=== PATIENT | male | born 1960 | race Caucasian/White ===

== ENCOUNTER 2020-03-09 15:40 | Emergency (ER) | payer MEDICAID, SELFPAY ==
[2020-03-09 16:37] VITALS: BP 124/77; BP 92/60; PULSE 65; PULSE 67; RESP 20; TEMP 36.5; O2SAT 97; BMI 24.1
--- NOTE | 2020-03-09 17:27 | ED.GENADULT ---
HPI - General Adult General Chief complaint: General Medical Stated complaint: FALL FROM STANDING,NO C/O INJURY,ETOH INTOX Time Seen by Provider: 03/09/20 17:27 History of Present Illness HPI narrative: Patient was daily drinker complains of left shoulder pain neck pain and head pain after a slip and fall on the ice while trying to get on a bus which happened several hours ago He has had difficulties with balance for a long time and walks with either a walker or cane today he was using his cane He has said he did not have any preceding symptoms, he did not faint, he says he tripped on the sidewalk and fell, he denies loss of consciousness, he does have a mild headache Related Data Allergies Allergy/AdvReac Type Severity Reaction Status Date / Time Penicillins Allergy Mild SWELLING Verified 03/09/20 16:52 morphine [Morphine] AdvReac Mild SWELLING, Verified 03/09/20 16:52 ITCHING codeine [Codeine] AdvReac Unknown ITCHING, Verified 03/09/20 16:52 HIVES From Avelox Allergy Mild HIVES Uncoded 11/14/19 17:20 Review of Systems Review of Systems: Positive for mild headache, left-sided neck pain, left shoulder and arm pain No numbness no weakness no paresthesias, no nausea or vomiting, no vision changes, no chest pain no shortness of breath no abdominal pain no recent fever chills Yes all other systems are reviewed and are negative FOR[facility]LY [facility], LATER [facility] Past Medical History Attestation statement: The following information was validated with the patient. [facility], [facility] Narrative: Patient has history of epilepsy for which she takes Dilantin and is compliant with his meds, he has high blood pressure as well, he denies taking any blood thinner except aspirin He is a daily drinker of alcohol Social History Social History Advance Directives: No Advance Directives Information Provided: Yes Physical Exam Vital Signs: Vital Signs: Last Vital Signs Temp 97.7 F 03/09/20 16:37 Pulse 65 03/09/20 16:37 Resp 20 03/09/20 16:37 BP 92/60 03/09/20 16:37 Pulse Ox 97 03/09/20 16:37 Body Mass Index 24.1 General appearance no distress, comfortable in his chair, appears mildly intoxicated with speech mildly slurred The head is normocephalic atraumatic, pupils equal round reactive to light extraocular motions intact The neck had left-sided as well as midline nonfocal tenderness, there was left trapezius tenderness The chest was clear to auscultation bilaterally with symmetric equal breath sounds, no tenderness to the ribs or the chest wall The heart no murmurs The back there is no tenderness along the bones of the spine, no CVA tenderness Abdomen was soft nontender Extremities there was tenderness to the left mid humerus upper humerus and left shoulder Gait was tested but patient was off balance and was not walking safely even with assistance of his cane Course Course Course Narrative: CT of head and neck did not reveal any acute pathology X-rays of left shoulder and upper arm did not reveal any fractures Patient appears more sober than earlier and is much more communicative and is cooperative Case is signed out to physician recruitment assistant Roberto to follow labs re-evaluate and dispo patient Medical Decision Making Lab Data Lab results reviewed: Yes I reviewed the patient's lab results. Result diagrams: 03/09/20 20:22 03/09/20 20:22 Labs: Lab Results 03/09/20 03/09/20 03/09/20 Range/Units 20:22 20:22 20:22 WBC 5.4 (4.8-10.8) X10*3/uL RBC 3.91 L (4.60-5.80) X10*6/uL Hgb 12.0 L (14.0-18.0) g/dl Hct 36.5 L (42-52) % MCV 93.4 (80-98) fL MCH 30.7 (27.0-33.0) pg MCHC 32.9 (31.0-36.0) g/dl RDW 15.0 (11.0-16.0) % Plt Count TNP MPV 9.4 (9.4-12.4) fL Immature Gran % (Auto) 0.2 (0.0-0.4) % Neut % (Auto) 30.8 L (45-73) % Lymph % (Auto) 57.7 H (20-40) % [place] % (Auto) 5.6 (2-11) % Eos % (Auto) 5.0 H (0-4) % Baso % (Auto) 0.7 (0-2) % Lymph # (Auto) 3.1 (1.2-4.9) X10*3/uL [place] # (Auto) 0.3 (0.1-1.2) X10*3/uL Eos # (Auto) 0.3 (0.0-0.4) X10*3/uL Baso # (Auto) 0.0 (0.0-0.2) X10*3/uL Abs Immat Gran (auto) 0.01 (0.00-0.03) X10*3/uL Absolute Neuts (auto) 1.7 L (2.0-8.3) X10*3/uL Absolute Nucleated RBC 0.000 (0.0-0.012) X10*3/uL Nucleated RBC % (auto) 0.0 (0.0-0.2) /100WBC Smear Tech's Comments VERIFIED PT 11.7 (10.8-13.0) SEC INR 1.0 (0.9-1.1) Sodium 143 (135-145) mmol/L Potassium 4.4 (3.3-5.1) mmol/l Chloride 105 (96-108) mmol/L Carbon Dioxide 29 (22-29) mmol/L Anion Gap 13 (12-20) BUN 14 (9-16) mg/dL Creatinine 0.83 (0.5-1.4) mg/dL Estim Creat Clear Calc 106.4 Estimated GFR > 60 Random Glucose 97 (60-115) mg/dL Calcium 8.9 (8.4-10.2) mg/dL Magnesium 2.3 (1.6-2.6) mg/dL Total Bilirubin 0.2 (0.0-1.0) mg/dL Direct Bilirubin < 0.2 (0.0-0.5) mg/dL AST 19 (5-37) U/L ALT 15 (0-40) U/L Alkaline Phosphatase 135 H (39-117) U/L Total Protein 8.0 (6.5-8.0) g/dL Albumin 4.4 (3.5-5.0) g/dL Imaging Data CT scan - head: Radiologist's impression: Cervical Spine: The atlantooccipital and atlantoaxial articulations remain well aligned. Mild degenerative anterolisthesis of C4 on C5. Otherwise, there is anatomic alignment of the vertebral bodies and posterior elements. No evidence of acute fracture or subluxation. The vertebral body heights are maintained. Advanced degenerative disc disease at C5-C6. Moderate degenerative disc disease at all additional cervical levels. Prominent partially calcified disc bulges at all levels from C3-C7, partially narrowing the spinal canal. There is also calcification of the right-sided ligamentum flavum at C5-C6. Moderate multilevel facet and uncovertebral joint arthropathy leads to osseous encroachment on the neural foramina from C3-C7. There is no prevertebral soft tissue swelling. The thyroid gland and remaining cervical soft tissues are normal in appearance. Moderate centrilobular emphysema demonstrated in the visualized lung apices. CT/CT cervical spine wo con IMPRESSION: 1. No evidence of acute intracranial hemorrhage or edematous territorial infarction. 2. No evidence of acute fracture or traumatic subluxation of the cervical spine. 3. Extensive underlying white matter disease. Mild generalized cerebral volume loss. 4. Moderate multilevel degenerative spondyloarthropathy of the cervical spine. Moderate partially calcified disc bulges at all levels from C3-C7 partially narrowing the spinal canal. 5. Emphysema.
--- NOTE | 2020-03-09 17:28 | XR_ITS ---
EXAMINATION: LEFT SHOULDER, LEFT HUMERUS CLINICAL INFORMATION: Shoulder and arm pain COMPARISON: Left shoulder 06/21/2019, left humerus 11/13/2018 TECHNIQUE: 2 views left humerus, 3 views left shoulder FINDINGS: No significant bone joint or soft tissue abnormality is seen. XR/XR shoulder LT min 2V IMPRESSION: Negative exam
--- NOTE | 2020-03-09 17:28 | XR_ITS ---
EXAMINATION: LEFT SHOULDER, LEFT HUMERUS CLINICAL INFORMATION: Shoulder and arm pain COMPARISON: Left shoulder 06/21/2019, left humerus 11/13/2018 TECHNIQUE: 2 views left humerus, 3 views left shoulder FINDINGS: No significant bone joint or soft tissue abnormality is seen. XR/XR humerus LT IMPRESSION: Negative exam
--- NOTE | 2020-03-09 17:29 | CT_ITS ---
EXAMINATION: CT HEAD WITHOUT CONTRAST CT CERVICAL SPINE WITHOUT CONTRAST CLINICAL INFORMATION: Fall. COMPARISON: CT head and cervical spine from 01/17/2020. TECHNIQUE: Contiguous axial imaging was performed from the skull base to vertex without intravenous administration of contrast. Contiguous axial imaging was performed from the upper chest through the skull base without intravenous administration of contrast. Coronal and sagittal reformats were obtained at the acquisition workstation. This CT examination was performed using dose optimization techniques as appropriate, variously including the following: *Automated exposure control. *Adjustment of mA and/or kV according to patient size (this includes techniques or standardized protocols for targeted exams where dose is matched to indication/reason for exam; i.e. extremities or head). *Use of iterative reconstruction technique. DLP: 1173 mGy-cm FINDINGS: Head: There is no evidence of acute intracranial hemorrhage or edematous territorial infarction. Confluent hypoattenuation in the periventricular and deep white matter. Seay-white matter differentiation is preserved. Proportional prominence of the ventricles and sulcal spaces. No evidence for obstructive hydrocephalus. No abnormal mass effect or midline shift. No extra-axial fluid collections. Calcific atherosclerotic disease of the intracranial internal carotid arteries. No hyperdense vessel sign. No acute soft tissue or osseous abnormalities. Mild mucosal thickening of the paranasal sinuses. Trace bilateral mastoid effusions. Cervical Spine: The atlantooccipital and atlantoaxial articulations remain well aligned. Mild degenerative anterolisthesis of C4 on C5. Otherwise, there is anatomic alignment of the vertebral bodies and posterior elements. No evidence of acute fracture or subluxation. The vertebral body heights are maintained. Advanced degenerative disc disease at C5-C6. Moderate degenerative disc disease at all additional cervical levels. Prominent partially calcified disc bulges at all levels from C3-C7, partially narrowing the spinal canal. There is also calcification of the right-sided ligamentum flavum at C5-C6. Moderate multilevel facet and uncovertebral joint arthropathy leads to osseous encroachment on the neural foramina from C3-C7. There is no prevertebral soft tissue swelling. The thyroid gland and remaining cervical soft tissues are normal in appearance. Moderate centrilobular emphysema demonstrated in the visualized lung apices. CT/CT cervical spine wo con IMPRESSION: 1. No evidence of acute intracranial hemorrhage or edematous territorial infarction. 2. No evidence of acute fracture or traumatic subluxation of the cervical spine. 3. Extensive underlying white matter disease. Mild generalized cerebral volume loss. 4. Moderate multilevel degenerative spondyloarthropathy of the cervical spine. Moderate partially calcified disc bulges at all levels from C3-C7 partially narrowing the spinal canal. 5. Emphysema.
--- NOTE | 2020-03-09 19:25 | PC.NURSE ---
Pt ambulating to the bathroom with an unsteady gait, requiring 2 assist. Per provider, plan for labs. Continue to monitor.
--- NOTE | 2020-03-09 20:08 | PC.NURSE ---
a/c tech at bedside to obtain labs.
[2020-03-09 20:33] LABS: Basophils Percent Auto 0.7 % (0-2); Eosinophils Absolute Auto 0.3 X10*3/uL (0.0-0.4); Hematocrit 36.5 % (42-52); Imm Gran Abs Auto 0.01 X10*3/uL (0.00-0.03); Imm Gran Pct Auto 0.2 % (0.0-0.4); Lymphocytes Absolute Auto 3.1 X10*3/uL (1.2-4.9); Lymphocytes Percent Auto 57.7 % (20-40); MANUAL DIFF FLAG SCAN; Mean Corpuscular HGB Conc 32.9 g/dl (31.0-36.0); Mean Corpuscular Hemoglobin 30.7 pg (27.0-33.0); Mean Corpuscular Volume 93.4 fL (80-98); Mean Platelet Volume 9.4 fL (9.4-12.4); Monocytes Absolute Auto 0.3 X10*3/uL (0.1-1.2); Monocytes Percent Auto 5.6 % (2-11); Neutrophils Absolute Auto 1.7 X10*3/uL (2.0-8.3); Neutrophils Percent Auto 30.8 % (45-73); PLT CLUMP 1; Red Blood Count 3.91 X10*6/uL (4.60-5.80); SCAN SMEAR FLAG 1
[2020-03-09 20:36] LABS: Prothrombin Time 11.7 SEC (10.8-13.0)
[2020-03-09 20:53] LABS: Alanine Aminotransferase 15 U/L (0-40); Albumin Level 4.4 g/dL (3.5-5.0); Alkaline Phosphatase 135 U/L (39-117); Anion Gap 13 (12-20); Aspartate Amino Transferase 19 U/L (5-37); Bilirubin Direct < 0.2 mg/dL (0.0-0.5); Bilirubin Total 0.2 mg/dL (0.0-1.0); Blood Urea Nitrogen 14 mg/dL (9-16); Calcium 8.9 mg/dL (8.4-10.2); Carbon Dioxide 29 mmol/L (22-29); Chloride 105 mmol/L (96-108); Creatinine Clr Calc Pharmacy 106.4; Estimated Glomerular Filt Rate > 60; Glucose Random 97 mg/dL (60-115); Magnesium 2.3 mg/dL (1.6-2.6); Potassium 4.4 mmol/l (3.3-5.1); Sodium 143 mmol/L (135-145)
[2020-03-09 20:56] LABS: White Blood Count 5.4 X10*3/uL (4.8-10.8)
[2020-03-09 20:58] LABS: SLIDE REVIEW VERIFIED
[2020-03-09 21:09] LABS: Phenytoin Dilantin 7.2 ug/mL (10.0-20.0)
[2020-03-09 21:41] VITALS: BP 108/68; PULSE 69; RESP 20; O2SAT 99
[2020-03-09 21:53] LABS: Ethanol 182 mg/dL
[2020-03-10] VITALS: BP 107/52; PULSE 83; RESP 18; TEMP 36.7; O2SAT 97
[2020-03-10 02:33] VITALS: BP 119/67; PULSE 80; RESP 14; O2SAT 96
--- NOTE | 2020-03-10 02:33 | PC.NURSE ---
Pt resting in chair at this time, denies pain/discomfort. Per PA, plan for PO Dilantin and DC home.
--- NOTE | 2020-03-10 02:43 | PC.NURSE ---
Pt medicated with Dilantin, aware of pending DC.
--- NOTE | 2020-03-10 03:40 | PC.NURSE ---
Pt ambulating to the bathroom with a steady gait, provided with DC paperwork.
== END 2020-03-10 03:55 | disposition home or self-care (01) ==
PROVIDERS: Physician Assistant Medical; Emergency Provider Emergency Medicine
DX: F10.120 Alcohol abuse with intoxication, uncomplicated (principal); Y90.6 Blood alcohol level of 120-199 mg/100 ml; Z91.81 History of falling; G89.11 Acute pain due to trauma; M25.512 Pain in left shoulder; M54.2 Cervicalgia; I10 Essential (primary) hypertension
CPT/HCPCS: 36415; 70450; 72125; 73030; 73060; 80053; 80076; 80185; 80320; 82248; 83735; 85025; 85610; 99284

== ENCOUNTER 2020-05-26 18:22 | Inpatient (IN) | payer MEDICAID, SELFPAY ==
--- NOTE | ~2020-05-26 | CT_ITS ---
EXAMINATION: CT CHEST WITHOUT CONTRAST CLINICAL INFORMATION: Rib fracture. Trauma. COMPARISON: CT of chest July 09, 2018 TECHNIQUE: Multidetector volumetric CT imaging of the chest was done. Axial MIP volume rendering provided. Sagittal and coronal reformatted images were obtained. This CT examination was performed using dose optimization techniques as appropriate, variously including the following: *Automated exposure control *Adjustment of mA and/or kV according to patient size (this includes techniques or standardized protocols for targeted exams where dose is matched to indication/reason for exam; i.e. extremities or head) *Use of iterative reconstruction technique DLP: 331 mGy-cm FINDINGS: LUNGS: . Stable chronic changes of chest. There is moderate centrilobular emphysematous changes of lungs. This includes group of chronic small lung cyst in the posterior right lower lobe with chronic interstitial reticulation in the surrounding lung. There is chronic subpleural linear scarring at the posterior right lung base. No suspicious lung nodule. There is no acute airspace disease. The central bronchial airways are open. MEDIASTINUM: There is no mediastinal mass or significant lymphadenopathy. The heart size is normal. There is no pericardial effusion. PLEURA: There is no pleural effusion. No pleural mass or thickening. Stable chronic small pleural calcifications at the right diaphragm. AXILLA: No lymphadenopathy. UPPER ABDOMEN: IVC filter present. There is a 1 mm calcification at the marty hepatis which is likely vascular. This is unchanged since CAT scan July 09, 2018. There is mild low-attenuation of liver parenchyma due to fatty change. No focal liver lesion. The visualized portions of spleen, pancreas, kidneys and adrenal glands are normal. OSSEOUS STRUCTURES: There is a nondisplaced fracture of the left anterior seventh rib. CT/CT chest wo con IMPRESSION: 1. Nondisplaced fracture of the left anterior seventh rib. 2. Centrilobular emphysematous change of lungs. Chronic scarring at posterior right lung base.
--- NOTE | ~2020-05-26 | XR_ITS ---
EXAMINATION: XR ANKLE, RIGHT CLINICAL INFORMATION: Wound COMPARISON: Right lower leg November 25, 2016 TECHNIQUE: 4 views of the right ankle. FINDINGS: There is chronic soft tissue ulceration over the distal lateral leg adjacent to the fibula. This is unchanged since prior exam of 2017. The fibular shaft shows chronic thickened periosteal reaction. This involves the entire visualized shaft of the fibula and this ankle view. This is unchanged since the exam of November 25, 2016. There is no acute cortical bone destruction to suggest acute osteomyelitis. Differential diagnosis would include chronic venous stasis versus chronic osteomyelitis. There is stable mild coarse ossified periosteal reaction at the metadiaphysis of the tibia at the medial side of the ankle. This is unchanged since 2017. XR/XR ankle RT 2V IMPRESSION: 1. Chronic periosteal reaction of the fibula unchanged since November 25, 2016. Differential differential diagnosis would include chronic venous stasis versus chronic osteomyelitis. 2. Soft tissue ulceration over the distal fibula similar prior study 2017.
--- NOTE | ~2020-05-26 | XR_ITS ---
EXAMINATION: XR CHEST CLINICAL INFORMATION: Left-sided chest pain status post fall COMPARISON: Chest and RIBS 10/09/2019 TECHNIQUE: Frontal view of the chest was obtained. FINDINGS: There is a tiny bit of blunting of the right costophrenic angle laterally and a tiny effusion may be present. Otherwise, no significant abnormality is noted involving the heart, lungs, mediastinum, bony thorax or soft tissues. XR/XR chest 1V IMPRESSION: Unremarkable examination aside from possible trace right pleural effusion.
--- NOTE | ~2020-05-26 | CT_ITS ---
EXAMINATION: CT OF THE HEAD AND CERVICAL SPINE WITHOUT CONTRAST CLINICAL INFORMATION: fall, head strike . COMPARISON: 03/09/2020. TECHNIQUE: Contiguous axial imaging was performed from the skull base to vertex. Soft tissue and bony algorithms were evaluated. Coronal reformatted images were obtained on the technologist's workstation. Following this, multiple serial thin slice helical CT scan images through the cervical spine were obtained. Soft tissue and bony algorithms were evaluated. Coronal and sagittal reformatted images were obtained on the technologist workstation. This CT examination was performed using dose optimization techniques as appropriate, variously including the following: *Automated exposure control *Adjustment of mA and/or kV according to patient size (this includes techniques or standardized protocols for targeted exams where dose is matched to indication/reason for exam; i.e. extremities or head) *Use of iterative reconstruction technique DLP: 1205 mGy cm FINDINGS: Head CT: The ventricles and sulcal spaces are symmetrically prominent consistent with age-related atrophic changes similar to the prior study. There is extensive periventricular white matter change likely representing underlying small vessel ischemic change similar to the prior study as well. There is no evidence of acute intracranial hemorrhage or territorial infarction. No abnormal mass-effect or midline shift is seen. Seay to white matter differentiation is otherwise well preserved. No extra-axial fluid collections are identified. The osseous structures and soft tissues are normal. Small amount of fluid seen in the right mastoid air cells. The visualized portions of the paranasal sinuses are well-aerated. Cervical spine CT: No prevertebral soft tissue swelling is appreciated. The bones are in normal anatomic alignment with no acute fracture or spondylolisthesis. Multilevel degenerative changes are again seen with osteophyte formation more so at C5 6/7. Disc osteophyte complexes and other chronic degenerative ossifications are seen. Posterior elements are unremarkable. Visualized airway and lung apices are unremarkable. Visualized thyroid gland unremarkable. CT/CT cervical spine wo con IMPRESSION: Head CT: Extensive chronic appearing changes similar to the prior study. I do not appreciate any acute hemorrhage or mass lesion. No shift of mediastinal structures. C-spine: Multilevel degenerative changes similar to the prior examination but no acute bony abnormality.
[2020-05-26 18:47] VITALS: BP 140/80; PULSE 82
--- NOTE | 2020-05-26 18:48 | ECG_ITS ---
Test Reason : REPEAT Blood Pressure : / mmHG Vent. Rate : 106 BPM Atrial Rate : 106 BPM P-R Int : 140 ms QRS Dur : 094 ms QT Int : 326 ms P-R-T Axes : 057 -35 057 degrees QTc Int : 433 ms Sinus tachycardia Possible Left atrial enlargement Left axis deviation Left ventricular hypertrophy Abnormal ECG When compared with ECG of 08-OCT-2019 09:31, T wave inversion no longer evident in Inferior leads Referred By: Tamela Og Electronically Signed By:Rafat Haider
--- NOTE | 2020-05-26 18:48 | ED.ALCOHOL ---
HPI - Alcohol General Chief Complaint: Fall Stated Complaint: fall with head strike no LOC & right leg infection Time Seen by Provider: 05/26/20 22:03 Source: patient and EMS Mode of arrival: EMS Limitations: no limitations History of Present Illness HPI narrative: 59-year-old male with past medical history of substance abuse, homelessness, and chronic lower extremity wound presents via EMS for alcohol intoxication, fall with head trauma, and worsening of right lower extremity wound. He states that his wound has swelling very bad over the past few days, has been seen by DR Jett several times for grafting. He does have a bump to the back of his head, states to have had several nips and beers today. He does not describe any symptoms indicating withdrawal, states to have left-sided chest pain as well. He reports chest pain, chest pain on inspiration, headache, bump to the right side of the head, and chronic wound with pain. He denies fevers, chills, abdominal distention, dysuria, hematuria, and edema. MD complaint: alcohol intoxication Last drink: Just prior to admission Chronic alcohol use: Yes Previous visits for alcohol intoxication: Yes Recent trauma: Yes Treatments prior to arrival: none Related Data Home Medications Medication Instructions Recorded Confirmed acamprosate 2 tab PO TID 05/26/20 05/26/20 aspirin 1 tab PO DAILY 05/26/20 05/26/20 diazepam 1 tab PO BEDTIME PRN 05/26/20 05/26/20 gabapentin 1 cap PO BID 05/26/20 05/26/20 hydroxyzine HCl 1 tab PO BID 05/26/20 05/26/20 ibuprofen 1 tab PO TID 05/26/20 05/26/20 multivitamin [One Daily 1 tab PO DAILY 05/26/20 05/26/20 Multivitamin] omeprazole 1 cap PO DAILY 05/26/20 05/26/20 pentoxifylline 1 tab PO TID 05/26/20 05/26/20 phenytoin sodium extended 1 cap PO TID 05/26/20 05/26/20 quetiapine 2 tab PO BEDTIME 05/26/20 05/26/20 sertraline 1 tab PO DAILY 05/26/20 05/26/20 Allergies Allergy/AdvReac Type Severity Reaction Status Date / Time moxifloxacin Allergy Mild Hives Verified 05/27/20 00:50 Penicillins Allergy Mild SWELLING Verified 03/10/20 14:34 morphine [Morphine] AdvReac Mild SWELLING, Verified 03/10/20 14:34 ITCHING codeine [Codeine] AdvReac Unknown ITCHING, Verified 03/10/20 14:34 HIVES Review of Systems Review of Systems: Constitutional: No Fever, No Chills ENT/Mouth: No Ear Pain, No Hoarseness, No sore throat Eyes: No Eye Pain, No Swelling, No Redness, No Foreign Body Cardiovascular: Positive Chest Pain, No SOB Respiratory: No Cough, No Dyspnea Gastrointestinal: No Nausea, No Vomiting, No Diarrhea, No abdominal Pain Genitourinary: No Dysuria, No Hematuria Musculoskeletal: positive headache pain, No Myalgias, No Joint Swelling Skin: Positive chronic wound to the right lower extremity worsening, No Skin lacerations, No rash Neuro: No Weakness, No Numbness, No Paresthesias, No Loss of Consciousness, No Dizziness, No Headache Psych: Positive ETOH abuse, No Anxiety/Panic, No Depression Heme/Lymph: no easy bruising, no Lymphadenopathy Endocrine: No Polyuria, No Polydipsia Yes all other systems are reviewed and are negative [facility] Past Medical History Attestation statement: The following information was validated with the patient. Source: old records reviewed Social History Social History Alcohol intake: current Alcohol intake frequency: 3 or more drinks per day Smoking Status: Never smoker Use of substances other than those prescribed or required for medical reasons: No Advance Directives: No Physical Exam Vital Signs: Vital Signs: Last Vital Signs Temp 98.9 F 05/26/20 22:56 Pulse 108 H 05/26/20 22:56 Resp 18 05/26/20 22:56 BP 124/62 05/26/20 22:56 Pulse Ox 98 05/26/20 22:56 Body Mass Index 27.5 Appearance: Alert. Oriented X3. Mild distress. Disheveled, poor hygiene, smells like urine, Intoxicated, abrasion to the right occiput with hematoma Eyes: Pupils equal, round and reactive to light. EOMI, sclera nonicteric ENT: Pharynx normal. Cranial nerves 2-12 intact Neck: Normal inspection. Neck supple. No vertebral tenderness CVS: Normal heart rate and rhythm. Regular rate and rhythm, chest wall tenderness to palpation greater on the left than the right Respiratory: No respiratory distress. Lung sounds clear to auscultation all lobes Abdomen: Soft and nontender. Skin: Large chronic wound to right lower extremity, refer to picture, skin flaking and peeling to bilateral feet, Skin warm and dry. Normal skin color. Normal skin turgor. Extremities: Right lower extremity edema consistent with chronic wound, moves all extremities against resistance, strength 5/5 Neuro: No motor deficit. No sensory deficit. Cranial nerves 2-12 intact, Skin: Other: Course Course Course Narrative: 59-year-old male presents with ETOH intoxication, fall with head trauma, chest pain, and chronic wound. Will order CT scan of head, cervical spine, and chest x-ray and right lower extremity x-ray. Patient highly suspicious for osteomyelitis, as he has had this chronically in the, x-ray does indicate osteo. CT scan of the head and cervical spine are negative for acute findings. Chest x-ray negative. Will order CT scan. CBC Chem 7 within normal limits, patient is not septic. We will give vancomycin and ceftriaxone for osteomyelitis. CT scan positive for 7th nondisplaced rib fracture. ETOH level 199. COVID test is negative. EKGs do not indicate ST elevation or depression. Troponins are negative. Discussion with hospitalist regarding plan of care to admit for osteomyelitis, rib fracture, and alcohol intoxication. Consultations Consultation #1: liliya Time: 01:00 MDM - Alcohol MDM Narrative Medical decision making narrative: CVA, subdural, pneumonia, osteomyelitis, rib fractures Differential Diagnosis Differential diagnosis: Likely alcohol dependence, alcohol withdrawal delirium and alcohol intoxication Medical Records Attestation: I reviewed the patient's medical records. Lab Data Attestation: I reviewed the patient's lab results. Result diagrams: 05/26/20 19:29 05/26/20 19:29 Labs: Lab Results 05/26/20 05/26/20 05/26/20 Range/Units 19:29 19:29 19:29 WBC 7.0 (4.8-10.8) X10*3/uL RBC 3.98 L (4.60-5.80) X10*6/uL Hgb 12.4 L (14.0-18.0) g/dl Hct 37.3 L (42-52) % MCV 93.7 (80-98) fL MCH 31.2 (27.0-33.0) pg MCHC 33.2 (31.0-36.0) g/dl RDW 14.9 (11.0-16.0) % Plt Count 185 (160-400) X10*3/uL MPV 8.7 L (9.4-12.4) fL Immature Gran % (Auto) 0.4 (0.0-0.4) % Neut % (Auto) 54.8 (45-73) % Lymph % (Auto) 35.9 (20-40) % [facility] % (Auto) 6.8 (2-11) % Eos % (Auto) 1.4 (0-4) % Baso % (Auto) 0.7 (0-2) % Lymph # (Auto) 2.5 (1.2-4.9) X10*3/uL [facility] # (Auto) 0.5 (0.1-1.2) X10*3/uL Eos # (Auto) 0.1 (0.0-0.4) X10*3/uL Baso # (Auto) 0.1 (0.0-0.2) X10*3/uL Abs Immat Gran (auto) 0.03 (0.00-0.03) X10*3/uL Absolute Neuts (auto) 3.8 (2.0-8.3) X10*3/uL Absolute Nucleated RBC 0.000 (0.0-0.012) X10*3/uL Nucleated RBC % (auto) 0.0 (0.0-0.2) /100WBC PT 11.5 (10.8-13.0) SEC INR 1.0 (0.9-1.1) APTT 36.1 (24.1-38.0) SEC Sodium 141 (135-145) mmol/L Potassium 3.9 (3.3-5.1) mmol/L Chloride 101 (96-108) mmol/L Carbon Dioxide 26 (22-29) mmol/L Anion Gap 18 (12-20) BUN 7 L (9-16) mg/dL Creatinine 0.67 (0.5-1.4) mg/dL Estim Creat Clear Calc 121.6 Estimated GFR > 60 Random Glucose 100 (60-115) mg/dL Lactic Acid (0.5-2.0) mmol/L Calcium 8.6 (8.4-10.2) mg/dL Total Bilirubin 0.3 (0.0-1.0) mg/dL Direct Bilirubin 0.2 (0.0-0.5) mg/dL AST 39 H D (5-37) U/L ALT 38 (0-40) U/L Alkaline Phosphatase 210 H D (39-117) U/L Troponin I High Sens (<3.5-35.0) ng/L Total Protein 8.0 (6.5-8.0) g/dL Albumin 4.0 (3.5-5.0) g/dL Lipase 31 (8-78) U/L Urine Color Urine Appearance Urine pH (5.0-8.0) Ur Specific [place] (1.005-1.025) Urine Protein (NEG-TRACE) MG/DL Urine Glucose (UA) (NEG) MG/DL Urine Ketones (NEG) MG/DL Urine Blood (NEG) Urine Nitrite (NEG) Ur Leukocyte Esterase (NEG) Ethyl Alcohol mg/dL COVID-19 ([facility]) (Negative) COVID-19 Clin Com 05/26/20 05/26/20 05/26/20 Range/Units 19:29 19:29 19:29 WBC (4.8-10.8) X10*3/uL RBC (4.60-5.80) X10*6/uL Hgb (14.0-18.0) g/dl Hct (42-52) % MCV (80-98) fL MCH (27.0-33.0) pg MCHC (31.0-36.0) g/dl RDW (11.0-16.0) % Plt Count (160-400) X10*3/uL MPV (9.4-12.4) fL Immature Gran % (Auto) (0.0-0.4) % Neut % (Auto) (45-73) % Lymph % (Auto) (20-40) % [facility] % (Auto) (2-11) % Eos % (Auto) (0-4) % Baso % (Auto) (0-2) % Lymph # (Auto) (1.2-4.9) X10*3/uL [facility] # (Auto) (0.1-1.2) X10*3/uL Eos # (Auto) (0.0-0.4) X10*3/uL Baso # (Auto) (0.0-0.2) X10*3/uL Abs Immat Gran (auto) (0.00-0.03) X10*3/uL Absolute Neuts (auto) (2.0-8.3) X10*3/uL Absolute Nucleated RBC (0.0-0.012) X10*3/uL Nucleated RBC % (auto) (0.0-0.2) /100WBC PT (10.8-13.0) SEC INR (0.9-1.1) APTT (24.1-38.0) SEC Sodium (135-145) mmol/L Potassium (3.3-5.1) mmol/L Chloride (96-108) mmol/L Carbon Dioxide (22-29) mmol/L Anion Gap (12-20) BUN (9-16) mg/dL Creatinine (0.5-1.4) mg/dL Estim Creat Clear Calc Estimated GFR Random Glucose (60-115) mg/dL Lactic Acid 2.0 (0.5-2.0) mmol/L Calcium (8.4-10.2) mg/dL Total Bilirubin (0.0-1.0) mg/dL Direct Bilirubin (0.0-0.5) mg/dL AST (5-37) U/L ALT (0-40) U/L Alkaline Phosphatase (39-117) U/L Troponin I High Sens 3.9 (<3.5-35.0) ng/L Total Protein (6.5-8.0) g/dL Albumin (3.5-5.0) g/dL Lipase (8-78) U/L Urine Color Urine Appearance Urine pH (5.0-8.0) Ur Specific [place] (1.005-1.025) Urine Protein (NEG-TRACE) MG/DL Urine Glucose (UA) (NEG) MG/DL Urine Ketones (NEG) MG/DL Urine Blood (NEG) Urine Nitrite (NEG) Ur Leukocyte Esterase (NEG) Ethyl Alcohol 199 mg/dL COVID-19 ([facility]) (Negative) COVID-19 Clin Com 05/26/20 05/26/20 05/26/20 Range/Units 19:56 22:51 22:51 WBC (4.8-10.8) X10*3/uL RBC (4.60-5.80) X10*6/uL Hgb (14.0-18.0) g/dl Hct (42-52) % MCV (80-98) fL MCH (27.0-33.0) pg MCHC (31.0-36.0) g/dl RDW (11.0-16.0) % Plt Count (160-400) X10*3/uL MPV (9.4-12.4) fL Immature Gran % (Auto) (0.0-0.4) % Neut % (Auto) (45-73) % Lymph % (Auto) (20-40) % [facility] % (Auto) (2-11) % Eos % (Auto) (0-4) % Baso % (Auto) (0-2) % Lymph # (Auto) (1.2-4.9) X10*3/uL [facility] # (Auto) (0.1-1.2) X10*3/uL Eos # (Auto) (0.0-0.4) X10*3/uL Baso # (Auto) (0.0-0.2) X10*3/uL Abs Immat Gran (auto) (0.00-0.03) X10*3/uL Absolute Neuts (auto) (2.0-8.3) X10*3/uL Absolute Nucleated RBC (0.0-0.012) X10*3/uL Nucleated RBC % (auto) (0.0-0.2) /100WBC PT (10.8-13.0) SEC INR (0.9-1.1) APTT (24.1-38.0) SEC Sodium (135-145) mmol/L Potassium (3.3-5.1) mmol/L Chloride (96-108) mmol/L Carbon Dioxide (22-29) mmol/L Anion Gap (12-20) BUN (9-16) mg/dL Creatinine (0.5-1.4) mg/dL Estim Creat Clear Calc Estimated GFR Random Glucose (60-115) mg/dL Lactic Acid (0.5-2.0) mmol/L Calcium (8.4-10.2) mg/dL Total Bilirubin (0.0-1.0) mg/dL Direct Bilirubin (0.0-0.5) mg/dL AST (5-37) U/L ALT (0-40) U/L Alkaline Phosphatase (39-117) U/L Troponin I High Sens 3.6 (<3.5-35.0) ng/L Total Protein (6.5-8.0) g/dL Albumin (3.5-5.0) g/dL Lipase (8-78) U/L Urine Color YELLOW Urine Appearance CLEAR Urine pH 6.5 (5.0-8.0) Ur Specific [place] <= 1.005 (1.005-1.025) Urine Protein NEG (NEG-TRACE) MG/DL Urine Glucose (UA) NEG (NEG) MG/DL Urine Ketones NEG (NEG) MG/DL Urine Blood NEG (NEG) Urine Nitrite NEG (NEG) Ur Leukocyte Esterase NEG (NEG) Ethyl Alcohol mg/dL COVID-19 ([facility]) Negative (Negative) COVID-19 Clin Com See Note Imaging Data Chest x-ray: Attestation: I personally reviewed and interpreted this imaging study as follows: Radiologist's impression: EXAMINATION: XR CHEST CLINICAL INFORMATION: Left-sided chest pain status post fall COMPARISON: Chest and RIBS 10/09/2019 TECHNIQUE: Frontal view of the chest was obtained. FINDINGS: There is a tiny bit of blunting of the right costophrenic angle laterally and a tiny effusion may be present. Otherwise, no significant abnormality is noted involving the heart, lungs, mediastinum, bony thorax or soft tissues. XR/XR chest 1V IMPRESSION: Unremarkable examination aside from possible trace right pleural effusion. Ankle x-ray: Attestation: I personally reviewed and interpreted this imaging study as follows: Radiologist's impression: EXAMINATION: XR ANKLE, RIGHT CLINICAL INFORMATION: Wound COMPARISON: Right lower leg November 25, 2016 TECHNIQUE: 4 views of the right ankle. FINDINGS: There is chronic soft tissue ulceration over the distal lateral leg adjacent to the fibula. This is unchanged since prior exam of 2016. The fibular shaft shows chronic thickened periosteal reaction. This involves the entire visualized shaft of the fibula and this ankle view. This is unchanged since the exam of November 25, 2016. There is no acute cortical bone destruction to suggest acute osteomyelitis. Differential diagnosis would include chronic venous stasis versus chronic osteomyelitis. There is stable mild coarse ossified periosteal reaction at the metadiaphysis of the tibia at the medial side of the ankle. This is unchanged since 2017. XR/XR ankle RT 2V IMPRESSION: 1. Chronic periosteal reaction of the fibula unchanged since November 25, 2016. Differential differential diagnosis would include chronic venous stasis versus chronic osteomyelitis. 2. Soft tissue ulceration over the distal fibula similar prior study 2017. Head cervical spine CT: Attestation: I personally reviewed and interpreted this imaging study as follows: Radiologist's impression: EXAMINATION: CT OF THE HEAD AND CERVICAL SPINE WITHOUT CONTRAST CLINICAL INFORMATION: fall, head strike . COMPARISON: 03/09/2020. TECHNIQUE: Contiguous axial imaging was performed from the skull base to vertex. Soft tissue and bony algorithms were evaluated. Coronal reformatted images were obtained on the technologist's workstation. Following this, multiple serial thin slice helical CT scan images through the cervical spine were obtained. Soft tissue and bony algorithms were evaluated. Coronal and sagittal reformatted images were obtained on the technologist workstation. This CT examination was performed using dose optimization techniques as appropriate, variously including the following: *Automated exposure control *Adjustment of mA and/or kV according to patient size (this includes techniques or standardized protocols for targeted exams where dose is matched to indication/reason for exam; i.e. extremities or head) *Use of iterative reconstruction technique DLP: 1205 mGy cm FINDINGS: Head CT: The ventricles and sulcal spaces are symmetrically prominent consistent with age-related atrophic changes similar to the prior study. There is extensive periventricular white matter change likely representing underlying small vessel ischemic change similar to the prior study as well. There is no evidence of acute intracranial hemorrhage or territorial infarction. No abnormal mass-effect or midline shift is seen. Seay to white matter differentiation is otherwise well preserved. No extra-axial fluid collections are identified. The osseous structures and soft tissues are normal. Small amount of fluid seen in the right mastoid air cells. The visualized portions of the paranasal sinuses are well-aerated. Cervical spine CT: No prevertebral soft tissue swelling is appreciated. The bones are in normal anatomic alignment with no acute fracture or spondylolisthesis. Multilevel degenerative changes are again seen with osteophyte formation more so at C5 6/7. Disc osteophyte complexes and other chronic degenerative ossifications are seen. Posterior elements are unremarkable. Visualized airway and lung apices are unremarkable. Visualized thyroid gland unremarkable. CT/CT head/brain wo con IMPRESSION: Head CT: Extensive chronic appearing changes similar to the prior study. I do not appreciate any acute hemorrhage or mass lesion. No shift of mediastinal structures. C-spine: Multilevel degenerative changes similar to the prior examination but no acute bony abnormality. CT scan - chest: Attestation: I personally reviewed and interpreted this imaging study as follows: Radiologist's impression: [address] [id number] Scan ReportSigned Patient: Jie Crowell#: [id number]: 2Acct:[id number]/Sex: 59 / MADM Date: 05/26/20Loc: [email or web address] Dr: Ordering Physician: CRISS OG NP Date of Service: 05/26/20 Procedure(s): CT chest wo con Accession Number(s): [id number] cc: CRISS OG NP~ EXAMINATION: CT CHEST WITHOUT CONTRAST CLINICAL INFORMATION: Rib fracture. Trauma. COMPARISON: CT of chest July 09, 2018 TECHNIQUE: Multidetector volumetric CT imaging of the chest was done. Axial MIP volume rendering provided. Sagittal and coronal reformatted images were obtained. This CT examination was performed using dose optimization techniques as appropriate, variously including the following: *Automated exposure control *Adjustment of mA and/or kV according to patient size (this includes techniques or standardized protocols for targeted exams where dose is matched to indication/reason for exam; i.e. extremities or head) *Use of iterative reconstruction technique DLP: 331 mGy-cm FINDINGS: LUNGS: . Stable chronic changes of chest. There is moderate centrilobular emphysematous changes of lungs. This includes group of chronic small lung cyst in the posterior right lower lobe with chronic interstitial reticulation in the surrounding lung. There is chronic subpleural linear scarring at the posterior right lung base. No suspicious lung nodule. There is no acute airspace disease. The central bronchial airways are open. MEDIASTINUM: There is no mediastinal mass or significant lymphadenopathy. The heart size is normal. There is no pericardial effusion. PLEURA: There is no pleural effusion. No pleural mass or thickening. Stable chronic small pleural calcifications at the right diaphragm. AXILLA: No lymphadenopathy. UPPER ABDOMEN: IVC filter present. There is a 1 mm calcification at the marty hepatis which is likely vascular. This is unchanged since CAT scan July 09, 2018. There is mild low-attenuation of liver parenchyma due to fatty change. No focal liver lesion. The visualized portions of spleen, pancreas, kidneys and adrenal glands are normal. OSSEOUS STRUCTURES: There is a nondisplaced fracture of the left anterior seventh rib. CT/CT chest wo con IMPRESSION: 1. Nondisplaced fracture of the left anterior seventh rib. 2. Centrilobular emphysematous change of lungs. Chronic scarring at posterior right lung base. Critical Care Time Critical Care Time Critical Care Time: Yes Total Critical Care Time: 45 Attestation: I have personally provided critical care time exclusive of time spent on separately billable procedures. Time includes review of laboratory data, radiology results, discussion with consultants, and monitoring for potential decompensation. Interventions were performed as documented. Discharge Plan Discharge Clinical Impression: Alcohol abuse Osteomyelitis Qualifiers: Osteomyelitis type: chronic multifocal Osteomyelitis location: fibula Laterality: right Qualified Code(s): M86.361 - Chronic multifocal osteomyelitis, right tibia and fibula Patient Disposition: Admitted As Inpatient
[2020-05-26 19:34] VITALS: BP 132/68; PULSE 68; RESP 15; TEMP 36; O2SAT 98; BMI 27.5
[2020-05-26 19:36] LABS: MANUAL DIFF FLAG NO
[2020-05-26 19:41] LABS: Basophils Absolute Auto 0.1 X10*3/uL (0.0-0.2); Basophils Percent Auto 0.7 % (0-2); Eosinophils Absolute Auto 0.1 X10*3/uL (0.0-0.4); Eosinophils Percent Auto 1.4 % (0-4); Hematocrit 37.3 % (42-52); Hemoglobin 12.4 g/dl (14.0-18.0); Imm Gran Abs Auto 0.03 X10*3/uL (0.00-0.03); Imm Gran Pct Auto 0.4 % (0.0-0.4); Lymphocytes Absolute Auto 2.5 X10*3/uL (1.2-4.9); Lymphocytes Percent Auto 35.9 % (20-40); Mean Corpuscular HGB Conc 33.2 g/dl (31.0-36.0); Mean Corpuscular Hemoglobin 31.2 pg (27.0-33.0); Mean Corpuscular Volume 93.7 fL (80-98); Mean Platelet Volume 8.7 fL (9.4-12.4); Monocytes Absolute Auto 0.5 X10*3/uL (0.1-1.2); Monocytes Percent Auto 6.8 % (2-11); Neutrophils Absolute Auto 3.8 X10*3/uL (2.0-8.3); Neutrophils Percent Auto 54.8 % (45-73); Platelet Count 185 X10*3/uL (160-400); Red Blood Count 3.98 X10*6/uL (4.60-5.80); Red Cell Distribution Width 14.9 % (11.0-16.0)
[2020-05-26 19:51] LABS: Prothrombin Time 11.5 SEC (10.8-13.0)
[2020-05-26 19:54] LABS: Partial Thromboplastin Time 36.1 SEC (24.1-38.0)
[2020-05-26] MEDS: cefTRIAXone sodium 2 GM in 0.9 % Sodium Chloride 50 ML IV (19:55)
[2020-05-26 19:58] LABS: Ethanol 199 mg/dL
[2020-05-26 20:02] LABS: Alanine Aminotransferase 38 U/L (0-40); Alkaline Phosphatase 210 U/L (39-117); Anion Gap 18 (12-20); Aspartate Amino Transferase 39 U/L (5-37); Bilirubin Direct 0.2 mg/dL (0.0-0.5); Bilirubin Total 0.3 mg/dL (0.0-1.0); Blood Urea Nitrogen 7 mg/dL (9-16); Calcium 8.6 mg/dL (8.4-10.2); Carbon Dioxide 26 mmol/L (22-29); Chloride 101 mmol/L (96-108); Creatinine Clr Calc Pharmacy 121.6; Estimated Glomerular Filt Rate > 60; Glucose Random 100 mg/dL (60-115); Lipase 31 U/L (8-78); Potassium 3.9 mmol/L (3.3-5.1); Sodium 141 mmol/L (135-145)
[2020-05-26 20:04] LABS: Troponin-I High Sensitivity 3.9 ng/L (<3.5-35.0)
[2020-05-26 20:10] LABS: Glucose Urine UA NEG (NEG); Leukocyte Esterase Urine NEG (NEG); Nitrite Urine NEG (NEG); PH 6.5 (5.0-8.0); Specific Gravity - Urine <= 1.005 (1.005-1.025); Urine Blood NEG (NEG); Urine Ketones NEG (NEG); Urine Protein NEG (NEG-TRACE)
[2020-05-26 20:13] LABS: Appearance Urine CLEAR; Color Urine YELLOW
[2020-05-26] MEDS: vancomycin HCL 1,000 MG in 0.9 % Sodium Chloride 250 ML 270 MG IV (20:45)
[2020-05-26 21:28] VITALS: BP 124/71; PULSE 100; RESP 18; TEMP 36.4; O2SAT 99
[2020-05-26 22:56] VITALS: BP 124/62; PULSE 108; RESP 18; TEMP 37.2; O2SAT 98
--- NOTE | 2020-05-26 22:59 | ECG_ITS ---
Test Reason : FALL Blood Pressure : / mmHG Vent. Rate : 075 BPM Atrial Rate : 075 BPM P-R Int : 144 ms QRS Dur : 094 ms QT Int : 384 ms P-R-T Axes : 056 -27 021 degrees QTc Int : 428 ms Normal sinus rhythm Voltage criteria for left ventricular hypertrophy Abnormal ECG When compared to the previous EKG of No significant changes seen Referred By: Tamela Og Electronically Signed By:Rafat Haider
[2020-05-26 23:11] LABS: COVID-19 Test Negative (Negative)
[2020-05-26 23:23] LABS: Troponin-I High Sensitivity 3.6 ng/L (<3.5-35.0)
[2020-05-26] MEDS: 0.9 % Sodium Chloride 1,000 ML 100 ML IVCONT (23:55)
--- NOTE | 2020-05-26 23:55 | PM.IMHP ---
History of Present Illness Date of Service: 05/26/20 Chief Complaint: Fall Patient is a poor historian. Most of the history obtained from the ER staff. 59-year-old male With a past medical history of anxiety, depression, alcohol abuse, neuropathy, chronic leg wound presented to the hospital with chief complaint of fall. Reported that she had a fall and subsequently had head strike. Denies any loss of consciousness. Denies any seizure-like activity. Mention that he has chest pain located on the left side; worsening with deep breathing and movement. Patient also complains of chronic right leg pain; which has been lately worsening with increased redness. Denies any fever chills cough. Mentions that he drinks alcohol regularly. Denies any urinary symptoms. Review of all other systems is negative except mentioned above ER course: For ER team patient CT head, CT C-spine showed no acute findings. CT chest showed 7th rib nondisplaced fracture. Otherwise no complications. Right like x-ray showed possible osteomyelitis. Surrounding erythema noted around the leg wound. Given IV antibiotics. Admitted to the hospital for further management. [facility] Medical History Asthma Epilepsy Gastric ulcer Hypertension Venous stasis ulcer Social History Housing: Other Alcohol intake: current Alcohol intake frequency: 3 or more drinks per day Smoking Status: Current every day smoker service: No Current occupational status: unemployed Meds Allergies Allergy/AdvReac Type Severity Reaction Status Date / Time moxifloxacin Allergy Mild Hives Verified 05/27/20 00:50 Penicillins Allergy Mild SWELLING Verified 03/10/20 14:34 morphine [Morphine] AdvReac Mild SWELLING, Verified 03/10/20 14:34 ITCHING codeine [Codeine] AdvReac Unknown ITCHING, Verified 03/10/20 14:34 HIVES Active Medications: Current Medications Generic Name Dose Route Start Last Admin Trade Name Freq PRN Reason Stop Dose Admin Acetaminophen 650 mg 05/26/20 23:47 Acetaminophen 325 Mg Tablet PO Q6H PRN Pain, Mild (Pain Scale 1-3) Aspirin 81 mg 05/27/20 09:00 Aspirin Enteric Coated 81 Mg Tablet.Dr PO DAILY OSMIN Diazepam 5 mg 05/26/20 23:53 Diazepam 5 Mg Tablet PO BEDTIME PRN insomnia Famotidine 20 mg 05/27/20 09:00 Famotidine 20 Mg Tablet PO BID [facility] Folic Acid 1 mg 05/27/20 09:00 Folic Acid 1 Mg Tablet PO 05/30/20 08:59 DAILY [facility] Gabapentin 300 mg 05/27/20 09:00 Gabapentin 300 Mg Capsule PO BID [facility] Heparin Sodium (Porcine) 5,000 unit 05/26/20 23:45 Heparin Sodium,Porcine 5,000 Unit/Ml Vial SUBCUT Q8H [facility] Hydroxyzine HCl 25 mg 05/27/20 09:00 Hydroxyzine Hcl 25 Mg Tablet PO BID [facility] Sodium Chloride 1,000 mls @ 100 mls/hr 05/26/20 23:45 Ns IVCONT .Q10H [facility] Vancomycin HCl 1,000 mg/ 270 mls @ 270 mls/hr 05/26/20 23:45 Sodium Chloride IV Q12H [facility] Lidocaine 1 patch 05/27/20 09:00 Lidocaine 4 % Patch Adh..Patch TRANSDERMA DAILY [facility] Protocol Lorazepam 1 mg 05/26/20 23:51 Lorazepam 1 Mg Tablet PO 05/30/20 23:50 Q4H PRN Breakthrough alcohol withdrawa Multivitamins 1 tab 05/27/20 09:00 B-Complex With Vitamin C Tablet PO DAILY [facility] Pentoxifylline 400 mg 05/27/20 09:00 Pentoxifylline Er 400 Mg Tablet.Er PO TID [facility] Pharmacy Consult 1 each 05/26/20 23:47 Consult Rx Vancomycin Dosing MISCELLANE DAILY PRN Consult order Phenytoin Sodium 100 mg 05/27/20 09:00 Phenytoin Sodium Extended 100 Mg Capsule PO TID [facility] Quetiapine Fumarate 200 mg 05/27/20 21:00 Quetiapine Fumarate 50 Mg Tablet PO BEDTIME [facility] Senna 17.2 mg 05/26/20 23:47 Sennosides 8.6 Mg Tablet PO BEDTIME PRN Constipation Sertraline HCl 50 mg 05/27/20 09:00 Sertraline Hcl 50 Mg Tablet PO DAILY [facility] Sodium Chloride 3 ml 05/27/20 00:00 0.9 % Sodium Chloride Flush 3 Ml Syringe IVFLUSH QSHIFT [facility] Thiamine HCl 100 mg 05/27/20 09:00 Thiamine Hcl 100 Mg Tablet PO 05/30/20 08:59 DAILY [facility] Home Medications Medication Instructions Recorded Confirmed Last Taken Type acamprosate 2 tab PO TID 05/26/20 05/26/20 Unknown History aspirin 1 tab PO DAILY 05/26/20 05/26/20 Unknown History diazepam 1 tab PO BEDTIME PRN 05/26/20 05/26/20 Unknown History gabapentin 1 cap PO BID 05/26/20 05/26/20 Unknown History hydroxyzine HCl 1 tab PO BID 05/26/20 05/26/20 Unknown History ibuprofen 1 tab PO TID 05/26/20 05/26/20 Unknown History multivitamin [One Daily 1 tab PO DAILY 05/26/20 05/26/20 Unknown History Multivitamin] omeprazole 1 cap PO DAILY 05/26/20 05/26/20 Unknown History pentoxifylline 1 tab PO TID 05/26/20 05/26/20 Unknown History phenytoin sodium extended 1 cap PO TID 05/26/20 05/26/20 Unknown History quetiapine 2 tab PO BEDTIME 05/26/20 05/26/20 Unknown History sertraline 1 tab PO DAILY 05/26/20 05/26/20 Unknown History Physical Exam Vital Signs and Narrative: Vital Signs: Last Vital Signs Temp 98.9 F 05/26/20 22:56 Pulse 108 H 05/26/20 22:56 Resp 18 05/26/20 22:56 BP 124/62 05/26/20 22:56 Pulse Ox 98 05/26/20 22:56 Body Mass Index 27.5 Gen: Appears be in no acute distress HEENT: NCAT, Moist mucosa. Pulmonary: Vesicular breath sounds, fair air entry CVS: Normal S1-S2 Abdomen: BS+, Soft, Nontender Extremities: Warm well perfused; moves all extremities equally; no cross tenderness noticed. No spinal tenderness noticed. Neuro: Alert and awake. Moves all extremities equally. Right leg on the lateral part noted to have an ulcer with mild erythema. Tender to palpate. Results Labs CBC and Chem 7: 05/27/20 07:12 05/27/20 07:12 Labs: Laboratory Results - last 24 hr 05/26/20 05/26/20 05/26/20 19:29 19:29 19:29 MCV 93.7 MCH 31.2 MCHC 33.2 RDW 14.9 Plt Count 185 MPV 8.7 L Immature Gran % (Auto) 0.4 Neut % (Auto) 54.8 Lymph % (Auto) 35.9 [place] % (Auto) 6.8 Eos % (Auto) 1.4 Baso % (Auto) 0.7 Lymph # (Auto) 2.5 [place] # (Auto) 0.5 Eos # (Auto) 0.1 Baso # (Auto) 0.1 Abs Immat Gran (auto) 0.03 Absolute Neuts (auto) 3.8 Absolute Nucleated RBC 0.000 Nucleated RBC % (auto) 0.0 PT 11.5 INR 1.0 APTT 36.1 Anion Gap 18 Estim Creat Clear Calc 121.6 Estimated GFR > 60 Random Glucose 100 Lactic Acid Calcium 8.6 Total Bilirubin 0.3 Direct Bilirubin 0.2 AST 39 H D ALT 38 Alkaline Phosphatase 210 H D Troponin I High Sens Total Protein 8.0 Albumin 4.0 Lipase 31 Urine Color Urine Appearance Urine pH Ur Specific Orange Urine Protein Urine Glucose (UA) Urine Ketones Urine Blood Urine Nitrite Ur Leukocyte Esterase Ethyl Alcohol COVID-19 ([facility]EL[facility]) COVID-19 [employer] Com 05/26/20 05/26/20 05/26/20 19:29 19:29 19:29 MCV MCH MCHC RDW Plt Count MPV Immature Gran % (Auto) Neut % (Auto) Lymph % (Auto) [place] % (Auto) Eos % (Auto) Baso % (Auto) Lymph # (Auto) [place] # (Auto) Eos # (Auto) Baso # (Auto) Abs Immat Gran (auto) Absolute Neuts (auto) Absolute Nucleated RBC Nucleated RBC % (auto) PT INR APTT Anion Gap Estim Creat Clear Calc Estimated GFR Random Glucose Lactic Acid 2.0 Calcium Total Bilirubin Direct Bilirubin AST ALT Alkaline Phosphatase Troponin I High Sens 3.9 Total Protein Albumin Lipase Urine Color Urine Appearance Urine pH Ur Specific Orange Urine Protein Urine Glucose (UA) Urine Ketones Urine Blood Urine Nitrite Ur Leukocyte Esterase Ethyl Alcohol 199 COVID-19 ([facility]ELES) COVID-19 [employer] Com 05/26/20 05/26/20 05/26/20 19:56 22:51 22:51 MCV MCH MCHC RDW Plt Count MPV Immature Gran % (Auto) Neut % (Auto) Lymph % (Auto) [place] % (Auto) Eos % (Auto) Baso % (Auto) Lymph # (Auto) [place] # (Auto) Eos # (Auto) Baso # (Auto) Abs Immat Gran (auto) Absolute Neuts (auto) Absolute Nucleated RBC Nucleated RBC % (auto) PT INR APTT Anion Gap Estim Creat Clear Calc Estimated GFR Random Glucose Lactic Acid Calcium Total Bilirubin Direct Bilirubin AST ALT Alkaline Phosphatase Troponin I High Sens 3.6 Total Protein Albumin Lipase Urine Color YELLOW Urine Appearance CLEAR Urine pH 6.5 Ur Specific Orange <= 1.005 Urine Protein NEG Urine Glucose (UA) NEG Urine Ketones NEG Urine Blood NEG Urine Nitrite NEG Ur Leukocyte Esterase NEG Ethyl Alcohol COVID-19 ([facility]EL[facility]) Negative COVID-19 Clin Com See Note Imaging Radiologist's Impressions: Impressions Cervical Spine CT 05/26/20 18:48 IMPRESSION: Head CT: Extensive chronic appearing changes similar to the prior study. I do not appreciate any acute hemorrhage or mass lesion. No shift of mediastinal structures. C-spine: Multilevel degenerative changes similar to the prior examination but no acute bony abnormality. Chest X-Ray 05/26/20 18:48 IMPRESSION: Unremarkable examination aside from possible trace right pleural effusion. Head CT 05/26/20 18:48 IMPRESSION: Head CT: Extensive chronic appearing changes similar to the prior study. I do not appreciate any acute hemorrhage or mass lesion. No shift of mediastinal structures. C-spine: Multilevel degenerative changes similar to the prior examination but no acute bony abnormality. Ankle X-Ray 05/26/20 18:50 IMPRESSION: 1. Chronic periosteal reaction of the fibula unchanged since November 25, 2016. Differential differential diagnosis would include chronic venous stasis versus chronic osteomyelitis. 2. Soft tissue ulceration over the distal fibula similar prior study 2017. Chest CT 05/26/20 22:03 IMPRESSION: 1. Nondisplaced fracture of the left anterior seventh rib. 2. Centrilobular emphysematous change of lungs. Chronic scarring at posterior right lung base. Assessment and Plan (1) Osteomyelitis: Qualifiers: Laterality: right Osteomyelitis location: fibula Osteomyelitis type: chronic multifocal Qualified Code(s): M86.361 - Chronic multifocal osteomyelitis, right tibia and fibula Problem details: No acute osteomyelitis He has chronic wound There is no acute infection Status: Deleted 59-year-old male with a past medical history of anxiety, depression, alcohol abuse presented to the hospital with a chief complaint of fall. Fall: Appears to be mechanical. Patient had a head strike. Exam nonfocal. CT head and CT C-spine showed no acute findings. Telemetry. Troponins negative. Fall precautions. PT/OT eventually Seventh rib fracture: Noted nondisplaced left-sided 7th rib fracture. No complications. Breathing comfortably. Pain control. Alcohol abuse: Will monitor on CIWA protocol. Ativan p.r.n.. Thiamine, folate and multivitamins. Chronic leg wound/cellulitis/osteomyelitis: Will continue IV vancomycin. Consult general surgery and ID for further recommendations. Wound consult. DVT prophylaxis: Subcu heparin Code status: DNR/DNI. Had a discussion with the patient about code status. Patient mentions he wants to be DNR DNI. Discussed with the spanish interpreter/translator.
[2020-05-27 06:34] VITALS: BP 117/70; PULSE 98; RESP 16; TEMP 37.7; O2SAT 95
[2020-05-27 07:18] LABS: MANUAL DIFF FLAG NO
[2020-05-27 07:35] LABS: Basophils Absolute Auto 0.1 X10*3/uL (0.0-0.2); Basophils Percent Auto 0.9 % (0-2); Eosinophils Absolute Auto 0.1 X10*3/uL (0.0-0.4); Eosinophils Percent Auto 1.8 % (0-4); Hematocrit 32.1 % (42-52); Hemoglobin 10.7 g/dl (14.0-18.0); Imm Gran Abs Auto 0.03 X10*3/uL (0.00-0.03); Imm Gran Pct Auto 0.5 % (0.0-0.4); Lymphocytes Absolute Auto 1.4 X10*3/uL (1.2-4.9); Lymphocytes Percent Auto 24.2 % (20-40); Mean Corpuscular HGB Conc 33.3 g/dl (31.0-36.0); Mean Corpuscular Hemoglobin 31.2 pg (27.0-33.0); Mean Corpuscular Volume 93.6 fL (80-98); Mean Platelet Volume 8.9 fL (9.4-12.4); Monocytes Absolute Auto 0.6 X10*3/uL (0.1-1.2); Monocytes Percent Auto 11.2 % (2-11); Neutrophils Absolute Auto 3.5 X10*3/uL (2.0-8.3); Neutrophils Percent Auto 61.4 % (45-73); Platelet Count 163 X10*3/uL (160-400); Red Blood Count 3.43 X10*6/uL (4.60-5.80); Red Cell Distribution Width 15.1 % (11.0-16.0); White Blood Count 5.7 X10*3/uL (4.8-10.8)
[2020-05-27 08:06] LABS: Anion Gap 13 (12-20); Blood Urea Nitrogen 10 mg/dL (9-16); Calcium 7.7 mg/dL (8.4-10.2); Carbon Dioxide 27 mmol/L (22-29); Chloride 104 mmol/L (96-108); Creatinine Clr Calc Pharmacy 125.3; Estimated Glomerular Filt Rate > 60; Glucose Random 121 mg/dL (60-115); Sodium 140 mmol/L (135-145)
--- NOTE | 2020-05-27 08:17 | PC.NURSE ---
report to floor rn
--- NOTE | 2020-05-27 08:22 | P.CONGS_ITS ---
History of Present Illness Consult details Consult date: 05/27/20 Narrative: 59-year-old male patient well known to me with a nonhealing wound of the right lateral malleolus. Patient previously underwent a split-thickness skin graft to the site but unfortunately because of the patient's living situation, the graft subsequently failed. He now has pain and swelling at the right foot and continue nonhealing of the lateral malleolar wound. He is admitted to the hospitalist service following a fall, apparently striking his head and chest.. He reports that he had been [facility] [place] with an attempt at using an in room boot. He apparently did not tolerate this well. Review of Systems Constitutional: Constitutional: Reports body ache(s), Reports frequent falls, Reports headache(s) and Denies poor appetite ENT: Reports headache(s) Cardiovascular: Cardiovascular: Reports chest pain, Reports chest pain with activity, Reports pedal edema, Reports leg ulcers and Reports leg edema Respiratory: Respiratory: Denies cough and Denies hemoptysis Gastrointestinal: Gastrointestinal: Reports no additional gastrointestinal complaints Genitourinary: Genitourinary: Reports no additional male genitourinary complaints Musculoskeletal: Musculoskeletal: Reports as per HPI Integumentary/Breasts: Skin/Breast: Reports as per HPI Neurologic: Reports frequent falls and Reports headache(s) [facility] Past Medical History Medical History (Updated 05/27/20 @ 08:28 by Cody Jett MD) Asthma Epilepsy Gastric ulcer Hypertension Venous stasis ulcer Social History Social History Alcohol intake: current Alcohol intake frequency: 3 or more drinks per day Smoking Status: Never smoker Use of substances other than those prescribed or required for medical reasons: No Advance Directives: No Meds Allergies Allergy/AdvReac Type Severity Reaction Status Date / Time moxifloxacin Allergy Mild Hives Verified 05/27/20 00:50 Penicillins Allergy Mild SWELLING Verified 03/10/20 14:34 morphine [Morphine] AdvReac Mild SWELLING, Verified 03/10/20 14:34 ITCHING codeine [Codeine] AdvReac Unknown ITCHING, Verified 03/10/20 14:34 HIVES Active Medications: Current Medications Generic Name Dose Route Start Last Admin Trade Name Freq PRN Reason Stop Dose Admin Acetaminophen 650 mg 05/26/20 23:47 Acetaminophen 325 Mg Tablet PO Q6H PRN Pain, Mild (Pain Scale 1-3) Aspirin 81 mg 05/27/20 09:00 Aspirin Enteric Coated 81 Mg Tablet.Dr PO DAILY [facility] Diazepam 5 mg 05/26/20 23:53 Diazepam 5 Mg Tablet PO BEDTIME PRN insomnia Famotidine 20 mg 05/27/20 09:00 Famotidine 20 Mg Tablet PO BID [facility] Folic Acid 1 mg 05/27/20 09:00 Folic Acid 1 Mg Tablet PO 05/30/20 08:59 DAILY [facility] Gabapentin 300 mg 05/27/20 09:00 Gabapentin 300 Mg Capsule PO BID [facility] Heparin Sodium (Porcine) 5,000 unit 05/26/20 23:45 05/27/20 00:31 Heparin Sodium,Porcine 5,000 Unit/Ml Vial SUBCUT Not Given Q8H [facility] Hydroxyzine HCl 25 mg 05/27/20 09:00 Hydroxyzine Hcl 25 Mg Tablet PO BID [facility] Sodium Chloride 1,000 mls @ 100 mls/hr 05/26/20 23:45 05/26/20 23:55 Ns IVCONT 100 mls/hr .Q10H [facility] Administration Vancomycin HCl 1,250 mg/ 250 mls @ 166.667 mls/hr 05/27/20 09:00 Sodium Chloride IV Q12H [facility] Lidocaine 1 patch 05/27/20 09:00 Lidocaine 4 % Patch Adh..Patch TRANSDERMA DAILY [facility] Protocol Lorazepam 1 mg 05/26/20 23:51 Lorazepam 1 Mg Tablet PO 05/30/20 23:50 Q4H PRN Breakthrough alcohol withdrawa Multivitamins 1 tab 05/27/20 09:00 B-Complex With Vitamin C Tablet PO DAILY [facility] Pentoxifylline 400 mg 05/27/20 09:00 Pentoxifylline Er 400 Mg Tablet.Er PO TID [facility] Pharmacy Consult 1 each 05/26/20 23:47 Consult Rx Vancomycin Dosing MISCELLANE DAILY PRN Consult order Phenytoin Sodium 100 mg 05/27/20 09:00 Phenytoin Sodium Extended 100 Mg Capsule PO TID [facility] Quetiapine Fumarate 200 mg 05/27/20 21:00 Quetiapine Fumarate 50 Mg Tablet PO BEDTIME [facility] Senna 17.2 mg 05/26/20 23:47 Sennosides 8.6 Mg Tablet PO BEDTIME PRN Constipation Sertraline HCl 50 mg 05/27/20 09:00 Sertraline Hcl 50 Mg Tablet PO DAILY [facility] Sodium Chloride 3 ml 05/27/20 00:00 05/27/20 03:09 0.9 % Sodium Chloride Flush 3 Ml Syringe IVFLUSH Not Given QSHIFT [facility] Thiamine HCl 100 mg 05/27/20 09:00 Thiamine Hcl 100 Mg Tablet PO 05/30/20 08:59 DAILY [facility] Home Medications Medication Instructions Recorded Confirmed Last Taken Type acamprosate 2 tab PO TID 05/26/20 05/26/20 Unknown History aspirin 1 tab PO DAILY 05/26/20 05/26/20 Unknown History diazepam 1 tab PO BEDTIME PRN 05/26/20 05/26/20 Unknown History gabapentin 1 cap PO BID 05/26/20 05/26/20 Unknown History hydroxyzine HCl 1 tab PO BID 05/26/20 05/26/20 Unknown History ibuprofen 1 tab PO TID 05/26/20 05/26/20 Unknown History multivitamin [One Daily 1 tab PO DAILY 05/26/20 05/26/20 Unknown History Multivitamin] omeprazole 1 cap PO DAILY 05/26/20 05/26/20 Unknown History pentoxifylline 1 tab PO TID 05/26/20 05/26/20 Unknown History phenytoin sodium extended 1 cap PO TID 05/26/20 05/26/20 Unknown History quetiapine 2 tab PO BEDTIME 05/26/20 05/26/20 Unknown History sertraline 1 tab PO DAILY 05/26/20 05/26/20 Unknown History Physical Exam Vital Signs: Vital Signs: Last Vital Signs Temp 99.9 F 05/27/20 06:34 Pulse 98 05/27/20 06:34 Resp 16 05/27/20 06:34 BP 117/70 05/27/20 06:34 Pulse Ox 95 05/27/20 06:34 Body Mass Index 27.5 Const: General: comfortable, alert and awake; No anxious Eyes: Sclerae: sclerae normal EOM: EOMs intact bilaterally Resp: Effort & Inspection: normal respiratory effort, no cough, no stridor and not tachypneic GI: Inspection: Yes normal to inspection Palpation (GI): Soft to palpation, nontender, no guarding and not rigid Skin: General skin exam: eschar Extrem: Other: Ulceration in the right lateral malleolus is essentially unchanged over the last year with a dry base and heaped up edges. No granulation tissue is noted. There is no necrotic skin. Swelling noted in the foot. No purulent discharge is appreciated. Ankle/foot/toe images: 1. Results Labs Result diagrams: 05/27/20 07:12 05/27/20 07:12 Labs: Abnormal lab results 05/26/20 05/26/20 05/27/20 Range/Units 19:29 19:29 07:12 RBC 3.98 L 3.43 L (4.60-5.80) X10*6/uL Hgb 12.4 L 10.7 L (14.0-18.0) g/dl Hct 37.3 L 32.1 L (42-52) % MPV 8.7 L 8.9 L (9.4-12.4) fL Immature Gran % (Auto) 0.5 H (0.0-0.4) % [place] % (Auto) 11.2 H (2-11) % BUN 7 L (9-16) mg/dL Random Glucose (60-115) mg/dL Calcium (8.4-10.2) mg/dL AST 39 H D (5-37) U/L Alkaline Phosphatase 210 H D (39-117) U/L 05/27/20 Range/Units 07:12 RBC (4.60-5.80) X10*6/uL Hgb (14.0-18.0) g/dl Hct (42-52) % MPV (9.4-12.4) fL Immature Gran % (Auto) (0.0-0.4) % [place] % (Auto) (2-11) % BUN (9-16) mg/dL Random Glucose 121 H (60-115) mg/dL Calcium 7.7 L D (8.4-10.2) mg/dL AST (5-37) U/L Alkaline Phosphatase (39-117) U/L Short CBC 05/26/20 05/27/20 Range/Units 19:29 07:12 WBC 7.0 5.7 (4.8-10.8) X10*3/uL Hgb 12.4 L 10.7 L (14.0-18.0) g/dl Hct 37.3 L 32.1 L (42-52) % Plt Count 185 163 (160-400) X10*3/uL BMP 05/26/20 05/27/20 19:29 07:12 Sodium 141 140 Potassium 3.9 4.0 Chloride 101 104 Carbon Dioxide 26 27 BUN 7 L 10 Creatinine 0.67 0.65 Calcium 8.6 7.7 L D Liver Function 05/26/20 Range/Units 19:29 Total Bilirubin 0.3 (0.0-1.0) mg/dL Direct Bilirubin 0.2 (0.0-0.5) mg/dL AST 39 H D (5-37) U/L ALT 38 (0-40) U/L Alkaline Phosphatase 210 H D (39-117) U/L Albumin 4.0 (3.5-5.0) g/dL Urine 05/26/20 Range/Units 19:56 Urine Color YELLOW Urine Appearance CLEAR Urine pH 6.5 (5.0-8.0) Ur Specific [place] <= 1.005 (1.005-1.025) Urine Protein NEG (NEG-TRACE) MG/DL Urine Glucose (UA) NEG (NEG) MG/DL All other labs normal. Assessment and Plan (1) Venous stasis ulcer: Status: Inactive 59-year-old male patient with a history of chronic venous stasis ulceration and a previous attempt at skin grafting to the right leg. Patient is not a candidate for additional skin grafting due to his living situation and poor follow-up history. Recommend consultation with wound care for local treatment. Findings appear more consistent with venous stasis ulceration rather than osteomyelitis.
[2020-05-27] MEDS: 0.9 % Sodium Chloride 1,000 ML 100 ML IVCONT ×2 (09:18→21:06)
[2020-05-27] MEDS: hydrOXYzine HCL 25 MG TABLET PO ×2 (09:27→21:01)
[2020-05-27] MEDS: Aspirin Enteric Coated 81 MG TABLET.DR PO (09:27)
[2020-05-27] MEDS: Thiamine HCL 100 MG TABLET PO (09:27)
[2020-05-27] MEDS: Gabapentin 300 MG CAPSULE PO ×2 (09:27→21:01)
[2020-05-27] MEDS: Famotidine 20 MG TABLET PO ×2 (09:27→21:00)
[2020-05-27] MEDS: Sertraline HCL 50 MG TABLET PO (09:27)
[2020-05-27] MEDS: Folic Acid 1 MG TABLET PO (09:27)
[2020-05-27] MEDS: Phenytoin Sodium Extended 100 MG CAPSULE PO ×3 (09:28→21:00)
[2020-05-27] MEDS: Pentoxifylline ER 400 MG TABLET.ER PO ×3 (09:28→21:01)
[2020-05-27] MEDS: vancomycin HCL 1,250 MG in 0.9 % Sodium Chloride 250 ML 166 MG IV (09:30)
[2020-05-27] MEDS: Heparin Sodium,Porcine 5,000 UNIT/ML VIAL 5000 UNIT SUBCUT ×2 (09:36→14:43)
[2020-05-27 12:00] VITALS: BP 158/89; PULSE 81; RESP 18; TEMP 36.6; O2SAT 97
--- NOTE | 2020-05-27 14:40 | W.PM.IDCN ---
History of Present Illness Data of Consult Service Date: 05/27/20 Requesting physician: Slade [facility] Primary Care Provider: Unknown Physician HPI Reason for consult: right leg wound He comes in after fall to ER and felt fatigued. He incidentally found to have what is known to be chronic right leg wound. He saw Dr Jett and had CT scan. CT scan showed no osteomyelitis. Review of Systems Review of Systems: Yes all other systems are reviewed and are negative [facility] Past Medical History Medical History Asthma Epilepsy Gastric ulcer Hypertension Venous stasis ulcer Family History Family history: reviewed and not pertinent Social History Social History Housing: Other Housing Other:: [facility] Do you presently have visiting nurse or other home services: No Alcohol intake: current Alcohol intake frequency: 3 or more drinks per day Smoking Status: Current every day smoker Patient Interested in Nicotine Replacement: No Use of substances other than those prescribed or required for medical reasons: No Have you been hit, kicked, punched, or otherwise hurt by someone within the past year? If so, by whom?: No Do you feel safe in your current relationship?: Yes Is there a partner from a previous relationship who is making you feel unsafe now?: No Are you made to feel afraid or neglected: No Advance Directives: No Do you have thoughts of harming others: None Do you have a plan to hurt others: No Plan Recently lost weight without trying: No service: No Current occupational status: retired Meds Allergies Allergy/AdvReac Type Severity Reaction Status Date / Time moxifloxacin Allergy Mild Hives Verified 05/27/20 00:50 Penicillins Allergy Mild SWELLING Verified 03/10/20 14:34 morphine [Morphine] AdvReac Mild SWELLING, Verified 03/10/20 14:34 ITCHING codeine [Codeine] AdvReac Unknown ITCHING, Verified 03/10/20 14:34 HIVES Active Medications: Current Medications Generic Name Dose Route Start Last Admin Trade Name Freq PRN Reason Stop Dose Admin Acetaminophen 650 mg 05/26/20 23:47 Acetaminophen 325 Mg Tablet PO Q6H PRN Pain, Mild (Pain Scale 1-3) Aspirin 81 mg 05/27/20 09:00 05/27/20 09:27 Aspirin Enteric Coated 81 Mg Tablet.Dr PO 81 mg DAILY [facility] Administration Diazepam 5 mg 05/26/20 23:53 Diazepam 5 Mg Tablet PO BEDTIME PRN insomnia Famotidine 20 mg 05/27/20 09:00 05/27/20 09:27 Famotidine 20 Mg Tablet PO 20 mg BID [facility] Administration Folic Acid 1 mg 05/27/20 09:00 05/27/20 09:27 Folic Acid 1 Mg Tablet PO 05/30/20 08:59 1 mg DAILY [facility] Administration Gabapentin 300 mg 05/27/20 09:00 05/27/20 09:27 Gabapentin 300 Mg Capsule PO 300 mg BID [facility] Administration Heparin Sodium (Porcine) 5,000 unit 05/26/20 23:45 05/27/20 09:36 Heparin Sodium,Porcine 5,000 Unit/Ml Vial SUBCUT 5,000 unit Q8H [facility] Administration Hydroxyzine HCl 25 mg 05/27/20 09:00 05/27/20 09:27 Hydroxyzine Hcl 25 Mg Tablet PO 25 mg BID [facility] Administration Sodium Chloride 1,000 mls @ 100 mls/hr 05/26/20 23:45 05/27/20 09:18 Ns IVCONT 100 mls/hr .Q10H [facility] Administration Lidocaine 1 patch 05/27/20 09:00 05/27/20 09:29 Lidocaine 4 % Patch Adh..Patch TRANSDERMA Not Given DAILY [facility] Protocol Lorazepam 1 mg 05/26/20 23:51 Lorazepam 1 Mg Tablet PO 05/30/20 23:50 Q4H PRN Breakthrough alcohol withdrawa Multivitamins 1 tab 05/27/20 09:00 05/27/20 09:27 B-Complex With Vitamin C Tablet PO 1 tab DAILY [facility] Administration Pentoxifylline 400 mg 05/27/20 09:00 05/27/20 09:28 Pentoxifylline Er 400 Mg Tablet.Er PO 400 mg TID [facility] Administration Pharmacy Consult 1 each 05/26/20 23:47 Consult Rx Vancomycin Dosing MISCELLANE DAILY PRN Consult order Phenytoin Sodium 100 mg 05/27/20 09:00 05/27/20 09:28 Phenytoin Sodium Extended 100 Mg Capsule PO 100 mg TID [facility] Administration Quetiapine Fumarate 200 mg 05/27/20 21:00 Quetiapine Fumarate 50 Mg Tablet PO BEDTIME [facility] Senna 17.2 mg 05/26/20 23:47 Sennosides 8.6 Mg Tablet PO BEDTIME PRN Constipation Sertraline HCl 50 mg 05/27/20 09:00 05/27/20 09:27 Sertraline Hcl 50 Mg Tablet PO 50 mg DAILY [facility] Administration Sodium Chloride 3 ml 05/27/20 00:00 05/27/20 09:37 0.9 % Sodium Chloride Flush 3 Ml Syringe IVFLUSH Not Given QSHIFT [facility] Thiamine HCl 100 mg 05/27/20 09:00 05/27/20 09:27 Thiamine Hcl 100 Mg Tablet PO 05/30/20 08:59 100 mg DAILY [facility] Administration Home Medications Medication Instructions Recorded Confirmed Last Taken Type acamprosate 2 tab PO TID 05/26/20 05/26/20 Unknown History aspirin 1 tab PO DAILY 05/26/20 05/26/20 Unknown History diazepam 1 tab PO BEDTIME PRN 05/26/20 05/26/20 Unknown History gabapentin 1 cap PO BID 05/26/20 05/26/20 Unknown History hydroxyzine HCl 1 tab PO BID 05/26/20 05/26/20 Unknown History ibuprofen 1 tab PO TID 05/26/20 05/26/20 Unknown History multivitamin [One Daily 1 tab PO DAILY 05/26/20 05/26/20 Unknown History Multivitamin] omeprazole 1 cap PO DAILY 05/26/20 05/26/20 Unknown History pentoxifylline 1 tab PO TID 05/26/20 05/26/20 Unknown History phenytoin sodium extended 1 cap PO TID 05/26/20 05/26/20 Unknown History quetiapine 2 tab PO BEDTIME 05/26/20 05/26/20 Unknown History sertraline 1 tab PO DAILY 05/26/20 05/26/20 Unknown History Physical Exam Vital Signs: Vital Signs: Last Vital Signs Temp 97.8 F 05/27/20 12:00 Pulse 81 05/27/20 12:00 Resp 18 05/27/20 12:00 BP 158/89 H 05/27/20 12:00 Pulse Ox 97 05/27/20 12:00 Body Mass Index 27.5 Const: General: cooperative Orientation/consciousness: patient oriented x3 HENMT: Head: Yes normal to inspection Mouth: Normal oral and palatal mucosa present Resp: Effort & Inspection: normal respiratory effort Cardio: Rate: regular rate Rhythm: regular rhythm GI: Palpation (GI): Soft to palpation and nontender Skin: General skin exam: no rashes or lesions noted Neuro: General: patient oriented x3 Extrem: Other: right leg scab/scaling open ulcer Results Labs CBC & Chem 7: 05/27/20 07:12 05/27/20 07:12 Labs: Short CBC 05/26/20 05/27/20 Range/Units 19:29 07:12 WBC 7.0 5.7 (4.8-10.8) X10*3/uL Hgb 12.4 L 10.7 L (14.0-18.0) g/dl Hct 37.3 L 32.1 L (42-52) % Plt Count 185 163 (160-400) X10*3/uL BMP 05/26/20 05/27/20 19:29 07:12 Sodium 141 140 Potassium 3.9 4.0 Chloride 101 104 Carbon Dioxide 26 27 BUN 7 L 10 Creatinine 0.67 0.65 Calcium 8.6 7.7 L D Liver Function 05/26/20 Range/Units 19:29 Total Bilirubin 0.3 (0.0-1.0) mg/dL Direct Bilirubin 0.2 (0.0-0.5) mg/dL AST 39 H D (5-37) U/L ALT 38 (0-40) U/L Alkaline Phosphatase 210 H D (39-117) U/L Albumin 4.0 (3.5-5.0) g/dL Urine 05/26/20 Range/Units 19:56 Urine Color YELLOW Urine Appearance CLEAR Urine pH 6.5 (5.0-8.0) Ur Specific [place] <= 1.005 (1.005-1.025) Urine Protein NEG (NEG-TRACE) MG/DL Urine Glucose (UA) NEG (NEG) MG/DL Assessment and Plan (1) Osteomyelitis: Qualifiers: Laterality: right Osteomyelitis location: fibula Osteomyelitis type: chronic multifocal Qualified Code(s): M86.361 - Chronic multifocal osteomyelitis, right tibia and fibula Problem details: No acute osteomyelitis He has chronic wound There is no acute infection Status: Acute Would stop antibiotics No acute issue F/U [facility] Clinic
--- NOTE | 2020-05-27 14:40 | MHC.CM.PN ---
Addendum entered by Gini Perdue RN 05/27/20 16:07: DISCHARGE PLAN: RETURN TO LONG-TERM VS STR FOR IV ABX/WOUND CARE Original Note: EMR REVIEWED, PT ADMITTED W/OSTEOMYELITIS AND ETOH WITHDRAWAL, CM MET W/PT VIA BLOCKLAYER AND PT REPORTS HE LIVES AT THE [facility] IN [place], PT DENIES HAVING FAMILY HOWEVER DOES REPORT JAYDA BAEZ IS LIKE FAMILY AND PER RECORDS IS LISTED NEXT OF KIN, PT DENIES HAVING A CELL PHONE AND IS UNABLE TO VERIFY JAYDA S PHONE NUMBER. PT USES A ROLLATER WALKER AND ASTHMA INHALERS AND DENIES ALL OTHER DME, NO HOME SERVICES DUE TO HOMELESSNESS, PT IS ON MEDICATION FOR ANXIETY AND DEPRESSION AND REPORTS HIS PCP ORDERS IT FOR HIM, PT DENIES HAVING THERAPIST OR PSYCHIATRIST AND IS DECLINING REFERRAL/CARE TEAM AT THIS TIME, PT ALSO DECLINING SA TX AND REPORTS VIA BLOCKLAYER THAT HE DOES NOT NEED DETOX HE CAN DO IT HIMSELF, PT IS CURRENTLY ON ATIVAN CIWA. PER ENCOURAGED TO LET NURSING/CM KNOW IF HE WOULD LIKE TO BE SEEN BY CARE TEAM OR RECOVERY NURSE. [facility], LAST VIST 05/10 PER PT, PT REPORTED THEY GAVE HIM THE BOOT TO WEAR AND IT MADE HIS LEG WORSE. PCP: LEONILA LAND MD
--- NOTE | 2020-05-27 14:47 | MHC.CM.PN ---
this interview was conducted via [employer]. pt is homeless and has been staying at the [facility]. he uses a walker c ambulation, his personal walker is in the rm c him. this hospitalization there is a question of surgical intervention and/or fdc IV abx's . hence pt will likely need a STR at DC . at this time there has been no SNF ref. made as the hospital course is too uncertain. however, we did discuss the possibility of him having to go to STR and he is accepting of this if it is what he needs. dc plan is unclear at this time but patient will likely need STR. cm to cont. to follow.
[2020-05-27 15:08] VITALS: BP 142/81; PULSE 83; RESP 18; TEMP 36.6; O2SAT 98
[2020-05-27 19:30] VITALS: BP 121/75; PULSE 79; RESP 18; TEMP 36.9; O2SAT 98
[2020-05-27] MEDS: QUEtiapine Fumarate 50 MG TABLET 200 MG PO (21:00)
[2020-05-27 23:33] VITALS: BP 103/53; PULSE 87; RESP 20; TEMP 36.7; O2SAT 98
[2020-05-28] MEDS: Heparin Sodium,Porcine 5,000 UNIT/ML VIAL 5000 UNIT SUBCUT ×2 (00:40→08:39)
[2020-05-28] MEDS: 0.9 % Sodium Chloride Flush 3 ML SYRINGE IVFLUSH ×2 (00:41→10:09)
[2020-05-28 04:00] VITALS: BP 132/69; PULSE 81; RESP 20; TEMP 36.7; O2SAT 97
[2020-05-28] MEDS: 0.9 % Sodium Chloride 1,000 ML 100 ML IVCONT (05:53)
[2020-05-28 07:57] VITALS: BP 119/76; PULSE 77; RESP 17; TEMP 36.9; O2SAT 97
[2020-05-28] MEDS: Famotidine 20 MG TABLET PO (08:39)
[2020-05-28] MEDS: hydrOXYzine HCL 25 MG TABLET PO (08:40)
[2020-05-28] MEDS: Gabapentin 300 MG CAPSULE PO (08:40)
[2020-05-28] MEDS: Folic Acid 1 MG TABLET PO (08:40)
[2020-05-28] MEDS: Thiamine HCL 100 MG TABLET PO (08:40)
[2020-05-28] MEDS: Phenytoin Sodium Extended 100 MG CAPSULE PO (08:40)
[2020-05-28] MEDS: Aspirin Enteric Coated 81 MG TABLET.DR PO (08:40)
[2020-05-28] MEDS: Pentoxifylline ER 400 MG TABLET.ER PO (08:40)
[2020-05-28] MEDS: Sertraline HCL 50 MG TABLET PO (08:40)
[2020-05-28] MEDS: Lidocaine 4 % Patch ADH..PATCH 1 PATCH TRANSDERMA (08:40)
--- NOTE | 2020-05-28 09:07 | P.DS_ITS ---
DS: Providers Provider Date of Service: 06/27/20 Date of admission: 05/26/20 23:46 Primary care physician: Unknown Physician Consults: 05/26/20 23:47 Consult to General Surgery Routine Consulting Provider: Cody Jett Reason for consultation: LEg wound Consult to Infectious Diseases Routine Consulting Provider: Marilin Haque Reason for consultation: Leg wound; Osteomyelitis DS: Diagnosis Discharge Diagnosis (1) Osteomyelitis: Status: Deleted Problem details: No acute osteomyelitis He has chronic wound There is no acute infection DS: Medications Discharge Medications Home Medications: Home Medications Medication Instructions Recorded Confirmed acamprosate 2 tab PO TID 05/26/20 05/26/20 aspirin 1 tab PO DAILY 05/26/20 05/26/20 diazepam 1 tab PO BEDTIME PRN 05/26/20 05/26/20 gabapentin 1 cap PO BID 05/26/20 05/26/20 hydroxyzine HCl 1 tab PO BID 05/26/20 05/26/20 ibuprofen 1 tab PO TID 05/26/20 05/26/20 multivitamin [One Daily 1 tab PO DAILY 05/26/20 05/26/20 Multivitamin] omeprazole 1 cap PO DAILY 05/26/20 05/26/20 pentoxifylline 1 tab PO TID 05/26/20 05/26/20 phenytoin sodium extended 1 cap PO TID 05/26/20 05/26/20 quetiapine 2 tab PO BEDTIME 05/26/20 05/26/20 sertraline 1 tab PO DAILY 05/26/20 05/26/20 DS: Summary Hospital Course Hospital Course: 59-year-old male With a past medical history of anxiety, depression, alcohol abuse, neuropathy, chronic leg wound presented to the hospital with chief complaint of fall. Reported that she had a fall and subsequently had head strike. Denies any loss of consciousness. Denies any seizure-like activity. Mention that he has chest pain located on the left side; worsening with deep breathing and movement. Patient also complains of chronic right leg pain; which has been lately worsening with increased redness. Denies any fever chills cough. Mentions that he drinks alcohol regularly. Denies any urinary symptoms. Review of all other systems is negative except mentioned above Hospital course: He presented with leg wound as demonstrated that was thought to be infected but on closer review is chronic and not actively infected and does not need Abx and will be reffered to wound clinic. He was also put on Phenobar bital to avert full blown alcohol withdrawal and advised to stop drininking altogether Time Spent with Patient Time attestation: Total time spent providing and/or coordinating discharge services: Discharge coordination time: Greater than 30 minutes Physical Exam Vital Signs: Vital Signs: Last Vital Signs Temp 98.5 F 05/28/20 07:57 Pulse 77 05/28/20 07:57 Resp 17 05/28/20 07:57 BP 119/76 05/28/20 07:57 Pulse Ox 97 05/28/20 07:57 Body Mass Index 27.5 General: AO X 3, no acute distress Resp: CTA bilateral CVS: S1,S2,RRR GI: +BS, NT, no distention Skin: wound Neuro: motor grossly intact Psych: appropriate affect DS: Data Data Completed and Pending Labs on day of discharge: Laboratory Results - last 24 hr 05/28/20 07:53 Vancomycin Trough 4.0 L Preliminary micro results at discharge 05/26/20 19:29 Blood Culture - Preliminary Blood - Venous No growth after 24 hours. 05/26/20 19:29 Blood Culture - Preliminary Blood - Venous No growth after 24 hours. Discharge Plan Discharge Anticipated Discharge Date/Time: 05/28/20 09:00 Patient Disposition: Home, Self-Care Discharge Diagnosis: Chronic leg wound. Alcohol dependency Referrals: Physician,Unknown [Primary Care Provider] - Discharge Medications: Continued multivitamin [One Daily Multivitamin] Tablet 1 tab PO DAILY RF: 0 phenytoin sodium extended 100 mg capsule 1 cap PO TID RF: 0 aspirin 81 mg tablet,delayed release (DR/EC) 1 tab PO DAILY RF: 0 quetiapine 100 mg tablet 2 tab PO BEDTIME RF: 0 pentoxifylline 400 mg tablet extended release 1 tab PO TID RF: 0 gabapentin 300 mg capsule 1 cap PO BID RF: 0 omeprazole 20 mg capsule,delayed release(DR/EC) 1 cap PO DAILY RF: 0 hydroxyzine HCl 25 mg tablet 1 tab PO BID RF: 0 ibuprofen 600 mg tablet 1 tab PO TID RF: 0 sertraline 50 mg tablet 1 tab PO DAILY RF: 0 diazepam 5 mg tablet 1 tab PO BEDTIME PRN (Reason: insomnia) RF: 0 acamprosate 333 mg tablet,delayed release (DR/EC) 2 tab PO TID RF: 0 No Action levofloxacin 500 mg Tablet 500 mg PO Q24H Qty: 8 RF: 0 doxycycline monohydrate 100 mg capsule 100 mg PO BID Qty: 16 RF: 0 Discharge Orders: Discharge Order (Routine); Ordered 05/28/20 Ordered By: Slade Acuna Diet: advance to usual diet Activity on Discharge: As tolerated Stand Alone Forms: Patient Portal Discharge page Care Plan Goals: Chronic leg wound Health Concerns: chronic leg wound and alcohol dependency Plan of Treatment: Follow up with wound care Assessment: Chronic leg wound. Alcohol dependency Discharge Date/Time: 05/28/20 14:25
[2020-05-28] MEDS: oxyCODONE HCl Immed Release 5 MG TABLET PO (10:08)
--- NOTE | 2020-05-28 11:57 | MHC.CM.PN ---
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
[2020-05-28 12:00] VITALS: BP 127/74; PULSE 81; RESP 18; TEMP 36.3; O2SAT 100
== END 2020-05-28 14:25 | disposition home or self-care (01) | DRG 197 ==
LOC: HO.ED 22:00 → HO.EDOVER 05-27 00:09 → HO.S3 05-27 07:30
PROVIDERS: Nurse Practitioner Family; Admitting Provider Hospitalist; Emergency Provider Emergency Medicine Emergency Medical Services; PCP Internal Medicine; Visit Provider Internal Medicine
DX: I87.331 Chronic venous hypertension (idiopathic) with ulcer and inflammation of right lower extremity (principal); L97.819 Non-pressure chronic ulcer of other part of right lower leg with unspecified severity; M86.361 Chronic multifocal osteomyelitis, right tibia and fibula; F10.129 Alcohol abuse with intoxication, unspecified; S22.32XA Fracture of one rib, left side, initial encounter for closed fracture; F32.9 Major depressive disorder, single episode, unspecified; F41.9 Anxiety disorder, unspecified; Z59.0 Homelessness; Z20.822 Contact with and (suspected) exposure to COVID-19; W19.XXXA Unspecified fall, initial encounter; Y93.9 Activity, unspecified; Y92.9 Unspecified place or not applicable; Y99.9 Unspecified external cause status; Z88.0 Allergy status to penicillin; Z88.5 Allergy status to narcotic agent; Z79.1 Long term (current) use of non-steroidal anti-inflammatories (NSAID); Z79.82 Long term (current) use of aspirin; Z79.899 Other long term (current) drug therapy; Z66 Do not resuscitate
CPT/HCPCS: 36415; 70450; 71045; 71250; 72125; 73600; 80048; 80076; 80202; 80320; 81003; 83605; 83690; 84484; 85025; 85610; 85730; 87040; 87635; 93005; 96365; 96368; 99218; 99285; 99291; J0696; J3370

== ENCOUNTER 2020-06-16 12:34 | Inpatient (IN) | payer MEDICAID, SELFPAY ==
--- NOTE | ~2020-06-16 | CT_ITS ---
EXAMINATION: CT HEAD WITHOUT CONTRAST CT CERVICAL SPINE WITHOUT CONTRAST CLINICAL INFORMATION: Pain following fall. COMPARISON: Multiple priors, most recent CT head and cervical spine dated 05/26/2020 TECHNIQUE: Contiguous axial imaging was performed from the skull base to vertex without intravenous administration of contrast. Contiguous axial CT images of the cervical spine were obtained without contrast. Sagittal and coronal reformats were provided and reviewed. This CT examination was performed using dose optimization techniques as appropriate, variously including the following: *Automated exposure control *Adjustment of mA and/or kV according to patient size (this includes techniques or standardized protocols for targeted exams where dose is matched to indication/reason for exam; i.e. extremities or head) *Use of iterative reconstruction technique DLP: 1240 mGy-cm FINDINGS: HEAD: The ventricles and sulci are enlarged consistent with patient's age. No visualized masses or midline shift are seen. There is no intra-axial or extra-axial hemorrhage. There are no fluid collections. Decreased attenuation is seen in the periventricular white matter compatible with chronic small vessel ischemic disease. The gunter-white discrimination is preserved. The included paranasal sinuses and mastoid air cells are well aerated. The calvarium is intact. CERVICAL SPINE: Normal vertebral body alignment. The normal cervical lordosis is maintained. No acute fracture or subluxation. No loss of vertebral body height. Multilevel loss of intervertebral disc height with anterior endplate osteophytes, most prominent at C5-C6, similar when compared to the prior examination. Calcification redemonstrated throughout the intervertebral discs. Multilevel bilateral facet arthropathy, unchanged. No lytic or blastic osseous lesion. Redemonstration of laminar calcification at C5-C6. Unremarkable prevertebral soft tissues. No abnormal soft tissue mass or fluid collection. Thyroid within normal limits. Emphysematous changes within the lung apices. Multilevel central canal and bilateral neural foraminal stenosis, unchanged when compared to the prior examination. CT/CT cervical spine wo con IMPRESSION: HEAD: No intracranial hemorrhage or mass effect. Generalized age-related atrophy and chronic small vessel white matter ischemic changes. No significant interval change. CERVICAL SPINE: No acute fracture or subluxation. Multilevel degenerative disc disease with bilateral facet arthropathy as well as central canal and neural foraminal stenosis, unchanged when compared to the prior examination.
--- NOTE | ~2020-06-16 | CT_ITS ---
EXAMINATION: CT RIGHT LOWER EXTREMITY CLINICAL INFORMATION: Right leg wound with question of osteomyelitis. COMPARISON: Right ankle radiographs dated 05/26/2020 and 04/26/2016. TECHNIQUE: CT scan of the right lower extremity was performed from the level of the knee through foot. IV contrast was not utilized. This CT examination was performed using dose optimization techniques as appropriate, variously including the following: *Automated exposure control *Adjustment of mA and/or kV according to patient size (this includes techniques or standardized protocols for targeted exams where dose is matched to indication/reason for exam; i.e. extremities or head) *Use of iterative reconstruction technique FINDINGS: Marked edema of the subcutaneous tissues is noted most marked more inferiorly at the level of the ankle joint with maximal subcutaneous tissue thickness of 0.4 cm. Marked superficial varicosities are present in the lower thigh extending down into the calf. There are marked sclerotic changes present in the distal fibula with marked periosteal reaction. No gross bony cortical destruction is seen. Findings are fairly similar to those noted on the previous plain film radiographs. Some minimal but similar changes are present in the lateral cortex of the distal tibia (3:609). There are some areas of calcification in the subcutaneous tissues which are removed from the bone which may be dystrophic (3:658, 6[address]/CT lower leg RT wo con IMPRESSION: Marked soft tissue edema and varicose veins with marked skin thickening. Some of these findings are undoubtedly present to hypertension secondary to reflux. Chronic changes in the distal fibula with minimal changes in the tibia. Findings appear unchanged when compared to the prior studies. Chronic osteomyelitis would be a possibility. MRI would be useful for further evaluation.
--- NOTE | ~2020-06-16 | XR_ITS ---
EXAMINATION: XR SACRUM AND COCCYX CLINICAL INFORMATION: Pain following a fall. COMPARISON: Lumbar spine radiographs dated 04/20/2019. TECHNIQUE: 2 views of the sacrum and 2 views of the coccyx were obtained. FINDINGS: No displaced fracture. No subluxation. No osseous erosion. Phleboliths within the pelvis. Atherosclerotic calcifications. Partially visualized IVC filter. XR/XR sacrum coccyx min 2V IMPRESSION: No displaced fracture.
--- NOTE | ~2020-06-16 | MR_ITS ---
EXAMINATION: MRI WITHOUT AND WITH CONTRAST, LOWER EXTREMITY NONJOINT, RIGHT CLINICAL INFORMATION: Right lower extremity wound. COMPARISON: CT 06/17/2020 and several older studies including a radiograph dated 09/20/2016. TECHNIQUE: MRI without and with intravenous administration of 8 mL of Gadavist is performed on the right lower leg. FINDINGS: There is chronic irregular bone formation and areas of cortical thickening extending the length of the fibula which is most prominent at the distal, lateral aspect, in the area of the chronic wound. This bone formation may be related to chronic venous stasis and/or reaction to the chronic skin defect. Deep to the wound there is T2 signal hyperintensity and enhancement which may represent cellulitis. No abscess. No evidence of active osteomyelitis. Incidental bone infarct within the distal tibia. MR/MR lower leg RT wo/w con IMPRESSION: Chronic ossification/bone formation extends the length of the fibula presumably related to chronic venous insufficiency and/or reaction to the chronic wound. No evidence of osteomyelitis. No abscess.
[2020-06-16 12:40] VITALS: BP 129/86; PULSE 84; O2SAT 100
[2020-06-16 13:32] VITALS: BP 109/71; PULSE 93; RESP 18; TEMP 37; O2SAT 100; BMI 61.2
[2020-06-16 13:38] VITALS: BP 140/60; PULSE 120; O2SAT 97
--- NOTE | 2020-06-16 13:40 | ED.GENADULT ---
HPI - General Adult General Chief complaint: Fall <CATINA Coto Last Filed: 06/16/20 20:49> Stated complaint: FALL, NO COMPLAINTS OF PAIN/INJURY <CATINA Coto - Last Filed: 06/16/20 20:49> Time Seen by Provider: 06/16/20 13:21 <CATINA Coto - Last Filed: 06/16/20 20:49> Source: patient and EMS <CATINA Coto - Last Filed: 06/16/20 20:49> Mode of arrival: EMS <CATINA Coto Last Filed: 06/16/20 20:49> Limitations: language barrier <CATINA Coto Last Filed: 06/16/20 20:49> History of Present Illness HPI narrative: 59 y/o male with history of ETOH abuse/dependence, neutopathy, chornic RLE wound x20 years, anxiety/depression, homelessness and recent admission for fall and ?acute infection of LE wound who presents to the ED with a fall and brief LOC at [place] bus stop today. He went to go sit on his rollator, missed, fell onto his buttocks and hit his head. He reported lost consciousness for less than 30 seconds. He is not on anticoagulation. He reports a headache but mostly complains of ongoing pain in his RLE. He wants an amputation. He admits to drinking 4 nips today. He drinks daily. <CATINA Coto - Last Filed: 06/16/20 20:49> MD complaint: fall with LOC <CATINA Coto - Last Filed: 06/16/20 20:49> Onset (ago): hour(s) (1) <CATINA Coto Last Filed: 06/16/20 20:49> Location: head <CATINA Coto Last Filed: 06/16/20 20:49> Radiation: non-radiation <CATINA Coto Last Filed: 06/16/20 20:49> Severity: mild <CATINA Coto Last Filed: 06/16/20 20:49> Quality: aching <CATINA Coto Last Filed: 06/16/20 20:49> Pain Consistency: constant <CATINA Coto - Last Filed: 06/16/20 20:49> Relieving factors: none <CATINA Coto - Last Filed: 06/16/20 20:49> Exacerbating factors: none <CATINA Coto - Last Filed: 06/16/20 20:49> Associated symptoms: headaches <CATINA Coto - Last Filed: 06/16/20 20:49> Treatments prior to arrival: none <CATINA Coto - Last Filed: 06/16/20 20:49> Related Data Home medications: Home Medications Medication Instructions Recorded Confirmed acamprosate 2 tab PO TID 05/26/20 06/16/20 aspirin 1 tab PO DAILY 05/26/20 06/16/20 diazepam 1 tab PO BEDTIME PRN 05/26/20 06/16/20 gabapentin 1 cap PO BID 05/26/20 06/16/20 hydroxyzine HCl 1 tab PO BID 05/26/20 06/16/20 ibuprofen 1 tab PO TID 05/26/20 06/16/20 multivitamin [One Daily 1 tab PO DAILY 05/26/20 06/16/20 Multivitamin] omeprazole 1 cap PO DAILY 05/26/20 06/16/20 pentoxifylline 1 tab PO TID 05/26/20 06/16/20 phenytoin sodium extended 1 cap PO TID 05/26/20 06/16/20 quetiapine 2 tab PO BEDTIME 05/26/20 06/16/20 sertraline 1 tab PO DAILY 05/26/20 06/16/20 Previous Rx's Medication Instructions Recorded doxycycline monohydrate 100 mg PO BID #16 cap 06/19/20 levofloxacin 500 mg PO Q24H #8 tab 06/19/20 <CATINA Coto - Last Filed: 06/16/20 20:49> Allergies/adverse reactions: Allergies Allergy/AdvReac Type Severity Reaction Status Date / Time moxifloxacin Allergy Mild Hives Verified 06/16/20 13:32 Penicillins Allergy Mild SWELLING Verified 06/16/20 13:32 morphine [Morphine] AdvReac Mild SWELLING, Verified 06/16/20 13:32 ITCHING codeine [Codeine] AdvReac Unknown ITCHING, Verified 06/16/20 13:32 HIVES <CATINA Coto - Last Filed: 06/16/20 20:49> Review of Systems Review of Systems: Constitutional: No Fever, No Chills ENT/Mouth: No sore throat, No Rhinorrhea Eyes: No Eye Pain, No Swelling, No Redness Cardiovascular: No Chest Pain, No SOB, No Orthopnea, No Edema Respiratory: No Cough, No Sputum, No Wheezing, No dyspnea Gastrointestinal: No Nausea, No Vomiting, No Diarrhea, No abdominal Pain Genitourinary: No Dysuria, No Urinary Frequency, No Hematuria Musculoskeletal: + joint pain, + Myalgias Skin: + Skin Lesions, No rash Neuro: No Weakness, No Numbness, No Dizziness, + Headache Psych: No Anxiety/Panic, No Depression Heme/Lymph: No Bruising, No Lymphadenopathy Endocrine: No Polyuria, No Polydipsia <CATINA Coto - Last Filed: 06/16/20 20:49> [facility] Past Medical History Attestation statement: The following information was validated with the patient. <CATINA Coto - Last Filed: 06/16/20 20:49> Medical History: Medical History Asthma Epilepsy Gastric ulcer Hypertension Venous stasis ulcer <CATINA Coto - Last Filed: 06/16/20 20:49> Social History Social History: Social History Household Members: None Housing: Homeless Alcohol intake: current Alcohol intake frequency: 3 or more drinks per day Smoking Status: Former smoker service: No Current occupational status: unemployed <CATINA Coto - Last Filed: 06/16/20 20:49> Physical Exam Vital Signs: Vital Signs: Last Vital Signs Temp 98.4 F 06/19/20 11:40 Pulse 62 06/19/20 11:40 Resp 18 06/19/20 11:40 BP 123/76 06/19/20 11:40 Pulse Ox 98 06/19/20 11:40 Body Mass Index 61.2 Appearance: Alert. Oriented X3. No acute distress. Eyes: Pupils equal, round and reactive to light. ENT: Pharynx normal. Neck: Normal inspection. Neck supple. No cervical spinal tenderness. Full ROM CVS: Normal heart rate and rhythm. Pulses normal. Respiratory: No respiratory distress. Breath sounds normal. Abdomen: Soft and nontender. +BS x4 Skin: Skin warm and dry. Normal skin color. Normal skin turgor. No rashes. Extremities: No lower extremity edema. RLE wounds are dressed with dry dressing, refusing to take down for assessment. Neuro: Oriented X 3. No motor deficit. No sensory deficit. Walks with slow but steady gait using rollator for support. <CATINA Coto - Last Filed: 06/16/20 20:49> Vital Signs: Last Vital Signs Temp 98.4 F 06/19/20 11:40 Pulse 62 06/19/20 11:40 Resp 18 06/19/20 11:40 BP 123/76 06/19/20 11:40 Pulse Ox 98 06/19/20 11:40 Body Mass Index 61.2 <Tamela Og NP - Last Filed: 06/17/20 01:25> Vital Signs: Last Vital Signs Temp 98.4 F 06/19/20 11:40 Pulse 62 06/19/20 11:40 Resp 18 06/19/20 11:40 BP 123/76 06/19/20 11:40 Pulse Ox 98 06/19/20 11:40 Body Mass Index 61.2 <CATINA West - Last Filed: 06/17/20 17:01> Vital Signs: Last Vital Signs Temp 98.4 F 06/19/20 11:40 Pulse 62 06/19/20 11:40 Resp 18 06/19/20 11:40 BP 123/76 06/19/20 11:40 Pulse Ox 98 06/19/20 11:40 Body Mass Index 61.2 <Ronaldo Weeks MD - Last Filed: 06/24/20 08:27> Course Course Course Narrative: 59 y/o male with history of ETOH abuse, chronic RLE wound, neuropathy, anxiety, depression who presents via EMS after fell at the bus stop today. He missed his walker and fell onto his buttocks, hit his head and lost consciousness per report. He reports headache and chronic leg pain. On baby aspirin but no anticoagulation. Will get CT head/C-spine, XR sacrum and coccyx. <CATINA Coto - Last Filed: 06/16/20 20:49> I have reviewed the chart <Ronaldo Weeks MD - Last Filed: 06/24/20 08:27> Reevaluation(s) Reevaluation #1: Imaging is unremarkable for traumatic injury. Given patient's frequent falls and recent hospitalization for the same, will get basic lab workup and PT consult tomorrow. Case was d/w case investigator for possible placement to rehab facility. Patient is agreeable with plan. Pending labs and PT consult. <CATINA Coto - Last Filed: 06/16/20 20:49> Medical Decision Making Lab Data Result diagrams: : 06/18/20 06:07 06/18/20 06:07 <CATINA Coto - Last Filed: 06/16/20 20:49> Labs: Lab Results 06/16/20 06/17/20 06/17/20 Range/Units 22:46 00:10 00:10 WBC 5.0 (4.8-10.8) X10*3/uL RBC 3.85 L (4.60-5.80) X10*6/uL Hgb 11.9 L (14.0-18.0) g/dl Hct 35.6 L (42-52) % MCV 92.5 (80-98) fL MCH 30.9 (27.0-33.0) pg MCHC 33.4 (31.0-36.0) g/dl RDW 14.9 (11.0-16.0) % Plt Count 247 D (160-400) X10*3/uL MPV 8.7 L (9.4-12.4) fL Immature Gran % (Auto) 0.2 (0.0-0.4) % Neut % (Auto) 34.6 L (45-73) % Lymph % (Auto) 47.7 H (20-40) % Eaton % (Auto) 12.9 H (2-11) % Eos % (Auto) 3.2 (0-4) % Baso % (Auto) 1.4 (0-2) % Lymph # (Auto) 2.4 (1.2-4.9) X10*3/uL Eaton # (Auto) 0.6 (0.1-1.2) X10*3/uL Eos # (Auto) 0.2 (0.0-0.4) X10*3/uL Baso # (Auto) 0.1 (0.0-0.2) X10*3/uL Abs Immat Gran (auto) 0.01 (0.00-0.03) X10*3/uL Absolute Neuts (auto) 1.7 L (2.0-8.3) X10*3/uL Absolute Nucleated RBC 0.000 (0.0-0.012) X10*3/uL Nucleated RBC % (auto) 0.0 (0.0-0.2) /100WBC ESR (0-15) MM/HR PT (10.8-13.0) SEC INR (0.9-1.1) Sodium 141 (135-145) mmol/L Potassium 4.4 (3.3-5.1) mmol/L Chloride 103 (96-108) mmol/L Carbon Dioxide 23 (22-29) mmol/L Anion Gap 19 (12-20) BUN 21 H D (9-16) mg/dL Creatinine 0.72 (0.5-1.4) mg/dL Estim Creat Clear Calc 186.0 Estimated GFR > 60 Random Glucose 97 (60-115) mg/dL Lactic Acid (0.5-2.0) mmol/L Calcium 9.0 D (8.4-10.2) mg/dL Magnesium 1.9 (1.6-2.6) mg/dL Total Bilirubin 0.7 (0.0-1.0) mg/dL Direct Bilirubin 0.2 (0.0-0.5) mg/dL AST 52 H (5-37) U/L ALT 46 H (0-40) U/L Alkaline Phosphatase 201 H (39-117) U/L C-Reactive Protein (< or = 0.50) mg/dL Total Protein 7.5 (6.5-8.0) g/dL Albumin 3.8 (3.5-5.0) g/dL Ethyl Alcohol mg/dL COVID-19 (ANGELES) Negative (Negative) COVID-19 Clin Com See Note 06/17/20 06/17/20 06/17/20 Range/Units 00:10 15:06 15:06 WBC 5.4 (4.8-10.8) X10*3/uL RBC 3.98 L (4.60-5.80) X10*6/uL Hgb 12.5 L (14.0-18.0) g/dl Hct 37.1 L (42-52) % MCV 93.2 (80-98) fL MCH 31.4 (27.0-33.0) pg MCHC 33.7 (31.0-36.0) g/dl RDW 14.6 (11.0-16.0) % Plt Count 226 (160-400) X10*3/uL MPV 8.5 L (9.4-12.4) fL Immature Gran % (Auto) 0.2 (0.0-0.4) % Neut % (Auto) 47.9 (45-73) % Lymph % (Auto) 34.9 (20-40) % Eaton % (Auto) 14.0 H (2-11) % Eos % (Auto) 2.1 (0-4) % Baso % (Auto) 0.9 (0-2) % Lymph # (Auto) 1.9 (1.2-4.9) X10*3/uL Eaton # (Auto) 0.8 (0.1-1.2) X10*3/uL Eos # (Auto) 0.1 (0.0-0.4) X10*3/uL Baso # (Auto) 0.1 (0.0-0.2) X10*3/uL Abs Immat Gran (auto) 0.01 (0.00-0.03) X10*3/uL Absolute Neuts (auto) 2.6 (2.0-8.3) X10*3/uL Absolute Nucleated RBC 0.000 (0.0-0.012) X10*3/uL Nucleated RBC % (auto) 0.0 (0.0-0.2) /100WBC ESR 44 H (0-15) MM/HR PT (10.8-13.0) SEC INR (0.9-1.1) Sodium (135-145) mmol/L Potassium (3.3-5.1) mmol/L Chloride (96-108) mmol/L Carbon Dioxide (22-29) mmol/L Anion Gap (12-20) BUN (9-16) mg/dL Creatinine (0.5-1.4) mg/dL Estim Creat Clear Calc Estimated GFR Random Glucose (60-115) mg/dL Lactic Acid (0.5-2.0) mmol/L Calcium (8.4-10.2) mg/dL Magnesium (1.6-2.6) mg/dL Total Bilirubin (0.0-1.0) mg/dL Direct Bilirubin (0.0-0.5) mg/dL AST (5-37) U/L ALT (0-40) U/L Alkaline Phosphatase (39-117) U/L C-Reactive Protein (< or = 0.50) mg/dL Total Protein (6.5-8.0) g/dL Albumin (3.5-5.0) g/dL Ethyl Alcohol 113 mg/dL COVID-19 (ANGELES) (Negative) COVID-19 Clin Com 06/17/20 06/17/20 06/17/20 Range/Units 15:06 15:06 15:06 WBC (4.8-10.8) X10*3/uL RBC (4.60-5.80) X10*6/uL Hgb (14.0-18.0) g/dl Hct (42-52) % MCV (80-98) fL MCH (27.0-33.0) pg MCHC (31.0-36.0) g/dl RDW (11.0-16.0) % Plt Count (160-400) X10*3/uL MPV (9.4-12.4) fL Immature Gran % (Auto) (0.0-0.4) % Neut % (Auto) (45-73) % Lymph % (Auto) (20-40) % Eaton % (Auto) (2-11) % Eos % (Auto) (0-4) % Baso % (Auto) (0-2) % Lymph # (Auto) (1.2-4.9) X10*3/uL Eaton # (Auto) (0.1-1.2) X10*3/uL Eos # (Auto) (0.0-0.4) X10*3/uL Baso # (Auto) (0.0-0.2) X10*3/uL Abs Immat Gran (auto) (0.00-0.03) X10*3/uL Absolute Neuts (auto) (2.0-8.3) X10*3/uL Absolute Nucleated RBC (0.0-0.012) X10*3/uL Nucleated RBC % (auto) (0.0-0.2) /100WBC ESR (0-15) MM/HR PT 12.6 (10.8-13.0) SEC INR 1.1 (0.9-1.1) Sodium 138 (135-145) mmol/L Potassium 4.0 (3.3-5.1) mmol/L Chloride 98 (96-108) mmol/L Carbon Dioxide 27 (22-29) mmol/L Anion Gap 17 (12-20) BUN 19 H (9-16) mg/dL Creatinine 0.74 (0.5-1.4) mg/dL Estim Creat Clear Calc 181.0 Estimated GFR > 60 Random Glucose 85 (60-115) mg/dL Lactic Acid 1.5 (0.5-2.0) mmol/L Calcium 9.3 (8.4-10.2) mg/dL Magnesium (1.6-2.6) mg/dL Total Bilirubin 0.9 (0.0-1.0) mg/dL Direct Bilirubin (0.0-0.5) mg/dL AST 41 H (5-37) U/L ALT 40 (0-40) U/L Alkaline Phosphatase 211 H (39-117) U/L C-Reactive Protein 0.44 (< or = 0.50) mg/dL Total Protein 7.9 (6.5-8.0) g/dL Albumin 4.0 (3.5-5.0) g/dL Ethyl Alcohol mg/dL COVID-19 (ANGELES) (Negative) COVID-19 Clin Com <CATINA Coto - Last Filed: 06/16/20 20:49> Lab Results 06/16/20 06/17/20 06/17/20 Range/Units 22:46 00:10 00:10 WBC 5.0 (4.8-10.8) X10*3/uL RBC 3.85 L (4.60-5.80) X10*6/uL Hgb 11.9 L (14.0-18.0) g/dl Hct 35.6 L (42-52) % MCV 92.5 (80-98) fL MCH 30.9 (27.0-33.0) pg MCHC 33.4 (31.0-36.0) g/dl RDW 14.9 (11.0-16.0) % Plt Count 247 D (160-400) X10*3/uL MPV 8.7 L (9.4-12.4) fL Immature Gran % (Auto) 0.2 (0.0-0.4) % Neut % (Auto) 34.6 L (45-73) % Lymph % (Auto) 47.7 H (20-40) % Eaton % (Auto) 12.9 H (2-11) % Eos % (Auto) 3.2 (0-4) % Baso % (Auto) 1.4 (0-2) % Lymph # (Auto) 2.4 (1.2-4.9) X10*3/uL Eaton # (Auto) 0.6 (0.1-1.2) X10*3/uL Eos # (Auto) 0.2 (0.0-0.4) X10*3/uL Baso # (Auto) 0.1 (0.0-0.2) X10*3/uL Abs Immat Gran (auto) 0.01 (0.00-0.03) X10*3/uL Absolute Neuts (auto) 1.7 L (2.0-8.3) X10*3/uL Absolute Nucleated RBC 0.000 (0.0-0.012) X10*3/uL Nucleated RBC % (auto) 0.0 (0.0-0.2) /100WBC ESR (0-15) MM/HR PT (10.8-13.0) SEC INR (0.9-1.1) Sodium 141 (135-145) mmol/L Potassium 4.4 (3.3-5.1) mmol/L Chloride 103 (96-108) mmol/L Carbon Dioxide 23 (22-29) mmol/L Anion Gap 19 (12-20) BUN 21 H D (9-16) mg/dL Creatinine 0.72 (0.5-1.4) mg/dL Estim Creat Clear Calc 186.0 Estimated GFR > 60 Random Glucose 97 (60-115) mg/dL Lactic Acid (0.5-2.0) mmol/L Calcium 9.0 D (8.4-10.2) mg/dL Magnesium 1.9 (1.6-2.6) mg/dL Total Bilirubin 0.7 (0.0-1.0) mg/dL Direct Bilirubin 0.2 (0.0-0.5) mg/dL AST 52 H (5-37) U/L ALT 46 H (0-40) U/L Alkaline Phosphatase 201 H (39-117) U/L C-Reactive Protein (< or = 0.50) mg/dL Total Protein 7.5 (6.5-8.0) g/dL Albumin 3.8 (3.5-5.0) g/dL Ethyl Alcohol mg/dL COVID-19 (ANGELES) Negative (Negative) COVID-19 Clin Com See Note 06/17/20 06/17/20 06/17/20 Range/Units 00:10 15:06 15:06 WBC 5.4 (4.8-10.8) X10*3/uL RBC 3.98 L (4.60-5.80) X10*6/uL Hgb 12.5 L (14.0-18.0) g/dl Hct 37.1 L (42-52) % MCV 93.2 (80-98) fL MCH 31.4 (27.0-33.0) pg MCHC 33.7 (31.0-36.0) g/dl RDW 14.6 (11.0-16.0) % Plt Count 226 (160-400) X10*3/uL MPV 8.5 L (9.4-12.4) fL Immature Gran % (Auto) 0.2 (0.0-0.4) % Neut % (Auto) 47.9 (45-73) % Lymph % (Auto) 34.9 (20-40) % Eaton % (Auto) 14.0 H (2-11) % Eos % (Auto) 2.1 (0-4) % Baso % (Auto) 0.9 (0-2) % Lymph # (Auto) 1.9 (1.2-4.9) X10*3/uL Eaton # (Auto) 0.8 (0.1-1.2) X10*3/uL Eos # (Auto) 0.1 (0.0-0.4) X10*3/uL Baso # (Auto) 0.1 (0.0-0.2) X10*3/uL Abs Immat Gran (auto) 0.01 (0.00-0.03) X10*3/uL Absolute Neuts (auto) 2.6 (2.0-8.3) X10*3/uL Absolute Nucleated RBC 0.000 (0.0-0.012) X10*3/uL Nucleated RBC % (auto) 0.0 (0.0-0.2) /100WBC ESR 44 H (0-15) MM/HR PT (10.8-13.0) SEC INR (0.9-1.1) Sodium (135-145) mmol/L Potassium (3.3-5.1) mmol/L Chloride (96-108) mmol/L Carbon Dioxide (22-29) mmol/L Anion Gap (12-20) BUN (9-16) mg/dL Creatinine (0.5-1.4) mg/dL Estim Creat Clear Calc Estimated GFR Random Glucose (60-115) mg/dL Lactic Acid (0.5-2.0) mmol/L Calcium (8.4-10.2) mg/dL Magnesium (1.6-2.6) mg/dL Total Bilirubin (0.0-1.0) mg/dL Direct Bilirubin (0.0-0.5) mg/dL AST (5-37) U/L ALT (0-40) U/L Alkaline Phosphatase (39-117) U/L C-Reactive Protein (< or = 0.50) mg/dL Total Protein (6.5-8.0) g/dL Albumin (3.5-5.0) g/dL Ethyl Alcohol 113 mg/dL COVID-19 (ANGELES) (Negative) COVID-19 Clin Com 06/17/20 06/17/20 06/17/20 Range/Units 15:06 15:06 15:06 WBC (4.8-10.8) X10*3/uL RBC (4.60-5.80) X10*6/uL Hgb (14.0-18.0) g/dl Hct (42-52) % MCV (80-98) fL MCH (27.0-33.0) pg MCHC (31.0-36.0) g/dl RDW (11.0-16.0) % Plt Count (160-400) X10*3/uL MPV (9.4-12.4) fL Immature Gran % (Auto) (0.0-0.4) % Neut % (Auto) (45-73) % Lymph % (Auto) (20-40) % Eaton % (Auto) (2-11) % Eos % (Auto) (0-4) % Baso % (Auto) (0-2) % Lymph # (Auto) (1.2-4.9) X10*3/uL Eaton # (Auto) (0.1-1.2) X10*3/uL Eos # (Auto) (0.0-0.4) X10*3/uL Baso # (Auto) (0.0-0.2) X10*3/uL Abs Immat Gran (auto) (0.00-0.03) X10*3/uL Absolute Neuts (auto) (2.0-8.3) X10*3/uL Absolute Nucleated RBC (0.0-0.012) X10*3/uL Nucleated RBC % (auto) (0.0-0.2) /100WBC ESR (0-15) MM/HR PT 12.6 (10.8-13.0) SEC INR 1.1 (0.9-1.1) Sodium 138 (135-145) mmol/L Potassium 4.0 (3.3-5.1) mmol/L Chloride 98 (96-108) mmol/L Carbon Dioxide 27 (22-29) mmol/L Anion Gap 17 (12-20) BUN 19 H (9-16) mg/dL Creatinine 0.74 (0.5-1.4) mg/dL Estim Creat Clear Calc 181.0 Estimated GFR > 60 Random Glucose 85 (60-115) mg/dL Lactic Acid 1.5 (0.5-2.0) mmol/L Calcium 9.3 (8.4-10.2) mg/dL Magnesium (1.6-2.6) mg/dL Total Bilirubin 0.9 (0.0-1.0) mg/dL Direct Bilirubin (0.0-0.5) mg/dL AST 41 H (5-37) U/L ALT 40 (0-40) U/L Alkaline Phosphatase 211 H (39-117) U/L C-Reactive Protein 0.44 (< or = 0.50) mg/dL Total Protein 7.9 (6.5-8.0) g/dL Albumin 4.0 (3.5-5.0) g/dL Ethyl Alcohol mg/dL COVID-19 (ANGELES) (Negative) COVID-19 Clin Com <Tamela Og [employer] - Last Filed: 06/17/20 01:25> Lab Results 06/16/20 06/17/20 06/17/20 Range/Units 22:46 00:10 00:10 WBC 5.0 (4.8-10.8) X10*3/uL RBC 3.85 L (4.60-5.80) X10*6/uL Hgb 11.9 L (14.0-18.0) g/dl Hct 35.6 L (42-52) % MCV 92.5 (80-98) fL MCH 30.9 (27.0-33.0) pg MCHC 33.4 (31.0-36.0) g/dl RDW 14.9 (11.0-16.0) % Plt Count 247 D (160-400) X10*3/uL MPV 8.7 L (9.4-12.4) fL Immature Gran % (Auto) 0.2 (0.0-0.4) % Neut % (Auto) 34.6 L (45-73) % Lymph % (Auto) 47.7 H (20-40) % Eaton % (Auto) 12.9 H (2-11) % Eos % (Auto) 3.2 (0-4) % Baso % (Auto) 1.4 (0-2) % Lymph # (Auto) 2.4 (1.2-4.9) X10*3/uL Eaton # (Auto) 0.6 (0.1-1.2) X10*3/uL Eos # (Auto) 0.2 (0.0-0.4) X10*3/uL Baso # (Auto) 0.1 (0.0-0.2) X10*3/uL Abs Immat Gran (auto) 0.01 (0.00-0.03) X10*3/uL Absolute Neuts (auto) 1.7 L (2.0-8.3) X10*3/uL Absolute Nucleated RBC 0.000 (0.0-0.012) X10*3/uL Nucleated RBC % (auto) 0.0 (0.0-0.2) /100WBC ESR (0-15) MM/HR PT (10.8-13.0) SEC INR (0.9-1.1) Sodium 141 (135-145) mmol/L Potassium 4.4 (3.3-5.1) mmol/L Chloride 103 (96-108) mmol/L Carbon Dioxide 23 (22-29) mmol/L Anion Gap 19 (12-20) BUN 21 H D (9-16) mg/dL Creatinine 0.72 (0.5-1.4) mg/dL Estim Creat Clear Calc 186.0 Estimated GFR > 60 Random Glucose 97 (60-115) mg/dL Lactic Acid (0.5-2.0) mmol/L Calcium 9.0 D (8.4-10.2) mg/dL Magnesium 1.9 (1.6-2.6) mg/dL Total Bilirubin 0.7 (0.0-1.0) mg/dL Direct Bilirubin 0.2 (0.0-0.5) mg/dL AST 52 H (5-37) U/L ALT 46 H (0-40) U/L Alkaline Phosphatase 201 H (39-117) U/L C-Reactive Protein (< or = 0.50) mg/dL Total Protein 7.5 (6.5-8.0) g/dL Albumin 3.8 (3.5-5.0) g/dL Ethyl Alcohol mg/dL COVID-19 (ANGELES) Negative (Negative) COVID-19 Clin Com See Note 04/21/21 04/21/21 04/21/21 Range/Units 00:10 15:06 15:06 WBC 5.4 (4.8-10.8) X10*3/uL RBC 3.98 L (4.60-5.80) X10*6/uL Hgb 12.5 L (14.0-18.0) g/dl Hct 37.1 L (42-52) % MCV 93.2 (80-98) fL MCH 31.4 (27.0-33.0) pg MCHC 33.7 (31.0-36.0) g/dl RDW 14.6 (11.0-16.0) % Plt Count 226 (160-400) X10*3/uL MPV 8.5 L (9.4-12.4) fL Immature Gran % (Auto) 0.2 (0.0-0.4) % Neut % (Auto) 47.9 (45-73) % Lymph % (Auto) 34.9 (20-40) % Eaton % (Auto) 14.0 H (2-11) % Eos % (Auto) 2.1 (0-4) % Baso % (Auto) 0.9 (0-2) % Lymph # (Auto) 1.9 (1.2-4.9) X10*3/uL Eaton # (Auto) 0.8 (0.1-1.2) X10*3/uL Eos # (Auto) 0.1 (0.0-0.4) X10*3/uL Baso # (Auto) 0.1 (0.0-0.2) X10*3/uL Abs Immat Gran (auto) 0.01 (0.00-0.03) X10*3/uL Absolute Neuts (auto) 2.6 (2.0-8.3) X10*3/uL Absolute Nucleated RBC 0.000 (0.0-0.012) X10*3/uL Nucleated RBC % (auto) 0.0 (0.0-0.2) /100WBC ESR 44 H (0-15) MM/HR PT (10.8-13.0) SEC INR (0.9-1.1) Sodium (135-145) mmol/L Potassium (3.3-5.1) mmol/L Chloride (96-108) mmol/L Carbon Dioxide (22-29) mmol/L Anion Gap (12-20) BUN (9-16) mg/dL Creatinine (0.5-1.4) mg/dL Estim Creat Clear Calc Estimated GFR Random Glucose (60-115) mg/dL Lactic Acid (0.5-2.0) mmol/L Calcium (8.4-10.2) mg/dL Magnesium (1.6-2.6) mg/dL Total Bilirubin (0.0-1.0) mg/dL Direct Bilirubin (0.0-0.5) mg/dL AST (5-37) U/L ALT (0-40) U/L Alkaline Phosphatase (39-117) U/L C-Reactive Protein (< or = 0.50) mg/dL Total Protein (6.5-8.0) g/dL Albumin (3.5-5.0) g/dL Ethyl Alcohol 113 mg/dL COVID-19 ([facility]) (Negative) COVID-19 Clin Com 06/17/20 06/17/20 06/17/20 Range/Units 15:06 15:06 15:06 WBC (4.8-10.8) X10*3/uL RBC (4.60-5.80) X10*6/uL Hgb (14.0-18.0) g/dl Hct (42-52) % MCV (80-98) fL MCH (27.0-33.0) pg MCHC (31.0-36.0) g/dl RDW (11.0-16.0) % Plt Count (160-400) X10*3/uL MPV (9.4-12.4) fL Immature Gran % (Auto) (0.0-0.4) % Neut % (Auto) (45-73) % Lymph % (Auto) (20-40) % Eaton % (Auto) (2-11) % Eos % (Auto) (0-4) % Baso % (Auto) (0-2) % Lymph # (Auto) (1.2-4.9) X10*3/uL Eaton # (Auto) (0.1-1.2) X10*3/uL Eos # (Auto) (0.0-0.4) X10*3/uL Baso # (Auto) (0.0-0.2) X10*3/uL Abs Immat Gran (auto) (0.00-0.03) X10*3/uL Absolute Neuts (auto) (2.0-8.3) X10*3/uL Absolute Nucleated RBC (0.0-0.012) X10*3/uL Nucleated RBC % (auto) (0.0-0.2) /100WBC ESR (0-15) MM/HR PT 12.6 (10.8-13.0) SEC INR 1.1 (0.9-1.1) Sodium 138 (135-145) mmol/L Potassium 4.0 (3.3-5.1) mmol/L Chloride 98 (96-108) mmol/L Carbon Dioxide 27 (22-29) mmol/L Anion Gap 17 (12-20) BUN 19 H (9-16) mg/dL Creatinine 0.74 (0.5-1.4) mg/dL Estim Creat Clear Calc 181.0 Estimated GFR > 60 Random Glucose 85 (60-115) mg/dL Lactic Acid 1.5 (0.5-2.0) mmol/L Calcium 9.3 (8.4-10.2) mg/dL Magnesium (1.6-2.6) mg/dL Total Bilirubin 0.9 (0.0-1.0) mg/dL Direct Bilirubin (0.0-0.5) mg/dL AST 41 H (5-37) U/L ALT 40 (0-40) U/L Alkaline Phosphatase 211 H (39-117) U/L C-Reactive Protein 0.44 (< or = 0.50) mg/dL Total Protein 7.9 (6.5-8.0) g/dL Albumin 4.0 (3.5-5.0) g/dL Ethyl Alcohol mg/dL COVID-19 ([facility]) (Negative) COVID-19 Clin Com <[facility] - Last Filed: 06/17/20 17:01> Lab Results 06/16/20 06/17/20 06/17/20 Range/Units 22:46 00:10 00:10 WBC 5.0 (4.8-10.8) X10*3/uL RBC 3.85 L (4.60-5.80) X10*6/uL Hgb 11.9 L (14.0-18.0) g/dl Hct 35.6 L (42-52) % MCV 92.5 (80-98) fL MCH 30.9 (27.0-33.0) pg MCHC 33.4 (31.0-36.0) g/dl RDW 14.9 (11.0-16.0) % Plt Count 247 D (160-400) X10*3/uL MPV 8.7 L (9.4-12.4) fL Immature Gran % (Auto) 0.2 (0.0-0.4) % Neut % (Auto) 34.6 L (45-73) % Lymph % (Auto) 47.7 H (20-40) % Eaton % (Auto) 12.9 H (2-11) % Eos % (Auto) 3.2 (0-4) % Baso % (Auto) 1.4 (0-2) % Lymph # (Auto) 2.4 (1.2-4.9) X10*3/uL Eaton # (Auto) 0.6 (0.1-1.2) X10*3/uL Eos # (Auto) 0.2 (0.0-0.4) X10*3/uL Baso # (Auto) 0.1 (0.0-0.2) X10*3/uL Abs Immat Gran (auto) 0.01 (0.00-0.03) X10*3/uL Absolute Neuts (auto) 1.7 L (2.0-8.3) X10*3/uL Absolute Nucleated RBC 0.000 (0.0-0.012) X10*3/uL Nucleated RBC % (auto) 0.0 (0.0-0.2) /100WBC ESR (0-15) MM/HR PT (10.8-13.0) SEC INR (0.9-1.1) Sodium 141 (135-145) mmol/L Potassium 4.4 (3.3-5.1) mmol/L Chloride 103 (96-108) mmol/L Carbon Dioxide 23 (22-29) mmol/L Anion Gap 19 (12-20) BUN 21 H D (9-16) mg/dL Creatinine 0.72 (0.5-1.4) mg/dL Estim Creat Clear Calc 186.0 Estimated GFR > 60 Random Glucose 97 (60-115) mg/dL Lactic Acid (0.5-2.0) mmol/L Calcium 9.0 D (8.4-10.2) mg/dL Magnesium 1.9 (1.6-2.6) mg/dL Total Bilirubin 0.7 (0.0-1.0) mg/dL Direct Bilirubin 0.2 (0.0-0.5) mg/dL AST 52 H (5-37) U/L ALT 46 H (0-40) U/L Alkaline Phosphatase 201 H (39-117) U/L C-Reactive Protein (< or = 0.50) mg/dL Total Protein 7.5 (6.5-8.0) g/dL Albumin 3.8 (3.5-5.0) g/dL Ethyl Alcohol mg/dL COVID-19 ([facility]) Negative (Negative) COVID-19 Clin Com See Note 06/17/20 06/17/20 06/17/20 Range/Units 00:10 15:06 15:06 WBC 5.4 (4.8-10.8) X10*3/uL RBC 3.98 L (4.60-5.80) X10*6/uL Hgb 12.5 L (14.0-18.0) g/dl Hct 37.1 L (42-52) % MCV 93.2 (80-98) fL MCH 31.4 (27.0-33.0) pg MCHC 33.7 (31.0-36.0) g/dl RDW 14.6 (11.0-16.0) % Plt Count 226 (160-400) X10*3/uL MPV 8.5 L (9.4-12.4) fL Immature Gran % (Auto) 0.2 (0.0-0.4) % Neut % (Auto) 47.9 (45-73) % Lymph % (Auto) 34.9 (20-40) % Eaton % (Auto) 14.0 H (2-11) % Eos % (Auto) 2.1 (0-4) % Baso % (Auto) 0.9 (0-2) % Lymph # (Auto) 1.9 (1.2-4.9) X10*3/uL Eaton # (Auto) 0.8 (0.1-1.2) X10*3/uL Eos # (Auto) 0.1 (0.0-0.4) X10*3/uL Baso # (Auto) 0.1 (0.0-0.2) X10*3/uL Abs Immat Gran (auto) 0.01 (0.00-0.03) X10*3/uL Absolute Neuts (auto) 2.6 (2.0-8.3) X10*3/uL Absolute Nucleated RBC 0.000 (0.0-0.012) X10*3/uL Nucleated RBC % (auto) 0.0 (0.0-0.2) /100WBC ESR 44 H (0-15) MM/HR PT (10.8-13.0) SEC INR (0.9-1.1) Sodium (135-145) mmol/L Potassium (3.3-5.1) mmol/L Chloride (96-108) mmol/L Carbon Dioxide (22-29) mmol/L Anion Gap (12-20) BUN (9-16) mg/dL Creatinine (0.5-1.4) mg/dL Estim Creat Clear Calc Estimated GFR Random Glucose (60-115) mg/dL Lactic Acid (0.5-2.0) mmol/L Calcium (8.4-10.2) mg/dL Magnesium (1.6-2.6) mg/dL Total Bilirubin (0.0-1.0) mg/dL Direct Bilirubin (0.0-0.5) mg/dL AST (5-37) U/L ALT (0-40) U/L Alkaline Phosphatase (39-117) U/L C-Reactive Protein (< or = 0.50) mg/dL Total Protein (6.5-8.0) g/dL Albumin (3.5-5.0) g/dL Ethyl Alcohol 113 mg/dL COVID-19 ([facility]) (Negative) COVID-19 Clin Com 06/17/20 06/17/20 06/17/20 Range/Units 15:06 15:06 15:06 WBC (4.8-10.8) X10*3/uL RBC (4.60-5.80) X10*6/uL Hgb (14.0-18.0) g/dl Hct (42-52) % MCV (80-98) fL MCH (27.0-33.0) pg MCHC (31.0-36.0) g/dl RDW (11.0-16.0) % Plt Count (160-400) X10*3/uL MPV (9.4-12.4) fL Immature Gran % (Auto) (0.0-0.4) % Neut % (Auto) (45-73) % Lymph % (Auto) (20-40) % Eaton % (Auto) (2-11) % Eos % (Auto) (0-4) % Baso % (Auto) (0-2) % Lymph # (Auto) (1.2-4.9) X10*3/uL Eaton # (Auto) (0.1-1.2) X10*3/uL Eos # (Auto) (0.0-0.4) X10*3/uL Baso # (Auto) (0.0-0.2) X10*3/uL Abs Immat Gran (auto) (0.00-0.03) X10*3/uL Absolute Neuts (auto) (2.0-8.3) X10*3/uL Absolute Nucleated RBC (0.0-0.012) X10*3/uL Nucleated RBC % (auto) (0.0-0.2) /100WBC ESR (0-15) MM/HR PT 12.6 (10.8-13.0) SEC INR 1.1 (0.9-1.1) Sodium 138 (135-145) mmol/L Potassium 4.0 (3.3-5.1) mmol/L Chloride 98 (96-108) mmol/L Carbon Dioxide 27 (22-29) mmol/L Anion Gap 17 (12-20) BUN 19 H (9-16) mg/dL Creatinine 0.74 (0.5-1.4) mg/dL Estim Creat Clear Calc 181.0 Estimated GFR > 60 Random Glucose 85 (60-115) mg/dL Lactic Acid 1.5 (0.5-2.0) mmol/L Calcium 9.3 (8.4-10.2) mg/dL Magnesium (1.6-2.6) mg/dL Total Bilirubin 0.9 (0.0-1.0) mg/dL Direct Bilirubin (0.0-0.5) mg/dL AST 41 H (5-37) U/L ALT 40 (0-40) U/L Alkaline Phosphatase 211 H (39-117) U/L C-Reactive Protein 0.44 (< or = 0.50) mg/dL Total Protein 7.9 (6.5-8.0) g/dL Albumin 4.0 (3.5-5.0) g/dL Ethyl Alcohol mg/dL COVID-19 (ANGELES) (Negative) COVID-19 Clin Com <Ronaldo Weeks MD - Last Filed: 06/24/20 08:27> Discharge Plan Discharge Clinical Impression: Recurrent falls, Alcohol abuse, Leg wound, right <CATINA Coto - Last Filed: 06/16/20 20:49> Patient Disposition: Admitted As Inpatient <CATINA Coto - Last Filed: 06/16/20 20:49> Interventions: Admission Worksheet (ED) Last Done: 06/17/20 18:54 <CATINA Coto - Last Filed: 06/16/20 20:49> Discharge Date/Time: 06/17/20 18:54 <CATINA Coto - Last Filed: 06/16/20 20:49>
--- NOTE | 2020-06-16 16:39 | PC.NURSE ---
Awaiting results. Pt resting quietly.
--- NOTE | 2020-06-16 18:05 | PC.NURSE ---
Plan is for PT eval, obtain labs, and refer to case management for placement in rehab facility.
--- NOTE | 2020-06-16 18:36 | MHC.CM.ED ---
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 Pt is [place]guill[place] speaking only. Pt has hx falls. Hx of venous statis ulcer. Uses a wheeled walker. Pt is homeless and sometimes stays in local shelters. Pt is agreeable to PT assessment and understands that plan for d/c depends on PT recommendations. If PT recommends STR, pt would like to stay in [place]. Referrals placed locally. Explained to pt that STR will not fix his leg, but make him stronger to use his walker and reduce falls. Pt tells CM he is current with his PCP, Shilpa Lewis at [facility] and was seen last month. Pt verifies his HCP is Marcin Russell ([phone]). HCP is on file. D/C plan is pending PT recommendations. Transportation provided by [facility] to STR.
[2020-06-16 18:56] VITALS: BP 101/63; PULSE 97; RESP 18; TEMP 36.9; O2SAT 97
--- NOTE | 2020-06-16 19:14 | MHC.CM.ED ---
Referrals placed with [facility] and [facility]. Pt insurance [facility]. Will need to upload labs and PT eval.
[2020-06-16 23:05] LABS: COVID-19 Test Negative (Negative); IDNOW Serial# 9DD0AD1C
[2020-06-16 23:45] VITALS: BP 114/69; PULSE 64; RESP 16; TEMP 37.1; O2SAT 97
[2020-06-17] VITALS (11 sets, daily range): BP systolic 101–137; BP diastolic 58–73; PULSE 60–89; RESP 16–20; TEMP 36.1–37.3; O2SAT 95–100
[2020-06-17 00:29] LABS: Basophils Absolute Auto 0.1 X10*3/uL (0.0-0.2); Basophils Percent Auto 1.4 % (0-2); Eosinophils Absolute Auto 0.2 X10*3/uL (0.0-0.4); Eosinophils Percent Auto 3.2 % (0-4); Hematocrit 35.6 % (42-52); Hemoglobin 11.9 g/dl (14.0-18.0); Imm Gran Abs Auto 0.01 X10*3/uL (0.00-0.03); Imm Gran Pct Auto 0.2 % (0.0-0.4); Lymphocytes Absolute Auto 2.4 X10*3/uL (1.2-4.9); Lymphocytes Percent Auto 47.7 % (20-40); Mean Corpuscular HGB Conc 33.4 g/dl (31.0-36.0); Mean Corpuscular Hemoglobin 30.9 pg (27.0-33.0); Mean Corpuscular Volume 92.5 fL (80-98); Mean Platelet Volume 8.7 fL (9.4-12.4); Monocytes Absolute Auto 0.6 X10*3/uL (0.1-1.2); Monocytes Percent Auto 12.9 % (2-11); Neutrophils Absolute Auto 1.7 X10*3/uL (2.0-8.3); Neutrophils Percent Auto 34.6 % (45-73); Platelet Count 247 X10*3/uL (160-400); Red Blood Count 3.85 X10*6/uL (4.60-5.80); Red Cell Distribution Width 14.9 % (11.0-16.0)
[2020-06-17 00:30] LABS: MANUAL DIFF FLAG NO
[2020-06-17 00:59] LABS: Ethanol 113 mg/dL
[2020-06-17 01:01] LABS: Alanine Aminotransferase 46 U/L (0-40); Albumin Level 3.8 g/dL (3.5-5.0); Alkaline Phosphatase 201 U/L (39-117); Anion Gap 19 (12-20); Aspartate Amino Transferase 52 U/L (5-37); Bilirubin Direct 0.2 mg/dL (0.0-0.5); Bilirubin Total 0.7 mg/dL (0.0-1.0); Blood Urea Nitrogen 21 mg/dL (9-16); Carbon Dioxide 23 mmol/L (22-29); Chloride 103 mmol/L (96-108); Estimated Glomerular Filt Rate > 60; Glucose Random 97 mg/dL (60-115); Magnesium 1.9 mg/dL (1.6-2.6); Potassium 4.4 mmol/L (3.3-5.1); Sodium 141 mmol/L (135-145); Total Protein 7.5 g/dL (6.5-8.0)
[2020-06-17] MEDS: Acetaminophen 325 MG TABLET 975 MG PO ×2 (06:53→14:42)
--- NOTE | 2020-06-17 08:50 | MHC.CM.ED ---
Patient remains in ER. [facility] is not able to offer a bed at this time. Clinical updates sent to [facility] via [employer]. Continue to monitor for d/c needs.
--- NOTE | 2020-06-17 10:23 | MHC.CM.ED ---
When patient arrived in ER, ETOH level was 113. [facility] Yap will continue to follow patient, but will not be able to accept him for at least 24 hours and he will need to have a CIWA score of 0. Continue to monitor for d/c needs.
[2020-06-17] MEDS: Gabapentin 300 MG CAPSULE PO ×2 (12:03→20:45)
[2020-06-17] MEDS: Sertraline HCL 50 MG TABLET PO (12:03)
[2020-06-17] MEDS: hydrOXYzine HCL 25 MG TABLET PO ×2 (12:03→20:45)
[2020-06-17] MEDS: Aspirin Enteric Coated 81 MG TABLET.DR PO (12:03)
[2020-06-17] MEDS: Multivitamin TABLET 1 TAB PO (12:03)
[2020-06-17] MEDS: Omeprazole 20 MG CAPSULE.DR PO (12:03)
--- NOTE | 2020-06-17 14:30 | PC.NURSE ---
pt a/o x 3 no sob/karlos noted skin pink warm dry speaks in full sentences. 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 Mlp, lily noyola at bedside.
[2020-06-17] MEDS: oxyCODONE HCl Immed Release 5 MG TABLET PO ×2 (14:42→23:25)
[2020-06-17 15:19] LABS: Basophils Absolute Auto 0.1 X10*3/uL (0.0-0.2); Basophils Percent Auto 0.9 % (0-2); Eosinophils Absolute Auto 0.1 X10*3/uL (0.0-0.4); Eosinophils Percent Auto 2.1 % (0-4); Hematocrit 37.1 % (42-52); Hemoglobin 12.5 g/dl (14.0-18.0); Imm Gran Abs Auto 0.01 X10*3/uL (0.00-0.03); Imm Gran Pct Auto 0.2 % (0.0-0.4); Lymphocytes Absolute Auto 1.9 X10*3/uL (1.2-4.9); Lymphocytes Percent Auto 34.9 % (20-40); MANUAL DIFF FLAG NO; Mean Corpuscular HGB Conc 33.7 g/dl (31.0-36.0); Mean Corpuscular Hemoglobin 31.4 pg (27.0-33.0); Mean Corpuscular Volume 93.2 fL (80-98); Mean Platelet Volume 8.5 fL (9.4-12.4); Monocytes Absolute Auto 0.8 X10*3/uL (0.1-1.2); Neutrophils Absolute Auto 2.6 X10*3/uL (2.0-8.3); Neutrophils Percent Auto 47.9 % (45-73); Platelet Count 226 X10*3/uL (160-400); Red Blood Count 3.98 X10*6/uL (4.60-5.80); Red Cell Distribution Width 14.6 % (11.0-16.0); White Blood Count 5.4 X10*3/uL (4.8-10.8)
[2020-06-17 15:25] LABS: INTERNATIONAL NORM RATIO 1.1 (0.9-1.1); Prothrombin Time 12.6 SEC (10.8-13.0)
[2020-06-17 15:33] LABS: Lactic Acid 1.5 mmol/L (0.5-2.0)
[2020-06-17 15:37] LABS: Alanine Aminotransferase 40 U/L (0-40); Anion Gap 17 (12-20); Aspartate Amino Transferase 41 U/L (5-37); Bilirubin Total 0.9 mg/dL (0.0-1.0); Blood Urea Nitrogen 19 mg/dL (9-16); C Reactive Protein 0.44 mg/dL (< or = 0.50); Calcium 9.3 mg/dL (8.4-10.2); Carbon Dioxide 27 mmol/L (22-29); Chloride 98 mmol/L (96-108); Estimated Glomerular Filt Rate > 60; Glucose Random 85 mg/dL (60-115); Sodium 138 mmol/L (135-145); Total Protein 7.9 g/dL (6.5-8.0)
[2020-06-17 15:38] LABS: Alkaline Phosphatase 211 U/L (39-117)
[2020-06-17] MEDS: cefTRIAXone sodium 2 GM in 0.9 % Sodium Chloride 50 ML IV (16:00)
[2020-06-17] MEDS: Phenytoin Sodium Extended 100 MG CAPSULE PO ×2 (16:00→20:45)
[2020-06-17 16:15] LABS: Erythrocyte Sedimentation Rate 44 MM/HR (0-15)
--- NOTE | 2020-06-17 18:20 | PM.IMHP ---
History of Present Illness Date of Service: 06/17/20 Chief Complaint: Right lower extremity wound, fall A 59 years old male with PMH of depression, alcohol abuse, neuropathy, chronic leg wound who presents to the hospital after sustaining a fall. 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 While in the emergency he was noted to have worsening of right lower extremity wound. He was evaluated for the same wound almost 1 month ago and team not infectious at that point requiring wound care. This time it seems to be worse with increase drainage and tenderness. Blood work within normal with so no signs of sepsis. A CT scan was done to evaluate for possible bone infection, readings still pending at this point. Admitted for further evaluation and treatment. Review of Systems Review of Systems: No fever, chills or weakness No chest pain, palpitation No shortness of breath or coughing No abdominal pain, nausea or vomiting No urinary symptoms No any rash but has worsening right lower extremity wound with drainage Reporting fall, unsteady gait and peripheral neuropathy [facility] Medical History Asthma Epilepsy Gastric ulcer Hypertension Venous stasis ulcer Social History Housing: Other Alcohol intake: current Alcohol intake frequency: 3 or more drinks per day Smoking Status: Current every day smoker Smoked in Last 30 Days: No Advance Directives: No Advance Directives Information Provided: No service: No Current occupational status: unemployed Meds Allergies Allergy/AdvReac Type Severity Reaction Status Date / Time moxifloxacin Allergy Mild Hives Verified 06/16/20 13:32 Penicillins Allergy Mild SWELLING Verified 06/16/20 13:32 morphine [Morphine] AdvReac Mild SWELLING, Verified 06/16/20 13:32 ITCHING codeine [Codeine] AdvReac Unknown ITCHING, Verified 06/16/20 13:32 HIVES Active Medications: Current Medications Generic Name Dose Route Start Last Admin Trade Name Freq PRN Reason Stop Dose Admin Aspirin 81 mg 06/17/20 11:15 06/17/20 12:03 Aspirin Enteric Coated 81 Mg Tablet. PO 81 mg DAILY OSMIN Administration Diazepam 5 mg 06/17/20 11:14 Diazepam 5 Mg Tablet PO BEDTIME PRN insomnia Gabapentin 300 mg 06/17/20 11:15 06/17/20 12:03 Gabapentin 300 Mg Capsule PO 300 mg BID [facility] Administration Hydroxyzine HCl 25 mg 06/17/20 11:15 06/17/20 12:03 Hydroxyzine Hcl 25 Mg Tablet PO 25 mg BID OSMIN Administration Ibuprofen 600 mg 06/17/20 15:00 06/17/20 16:14 Ibuprofen 600 Mg Tablet PO Not Given TID [facility] Multivitamins/Vitamin C 1 tab 06/17/20 11:15 06/17/20 12:03 Multivitamin Tablet PO 1 tab DAILY OSMIN Administration Non-Formulary Medication 2 tab 06/17/20 15:00 Acamprosate PO TID [facility] Omeprazole 20 mg 06/17/20 11:15 06/17/20 12:03 Omeprazole 20 Mg Capsule.Dr PO 20 mg DAILY [facility] Administration Oxycodone HCl 5 mg 06/17/20 14:24 06/17/20 14:42 Oxycodone Hcl Immed Release 5 Mg Tablet PO 5 mg Q6H PRN Administration pain Pentoxifylline 400 mg 06/17/20 15:00 06/17/20 16:14 Pentoxifylline Er 400 Mg Tablet.Er PO Not Given TID [facility] Pharmacy Consult 1 each 06/16/20 18:07 Consult Rx Perform Med Rec MISCELLANE ONCE PRN Consult order Phenytoin Sodium 100 mg 06/17/20 15:00 06/17/20 16:00 Phenytoin Sodium Extended 100 Mg Capsule PO 100 mg TID [facility] Administration Quetiapine Fumarate 200 mg 06/17/20 21:00 Quetiapine Fumarate 50 Mg Tablet PO BEDTIME [facility] Sertraline HCl 50 mg 06/17/20 11:15 06/17/20 12:03 Sertraline Hcl 50 Mg Tablet PO 50 mg DAILY [facility] Administration Home Medications Medication Instructions Recorded Confirmed Last Taken Type acamprosate 2 tab PO TID 05/26/20 06/16/20 Unknown History aspirin 1 tab PO DAILY 05/26/20 06/16/20 Unknown History diazepam 1 tab PO BEDTIME PRN 05/26/20 06/16/20 Unknown History gabapentin 1 cap PO BID 05/26/20 06/16/20 Unknown History hydroxyzine HCl 1 tab PO BID 05/26/20 06/16/20 Unknown History ibuprofen 1 tab PO TID 05/26/20 06/16/20 Unknown History multivitamin [One Daily 1 tab PO DAILY 05/26/20 06/16/20 Unknown History Multivitamin] omeprazole 1 cap PO DAILY 05/26/20 06/16/20 Unknown History pentoxifylline 1 tab PO TID 05/26/20 06/16/20 Unknown History phenytoin sodium extended 1 cap PO TID 05/26/20 06/16/20 Unknown History quetiapine 2 tab PO BEDTIME 05/26/20 06/16/20 Unknown History sertraline 1 tab PO DAILY 05/26/20 06/16/20 Unknown History Physical Exam Vital Signs and Narrative: Vital Signs: Last Vital Signs Temp 98.1 F 06/17/20 17:43 Pulse 69 06/17/20 17:43 eResp 18 06/17/20 17:43 BP 134/66 06/17/20 17:43 Pulse Ox 98 06/17/20 17:43 Body Mass Index 61.2 Const: Other: Constitutional : Alert, oriented, not in distress Neck : Normal inspection, Supple Cardiovascular : RRR, S1 S2, no lower extremity edema Respiratory : Good bilateral air entry, no crackles, wheezes or rhonchi Gastrointestinal: soft, lax, Normal bowel sounds, Non tender Skin : Warm/Dry, right lower extremity suppurative wound with yellowish drainage, and surrounding erythema and tenderness. Neurological : Alert & oriented x3, No focal deficit Results Labs CBC and Chem 7: 06/17/20 15:06 06/17/20 15:06 Labs: Laboratory Results - last 24 hr 06/16/20 06/17/20 06/17/20 22:46 00:10 00:10 MCV 92.5 MCH 30.9 MCHC 33.4 RDW 14.9 Plt Count 247 D MPV 8.7 L Immature Gran % (Auto) 0.2 Neut % (Auto) 34.6 L Lymph % (Auto) 47.7 H Menard % (Auto) 12.9 H Eos % (Auto) 3.2 Baso % (Auto) 1.4 Lymph # (Auto) 2.4 Menard # (Auto) 0.6 Eos # (Auto) 0.2 Baso # (Auto) 0.1 Abs Immat Gran (auto) 0.01 Absolute Neuts (auto) 1.7 L Absolute Nucleated RBC 0.000 Nucleated RBC % (auto) 0.0 ESR PT INR Anion Gap 19 Estim Creat Clear Calc 186.0 Estimated GFR > 60 Random Glucose 97 Lactic Acid Calcium 9.0 D Magnesium 1.9 Total Bilirubin 0.7 Direct Bilirubin 0.2 AST 52 H ALT 46 H Alkaline Phosphatase 201 H C-Reactive Protein Total Protein 7.5 Albumin 3.8 Ethyl Alcohol COVID-19 (ANGELES) Negative COVID-19 Clin Com See Note 06/17/20 06/17/20 06/17/20 00:10 15:06 15:06 MCV 93.2 MCH 31.4 MCHC 33.7 RDW 14.6 Plt Count 226 MPV 8.5 L Immature Gran % (Auto) 0.2 Neut % (Auto) 47.9 Lymph % (Auto) 34.9 Menard % (Auto) 14.0 H Eos % (Auto) 2.1 Baso % (Auto) 0.9 Lymph # (Auto) 1.9 [place]ard # (Auto) 0.8 Eos # (Auto) 0.1 Baso # (Auto) 0.1 Abs Immat Gran (auto) 0.01 Absolute Neuts (auto) 2.6 Absolute Nucleated RBC 0.000 Nucleated RBC % (auto) 0.0 ESR 44 H PT INR Anion Gap Estim Creat Clear Calc Estimated GFR Random Glucose Lactic Acid Calcium Magnesium Total Bilirubin Direct Bilirubin AST ALT Alkaline Phosphatase C-Reactive Protein Total Protein Albumin Ethyl Alcohol 113 COVID-19 (ANGELES) COVID-19 Clin Com 06/17/20 06/17/20 06/17/20 15:06 15:06 15:06 MCV MCH MCHC RDW Plt Count MPV Immature Gran % (Auto) Neut % (Auto) Lymph % (Auto) Menard % (Auto) Eos % (Auto) Baso % (Auto) Lymph # (Auto) Menard # (Auto) Eos # (Auto) Baso # (Auto) Abs Immat Gran (auto) Absolute Neuts (auto) Absolute Nucleated RBC Nucleated RBC % (auto) ESR PT 12.6 INR 1.1 Anion Gap 17 Estim Creat Clear Calc 181.0 Estimated GFR > 60 Random Glucose 85 Lactic Acid 1.5 Calcium 9.3 Magnesium Total Bilirubin 0.9 Direct Bilirubin AST 41 H ALT 40 Alkaline Phosphatase 211 H C-Reactive Protein 0.44 Total Protein 7.9 Albumin 4.0 Ethyl Alcohol COVID-19 (ANGELES) COVID-19 Clin Com Assessment and Plan (1) Recurrent falls: Status: Acute (2) Leg wound, right: Status: Acute (3) Alcohol abuse: Status: Acute A 59 years old male with PMH of depression, alcohol abuse, neuropathy, chronic leg wound who presents to the hospital after sustaining a fall. 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 Right lower extremity wound Concerns for possible osteomyelitis Start antibiotics of doxycycline and ceftriaxone Pending CT scan To get surgery evaluation for debridement Falls Likely secondary to worsening peripheral neuropathy next Lyme continue gabapentin To get PT evaluation History of alcohol abuse Patient unclear about his usage Start CIWA protocol DVT PPX Heparin
[2020-06-17] MEDS: Doxycycline Hyclate 100 MG in 0.9 % Sodium Chloride 250 ML 166.67 MG IV (19:32)
[2020-06-17] MEDS: Heparin Sodium,Porcine 5,000 UNIT/ML VIAL 5000 UNIT SUBCUT (19:34)
[2020-06-17] MEDS: QUEtiapine Fumarate 50 MG TABLET 200 MG PO (20:45)
[2020-06-17] MEDS: Pentoxifylline ER 400 MG TABLET.ER PO (20:45)
[2020-06-17] MEDS: Ibuprofen 600 MG TABLET PO (20:45)
[2020-06-17] MEDS: diazePAM 5 MG TABLET PO (23:25)
[2020-06-17] MEDS: 0.9 % Sodium Chloride Flush 3 ML SYRINGE IVFLUSH (23:25)
[2020-06-18] VITALS (7 sets, daily range): BP systolic 106–148; BP diastolic 58–72; PULSE 58–69; RESP 16–20; TEMP 36.2–37; O2SAT 99–100
[2020-06-18] MEDS: Heparin Sodium,Porcine 5,000 UNIT/ML VIAL 5000 UNIT SUBCUT ×3 (03:53→18:20)
[2020-06-18 06:23] LABS: MANUAL DIFF FLAG NO
[2020-06-18 06:31] LABS: Basophils Percent Auto 0.9 % (0-2); Eosinophils Absolute Auto 0.1 X10*3/uL (0.0-0.4); Eosinophils Percent Auto 4.1 % (0-4); Hematocrit 33.3 % (42-52); Hemoglobin 11.1 g/dl (14.0-18.0); Imm Gran Abs Auto 0.01 X10*3/uL (0.00-0.03); Imm Gran Pct Auto 0.3 % (0.0-0.4); Lymphocytes Absolute Auto 0.7 X10*3/uL (1.2-4.9); Lymphocytes Percent Auto 22.5 % (20-40); Mean Corpuscular HGB Conc 33.3 g/dl (31.0-36.0); Mean Corpuscular Hemoglobin 31.4 pg (27.0-33.0); Mean Corpuscular Volume 94.1 fL (80-98); Mean Platelet Volume 9.1 fL (9.4-12.4); Monocytes Absolute Auto 0.3 X10*3/uL (0.1-1.2); Monocytes Percent Auto 8.4 % (2-11); Neutrophils Percent Auto 63.8 % (45-73); Platelet Count 207 X10*3/uL (160-400); Red Blood Count 3.54 X10*6/uL (4.60-5.80); Red Cell Distribution Width 14.2 % (11.0-16.0); White Blood Count 3.2 X10*3/uL (4.8-10.8)
[2020-06-18 06:52] LABS: Anion Gap 13 (12-20); Blood Urea Nitrogen 14 mg/dL (9-16); Calcium 8.9 mg/dL (8.4-10.2); Carbon Dioxide 27 mmol/L (22-29); Chloride 104 mmol/L (96-108); Creatinine Clr Calc Pharmacy 194.1; Estimated Glomerular Filt Rate > 60; Glucose Random 101 mg/dL (60-115); Potassium 3.9 mmol/L (3.3-5.1); Sodium 140 mmol/L (135-145)
[2020-06-18] MEDS: Multivitamin TABLET 1 TAB PO (07:53)
[2020-06-18] MEDS: Ibuprofen 600 MG TABLET PO ×3 (07:54→21:26)
[2020-06-18] MEDS: Sertraline HCL 50 MG TABLET PO (07:54)
[2020-06-18] MEDS: Gabapentin 300 MG CAPSULE PO ×2 (07:54→21:26)
[2020-06-18] MEDS: Phenytoin Sodium Extended 100 MG CAPSULE PO ×3 (07:54→21:27)
[2020-06-18] MEDS: Aspirin Enteric Coated 81 MG TABLET.DR PO (07:54)
[2020-06-18] MEDS: hydrOXYzine HCL 25 MG TABLET PO ×2 (07:54→21:27)
[2020-06-18] MEDS: Pentoxifylline ER 400 MG TABLET.ER PO ×3 (07:55→21:27)
[2020-06-18] MEDS: Doxycycline Hyclate 100 MG in 0.9 % Sodium Chloride 250 ML 250 MG IV (07:55)
[2020-06-18] MEDS: Omeprazole 20 MG CAPSULE.DR PO (07:55)
[2020-06-18] MEDS: 0.9 % Sodium Chloride Flush 3 ML SYRINGE IVFLUSH ×3 (07:57→21:27)
--- NOTE | 2020-06-18 08:07 | P.CDIC_ITS ---
CDI Concurrent Query Service Date: 06/18/20 Documentation Clarification: Please clarify if you are treating a proba ble/suspected/likely or confirmed: BMI Morbid obesity Please specify if known Provider Response: Other Other Diagnosis: Wrong entry PLEASE DO NOT DELETE/MODIFY EXISTING CONTENT Additional information is needed in order to code to the highest accuracy and appropriate Severity of Illness (SOI). Please clarify the information noted below in your progress notes and discharge summary. Risk Factors/Clinical Indicators/Treatments Body mass index 61.2 CDS: Samara Oliver [facility], CDIS Contact Number: [phone] Please Review the information above and exercise your independent professional judgment in responding to the query. If you concur, pleas document in the PROGRESS NOTES and DISCHARGE SUMMARY. If you do not agree with the query, please document in the query above. THIS QUERY IS PART OF THE PERMANENT MEDICAL RECORD
[2020-06-18 08:55] LABS: Estimated Average Glucose 100 mg/dL; Hemoglobin A1c % 5.1 %
--- NOTE | 2020-06-18 14:09 | MHC.CM.PN ---
CM MET WITH PT WITH THE ASSISTANCE OF [facility]. PT REPORTS HE LISTS THE RETIREMENT HIS ADDRESS BUT HE ACTUALLY LIVES ON THE BACK [place]. HE REPORTS BECAUSE HE LIVES OUTSIDE, HE CANNOT HAVE A VNA TO ASSIST HIM. PT DOES HAVE A WHEELED WALKER AND A HCP ON FILE. PT CONFIRMS BOTH THE HCP AND PCP ON FILE ARE ACCURATE. PT DC PLAN IS TBD. HE IS INTERESTED IN STR HOWEVER IT IS UNCLEAR IF HE WILL BE ELIGIBLE. REFERRALS WILL BE MADE. IF PT DOES NOT SKILL IN TO STR, HE WILL RETURN TO THE STREET WITH NO SERVICES. TRANSPORT WILL BE DETERMINED BY DISPOSITION.
--- NOTE | 2020-06-18 14:13 | MHC.CM.PN ---
Addendum entered by Thea Newberry 06/18/20 14:56: [facility] @ IS OFFERING A BED PENDING PTS 0 CIWA LASTS 24 HOURS. MARGARITA OSEI IS ALSO FOLLOWING. Original Note: CM MET WITH PT WITH THE ASSISTANCE OF [facility]. PT REPORTS HE LISTS THE ALF HIS ADDRESS BUT HE ACTUALLY LIVES ON THE BACK [place]. HE REPORTS BECAUSE HE LIVES OUTSIDE, HE CANNOT HAVE A VNA TO ASSIST HIM. PT DOES HAVE A WHEELED WALKER AND A HCP ON FILE. PT CONFIRMS BOTH THE HCP AND PCP ON FILE ARE ACCURATE. REFERRALS HAVE BEEN MADE TO [facility], PT REPORTS HE IS WILLING TO GO TO ANY FACILITY THAT HAS A BED. DC PLAN TBD BY BED OFFERS.
[2020-06-18] MEDS: cefTRIAXone sodium 1 GM in 0.9 % Sodium Chloride 50 ML IV (15:30)
--- NOTE | 2020-06-18 16:33 | P.PNIM_ITS ---
Subjective Subjective Date of Service: 06/18/20 Interval History: the patient was seen and evaluated this morning Laying in bed, feels comfortable Denies any fever, chills or shortness of breath No reported other overnight events. Review of Systems No fever, chills or weakness No chest pain, palpitation No shortness of breath or coughing No abdominal pain, nausea or vomiting No urinary symptoms No any rash but has worsening right lower extremity wound with drainage Reporting fall, unsteady gait and peripheral neuropathy Physical Exam Vital Signs: Vital Signs: Last Vital Signs Temp 98.2 F 06/18/20 15:16 Pulse 68 06/18/20 15:16 Resp 16 06/18/20 15:16 BP 137/60 06/18/20 15:16 Pulse Ox 99 06/18/20 15:16 Body Mass Index 61.2 Const: Other: Constitutional : Alert, oriented, not in distress Neck : Normal inspection, Supple Cardiovascular : RRR, S1 S2, no lower extremity edema Respiratory : Good bilateral air entry, no crackles, wheezes or rhonchi Gastrointestinal: soft, lax, Normal bowel sounds, Non tender Skin : Warm/Dry, right lower extremity suppurative wound with yellowish drainage, and surrounding erythema and tenderness. Neurological : Alert & oriented x3, No focal deficit Objective Data Current Medications Generic Name Dose Route Start Last Admin Trade Name Adielq PRN Reason Stop Dose Admin Acetaminophen 650 mg 06/17/20 19:07 Acetaminophen 325 Mg Tablet PO Q6H PRN Pain, Mild (Pain Scale 1-3) Aspirin 81 mg 06/17/20 11:15 06/18/20 07:54 Aspirin Enteric Coated 81 Mg Tablet. PO 81 mg DAILY OSMIN Administration Diazepam 5 mg 06/17/20 11:14 06/17/20 23:25 Diazepam 5 Mg Tablet PO 5 mg BEDTIME PRN Administration insomnia Gabapentin 300 mg 06/17/20 11:15 06/18/20 07:54 Gabapentin 300 Mg Capsule PO 300 mg BID OSMIN Administration Heparin Sodium (Porcine) 5,000 unit 06/17/20 19:07 06/18/20 11:52 Heparin Sodium,Porcine 5,000 Unit/Ml Vial SUBCUT 5,000 unit Q8H OSMIN Administration Hydroxyzine HCl 25 mg 06/17/20 11:15 06/18/20 07:54 Hydroxyzine Hcl 25 Mg Tablet PO 25 mg BID OSMIN Administration Doxycycline Hyclate 100 mg/ 250 mls @ 166.67 mls/hr 06/17/20 20:00 06/18/20 09:56 Sodium Chloride IV Infused Q12H OSMIN Infusion Ceftriaxone Sodium 1 gm/ 50 mls @ 100 mls/hr 06/18/20 16:00 06/18/20 16:08 Sodium Chloride IV Infused Q24H OSMIN Infusion Ibuprofen 600 mg 06/17/20 15:00 06/18/20 15:30 Ibuprofen 600 Mg Tablet PO 600 mg TID OSMIN Administration Multivitamins/Vitamin C 1 tab 06/17/20 11:15 06/18/20 07:53 Multivitamin Tablet PO 1 tab DAILY OSMIN Administration Non-Formulary Medication 2 tab 06/17/20 15:00 Acamprosate PO TID OSMIN Omeprazole 20 mg 06/17/20 11:15 06/18/20 07:55 Omeprazole 20 Mg Capsule.Dr PO 20 mg DAILY OSMIN Administration Oxycodone HCl 5 mg 06/17/20 14:24 06/17/20 23:25 Oxycodone Hcl Immed Release 5 Mg Tablet PO 5 mg Q6H PRN Administration pain Pentoxifylline 400 mg 06/17/20 15:00 06/18/20 15:30 Pentoxifylline Er 400 Mg Tablet.Er PO 400 mg TID [facility] Administration Pharmacy Consult 1 each 06/16/20 18:07 Consult Rx Perform Med Rec MISCELLANE ONCE PRN Consult order Phenytoin Sodium 100 mg 06/17/20 15:00 06/18/20 15:29 Phenytoin Sodium Extended 100 Mg Capsule PO 100 mg TID [facility] Administration Quetiapine Fumarate 200 mg 06/17/20 21:00 06/17/20 20:45 Quetiapine Fumarate 50 Mg Tablet PO 200 mg BEDTIME OSMIN Administration Sertraline HCl 50 mg 06/17/20 11:15 06/18/20 07:54 Sertraline Hcl 50 Mg Tablet PO 50 mg DAILY [facility] Administration Sodium Chloride 3 ml 06/18/20 00:00 06/18/20 15:33 0.9 % Sodium Chloride Flush 3 Ml Syringe IVFLUSH 3 ml QSHIFT [facility] Administration Labs CBC & Chem 7: 06/18/20 06:07 06/18/20 06:07 Assessment and Plan (1) Recurrent falls: Status: Acute (2) Leg wound, right: Status: Acute (3) Alcohol abuse: Status: Acute Assessment and Plan: A 59 years old male with PMH of depression, alcohol abuse, neuropathy, chronic leg wound who presents to the hospital after sustaining a fall. 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 Right lower extremity wound Concerns for possible osteomyelitis Continue antibiotics of doxycycline and ceftriaxone CT scan concerning for possible chronic OM To get surgery evaluation for debridement To do MRI RLE Falls Likely secondary to worsening peripheral neuropathy next Lyme continue gabapentin To get PT evaluation Leukopenia WBCs dropped to below 4 likely 2/2 dilution and chronic disease to monitor History of alcohol abuse Patient unclear about his usage Start CIWA protocol DVT PPX Heparin
--- NOTE | 2020-06-18 16:49 | P.CONGS_ITS ---
History of Present Illness Consult details Consult date: 06/18/20 Narrative: 59-year-old male patient well known to me with a nonhealing wound of the right lateral malleolus. He apparently fell yesterday resulting in a new skin abrasion in the right lower extremity. He was admitted to the hospitalist service for wound care and possible osteomyelitis of the right leg. Patient previously underwent a split-thickness skin graft to the site but unfortunately because of the patient's living situation, the graft subsequently failed. He now has increased drainage from the lateral malleolar wound. It is unclear how we he has been caring for this wound. Review of Systems Constitutional: Constitutional: Reports body ache(s), Reports frequent falls, Reports headache(s) and Denies poor appetite ENT: Reports headache(s) Cardiovascular: Cardiovascular: Reports chest pain, Reports chest pain with activity, Reports pedal edema, Reports leg ulcers and Reports leg edema Respiratory: Respiratory: Denies cough and Denies hemoptysis Gastrointestinal: Gastrointestinal: Reports no additional gastrointestinal complaints Genitourinary: Genitourinary: Reports no additional male genitourinary complaints Musculoskeletal: Musculoskeletal: Reports as per HPI Integumentary/Breasts: Skin/Breast: Reports as per HPI Neurologic: Reports frequent falls and Reports headache(s) [facility] Past Medical History Medical History Asthma Epilepsy Gastric ulcer Hypertension Venous stasis ulcer Social History Social History Household Members: None Housing: Homeless Do you presently have visiting nurse or other home services: No Alcohol intake: current Alcohol intake frequency: 3 or more drinks per day Smoking Status: Former smoker Smoked in Last 30 Days: No Use of substances other than those prescribed or required for medical reasons: No Currently Displaying Signs/Symptoms of Drug Intoxication Withdrawal: No Have you been hit, kicked, punched, or otherwise hurt by someone within the past year? If so, by whom?: No Do you feel safe in your current relationship?: No Is there a partner from a previous relationship who is making you feel unsafe now?: No Are you made to feel afraid or neglected: No Advance Directives: No Advance Directives Information Provided: No Do you have thoughts of harming others: None Do you have a plan to hurt others: No Plan Recently lost weight without trying: No service: No Current occupational status: unemployed Meds Allergies Allergy/AdvReac Type Severity Reaction Status Date / Time moxifloxacin Allergy Mild Hives Verified 06/16/20 13:32 Penicillins Allergy Mild SWELLING Verified 06/16/20 13:32 morphine [Morphine] AdvReac Mild SWELLING, Verified 06/16/20 13:32 ITCHING codeine [Codeine] AdvReac Unknown ITCHING, Verified 06/16/20 13:32 HIVES Active Medications: Current Medications Generic Name Dose Route Start Last Admin Trade Name Freq PRN Reason Stop Dose Admin Acetaminophen 650 mg 06/17/20 19:07 Acetaminophen 325 Mg Tablet PO Q6H PRN Pain, Mild (Pain Scale 1-3) Aspirin 81 mg 06/17/20 11:15 06/18/20 07:54 Aspirin Enteric Coated 81 Mg Tablet.Dr PO 81 mg DAILY OSMIN Administration Diazepam 5 mg 06/17/20 11:14 06/17/20 23:25 Diazepam 5 Mg Tablet PO 5 mg BEDTIME PRN Administration insomnia Gabapentin 300 mg 06/17/20 11:15 06/18/20 07:54 Gabapentin 300 Mg Capsule PO 300 mg BID OSMIN Administration Heparin Sodium (Porcine) 5,000 unit 06/17/20 19:07 06/18/20 11:52 Heparin Sodium,Porcine 5,000 Unit/Ml Vial SUBCUT 5,000 unit Q8H OSMIN Administration Hydroxyzine HCl 25 mg 06/17/20 11:15 06/18/20 07:54 Hydroxyzine Hcl 25 Mg Tablet PO 25 mg BID OSMIN Administration Doxycycline Hyclate 100 mg/ 250 mls @ 166.67 mls/hr 06/17/20 20:00 06/18/20 09:56 Sodium Chloride IV Infused Q12H OSMIN Infusion Ceftriaxone Sodium 1 gm/ 50 mls @ 100 mls/hr 06/18/20 16:00 06/18/20 16:08 Sodium Chloride IV Infused Q24H OSMIN Infusion Ibuprofen 600 mg 06/17/20 15:00 06/18/20 15:30 Ibuprofen 600 Mg Tablet PO 600 mg TID OSMIN Administration Multivitamins/Vitamin C 1 tab 06/17/20 11:15 06/18/20 07:53 Multivitamin Tablet PO 1 tab DAILY OSMIN Administration Non-Formulary Medication 2 tab 06/17/20 15:00 Acamprosate PO TID [facility] Omeprazole 20 mg 06/17/20 11:15 06/18/20 07:55 Omeprazole 20 Mg Capsule.Dr PO 20 mg DAILY [facility] Administration Oxycodone HCl 5 mg 06/17/20 14:24 06/17/20 23:25 Oxycodone Hcl Immed Release 5 Mg Tablet PO 5 mg Q6H PRN Administration pain Pentoxifylline 400 mg 06/17/20 15:00 06/18/20 15:30 Pentoxifylline Er 400 Mg Tablet.Er PO 400 mg TID [facility] Administration Pharmacy Consult 1 each 06/16/20 18:07 Consult Rx Perform Med Rec MISCELLANE ONCE PRN Consult order Phenytoin Sodium 100 mg 06/17/20 15:00 06/18/20 15:29 Phenytoin Sodium Extended 100 Mg Capsule PO 100 mg TID [facility] Administration Quetiapine Fumarate 200 mg 06/17/20 21:00 06/17/20 20:45 Quetiapine Fumarate 50 Mg Tablet PO 200 mg BEDTIME [facility] Administration Sertraline HCl 50 mg 06/17/20 11:15 06/18/20 07:54 Sertraline Hcl 50 Mg Tablet PO 50 mg DAILY [facility] Administration Sodium Chloride 3 ml 06/18/20 00:00 06/18/20 15:33 0.9 % Sodium Chloride Flush 3 Ml Syringe IVFLUSH 3 ml QSHIFT [facility] Administration Home Medications Medication Instructions Recorded Confirmed Last Taken Type acamprosate 2 tab PO TID 05/26/20 06/16/20 Unknown History aspirin 1 tab PO DAILY 05/26/20 06/16/20 Unknown History diazepam 1 tab PO BEDTIME PRN 05/26/20 06/16/20 Unknown History gabapentin 1 cap PO BID 05/26/20 06/16/20 Unknown History hydroxyzine HCl 1 tab PO BID 05/26/20 06/16/20 Unknown History ibuprofen 1 tab PO TID 05/26/20 06/16/20 Unknown History multivitamin [One Daily 1 tab PO DAILY 05/26/20 06/16/20 Unknown History Multivitamin] omeprazole 1 cap PO DAILY 05/26/20 06/16/20 Unknown History pentoxifylline 1 tab PO TID 05/26/20 06/16/20 Unknown History phenytoin sodium extended 1 cap PO TID 05/26/20 06/16/20 Unknown History quetiapine 2 tab PO BEDTIME 05/26/20 06/16/20 Unknown History sertraline 1 tab PO DAILY 05/26/20 06/16/20 Unknown History Physical Exam Vital Signs: Vital Signs: Last Vital Signs Temp 98.2 F 06/18/20 15:16 Pulse 68 06/18/20 15:16 Resp 16 06/18/20 15:16 BP 137/60 06/18/20 15:16 Pulse Ox 99 06/18/20 15:16 Body Mass Index 61.2 Const: Other: Awake, alert, comfortable, in no acute distress Resp: Effort & Inspection: normal respiratory effort, no audible wheezes and no cough Cardio: Jugular venous distension: no JVD Skin: General skin exam: no rashes or lesions noted Extrem: Other: Right lower extremity with an open granulating wound above the lateral malleolus consistent with a venous stasis ulceration. A 2nd lesion is noted slightly above this which is crusted with no discharge the lower chronic venous stasis ulcer has a blue-green discharge on the dressing suggestive of Pseudomonas. Wound was clean and redressed with a silver calcium alginate dressing. This was followed by dry sterile dressings. Results Labs Result diagrams: 06/18/20 06:07 06/18/20 06:07 Labs: Abnormal lab results 06/18/20 Range/Units 06:07 WBC 3.2 L (4.8-10.8) X10*3/uL RBC 3.54 L (4.60-5.80) X10*6/uL Hgb 11.1 L (14.0-18.0) g/dl Hct 33.3 L (42-52) % MPV 9.1 L (9.4-12.4) fL Eos % (Auto) 4.1 H (0-4) % Lymph # (Auto) 0.7 L (1.2-4.9) X10*3/uL Short CBC 06/18/20 Range/Units 06:07 WBC 3.2 L (4.8-10.8) X10*3/uL Hgb 11.1 L (14.0-18.0) g/dl Hct 33.3 L (42-52) % Plt Count 207 (160-400) X10*3/uL BMP 04/22/21 06:07 Sodium 140 Potassium 3.9 Chloride 104 Carbon Dioxide 27 BUN 14 Creatinine 0.69 Calcium 8.9 All other labs normal. Assessment and Plan (1) Leg wound, right: Status: Acute 59-year-old male well known to me with a long history of chronic venous stasis ulceration of the right lower extremity. He presents following a fall with a new ulceration located above the previous ulceration. This is dry and crusted. The chronic ulcer is granulated but with a Pseudomonas type discharge. I applied a silver calcium alginate dressing which should help to dry the wound. This should be changed on a daily basis and cover with dry sterile dressing.
[2020-06-18] MEDS: oxyCODONE HCl Immed Release 5 MG TABLET PO (19:47)
[2020-06-18] MEDS: Doxycycline Hyclate 100 MG in 0.9 % Sodium Chloride 250 ML 166.67 MG IV (20:26)
[2020-06-18] MEDS: QUEtiapine Fumarate 50 MG TABLET 200 MG PO (21:27)
[2020-06-19 04:00] VITALS: BP 111/67; PULSE 69; RESP 20; TEMP 36.4; O2SAT 98
[2020-06-19] MEDS: Heparin Sodium,Porcine 5,000 UNIT/ML VIAL 5000 UNIT SUBCUT (04:24)
[2020-06-19] MEDS: Doxycycline Hyclate 100 MG in 0.9 % Sodium Chloride 250 ML 166.67 MG IV (07:12)
[2020-06-19 07:42] VITALS: BP 114/68; PULSE 61; RESP 18; TEMP 36.6; O2SAT 98
[2020-06-19] MEDS: Ibuprofen 600 MG TABLET PO (08:21)
[2020-06-19] MEDS: Gabapentin 300 MG CAPSULE PO (08:21)
[2020-06-19] MEDS: diphenhydrAMINE HCL 25 MG TABLET PO (08:21)
[2020-06-19] MEDS: Aspirin Enteric Coated 81 MG TABLET.DR PO (08:22)
[2020-06-19] MEDS: Pentoxifylline ER 400 MG TABLET.ER PO (08:22)
[2020-06-19] MEDS: Phenytoin Sodium Extended 100 MG CAPSULE PO (08:22)
[2020-06-19] MEDS: Omeprazole 20 MG CAPSULE.DR PO (08:22)
[2020-06-19] MEDS: Sertraline HCL 50 MG TABLET PO (08:22)
[2020-06-19] MEDS: levoFLOXacin 500 MG TABLET PO (08:22)
[2020-06-19] MEDS: hydrOXYzine HCL 25 MG TABLET PO (08:22)
[2020-06-19] MEDS: Multivitamin TABLET 1 TAB PO (08:22)
[2020-06-19 10:44] VITALS: BP 114/68; PULSE 61; O2SAT 98
[2020-06-19 11:40] VITALS: BP 123/76; PULSE 62; RESP 18; TEMP 36.9; O2SAT 98
--- NOTE | 2020-06-19 13:00 | PM.DS ---
DS: Providers Provider Date of Service: 06/19/20 Date of admission: 06/17/20 18:19 Primary care physician: Shilpa Bynum MD Consults: 06/17/20 19:07 Consult to General Surgery Routine Consulting Provider: Cody Jett Reason for consultation: RLE wound with drainage for your kind eval. DS: Diagnosis Discharge Diagnosis (1) Leg wound, right: Status: Acute (2) Recurrent falls: Status: Acute (3) Alcohol abuse: Status: Acute DS: Medications Discharge Medications Home Medications: Home Medications Medication Instructions Recorded Confirmed acamprosate 2 tab PO TID 05/26/20 06/16/20 aspirin 1 tab PO DAILY 05/26/20 06/16/20 diazepam 1 tab PO BEDTIME PRN 05/26/20 06/16/20 gabapentin 1 cap PO BID 05/26/20 06/16/20 hydroxyzine HCl 1 tab PO BID 05/26/20 06/16/20 ibuprofen 1 tab PO TID 05/26/20 06/16/20 multivitamin [One Daily 1 tab PO DAILY 05/26/20 06/16/20 Multivitamin] omeprazole 1 cap PO DAILY 05/26/20 06/16/20 pentoxifylline 1 tab PO TID 05/26/20 06/16/20 phenytoin sodium extended 1 cap PO TID 05/26/20 06/16/20 quetiapine 2 tab PO BEDTIME 05/26/20 06/16/20 sertraline 1 tab PO DAILY 05/26/20 06/16/20 Previous Rx's Medication Instructions Recorded doxycycline monohydrate 100 mg PO BID #16 cap 06/19/20 levofloxacin 500 mg PO Q24H #8 tab 06/19/20 DS: Summary Hospital Course Hospital Course: Admission note HPI A 59 years old male with PMH of depression, alcohol abuse, neuropathy, chronic leg wound who presents to the hospital after sustaining a fall. 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 While in the emergency he was noted to have worsening of right lower extremity wound. He was evaluated for the same wound almost 1 month ago and team not infectious at that point requiring wound care. This time it seems to be worse with increase drainage and tenderness. Blood work within normal with so no signs of sepsis. A CT scan was done to evaluate for possible bone infection, readings still pending at this point. Admitted for further evaluation and treatment. Hospital course The patient was admitted to the hospital for right lower extremity wound. He was evaluated by a CT scan and MRI for concern of osteomyelitis. Images showed no osteomyelitis in the bone. He was evaluated by surgical team Dr. Jett who did bedside 1 cleaning and debridement in. Treated with IV antibiotics of doxycycline and ceftriaxone. Blood cultures remain negative. Evaluated by PT team for recurrent falls. Recommended short-term rehab. Continue Doxycycline and levofloxacin for 8 more days To follow-up with Dr. Jett in the office in 3 weeks silver calcium alginate dressing which should be changed on a daily basis and cover with dry sterile dressing. Time Spent with Patient Time attestation: Total time spent providing and/or coordinating discharge services: Discharge coordination time: Greater than 30 minutes Physical Exam Vital Signs: Vital Signs: Last Vital Signs Temp 98.4 F 06/19/20 11:40 Pulse 62 06/19/20 11:40 Resp 18 06/19/20 11:40 BP 123/76 06/19/20 11:40 Pulse Ox 98 06/19/20 11:40 Body Mass Index 61.2 Const: Other: Constitutional : Alert, oriented, not in distress Neck : Normal inspection, Supple Cardiovascular : RRR, S1 S2, no lower extremity edema Respiratory : Good bilateral air entry, no crackles, wheezes or rhonchi Gastrointestinal: soft, lax, Normal bowel sounds, Non tender Skin : Warm/Dry, right lower extremity suppurative wound covered with dressing with no drainage or edema noted Neurological : Alert & oriented x3, No focal deficit DS: Data Data Completed and Pending Labs on day of discharge: Preliminary micro results at discharge 06/17/20 15:26 Blood Culture - Preliminary Blood - Venous No growth after 24 hours. 06/17/20 15:06 Blood Culture - Preliminary Blood - Venous No growth after 24 hours. Discharge Plan Discharge Patient Disposition: [facility] Discharge Diagnosis: Right lower extremity infected wound Recurrent falls Referrals: [facility] - [facility] [Outside] - 1 Week Shilpa Bynum MD [Primary Care Provider] - 1 Week Discharge Medications: New levofloxacin 500 mg Tablet 500 mg PO Q24H Qty: 8 RF: 0 doxycycline monohydrate 100 mg capsule 100 mg PO BID Qty: 16 RF: 0 Continued multivitamin [One Daily Multivitamin] Tablet 1 tab PO DAILY RF: 0 phenytoin sodium extended 100 mg capsule 1 cap PO TID RF: 0 aspirin 81 mg tablet,delayed release (DR/EC) 1 tab PO DAILY RF: 0 quetiapine 100 mg tablet 2 tab PO BEDTIME RF: 0 pentoxifylline 400 mg tablet extended release 1 tab PO TID RF: 0 gabapentin 300 mg capsule 1 cap PO BID RF: 0 omeprazole 20 mg capsule,delayed release(DR/EC) 1 cap PO DAILY RF: 0 hydroxyzine HCl 25 mg tablet 1 tab PO BID RF: 0 ibuprofen 600 mg tablet 1 tab PO TID RF: 0 sertraline 50 mg tablet 1 tab PO DAILY RF: 0 diazepam 5 mg tablet 1 tab PO BEDTIME PRN (Reason: insomnia) RF: 0 acamprosate 333 mg tablet,delayed release (DR/EC) 2 tab PO TID RF: 0 Discharge Orders: Discharge Order (Routine); Ordered 06/19/20 Ordered By: Thalia Mahoney Diet: advance to usual diet Activity on Discharge: As tolerated Stand Alone Forms: Patient Portal Discharge page Care Plan Goals: Read below Health Concerns: Read below Plan of Treatment: You were admitted to the hospital for evaluation of right lower extremity wound. You were treated with IV antibiotics. Seen by Dr. Jett who did bedside cleaning. An MRI showed no evidence of bone infection. Assessment: Continue Doxycycline and levofloxacin for 8 more days To follow-up with Dr. Jett in the office in 3 weeks silver calcium alginate dressing which should be changed on a daily basis and cover with dry sterile dressing.
[2020-06-19 13:24] LABS: COVID-19 Test Negative (Negative)
--- NOTE | 2020-06-19 14:15 | MHC.CM.PN ---
PT SCHEDULED TO DC TODAY AT 1400 HOURS [facility]IA [facility] @ . CM MET WITH PT WITH ASSISTANCE OF [employer], HE IS AWARE AND AGREEABLE TO DC PLAN/TIME. MDS SENT TO [facility] AND UPLOADED TO [facility].
== END 2020-06-19 14:36 | disposition skilled nursing facility (03) | DRG 197 ==
LOC: HO.ED 06-17 17:05 → HO.S3 06-17 18:36
PROVIDERS: Physician Assistant; Physician Assistant Medical; Admitting Provider Student in an Organized Health Care Education/Training Program; Emergency Provider Emergency Medicine; PCP Internal Medicine; Visit Provider Student in an Organized Health Care Education/Training Program
DX: I87.311 Chronic venous hypertension (idiopathic) with ulcer of right lower extremity (principal); G62.9 Polyneuropathy, unspecified; Z20.822 Contact with and (suspected) exposure to COVID-19; D72.819 Decreased white blood cell count, unspecified; F10.10 Alcohol abuse, uncomplicated; L97.319 Non-pressure chronic ulcer of right ankle with unspecified severity; R29.6 Repeated falls; Z91.81 History of falling; Z59.0 Homelessness; Z88.0 Allergy status to penicillin; Z88.5 Allergy status to narcotic agent; Z79.1 Long term (current) use of non-steroidal anti-inflammatories (NSAID); Z79.82 Long term (current) use of aspirin; Z79.899 Other long term (current) drug therapy
CPT/HCPCS: 36415; 70450; 72125; 72220; 73700; 73720; 80048; 80053; 80076; 80320; 83036; 83605; 83735; 85025; 85610; 85652; 86140; 87040; 87635; 96365; 96366; 96368; 97110; 97116; 97162; 99285; A9585; J0696; J3370; Q0163

== ENCOUNTER 2020-07-24 09:41 | Outpatient (RCR) | payer MEDICAID, SELFPAY ==
--- NOTE | ~2020-07-24 | XR_ITS ---
EXAMINATION: XR CHEST CLINICAL INFORMATION: Nonhealing wound COMPARISON: Chest radiographs 05/26/2020, 10/09/2019 TECHNIQUE: 2 views of the chest were obtained. FINDINGS: Radiographs are mildly underpenetrated. There is mild hyperinflation. There is mild coarsening of the bronchiolar markings but without airspace consolidation or groundglass opacity. The costophrenic sulci are well-defined. No effusion. The heart is within normal size. The hilar and mediastinal contours and bony structures are unremarkable. XR/XR chest 2V IMPRESSION: Mild hyperinflation and mild coarsening bronchiolar markings. No airspace consolidation or effusion.
[2020-09-25 10:25] LABS: MANUAL DIFF FLAG NO
[2020-09-25 10:28] LABS: Basophils Percent Auto 0.6 % (0-2); Eosinophils Absolute Auto 0.1 X10*3/uL (0.0-0.4); Eosinophils Percent Auto 2.3 % (0-4); Hematocrit 42.1 % (42-52); Hemoglobin 13.8 g/dl (14.0-18.0); Imm Gran Abs Auto 0.03 X10*3/uL (0.00-0.03); Imm Gran Pct Auto 0.5 % (0.0-0.4); Lymphocytes Absolute Auto 2.3 X10*3/uL (1.2-4.9); Lymphocytes Percent Auto 36.8 % (20-40); Mean Corpuscular HGB Conc 32.8 g/dl (31.0-36.0); Mean Corpuscular Hemoglobin 30.3 pg (27.0-33.0); Mean Corpuscular Volume 92.5 fL (80-98); Mean Platelet Volume 10.2 fL (9.4-12.4); Monocytes Absolute Auto 0.6 X10*3/uL (0.1-1.2); Monocytes Percent Auto 9.5 % (2-11); Neutrophils Absolute Auto 3.1 X10*3/uL (2.0-8.3); Neutrophils Percent Auto 50.3 % (45-73); Platelet Count 224 X10*3/uL (160-400); Red Blood Count 4.55 X10*6/uL (4.60-5.80); Red Cell Distribution Width 13.6 % (11.0-16.0); White Blood Count 6.2 X10*3/uL (4.8-10.8)
[2020-09-25 10:40] LABS: Estimated Average Glucose 114 mg/dL; Hemoglobin A1c % 5.6 %
[2020-09-25 10:43] LABS: Anion Gap 17 (12-20); Blood Urea Nitrogen 16 mg/dL (9-16); Calcium 9.8 mg/dL (8.4-10.2); Carbon Dioxide 24 mmol/L (22-29); Chloride 107 mmol/L (96-108); Estimated Glomerular Filt Rate > 60; Glucose Random 104 mg/dL (60-115); Potassium 4.7 mmol/L (3.3-5.1); Sodium 143 mmol/L (135-145)
[2020-09-25 11:15] LABS: Erythrocyte Sedimentation Rate 23 MM/HR (0-15)
== END 2021-05-24 09:29 | disposition home or self-care (01) ==
LOC: HO.WCC 09:41
PROVIDERS: PCP Internal Medicine; Visit Provider Physician Assistant
DX: I87.331 Chronic venous hypertension (idiopathic) with ulcer and inflammation of right lower extremity (principal); L97.812 Non-pressure chronic ulcer of other part of right lower leg with fat layer exposed; M86.361 Chronic multifocal osteomyelitis, right tibia and fibula; I73.9 Peripheral vascular disease, unspecified; T86.821 Skin graft (allograft) (autograft) failure; M85.461 Solitary bone cyst, right tibia and fibula; G62.9 Polyneuropathy, unspecified; I10 Essential (primary) hypertension; I25.2 Old myocardial infarction; F10.20 Alcohol dependence, uncomplicated; Z86.718 Personal history of other venous thrombosis and embolism; Z79.2 Long term (current) use of antibiotics; Z87.891 Personal history of nicotine dependence
CPT/HCPCS: 11042; 11043; 11045; 11046; 15271; 15272; 36415; 71046; 80048; 83036; 84134; 85025; 85652; 99213; Q4101; Q4186; Q4187

== ENCOUNTER → 2020-07-30 08:29 | Outpatient (BNVA) | payer MEDICAID, SELFPAY | PROVIDERS: PCP Internal Medicine; Referring Provider Internal Medicine; Visit Provider Surgery | DX: L97.919 Non-pressure chronic ulcer of unspecified part of right lower leg with unspecified severity (principal); Z87.891 Personal history of nicotine dependence | CPT/HCPCS: 99212 ==

== ENCOUNTER 2020-09-16 09:08 | Outpatient (REF) | payer MEDICAID, SELFPAY ==
--- NOTE | ~2020-09-16 | US_ITS ---
EXAMINATION: US VENOUS ULTRASOUND WITH DOPPLER LOWER EXTREMITY, RIGHT CLINICAL INFORMATION: History of DVT. COMPARISON: Previous exam September 2019 TECHNIQUE: Ultrasound of the deep veins is performed from the hip to the calf with compression sonography and color and pulse Doppler assessment. Spectral analysis with color-flow imaging is performed. FINDINGS: The right common femoral, proximal superficial femoral and profunda femoral veins are patent. There is nonocclusive hypoechoic material in the mid superficial femoral vein suggestive of thrombus. It is uncertain whether this is acute or chronic. The distal superficial femoral vein is not well visualized. There is nonocclusive chronic-appearing hyperechoic thrombus in the popliteal vein. The posterior tibial and peroneal veins in the calf are patent. There is right groin lymphadenopathy similar to previous exam. There is no Wallace's cyst US/US venous duplex LE RT IMPRESSION: Nonocclusive thrombus in the mid superficial femoral vein, question acute versus chronic. Chronic-appearing nonocclusive thrombus in the popliteal vein. Short-term follow-up exam in 48 to 72 hours may be helpful to evaluate for interval change.
--- NOTE | ~2020-09-16 | US_ITS ---
EXAMINATION: US DUPLEX DOPPLER ARTERIAL EVALUATION OF THE RIGHT LOWER EXTREMITY CLINICAL INFORMATION: PVD. COMPARISON: MRI of 06/18/2020. TECHNIQUE: Real-time ultrasound and Doppler techniques (integrating B-mode 2D vascular images, Doppler spectral analysis and color flow Doppler imaging) were utilized to interrogate the arterial system of the right lower extremity. FINDINGS: The right common femoral artery has a triphasic waveform with peak systolic velocity of 169 cm/s. The right profunda femoral artery has a triphasic waveform with peak systolic velocity of 136 cm/s. The superficial femoral artery proximally has a triphasic waveform with peak systolic velocity of 94 cm/s. The mid superficial femoral artery has a triphasic waveform with peak systolic velocity of 107 cm/s. The distal superficial femoral artery has a triphasic waveform with peak systolic velocity of 101 cm/s. The popliteal artery has a triphasic waveform with peak systolic velocity of 70 cm/s. The posterior tibial artery has a triphasic waveform with peak systolic velocity of 67 cm/s. The peroneal artery has a triphasic waveform and peak systolic velocity of 45 cm/s. US/US arterial duplex LE RT IMPRESSION: No hemodynamically significant arterial abnormality identified in the right lower extremity as described.
== END 2020-09-16 09:09 | disposition home or self-care (01) ==
LOC: HO.US 09:08
PROVIDERS: Visit Provider Physician Assistant
DX: I73.9 Peripheral vascular disease, unspecified (principal); Z86.718 Personal history of other venous thrombosis and embolism
CPT/HCPCS: 93926; 93971

== ENCOUNTER 2020-10-27 12:36 | Outpatient (REF) | payer MEDICAID, SELFPAY ==
--- NOTE | ~2020-10-27 | MR_ITS ---
EXAMINATION: MRI LOWER EXTREMITY, NON JOINT, WITHOUT AND WITH CONTRAST, RIGHT CLINICAL INFORMATION: Chronic venous hypertension with ulcer right lower extremity, nonhealing. Patient reports right lateral lower leg ulcer for 20 years, caused by varicose vein, no recent injury, and 3 skin grafts to ulcer, won't heal, last one was 2 years ago. COMPARISON: MR right lower leg 06/18/2020. TECHNIQUE: MRI of the lower leg was performed before and after the intravenous administration of 10 mL of Gadavist on a high-field scanner. FINDINGS: A prominent skin wound along the lateral aspect of the right lower leg is again noted. There is some sort of gauze-type device over the wound. At the deep margin of this causes, there is an irregular curvilinear area of low T1 and intermediate T2 signal intensity measuring approximately 5 mm in width, and approximately 8 cm in craniocaudal and 6.4 cm in AP dimensions. This diffusely enhances. This could represent thickened edematous/inflamed skin. There is no evidence of an underlying abscess. Marked fatty atrophy is again identified in the visualized muscles. There is no significant edema or enhancement. There is again chronic cortical thickening in the adjacent distal fibula which may be related to chronic venous insufficiency or reaction to the chronic skin defect. There is no bone marrow edema to suggest active osteomyelitis. 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 MR/MR lower leg RT wo/w con IMPRESSION: Chronic skin wound in right lateral lower leg. Apparent skin thickening and enhancement. No underlying abscess. No evidence of osteomyelitis. No change in cortical thickening of the distal fibula which may be due to venous insufficiency or reactive to the overlying skin wound.
== END 2020-10-27 12:37 | disposition home or self-care (01) ==
LOC: HO.MRI 12:36
PROVIDERS: PCP Internal Medicine; Visit Provider Physician Assistant
DX: I87.311 Chronic venous hypertension (idiopathic) with ulcer of right lower extremity (principal); L97.812 Non-pressure chronic ulcer of other part of right lower leg with fat layer exposed; M86.9 Osteomyelitis, unspecified
CPT/HCPCS: 73720; A9585

== ENCOUNTER → 2021-05-04 09:39 | Outpatient (BNVA) | payer MEDICAID, SELFPAY | PROVIDERS: PCP Internal Medicine; Visit Provider Surgery | DX: I83.018 Varicose veins of right lower extremity with ulcer other part of lower leg (principal); L97.819 Non-pressure chronic ulcer of other part of right lower leg with unspecified severity | CPT/HCPCS: 99212 ==

== ENCOUNTER 2021-05-11 08:32 | Outpatient (REF) | payer MEDICAID, SELFPAY ==
--- NOTE | ~2021-05-11 | MR_ITS ---
EXAMINATION: MRI SHOULDER WITHOUT CONTRAST, LEFT CLINICAL INFORMATION: Left shoulder pain and decreased range of motion. Trauma. COMPARISON: Left shoulder and left humerus radiographs dated 03/09/2020. TECHNIQUE: Multisequence MR imaging of the left shoulder was obtained without contrast on a high-field strength scanner. FINDINGS: ROTATOR CUFF: Minimal supraspinatus tendinosis without a measurable rotator cuff tendon tear. No muscle atrophy or fatty infiltration. BICEPS: Mild fluid within the proximal long head biceps tendon sheath, which could represent mild tenosynovitis. No measurable tendon defect. CORACOACROMIAL ARCH: The undersurface of the acromion is curved with no subacromial spur. The acromioclavicular joint is normal. LABRUM/CAPSULE: Normal. GLENOHUMERAL JOINT/MARROW: Articular cartilage thinning at the posterior aspect of the medial humeral head with minimal underlying marrow edema/subchondral cystic change. Tiny marginal osteophytes. MR/MR shoulder LT wo con IMPRESSION: 1. Minimal supraspinatus tendinosis without a measurable rotator cuff tendon tear. 2. Minimal proximal long head biceps tenosynovitis. 3. Mild glenohumeral osteoarthritis with posterior humeral head articular cartilage thinning and subchondral cystic change.
== END 2021-05-11 08:33 | disposition home or self-care (01) ==
LOC: HO.MRI 08:32
PROVIDERS: Visit Provider Nurse Practitioner Gerontology
DX: M25.512 Pain in left shoulder (principal)
CPT/HCPCS: 73221

== ENCOUNTER 2021-05-19 07:37 | Inpatient (IN) | payer MEDICAID, SELFPAY ==
[2021-05-18 09:46] VITALS: BMI 30.8
--- NOTE | 2021-05-18 12:25 | P.CONAN_ITS ---
Documented by User: Carina Smart NP 05/18/21 12:31 HPI - Anesthesia Eval Consult details Narrative: 60yo M for Right Skin Graft, Full Thickness right thigh to right leg,with wound vac placement Labs and EKG DOS unless done by SNF within 6 months SNF resident Shalom BARRETT Active Problems Active Problems: All Active Problems (Updated 05/17/21 @ 16:36 by Ale Yarbrough, RN) Recurrent falls (Acute) Leg wound, right (Acute) Venous stasis ulcer (Acute) Past Medical History Medical History (Updated 05/17/21 @ 16:36 by Ale Yarbrough, NATHALIE) Alcohol abuse Alcoholic polyneuropathy Anxiety disorder Asthma Cellulitis of right lower limb Epilepsy Gastric ulcer Hypertension Mild intermittent asthma Other abnormalities of gait and mobility Repeated falls Venous stasis ulcer Weakness Surgical History Surgical History History of back surgery History of colonoscopy History of nasal surgery History of skin graft Hx laparoscopic cholecystectomy Social History Social History Household Members: None Housing: Homeless Housing Other:: correction [facility] Do you presently have visiting nurse or other home services: No Alcohol intake: current Alcohol intake frequency: does not drink Patient Tobacco Use Status: Current everyday Tobacco user Tobacco use type: Cigarette Cigarettes Per Day: 6 Use of substances other than those prescribed or required for medical reasons: No Are you DNR?: No Advance Directives: No Advance Directives Information Provided: No Advance Directives on File: No service: No Current occupational status: unemployed Meds Allergies Allergy/AdvReac Type Severity Reaction Status Date / Time moxifloxacin Allergy Mild Hives Verified 05/04/21 10:14 Penicillins Allergy Mild SWELLING Verified 05/04/21 10:14 morphine [Morphine] AdvReac Mild SWELLING, Verified 05/04/21 10:14 ITCHING codeine [Codeine] AdvReac Unknown ITCHING, Verified 05/04/21 10:14 HIVES Home Medications Medication Instructions Recorded Confirmed Last Taken Type acamprosate 333 mg tablet,delayed 2 tab PO TID 05/26/20 05/04/21 Unknown History release aspirin 81 mg tablet,delayed 1 tab PO DAILY 05/26/20 05/17/21 Unknown History release gabapentin 300 mg capsule 1 cap PO TID 05/26/20 05/17/21 Unknown History hydroxyzine HCl 25 mg tablet 1 tab PO BID 05/26/20 05/17/21 Unknown History multivitamin (One Daily 1 tab PO DAILY 05/26/20 07/30/20 Unknown History Multivitamin) omeprazole 20 mg capsule,delayed 1 cap PO BID 05/26/20 05/17/21 Unknown History release pentoxifylline 400 mg 1 tab PO TID 05/26/20 05/17/21 Unknown History tablet,extended release phenytoin sodium extended 100 mg 1 cap PO TID 05/26/20 05/17/21 05/19/21 History capsule quetiapine 100 mg tablet 2 tab PO BEDTIME 05/26/20 05/17/21 Unknown History sertraline 50 mg tablet 1 tab PO DAILY 05/26/20 05/17/21 Unknown History acetaminophen 325 mg tablet 650 mg PO QID PRN MDD 4 GMS 07/30/20 05/17/21 Unknown History apixaban 5 mg tablet 5 mg PO BID 07/30/20 05/17/21 Unknown History Fleet Enema 05/17/21 Unknown History Milk of Magnesia 05/17/21 Unknown History Saline Nasal 1 spray INTRANASAL DAILY PRN 05/17/21 05/17/21 Unknown History baclofen 5 mg tablet 5 mg PO TID 05/17/21 05/17/21 Unknown History bisacodyl 10 mg rectal suppository 10 mg MD DAILY PRN 05/17/21 05/17/21 Unknown History ibuprofen 200 mg tablet 400 mg PO Q8H PRN 05/17/21 05/17/21 Unknown History magnesium citrate 05/17/21 Unknown History naloxone 4 mg/actuation nasal spray 4 mg INTRANASAL USEASDIRECTD PRN 05/17/21 05/17/21 Unknown History nitroglycerin 0.4 mg sublingual 0.4 mg SUBLINGUAL Q5M PRN 05/17/21 05/17/21 Unknown History tablet (Nitrostat) Exam Exam Date and Time: May 18, 2021 1225 Height,Weight and Vital Signs: Height 5 ft 11 in Weight 100.244 kg Narrative Narrative: EKG 04/2020 Vent. Rate : 075 BPM ? ? Atrial Rate : 075 BPM ?? P-R Int : 144 ms? QRS Dur : 094 ms ? ? QT Int : 384 ms ? ? ? P-R-T Axes : 056 -27 021 degrees ?? QTc Int : 428 ms ? Normal sinus rhythm Voltage criteria for left ventricular hypertrophy Abnormal ECG When compared to the previous EKG of No significant changes seen Assessment and Plan Assessment Anesthesia Assessment: Chart Reviewed Documented by User: Farzana Baldwin MD 05/19/21 09:25 [facility] Past Medical History Medical History (Updated 05/17/21 @ 16:36 by Ale Yarbrough RN) Alcohol abuse Alcoholic polyneuropathy Anxiety disorder Asthma Cellulitis of right lower limb Epilepsy Gastric ulcer Hypertension Mild intermittent asthma Other abnormalities of gait and mobility Repeated falls Venous stasis ulcer Weakness Functional capacity: independent ambulation Family History Family history of problems with anesthesia: No Surgical History Surgical History History of back surgery History of colonoscopy History of nasal surgery History of skin graft Hx laparoscopic cholecystectomy History of Problems with Anesthesia: No Social History Social History Household Members: None Housing: Homeless Housing Other:: correction [facility] Do you presently have visiting nurse or other home services: No Alcohol intake: current Alcohol intake frequency: does not drink Patient Tobacco Use Status: Current everyday Tobacco user Tobacco use type: Cigarette Cigarettes Per Day: 6 Use of substances other than those prescribed or required for medical reasons: No Are you DNR?: No Advance Directives: No Advance Directives Information Provided: No Advance Directives on File: No service: No Current occupational status: unemployed Meds Allergies Allergy/AdvReac Type Severity Reaction Status Date / Time moxifloxacin Allergy Mild Hives Verified 05/04/21 10:14 Penicillins Allergy Mild SWELLING Verified 05/04/21 10:14 morphine [Morphine] AdvReac Mild SWELLING, Verified 05/04/21 10:14 ITCHING codeine [Codeine] AdvReac Unknown ITCHING, Verified 05/04/21 10:14 HIVES Home Medications Medication Instructions Recorded Confirmed Last Taken Type acamprosate 333 mg tablet,delayed 2 tab PO TID 05/26/20 05/04/21 Unknown History release aspirin 81 mg tablet,delayed 1 tab PO DAILY 05/26/20 05/17/21 Unknown History release gabapentin 300 mg capsule 1 cap PO TID 05/26/20 05/17/21 Unknown History hydroxyzine HCl 25 mg tablet 1 tab PO BID 05/26/20 05/17/21 Unknown History multivitamin (One Daily 1 tab PO DAILY 05/26/20 07/30/20 Unknown History Multivitamin) omeprazole 20 mg capsule,delayed 1 cap PO BID 05/26/20 05/17/21 Unknown History release pentoxifylline 400 mg 1 tab PO TID 05/26/20 05/17/21 Unknown History tablet,extended release phenytoin sodium extended 100 mg 1 cap PO TID 05/26/20 05/17/21 05/19/21 History capsule quetiapine 100 mg tablet 2 tab PO BEDTIME 05/26/20 05/17/21 Unknown History sertraline 50 mg tablet 1 tab PO DAILY 05/26/20 05/17/21 Unknown History acetaminophen 325 mg tablet 650 mg PO QID PRN MDD 4 GMS 07/30/20 05/17/21 Unknown History apixaban 5 mg tablet 5 mg PO BID 07/30/20 05/17/21 Unknown History Fleet Enema 05/17/21 Unknown History Milk of Magnesia 05/17/21 Unknown History Saline Nasal 1 spray INTRANASAL DAILY PRN 05/17/21 05/17/21 Unknown History baclofen 5 mg tablet 5 mg PO TID 05/17/21 05/17/21 Unknown History bisacodyl 10 mg rectal suppository 10 mg MD DAILY PRN 05/17/21 05/17/21 Unknown History ibuprofen 200 mg tablet 400 mg PO Q8H PRN 05/17/21 05/17/21 Unknown History magnesium citrate 05/17/21 Unknown History naloxone 4 mg/actuation nasal spray 4 mg INTRANASAL USEASDIRECTD PRN 05/17/21 05/17/21 Unknown History nitroglycerin 0.4 mg sublingual 0.4 mg SUBLINGUAL Q5M PRN 05/17/21 05/17/21 Unknown History tablet (Nitrostat) Exam Airway Mallampati Class: III TM Dist: >3cm Neck ROM: Full Loose/Missing/Broken Teeth: Upper Heart: RRR Lungs: CTA Assessment and Plan Final Anesthetic Review Family History of Problems with Anesthesia: No History of Problems with Anesthesia: No NPO: Yes ASA Class: III Final Preanesthetic Review: No Changes in Pt Med Stat, Meds/Allgs Chart Reviewed, Consent Obtained/Reviewed and Anes Risks/Benef Reviewed Patient Risk: Low Procedure Risk: Low Anesthetic Plan Anesthetic Plan: GA Disposition: Standard PACU
[2021-05-19] VITALS (11 sets, daily range): BP systolic 105–135; BP diastolic 65–78; PULSE 58–75; RESP 16–20; TEMP 36–36.9; O2SAT 96–99
--- NOTE | 2021-05-19 | ECG_ITS ---
Test Reason : htn asthma etoh Blood Pressure : / mmHG Vent. Rate : 070 BPM Atrial Rate : 070 BPM P-R Int : 158 ms QRS Dur : 096 ms QT Int : 388 ms P-R-T Axes : 016 -38 011 degrees QTc Int : 419 ms Normal sinus rhythm Left axis deviation Minimal voltage criteria for LVH, may be normal variant ( R in aVL ) Abnormal ECG When compared with ECG of 26-MAY-2020 23:04, Vent. rate has decreased BY 36 BPM Minimal criteria for Septal infarct are no longer Present Referred By: Carina Smart Electronically Signed By:Rafat Haider
--- NOTE | 2021-05-19 07:11 | PC.NURSE ---
vancomycin dose verified with Usama in pharmacy. per pt weight of 100.24kg pt should receive Vancomycin 1500mg IV.
[2021-05-19 07:30] LABS: Hematocrit 41.2 % (42.0-52.0); Hemoglobin 13.6 g/dl (14.0-18.0); Mean Corpuscular Hemoglobin 30.6 pg (27.0-33.0); Mean Corpuscular Volume 92.6 fL (80.0-98.0); Mean Platelet Volume 8.7 fL (9.4-12.4); Platelet Count 240 X10*3/uL (160-400); Red Blood Count 4.45 X10*6/uL (4.60-5.80); Red Cell Distribution Width 14.3 % (11.0-16.0); White Blood Count 7.1 X10*3/uL (4.8-10.8)
--- NOTE | 2021-05-19 07:32 | MHC.SHP ---
Pre-Procedural Eval Section A Date of Service: 05/19/21 The patient is an INPATIENT: No Changes since office visit: Yes Patient answered all questions; No Cold of Flu in the past 2 weeks, No New Medical Problems and No Changes in Medication The History & Physical has been completed within 30 days and I have reviewed it.: Yes Section B Chief Complaint: varicose veins,non pressure chronic ulcer Allergies: Allergies Allergy/AdvReac Type Severity Reaction Status Date / Time moxifloxacin Allergy Mild Hives Verified 05/04/21 10:14 Penicillins Allergy Mild SWELLING Verified 05/04/21 10:14 morphine [Morphine] AdvReac Mild SWELLING, Verified 05/04/21 10:14 ITCHING codeine [Codeine] AdvReac Unknown ITCHING, Verified 05/04/21 10:14 HIVES Plan Diagnosis/Plan: Unchanged I have reviewed the history and physical and performed a pertinent physical examination on my patient. No changes have occurred unless specified.
[2021-05-19 07:33] LABS: COVID-19 Test Negative (Negative); IDNOW Serial# 16C4AD1C
[2021-05-19 07:51] LABS: Anion Gap 14 (12-20); Blood Urea Nitrogen 12 mg/dL (9-16); Calcium 9.5 mg/dL (8.4-10.2); Carbon Dioxide 27 mmol/L (22-29); Chloride 104 mmol/L (96-108); Creatinine Clr Calc Pharmacy 129.6; Estimated Glomerular Filt Rate > 60; Glucose Fasting 111 mg/dL (60-99); Potassium 4.3 mmol/L (3.3-5.1); Sodium 141 mmol/L (135-145)
[2021-05-19] MEDS: vancomycin HCL 1,500 MG in 0.9 % Sodium Chloride 500 ML 333.33 MG IV (07:55)
[2021-05-19] MEDS: Lactated Ringers 1,000 ML 100 ML IVCONT (07:55)
--- NOTE | 2021-05-19 08:41 | PC.NURSE ---
0833 pt complaining of itching and burning in right leg/foot where wound is located. Vancomycin infusion stopped. Dr. Jett and Dr. Daniel notified via [employer]. both doctors at bedside to evaluate patient. per Dr. Daniel, Anesthesia to restart IV vanco and monitor.
--- NOTE | 2021-05-19 10:26 | W.PM.OPN ---
Operative Note Operative Note Date of Service: 05/19/21 Narrative: Preoperative diagnosis: Stasis ulcer right leg Postoperative diagnosis: Same Procedure: Split-thickness skin graft from right thigh to right lower leg Surgeon: Cody Jett MD Pollution Control Chemist: Roselyn Covarrubias PA-C Anesthesia: General LMA Indications for procedure: 60-year-old male presenting with a nonhealing wound on the lateral right lower leg. He presents today for repeat split-thickness skin graft to the ulcer bed. Operative findings: 5 x 7 cm ulcer of the right lower lateral leg. Specimen: None Estimated blood loss: 2 mL Complications: None Procedure details: Patient was brought to the OR placed in a supine position. After administering general anesthesia the patient's right leg was prepped with Betadine and draped in a sterile fashion. A surgical time-out was called the consent confirmed. Patient received preoperative antibiotics and Venodyne boots were in place. Beginning at the ulcer a small curette was used to debride the ulcer base. Excellent granulation tissue was noted at the base. The ulcer measured 5 x 7 cm. Attention was then directed to the right upper thigh. An area in the anterior thigh was selected for skin graft. A 0.15 in thick graft was obtained. This was then meshed 3:1. The mesh was then applied to the bed and secured circumferentially using a 4-0 Polysorb suture in interrupted fashion. This was then covered with Xeroform followed by VAC sponge. Wound VAC was then applied. Excellent seal was obtained from the wound VAC. the donor site was then dressed with Xeroform followed by Adaptic followed by ABD pad and paper tape. The patient tolerated the procedure well. Sponge, instrument, and needle counts reported as correct. The patient was transferred to PACU in stable condition.
[2021-05-19] MEDS: oxyCODONE HCl Immed Release 5 MG TABLET PO ×2 (10:49→19:43)
[2021-05-19] MEDS: fentaNYL citrate/PF 100 MCG/2 ML VIAL 25 MCG IVPUSH (10:49)
--- NOTE | 2021-05-19 13:04 | PHA.MEDREC ---
Pharmacy Consult ? Medication Reconciliation Pharmacy has reviewed the medication reconciliation completed by nursing. Patient came form [facility] with a medicaiton list. Ceci Velasquez, EvgenyD
[2021-05-19] MEDS: Dextrose 5 % and Lactated Ring 1,000 ML 100 ML IVCONT ×2 (13:47→22:54)
[2021-05-19] MEDS: Phenytoin Sodium Extended 100 MG CAPSULE PO ×2 (14:59→19:43)
[2021-05-19] MEDS: Baclofen 10 MG TABLET 5 MG PO (19:42)
[2021-05-19] MEDS: QUEtiapine Fumarate 200 MG TABLET PO (19:43)
[2021-05-19] MEDS: hydrOXYzine HCL 25 MG TABLET PO (19:43)
[2021-05-19] MEDS: Pentoxifylline ER 400 MG TABLET.ER PO (19:43)
[2021-05-19] MEDS: Gabapentin 300 MG CAPSULE PO (19:43)
[2021-05-20] VITALS (7 sets, daily range): BP systolic 113–135; BP diastolic 56–77; PULSE 66–73; RESP 17–19; TEMP 36.7–37.2; O2SAT 95–98
[2021-05-20] MEDS: oxyCODONE HCl Immed Release 5 MG TABLET PO (06:04)
[2021-05-20] MEDS: Omeprazole 20 MG CAPSULE.DR PO ×2 (06:05→14:42)
--- NOTE | 2021-05-20 06:44 | HO.POSTANES ---
Post Anesthesia Evaluation Post Anesthesia Evaluation Vital Signs: Vital Signs Temp Pulse Resp BP Pulse Ox 05/20/21 04:00 98.5 F 70 17 113/56 L 95 05/20/21 00:00 98.2 F 68 17 115/65 95 05/19/21 20:00 98.4 F 63 18 119/69 97 Anesthesia: General Mental Status: Awake Pain Control: Satisfactory Nausea/Vomiting: None Hydration: Adequate Anesthesia-Related Issues: No Anes. Related Issues
--- NOTE | 2021-05-20 07:27 | HO.POSTANES ---
Post Anesthesia Evaluation Post Anesthesia Evaluation Vital Signs: Vital Signs Temp Pulse Resp BP Pulse Ox 05/20/21 04:00 98.5 F 70 17 113/56 L 95 05/20/21 00:00 98.2 F 68 17 115/65 95 05/19/21 20:00 98.4 F 63 18 119/69 97 Anesthesia: General LMA and General Mental Status: Awake Pain Control: Satisfactory Nausea/Vomiting: None Hydration: Adequate Anesthesia-Related Issues: No Anes. Related Issues
[2021-05-20] MEDS: Sertraline HCL 50 MG TABLET PO (08:05)
[2021-05-20] MEDS: Gabapentin 300 MG CAPSULE PO ×3 (08:05→20:19)
[2021-05-20] MEDS: Pentoxifylline ER 400 MG TABLET.ER PO ×3 (08:05→20:19)
[2021-05-20] MEDS: hydrOXYzine HCL 25 MG TABLET PO ×2 (08:05→20:19)
[2021-05-20] MEDS: Phenytoin Sodium Extended 100 MG CAPSULE PO ×3 (08:05→20:19)
[2021-05-20] MEDS: Baclofen 10 MG TABLET 5 MG PO ×3 (08:05→20:19)
--- NOTE | 2021-05-20 08:29 | PM.PNGS ---
Subjective Subjective Date of Service: 05/20/21 Interval history: Feels ok. Wants to go home because he can't sleep here and they won't let me out of bed . Donor site uncomfortable, denies significant pain at graft site. Wound vac in place. Physical Exam Vital Signs: Vital Signs: Last Vital Signs Temp 98.0 F 05/20/21 07:32 Pulse 66 05/20/21 07:32 Resp 17 05/20/21 07:32 BP 135/74 05/20/21 07:32 Pulse Ox 95 05/20/21 07:32 BMI result Body Mass Index 30.8 Const: General: comfortable, no acute distress and alert Orientation/consciousness: patient oriented x3 Resp: Effort & Inspection: normal respiratory effort Cardio: Rate: regular rate Skin: General skin exam: no rashes or lesions noted Neuro: General: patient oriented x3 Extrem: Other: R leg donor site dressing c/d/i; graft site with wound vac in place Objective Data Active Medications Acetaminophen (Acetaminophen 325 Mg Tablet) 650 mg PO Q6H PRN PRN Reason: Pain, Mild (Pain Scale 1-3) Apixaban (Apixaban 5 Mg Tablet) 5 mg PO BID [facility] Baclofen (Baclofen 10 Mg Tablet) 5 mg PO TID [facility] Last Admin: 05/20/21 08:05 Dose: 5 mg Documented by: SOLEDAD Bisacodyl (Bisacodyl 10 Mg Supp.Rect) 10 mg VA DAILY PRN PRN Reason: Constipation Gabapentin (Gabapentin 300 Mg Capsule) 300 mg PO TID [facility] Last Admin: 05/20/21 08:05 Dose: 300 mg Documented by: SOLEDAD Hydromorphone HCl (Hydromorphone Hcl 1 Mg/Ml Syringe) 0.5 mg IVPUSH Q3H PRN; Protocol PRN Reason: Pain, Severe (Pain Scale 7-10) Hydroxyzine HCl (Hydroxyzine Hcl 25 Mg Tablet) 25 mg PO BID [facility] Last Admin: 05/20/21 08:05 Dose: 25 mg Documented by: SOLEDAD Naloxone HCl (Naloxone Hcl Nasal 4 Mg [place]) 4 mg NOSTRILALT Q24H PRN PRN Reason: Opioid Overdose Nitroglycerin (Nitroglycerin 0.4 Mg Tab.Subl) 0.4 mg SUBLINGUAL Q5M PRN PRN Reason: Chest Pain Omeprazole (Omeprazole 20 Mg Capsule.Dr) 20 mg PO BID@0630,1630 [facility] Last Admin: 05/20/21 06:05 Dose: 20 mg Documented by: VICKIE Ondansetron HCl (Ondansetron Hcl 4 Mg/2 Ml Vial) 4 mg IVPUSH QID PRN PRN Reason: Nausea Oxycodone HCl (Oxycodone Hcl Immed Release 5 Mg Tablet) 5 mg PO Q6H PRN PRN Reason: Pain, Moderate (Pain Scale 4-6 Last Admin: 05/20/21 06:04 Dose: 5 mg Documented by: VICKIE Pentoxifylline (Pentoxifylline Er 400 Mg Tablet.Er) 400 mg PO TID [facility] Last Admin: 05/20/21 08:05 Dose: 400 mg Documented by: SOLEDAD Pharmacy Consult (Consult Rx Perform Med Rec) 1 each MISCELLANE ONCE PRN PRN Reason: Consult order Phenytoin Sodium (Phenytoin Sodium Extended 100 Mg Capsule) 100 mg PO TID [facility] Last Admin: 05/20/21 08:05 Dose: 100 mg Documented by: SOLEDAD Quetiapine Fumarate (Quetiapine Fumarate 200 Mg Tablet) 200 mg PO BEDTIME [facility] Last Admin: 05/19/21 19:43 Dose: 200 mg Documented by: VICKIE Sertraline HCl (Sertraline Hcl 50 Mg Tablet) 50 mg PO DAILY [facility] Last Admin: 05/20/21 08:05 Dose: 50 mg Documented by: SOLEDAD Sodium Chloride (0.9 % Sodium Chloride Flush 3 Ml Syringe) 3 ml IVFLUSH QSHIFT [facility] Last Admin: 05/20/21 08:05 Dose: Not Given Documented by: SOLEDAD Non-Admin Reason: IV Running Sodium Chloride (Sodium Chloride 0.65 % Nasal 44 Ml Sprbtl) 1 spray NOSTRIL-B DAILY PRN PRN Reason: Nasal Congestion Labs CBC & Chem 7: 05/19/21 07:16 05/19/21 07:16 Procedures Date of Service Date of Service: 05/20/21 Progress Note: A&P Assessment and plan (1) Venous stasis ulcer: Status: Acute (2) S/P split thickness skin graft: Status: Acute (3) Encounter for management of wound VAC: Status: Acute Plan 60 year old male POD #1 s/p split thickness skin graft of R lower leg from R thigh donor site for non healing venous stasis ulcer. He is doing well post op, comfortable. Wound vac in place and functioning well. Donor site dressing dry. VSS. Continue pain management as needed. Can ambulate carefully as to not disrupt graft site. Plan for wound vac change tomorrow and possible discharge to home with wound vac in place with VNA services. Fall Risk Details Current Medications: Current Medications Acetaminophen (Acetaminophen 325 Mg Tablet) 650 mg PO Q6H PRN PRN Reason: Pain, Mild (Pain Scale 1-3) Apixaban (Apixaban 5 Mg Tablet) 5 mg PO BID [facility] Baclofen (Baclofen 10 Mg Tablet) 5 mg PO TID [facility] Last Admin: 05/20/21 08:05 Dose: 5 mg Documented by: Bisacodyl (Bisacodyl 10 Mg Supp.Rect) 10 mg VA DAILY PRN PRN Reason: Constipation Gabapentin (Gabapentin 300 Mg Capsule) 300 mg PO TID [facility] Last Admin: 05/20/21 08:05 Dose: 300 mg Documented by: Hydromorphone HCl (Hydromorphone Hcl 1 Mg/Ml Syringe) 0.5 mg IVPUSH Q3H PRN; Protocol PRN Reason: Pain, Severe (Pain Scale 7-10) Hydroxyzine HCl (Hydroxyzine Hcl 25 Mg Tablet) 25 mg PO BID [facility] Last Admin: 05/20/21 08:05 Dose: 25 mg Documented by: Naloxone HCl (Naloxone Hcl Nasal 4 Mg [place]) 4 mg NOSTRILALT Q24H PRN PRN Reason: Opioid Overdose Nitroglycerin (Nitroglycerin 0.4 Mg Tab.Subl) 0.4 mg SUBLINGUAL Q5M PRN PRN Reason: Chest Pain Omeprazole (Omeprazole 20 Mg Capsule.) 20 mg PO BID@0630,1630 [facility] Last Admin: 05/20/21 06:05 Dose: 20 mg Documented by: Ondansetron HCl (Ondansetron Hcl 4 Mg/2 Ml Vial) 4 mg IVPUSH QID PRN PRN Reason: Nausea Oxycodone HCl (Oxycodone Hcl Immed Release 5 Mg Tablet) 5 mg PO Q6H PRN PRN Reason: Pain, Moderate (Pain Scale 4-6 Last Admin: 05/20/21 06:04 Dose: 5 mg Documented by: Pentoxifylline (Pentoxifylline Er 400 Mg Tablet.Er) 400 mg PO TID [facility] Last Admin: 05/20/21 08:05 Dose: 400 mg Documented by: Pharmacy Consult (Consult Rx Perform Med Rec) 1 each MISCELLANE ONCE PRN PRN Reason: Consult order Phenytoin Sodium (Phenytoin Sodium Extended 100 Mg Capsule) 100 mg PO TID [facility] Last Admin: 05/20/21 08:05 Dose: 100 mg Documented by: Quetiapine Fumarate (Quetiapine Fumarate 200 Mg Tablet) 200 mg PO BEDTIME [facility] Last Admin: 05/19/21 19:43 Dose: 200 mg Documented by: Sertraline HCl (Sertraline Hcl 50 Mg Tablet) 50 mg PO DAILY [facility] Last Admin: 05/20/21 08:05 Dose: 50 mg Documented by: Sodium Chloride (0.9 % Sodium Chloride Flush 3 Ml Syringe) 3 ml IVFLUSH QSHIFT [facility] Last Admin: 05/20/21 08:05 Dose: Not Given Documented by: Sodium Chloride (Sodium Chloride 0.65 % Nasal 44 Ml Sprbtl) 1 spray NOSTRIL-B DAILY PRN PRN Reason: Nasal Congestion Time Spent With Patient Time: Total time spent is greater than 50% in coordination of care (as documented) at patient's floor/unit and/or counseling patient: Quality Stroke Does the patient have a stroke diagnosis?: No VTE Prior VTE?: No VTE Risk Level:: Surgical - moderate VTE Device Contraindication: N/A - Device Ordered VTE Drug Contraindication: N/A - Med Ordered
--- NOTE | 2021-05-20 10:48 | PC.NURSE ---
Skin/Wound assessment completed. Patient has a skin graft donor site on right thigh- Xeroform and adaptic on wound covered with ABD pad taped down. There is a wound vac to the right lower leg.
--- NOTE | 2021-05-20 14:03 | MHC.CM.PN ---
PER SURGICAL PT WILL D/C BACK TO SNF W/WOUND VAC, VANTAGE OF SH NOTIFIED VIA [employer] AND CM AWAITING RESPONSE.
[2021-05-20] MEDS: 0.9 % Sodium Chloride Flush 3 ML SYRINGE IVFLUSH ×2 (14:43→20:19)
--- NOTE | 2021-05-20 16:14 | MHC.CM.PN ---
PT IS A RESIDENT OF [facility] THEY CONFIRM HE IS A [facility]TS PCP IS HEIDI LAND AND HE HAS A HCP ON FILE CURRENT DC PLAN IS FOR HIM TO RETURN ON MONDAY AFTER HIS WOUND VAC SPONGE IS CHANGED SNF HAS ALREADY ORDERED A WOUND VAC FOR HIM AT THE FACILITY PT WILL NEED BLS TRANSPORT
[2021-05-20] MEDS: QUEtiapine Fumarate 200 MG TABLET PO (20:19)
[2021-05-20] MEDS: Apixaban 5 MG TABLET PO (20:19)
[2021-05-21] VITALS (7 sets, daily range): BP systolic 104–131; BP diastolic 66–74; PULSE 65–80; RESP 17–18; TEMP 36.5–36.9; O2SAT 94–96
[2021-05-21] MEDS: Omeprazole 20 MG CAPSULE.DR PO ×2 (05:49→16:43)
[2021-05-21] MEDS: 0.9 % Sodium Chloride Flush 3 ML SYRINGE IVFLUSH ×3 (07:45→19:40)
[2021-05-21] MEDS: oxyCODONE HCl Immed Release 5 MG TABLET PO ×2 (07:48→14:08)
[2021-05-21] MEDS: hydrOXYzine HCL 25 MG TABLET PO ×2 (07:48→19:39)
[2021-05-21] MEDS: Sertraline HCL 50 MG TABLET PO (07:48)
[2021-05-21] MEDS: Phenytoin Sodium Extended 100 MG CAPSULE PO ×3 (07:49→19:39)
[2021-05-21] MEDS: Pentoxifylline ER 400 MG TABLET.ER PO ×3 (07:49→19:39)
[2021-05-21] MEDS: Baclofen 10 MG TABLET 5 MG PO ×3 (07:50→19:40)
[2021-05-21] MEDS: Apixaban 5 MG TABLET PO ×2 (07:50→19:40)
[2021-05-21] MEDS: Gabapentin 300 MG CAPSULE PO ×3 (07:51→19:39)
--- NOTE | 2021-05-21 09:37 | P.PNGS_ITS ---
Subjective Subjective Date of Service: 05/21/21 Interval history: C/o most pain at donor site. Graft site not very painful. Physical Exam Vital Signs: Vital Signs: Last Vital Signs Temp 97.7 F 05/21/21 07:01 Pulse 65 05/21/21 07:01 Resp 18 05/21/21 07:01 BP 128/74 05/21/21 07:01 Pulse Ox 94 05/21/21 07:01 BMI result Body Mass Index 30.8 Const: General: comfortable and no acute distress Orientation/consciousness: patient oriented x3 Resp: Effort & Inspection: normal respiratory effort Skin: Other: warm and dry Neuro: General: patient oriented x3 Extrem: Other: wound vac to graft site removed, graft site clean donor site outer dressing changed, aquacel dressing in place Objective Data Active Medications Acetaminophen (Acetaminophen 325 Mg Tablet) 650 mg PO Q6H PRN PRN Reason: Pain, Mild (Pain Scale 1-3) Apixaban (Apixaban 5 Mg Tablet) 5 mg PO BID [facility] Last Admin: 05/21/21 07:50 Dose: 5 mg Documented by: KIANA Baclofen (Baclofen 10 Mg Tablet) 5 mg PO TID [facility] Last Admin: 05/21/21 07:50 Dose: 5 mg Documented by: KIANA Bisacodyl (Bisacodyl 10 Mg Supp.Rect) 10 mg [place] DAILY PRN PRN Reason: Constipation Gabapentin (Gabapentin 300 Mg Capsule) 300 mg PO TID [facility] Last Admin: 05/21/21 07:51 Dose: 300 mg Documented by: KIANA Hydromorphone HCl (Hydromorphone Hcl 1 Mg/Ml Syringe) 0.5 mg IVPUSH Q3H PRN; Protocol PRN Reason: Pain, Severe (Pain Scale 7-10) Hydroxyzine HCl (Hydroxyzine Hcl 25 Mg Tablet) 25 mg PO BID [facility] Last Admin: 05/21/21 07:48 Dose: 25 mg Documented by: KIANA Naloxone HCl (Naloxone Hcl Nasal 4 Mg [place]) 4 mg NOSTRILALT Q24H PRN PRN Reason: Opioid Overdose Nitroglycerin (Nitroglycerin 0.4 Mg Tab.Subl) 0.4 mg SUBLINGUAL Q5M PRN PRN Reason: Chest Pain Omeprazole (Omeprazole 20 Mg Capsule.Dr) 20 mg PO BID@0630,1630 [facility] Last Admin: 05/21/21 05:49 Dose: 20 mg Documented by: POWER Ondansetron HCl (Ondansetron Hcl 4 Mg/2 Ml Vial) 4 mg IVPUSH QID PRN PRN Reason: Nausea Oxycodone HCl (Oxycodone Hcl Immed Release 5 Mg Tablet) 5 mg PO Q6H PRN PRN Reason: Pain, Moderate (Pain Scale 4-6 Last Admin: 05/21/21 07:48 Dose: 5 mg Documented by: KIANA Pentoxifylline (Pentoxifylline Er 400 Mg Tablet.Er) 400 mg PO TID [facility] Last Admin: 05/21/21 07:49 Dose: 400 mg Documented by: KIANA Pharmacy Consult (Consult Rx Perform Med Rec) 1 each MISCELLANE ONCE PRN PRN Reason: Consult order Phenytoin Sodium (Phenytoin Sodium Extended 100 Mg Capsule) 100 mg PO TID [facility] Last Admin: 05/21/21 07:49 Dose: 100 mg Documented by: KIANA Quetiapine Fumarate (Quetiapine Fumarate 200 Mg Tablet) 200 mg PO BEDTIME [facility] Last Admin: 05/20/21 20:19 Dose: 200 mg Documented by: POWER Sertraline HCl (Sertraline Hcl 50 Mg Tablet) 50 mg PO DAILY [facility] Last Admin: 05/21/21 07:48 Dose: 50 mg Documented by: KIANA Sodium Chloride (0.9 % Sodium Chloride Flush 3 Ml Syringe) 3 ml IVFLUSH QSHIFT [facility] Last Admin: 05/21/21 07:45 Dose: 3 ml Documented by: KIANA Sodium Chloride (Sodium Chloride 0.65 % Nasal 44 Ml Sprbtl) 1 spray NOSTRIL-B DAILY PRN PRN Reason: Nasal Congestion Labs CBC & Chem 7: 05/19/21 07:16 05/19/21 07:16 Procedures Date of Service Date of Service: 05/21/21 Progress Note: A&P Assessment and plan (1) S/P split thickness skin graft: Status: Acute (2) Venous stasis ulcer: Status: Acute Plan 60 year old male POD #2 s/p split thickness skin graft of R lower leg from R thigh donor site for non healing venous stasis ulcer. Graft site clean this morning. Wound vac not reapplied. Xeroform, saline soaked fluffs followed by bulky dressing of fluffs, 4x4s, kerlix wrap applied. ?Will continue to monitor. Possible discharge to home over the weekend. Careful ambulation. Fall Risk Details Current Medications: Current Medications Acetaminophen (Acetaminophen 325 Mg Tablet) 650 mg PO Q6H PRN PRN Reason: Pain, Mild (Pain Scale 1-3) Apixaban (Apixaban 5 Mg Tablet) 5 mg PO BID [facility] Last Admin: 05/21/21 07:50 Dose: 5 mg Documented by: Baclofen (Baclofen 10 Mg Tablet) 5 mg PO TID [facility] Last Admin: 05/21/21 07:50 Dose: 5 mg Documented by: Bisacodyl (Bisacodyl 10 Mg Supp.Rect) 10 mg [place] DAILY PRN PRN Reason: Constipation Gabapentin (Gabapentin 300 Mg Capsule) 300 mg PO TID [facility] Last Admin: 05/21/21 07:51 Dose: 300 mg Documented by: Hydromorphone HCl (Hydromorphone Hcl 1 Mg/Ml Syringe) 0.5 mg IVPUSH Q3H PRN; Protocol PRN Reason: Pain, Severe (Pain Scale 7-10) Hydroxyzine HCl (Hydroxyzine Hcl 25 Mg Tablet) 25 mg PO BID [facility] Last Admin: 05/21/21 07:48 Dose: 25 mg Documented by: Naloxone HCl (Naloxone Hcl Nasal 4 Mg [place]) 4 mg NOSTRILALT Q24H PRN PRN Reason: Opioid Overdose Nitroglycerin (Nitroglycerin 0.4 Mg Tab.Subl) 0.4 mg SUBLINGUAL Q5M PRN PRN Reason: Chest Pain Omeprazole (Omeprazole 20 Mg Capsule.Dr) 20 mg PO BID@0630,1630 [facility] Last Admin: 05/21/21 05:49 Dose: 20 mg Documented by: Ondansetron HCl (Ondansetron Hcl 4 Mg/2 Ml Vial) 4 mg IVPUSH QID PRN PRN Reason: Nausea Oxycodone HCl (Oxycodone Hcl Immed Release 5 Mg Tablet) 5 mg PO Q6H PRN PRN Reason: Pain, Moderate (Pain Scale 4-6 Last Admin: 05/21/21 07:48 Dose: 5 mg Documented by: Pentoxifylline (Pentoxifylline Er 400 Mg Tablet.Er) 400 mg PO TID [facility] Last Admin: 05/21/21 07:49 Dose: 400 mg Documented by: Pharmacy Consult (Consult Rx Perform Med Rec) 1 each MISCELLANE ONCE PRN PRN Reason: Consult order Phenytoin Sodium (Phenytoin Sodium Extended 100 Mg Capsule) 100 mg PO TID [facility] Last Admin: 05/21/21 07:49 Dose: 100 mg Documented by: Quetiapine Fumarate (Quetiapine Fumarate 200 Mg Tablet) 200 mg PO BEDTIME [facility] Last Admin: 05/20/21 20:19 Dose: 200 mg Documented by: Sertraline HCl (Sertraline Hcl 50 Mg Tablet) 50 mg PO DAILY [facility] Last Admin: 05/21/21 07:48 Dose: 50 mg Documented by: Sodium Chloride (0.9 % Sodium Chloride Flush 3 Ml Syringe) 3 ml IVFLUSH QSHIFT [facility] Last Admin: 05/21/21 07:45 Dose: 3 ml Documented by: Sodium Chloride (Sodium Chloride 0.65 % Nasal 44 Ml Sprbtl) 1 spray NOSTRIL-B DAILY PRN PRN Reason: Nasal Congestion Time Spent With Patient Time: Total time spent is greater than 50% in coordination of care (as documented) at patient's floor/unit and/or counseling patient: Quality Stroke Does the patient have a stroke diagnosis?: No VTE Prior VTE?: No VTE Risk Level:: Surgical - moderate VTE Device Contraindication: N/A - Device Ordered VTE Drug Contraindication: N/A - Med Ordered
--- NOTE | 2021-05-21 13:21 | MHC.CM.PN ---
EMR REVIEWED, PT CONT'S TO C/O PAIN, WOUND VAC REMOVED THIS MORNING AND NOT REAPPLIED, PER SURGICAL ANTIC W/E D/C BACK TO [facility]. CM WILL CONT TO MONITOR D/C NEEDS.
[2021-05-21] MEDS: QUEtiapine Fumarate 200 MG TABLET PO (19:40)
[2021-05-22] VITALS (7 sets, daily range): BP systolic 101–120; BP diastolic 57–73; PULSE 75–84; RESP 17–18; TEMP 36.3–37.1; O2SAT 95–97
[2021-05-22] MEDS: Omeprazole 20 MG CAPSULE.DR PO ×2 (05:57→16:05)
[2021-05-22] MEDS: Pentoxifylline ER 400 MG TABLET.ER PO ×3 (09:06→19:33)
[2021-05-22] MEDS: Sertraline HCL 50 MG TABLET PO (09:06)
[2021-05-22] MEDS: Phenytoin Sodium Extended 100 MG CAPSULE PO ×3 (09:06→19:34)
[2021-05-22] MEDS: Apixaban 5 MG TABLET PO ×2 (09:06→19:34)
[2021-05-22] MEDS: Gabapentin 300 MG CAPSULE PO ×3 (09:06→19:34)
[2021-05-22] MEDS: oxyCODONE HCl Immed Release 5 MG TABLET PO ×2 (09:07→19:34)
[2021-05-22] MEDS: hydrOXYzine HCL 25 MG TABLET PO ×2 (09:07→19:34)
[2021-05-22] MEDS: Baclofen 10 MG TABLET 5 MG PO ×3 (09:07→19:33)
[2021-05-22] MEDS: 0.9 % Sodium Chloride Flush 3 ML SYRINGE IVFLUSH ×3 (09:07→19:34)
--- NOTE | 2021-05-22 09:10 | P.PNGS_ITS ---
Subjective Subjective Date of Service: 05/22/21 Interval history: Patient reports pain at the donor site but denies significant symptoms at the graft site. He is having trouble sleeping at night due to discomfort. Physical Exam Vital Signs: Vital Signs: Last Vital Signs Temp 98.6 F 05/22/21 07:32 Pulse 84 05/22/21 07:32 Resp 18 05/22/21 07:32 BP 120/67 05/22/21 07:32 Pulse Ox 95 05/22/21 07:32 BMI result Body Mass Index 30.8 Const: General: cooperative Nutritional Appearance: well nourished Orientation/consciousness: patient oriented x3 Limitations: no limitations HEENT: Head: Yes normocephalic and Yes atraumatic Resp: Effort & Inspection: normal respiratory effort Neuro: General: patient oriented x3 Extrem: Other: Dressings changed. Graft is approximately 70% take. Donor site is clean without evidence of infection. Dry sterile dressings applied To both. Objective Data Active Medications Acetaminophen (Acetaminophen 325 Mg Tablet) 650 mg PO Q6H PRN PRN Reason: Pain, Mild (Pain Scale 1-3) Apixaban (Apixaban 5 Mg Tablet) 5 mg PO BID [facility] Last Admin: 05/22/21 09:06 Dose: 5 mg Documented by: YULIA Baclofen (Baclofen 10 Mg Tablet) 5 mg PO TID [facility] Last Admin: 05/22/21 09:07 Dose: 5 mg Documented by: YULIA Bisacodyl (Bisacodyl 10 Mg Supp.Rect) 10 mg [place] DAILY PRN PRN Reason: Constipation Gabapentin (Gabapentin 300 Mg Capsule) 300 mg PO TID [facility] Last Admin: 05/22/21 09:06 Dose: 300 mg Documented by: YULIA Hydromorphone HCl (Hydromorphone Hcl 1 Mg/Ml Syringe) 0.5 mg IVPUSH Q3H PRN; Protocol PRN Reason: Pain, Severe (Pain Scale 7-10) Hydroxyzine HCl (Hydroxyzine Hcl 25 Mg Tablet) 25 mg PO BID [facility] Last Admin: 05/22/21 09:07 Dose: 25 mg Documented by: YULIA Naloxone HCl (Naloxone Hcl Nasal 4 Mg [place]) 4 mg NOSTRILALT Q24H PRN PRN Reason: Opioid Overdose Nitroglycerin (Nitroglycerin 0.4 Mg Tab.Subl) 0.4 mg SUBLINGUAL Q5M PRN PRN Reason: Chest Pain Omeprazole (Omeprazole 20 Mg Capsule.Dr) 20 mg PO BID@0630,1630 [facility] Last Admin: 05/22/21 05:57 Dose: 20 mg Documented by: JOHN Ondansetron HCl (Ondansetron Hcl 4 Mg/2 Ml Vial) 4 mg IVPUSH QID PRN PRN Reason: Nausea Oxycodone HCl (Oxycodone Hcl Immed Release 5 Mg Tablet) 5 mg PO Q6H PRN PRN Reason: Pain, Moderate (Pain Scale 4-6 Last Admin: 05/21/21 14:08 Dose: 5 mg Documented by: KIANA Pentoxifylline (Pentoxifylline Er 400 Mg Tablet.Er) 400 mg PO TID [facility] Last Admin: 05/22/21 09:06 Dose: 400 mg Documented by: YULIA Pharmacy Consult (Consult Rx Perform Med Rec) 1 each MISCELLANE ONCE PRN PRN Reason: Consult order Phenytoin Sodium (Phenytoin Sodium Extended 100 Mg Capsule) 100 mg PO TID [facility] Last Admin: 05/22/21 09:06 Dose: 100 mg Documented by: YULIA Quetiapine Fumarate (Quetiapine Fumarate 200 Mg Tablet) 200 mg PO BEDTIME [facility] Last Admin: 05/21/21 19:40 Dose: 200 mg Documented by: JOHN Sertraline HCl (Sertraline Hcl 50 Mg Tablet) 50 mg PO DAILY [facility] Last Admin: 05/22/21 09:06 Dose: 50 mg Documented by: YULIA Sodium Chloride (0.9 % Sodium Chloride Flush 3 Ml Syringe) 3 ml IVFLUSH QSHIFT [facility] Last Admin: 05/22/21 09:07 Dose: 3 ml Documented by: YULIA Sodium Chloride (Sodium Chloride 0.65 % Nasal 44 Ml Sprbtl) 1 spray NOSTRIL-B DAILY PRN PRN Reason: Nasal Congestion Labs CBC & Chem 7: 05/19/21 07:16 05/19/21 07:16 Procedures Date of Service Date of Service: 05/22/21 Progress Note: A&P Assessment and plan (1) S/P split thickness skin graft: Status: Acute Plan 60-year-old male patient with chronic venous stasis ulcers status post skin graft pod 3 . Dressings changed today. Some sloughing of graft in the lower portion of the wound. Donor site is clean. Continue local management. Will change dressings in a.m. tomorrow. Fall Risk Details Current Medications: Current Medications Acetaminophen (Acetaminophen 325 Mg Tablet) 650 mg PO Q6H PRN PRN Reason: Pain, Mild (Pain Scale 1-3) Apixaban (Apixaban 5 Mg Tablet) 5 mg PO BID [facility] Last Admin: 05/22/21 09:06 Dose: 5 mg Documented by: Baclofen (Baclofen 10 Mg Tablet) 5 mg PO TID [facility] Last Admin: 05/22/21 09:07 Dose: 5 mg Documented by: Bisacodyl (Bisacodyl 10 Mg Supp.Rect) 10 mg [place] DAILY PRN PRN Reason: Constipation Gabapentin (Gabapentin 300 Mg Capsule) 300 mg PO TID [facility] Last Admin: 05/22/21 09:06 Dose: 300 mg Documented by: Hydromorphone HCl (Hydromorphone Hcl 1 Mg/Ml Syringe) 0.5 mg IVPUSH Q3H PRN; Protocol PRN Reason: Pain, Severe (Pain Scale 7-10) Hydroxyzine HCl (Hydroxyzine Hcl 25 Mg Tablet) 25 mg PO BID [facility] Last Admin: 05/22/21 09:07 Dose: 25 mg Documented by: Naloxone HCl (Naloxone Hcl Nasal 4 Mg [place]) 4 mg NOSTRILALT Q24H PRN PRN Reason: Opioid Overdose Nitroglycerin (Nitroglycerin 0.4 Mg Tab.Subl) 0.4 mg SUBLINGUAL Q5M PRN PRN Reason: Chest Pain Omeprazole (Omeprazole 20 Mg Capsule.Dr) 20 mg PO BID@0630,1630 [facility] Last Admin: 05/22/21 05:57 Dose: 20 mg Documented by: Ondansetron HCl (Ondansetron Hcl 4 Mg/2 Ml Vial) 4 mg IVPUSH QID PRN PRN Reason: Nausea Oxycodone HCl (Oxycodone Hcl Immed Release 5 Mg Tablet) 5 mg PO Q6H PRN PRN Reason: Pain, Moderate (Pain Scale 4-6 Last Admin: 05/21/21 14:08 Dose: 5 mg Documented by: Pentoxifylline (Pentoxifylline Er 400 Mg Tablet.Er) 400 mg PO TID [facility] Last Admin: 05/22/21 09:06 Dose: 400 mg Documented by: Pharmacy Consult (Consult Rx Perform Med Rec) 1 each MISCELLANE ONCE PRN PRN Reason: Consult order Phenytoin Sodium (Phenytoin Sodium Extended 100 Mg Capsule) 100 mg PO TID [facility] Last Admin: 05/22/21 09:06 Dose: 100 mg Documented by: Quetiapine Fumarate (Quetiapine Fumarate 200 Mg Tablet) 200 mg PO BEDTIME [facility] Last Admin: 05/21/21 19:40 Dose: 200 mg Documented by: Sertraline HCl (Sertraline Hcl 50 Mg Tablet) 50 mg PO DAILY [facility] Last Admin: 05/22/21 09:06 Dose: 50 mg Documented by: Sodium Chloride (0.9 % Sodium Chloride Flush 3 Ml Syringe) 3 ml IVFLUSH QSHIFT [facility] Last Admin: 05/22/21 09:07 Dose: 3 ml Documented by: Sodium Chloride (Sodium Chloride 0.65 % Nasal 44 Ml Sprbtl) 1 spray NOSTRIL-B DAILY PRN PRN Reason: Nasal Congestion Time Spent With Patient Time: Total time spent is greater than 50% in coordination of care (as documented) at patient's floor/unit and/or counseling patient: Quality Stroke Does the patient have a stroke diagnosis?: No VTE Prior VTE?: No VTE Risk Level:: Surgical - moderate VTE Device Contraindication: N/A - Device Ordered VTE Drug Contraindication: N/A - Med Ordered
[2021-05-22] MEDS: QUEtiapine Fumarate 200 MG TABLET PO (19:33)
[2021-05-23 03:07] VITALS: BP 125/66; PULSE 73; RESP 18; TEMP 36.5; O2SAT 95
[2021-05-23] MEDS: Omeprazole 20 MG CAPSULE.DR PO ×2 (06:01→15:25)
[2021-05-23 08:00] VITALS: BP 111/69; PULSE 73; RESP 18; TEMP 37.1; O2SAT 97
[2021-05-23] MEDS: Phenytoin Sodium Extended 100 MG CAPSULE PO ×3 (09:19→21:33)
[2021-05-23] MEDS: Pentoxifylline ER 400 MG TABLET.ER PO ×3 (09:19→21:34)
[2021-05-23] MEDS: Sertraline HCL 50 MG TABLET PO (09:19)
[2021-05-23] MEDS: Apixaban 5 MG TABLET PO ×2 (09:19→21:34)
[2021-05-23] MEDS: 0.9 % Sodium Chloride Flush 3 ML SYRINGE IVFLUSH ×2 (09:19→21:38)
[2021-05-23] MEDS: hydrOXYzine HCL 25 MG TABLET PO ×2 (09:19→21:34)
[2021-05-23] MEDS: Gabapentin 300 MG CAPSULE PO ×3 (09:20→21:33)
[2021-05-23] MEDS: Baclofen 10 MG TABLET 5 MG PO ×3 (09:20→21:33)
[2021-05-23] MEDS: oxyCODONE HCl Immed Release 5 MG TABLET PO ×2 (09:22→21:38)
--- NOTE | 2021-05-23 09:55 | P.PNGS_ITS ---
Subjective Subjective Date of Service: 05/23/21 Interval history: No new complaints Physical Exam Vital Signs: Vital Signs: Last Vital Signs Temp 98.8 F 05/23/21 08:00 Pulse 73 05/23/21 08:00 Resp 18 05/23/21 08:00 BP 111/69 05/23/21 08:00 Pulse Ox 97 05/23/21 08:00 BMI result Body Mass Index 30.8 Const: General: no acute distress and well developed Nutritional Appearance: well nourished Orientation/consciousness: patient oriented x3 Limitations: no limitations Resp: Effort & Inspection: normal respiratory effort Neuro: General: patient oriented x3 Extrem: Other: Dressings changed to donor site and right ankle. Skin graft take remains at approximately 70%. Xeroform and dry sterile dressings applied. Donor site is clean with some serous discharge. Dressings were changed as well. Objective Data Active Medications Acetaminophen (Acetaminophen 325 Mg Tablet) 650 mg PO Q6H PRN PRN Reason: Pain, Mild (Pain Scale 1-3) Apixaban (Apixaban 5 Mg Tablet) 5 mg PO BID [facility] Last Admin: 05/23/21 09:19 Dose: 5 mg Documented by: JOHN Baclofen (Baclofen 10 Mg Tablet) 5 mg PO TID [facility] Last Admin: 05/23/21 09:20 Dose: 5 mg Documented by: JOHN Bisacodyl (Bisacodyl 10 Mg Supp.Rect) 10 mg [place] DAILY PRN PRN Reason: Constipation Gabapentin (Gabapentin 300 Mg Capsule) 300 mg PO TID [facility] Last Admin: 05/23/21 09:20 Dose: 300 mg Documented by: JOHN Hydromorphone HCl (Hydromorphone Hcl 1 Mg/Ml Syringe) 0.5 mg IVPUSH Q3H PRN; Protocol PRN Reason: Pain, Severe (Pain Scale 7-10) Hydroxyzine HCl (Hydroxyzine Hcl 25 Mg Tablet) 25 mg PO BID [facility] Last Admin: 05/23/21 09:19 Dose: 25 mg Documented by: JOHN Naloxone HCl (Naloxone Hcl Nasal 4 Mg [place]) 4 mg NOSTRILALT Q24H PRN PRN Reason: Opioid Overdose Nitroglycerin (Nitroglycerin 0.4 Mg Tab.Subl) 0.4 mg SUBLINGUAL Q5M PRN PRN Reason: Chest Pain Omeprazole (Omeprazole 20 Mg Capsule.) 20 mg PO BID@0630,1630 [facility] Last Admin: 05/23/21 06:01 Dose: 20 mg Documented by: JOHN Ondansetron HCl (Ondansetron Hcl 4 Mg/2 Ml Vial) 4 mg IVPUSH QID PRN PRN Reason: Nausea Oxycodone HCl (Oxycodone Hcl Immed Release 5 Mg Tablet) 5 mg PO Q6H PRN PRN Reason: Pain, Moderate (Pain Scale 4-6 Last Admin: 05/23/21 09:22 Dose: 5 mg Documented by: JOHN Pentoxifylline (Pentoxifylline Er 400 Mg Tablet.Er) 400 mg PO TID [facility] Last Admin: 05/23/21 09:19 Dose: 400 mg Documented by: JOHN Pharmacy Consult (Consult Rx Perform Med Rec) 1 each MISCELLANE ONCE PRN PRN Reason: Consult order Phenytoin Sodium (Phenytoin Sodium Extended 100 Mg Capsule) 100 mg PO TID [facility] Last Admin: 05/23/21 09:19 Dose: 100 mg Documented by: JOHN Quetiapine Fumarate (Quetiapine Fumarate 200 Mg Tablet) 200 mg PO BEDTIME [facility] Last Admin: 05/22/21 19:33 Dose: 200 mg Documented by: JOHN Sertraline HCl (Sertraline Hcl 50 Mg Tablet) 50 mg PO DAILY [facility] Last Admin: 05/23/21 09:19 Dose: 50 mg Documented by: JOHN Sodium Chloride (0.9 % Sodium Chloride Flush 3 Ml Syringe) 3 ml IVFLUSH QSHIFT [facility] Last Admin: 05/23/21 09:19 Dose: 3 ml Documented by: JOHN Sodium Chloride (Sodium Chloride 0.65 % Nasal 44 Ml Sprbtl) 1 spray NOSTRIL-B DAILY PRN PRN Reason: Nasal Congestion Labs CBC & Chem 7: 05/19/21 07:16 05/19/21 07:16 Procedures Date of Service Date of Service: 05/23/21 Progress Note: A&P Assessment and plan (1) S/P split thickness skin graft: Status: Acute Plan Pod 4 following split-thickness skin graft to right ankle nonhealing ulcer. Graft has sloughed on the posterior portion of the wound however is intact on the anterior wound. Xeroform and dry sterile dressings applied. Will continue observe for 1 more day. Possible discharge tomorrow with daily dressing changes upon discharge. Fall Risk Details Current Medications: Current Medications Acetaminophen (Acetaminophen 325 Mg Tablet) 650 mg PO Q6H PRN PRN Reason: Pain, Mild (Pain Scale 1-3) Apixaban (Apixaban 5 Mg Tablet) 5 mg PO BID [facility] Last Admin: 05/23/21 09:19 Dose: 5 mg Documented by: Baclofen (Baclofen 10 Mg Tablet) 5 mg PO TID [facility] Last Admin: 05/23/21 09:20 Dose: 5 mg Documented by: Bisacodyl (Bisacodyl 10 Mg Supp.Rect) 10 mg [place] DAILY PRN PRN Reason: Constipation Gabapentin (Gabapentin 300 Mg Capsule) 300 mg PO TID [facility] Last Admin: 05/23/21 09:20 Dose: 300 mg Documented by: Hydromorphone HCl (Hydromorphone Hcl 1 Mg/Ml Syringe) 0.5 mg IVPUSH Q3H PRN; Protocol PRN Reason: Pain, Severe (Pain Scale 7-10) Hydroxyzine HCl (Hydroxyzine Hcl 25 Mg Tablet) 25 mg PO BID [facility] Last Admin: 05/23/21 09:19 Dose: 25 mg Documented by: Naloxone HCl (Naloxone Hcl Nasal 4 Mg [place]) 4 mg NOSTRILALT Q24H PRN PRN Reason: Opioid Overdose Nitroglycerin (Nitroglycerin 0.4 Mg Tab.Subl) 0.4 mg SUBLINGUAL Q5M PRN PRN Reason: Chest Pain Omeprazole (Omeprazole 20 Mg Capsule.) 20 mg PO BID@0630,1630 [facility] Last Admin: 05/23/21 06:01 Dose: 20 mg Documented by: Ondansetron HCl (Ondansetron Hcl 4 Mg/2 Ml Vial) 4 mg IVPUSH QID PRN PRN Reason: Nausea Oxycodone HCl (Oxycodone Hcl Immed Release 5 Mg Tablet) 5 mg PO Q6H PRN PRN Reason: Pain, Moderate (Pain Scale 4-6 Last Admin: 05/23/21 09:22 Dose: 5 mg Documented by: Pentoxifylline (Pentoxifylline Er 400 Mg Tablet.Er) 400 mg PO TID [facility] Last Admin: 05/23/21 09:19 Dose: 400 mg Documented by: Pharmacy Consult (Consult Rx Perform Med Rec) 1 each MISCELLANE ONCE PRN PRN Reason: Consult order Phenytoin Sodium (Phenytoin Sodium Extended 100 Mg Capsule) 100 mg PO TID [facility] Last Admin: 05/23/21 09:19 Dose: 100 mg Documented by: Quetiapine Fumarate (Quetiapine Fumarate 200 Mg Tablet) 200 mg PO BEDTIME [facility] Last Admin: 05/22/21 19:33 Dose: 200 mg Documented by: Sertraline HCl (Sertraline Hcl 50 Mg Tablet) 50 mg PO DAILY [facility] Last Admin: 05/23/21 09:19 Dose: 50 mg Documented by: Sodium Chloride (0.9 % Sodium Chloride Flush 3 Ml Syringe) 3 ml IVFLUSH QSHIFT [facility] Last Admin: 05/23/21 09:19 Dose: 3 ml Documented by: Sodium Chloride (Sodium Chloride 0.65 % Nasal 44 Ml Sprbtl) 1 spray NOSTRIL-B DAILY PRN PRN Reason: Nasal Congestion Time Spent With Patient Time: Total time spent is greater than 50% in coordination of care (as documented) at patient's floor/unit and/or counseling patient: Quality Stroke Does the patient have a stroke diagnosis?: No VTE Prior VTE?: No VTE Risk Level:: Surgical - moderate VTE Device Contraindication: N/A - Device Ordered VTE Drug Contraindication: N/A - Med Ordered
[2021-05-23 12:00] VITALS: BP 118/71; PULSE 75; RESP 18; TEMP 37.2; O2SAT 95
[2021-05-23 16:00] VITALS: BP 118/77; PULSE 87; RESP 17; TEMP 36.9; O2SAT 96
[2021-05-23 19:13] VITALS: BP 127/73; PULSE 75; RESP 17; TEMP 37.1; O2SAT 97
[2021-05-23] MEDS: QUEtiapine Fumarate 200 MG TABLET PO (21:34)
[2021-05-23 23:59] VITALS: BP 132/78; PULSE 62; RESP 17; TEMP 36.2; O2SAT 95
[2021-05-24 04:00] VITALS: BP 96/62; PULSE 73; RESP 18; TEMP 36.9; O2SAT 95
[2021-05-24] MEDS: Omeprazole 20 MG CAPSULE.DR PO ×2 (06:27→17:03)
[2021-05-24] MEDS: oxyCODONE HCl Immed Release 5 MG TABLET PO ×2 (06:27→20:33)
[2021-05-24] MEDS: Pentoxifylline ER 400 MG TABLET.ER PO ×3 (07:38→20:32)
[2021-05-24] MEDS: Gabapentin 300 MG CAPSULE PO ×3 (07:38→20:33)
[2021-05-24] MEDS: 0.9 % Sodium Chloride Flush 3 ML SYRINGE IVFLUSH ×3 (07:38→20:35)
[2021-05-24] MEDS: hydrOXYzine HCL 25 MG TABLET PO ×2 (07:38→20:33)
[2021-05-24] MEDS: Sertraline HCL 50 MG TABLET PO (07:39)
[2021-05-24] MEDS: Baclofen 10 MG TABLET 5 MG PO ×3 (07:39→20:32)
[2021-05-24] MEDS: Phenytoin Sodium Extended 100 MG CAPSULE PO ×3 (07:39→20:32)
[2021-05-24] MEDS: Apixaban 5 MG TABLET PO ×2 (07:39→20:32)
[2021-05-24 07:43] VITALS: BP 124/76; PULSE 73; RESP 17; TEMP 36.8; O2SAT 96
[2021-05-24 11:40] VITALS: BP 117/71; PULSE 79; RESP 18; TEMP 36.1; O2SAT 96
--- NOTE | 2021-05-24 11:47 | MHC.CM.PN ---
Addendum entered by Gini Perdue RN 05/24/21 15:59: PER SURGICALPT WILL NOT D/C TODAY, UNIT, SNF AND NURSE AWARE. Original Note: EMR REVIEWED, ANTIC PT WILL D/C BACK [facility] AT 2:30PM W/NO WOUND VAC NEEDED AND ACTION FOR BLS TRANSPORT.
--- NOTE | 2021-05-24 12:41 | PM.PNGS ---
Subjective Subjective Date of Service: 05/24/21 Interval history: No new complaints. Physical Exam Vital Signs: Vital Signs: Last Vital Signs Temp 97.0 F 05/24/21 11:40 Pulse 79 05/24/21 11:40 Resp 18 05/24/21 11:40 BP 117/71 05/24/21 11:40 Pulse Ox 96 05/24/21 11:40 BMI result Body Mass Index 30.8 Const: General: comfortable, no acute distress and alert Orientation/consciousness: patient oriented x3 Skin: Other: warm and dry Neuro: General: patient oriented x3 Extrem: Other: R lower leg graft site- posterior and now anterior portion sloughed off, some areas superiorly taking well Objective Data Active Medications Acetaminophen (Acetaminophen 325 Mg Tablet) 650 mg PO Q6H PRN PRN Reason: Pain, Mild (Pain Scale 1-3) Apixaban (Apixaban 5 Mg Tablet) 5 mg PO BID [facility] Last Admin: 05/24/21 07:39 Dose: 5 mg Documented by: YULIA Baclofen (Baclofen 10 Mg Tablet) 5 mg PO TID [facility] Last Admin: 05/24/21 07:39 Dose: 5 mg Documented by: YULIA Bisacodyl (Bisacodyl 10 Mg Supp.Rect) 10 mg [place] DAILY PRN PRN Reason: Constipation Gabapentin (Gabapentin 300 Mg Capsule) 300 mg PO TID [facility] Last Admin: 05/24/21 07:38 Dose: 300 mg Documented by: YULIA Hydromorphone HCl (Hydromorphone Hcl 1 Mg/Ml Syringe) 0.5 mg IVPUSH Q3H PRN; Protocol PRN Reason: Pain, Severe (Pain Scale 7-10) Hydroxyzine HCl (Hydroxyzine Hcl 25 Mg Tablet) 25 mg PO BID [facility] Last Admin: 05/24/21 07:38 Dose: 25 mg Documented by: YULIA Naloxone HCl (Naloxone Hcl Nasal 4 Mg [place]) 4 mg NOSTRILALT Q24H PRN PRN Reason: Opioid Overdose Nitroglycerin (Nitroglycerin 0.4 Mg Tab.Subl) 0.4 mg SUBLINGUAL Q5M PRN PRN Reason: Chest Pain Omeprazole (Omeprazole 20 Mg Capsule.Dr) 20 mg PO BID@0630,1630 [facility] Last Admin: 05/24/21 06:27 Dose: 20 mg Documented by: SHALINI Ondansetron HCl (Ondansetron Hcl 4 Mg/2 Ml Vial) 4 mg IVPUSH QID PRN PRN Reason: Nausea Oxycodone HCl (Oxycodone Hcl Immed Release 5 Mg Tablet) 5 mg PO Q6H PRN PRN Reason: Pain, Moderate (Pain Scale 4-6 Last Admin: 05/24/21 06:27 Dose: 5 mg Documented by: SHALINI Pentoxifylline (Pentoxifylline Er 400 Mg Tablet.Er) 400 mg PO TID [facility] Last Admin: 05/24/21 07:38 Dose: 400 mg Documented by: YULIA Pharmacy Consult (Consult Rx Perform Med Rec) 1 each MISCELLANE ONCE PRN PRN Reason: Consult order Phenytoin Sodium (Phenytoin Sodium Extended 100 Mg Capsule) 100 mg PO TID [facility] Last Admin: 05/24/21 07:39 Dose: 100 mg Documented by: YULIA Quetiapine Fumarate (Quetiapine Fumarate 200 Mg Tablet) 200 mg PO BEDTIME [facility] Last Admin: 05/23/21 21:34 Dose: 200 mg Documented by: SHALINI Sertraline HCl (Sertraline Hcl 50 Mg Tablet) 50 mg PO DAILY [facility] Last Admin: 05/24/21 07:39 Dose: 50 mg Documented by: YULIA Sodium Chloride (0.9 % Sodium Chloride Flush 3 Ml Syringe) 3 ml IVFLUSH QSHIFT [facility] Last Admin: 05/24/21 07:38 Dose: 3 ml Documented by: YULIA Sodium Chloride (Sodium Chloride 0.65 % Nasal 44 Ml Sprbtl) 1 spray NOSTRIL-B DAILY PRN PRN Reason: Nasal Congestion Labs CBC & Chem 7: 05/19/21 07:16 05/19/21 07:16 Procedures Date of Service Date of Service: 05/24/21 Progress Note: A&P Assessment and plan (1) S/P split thickness skin graft: Status: Acute (2) Venous stasis ulcer: Status: Acute Plan Pod 5 following split-thickness skin graft to right ankle nonhealing ulcer. Graft has sloughed on the posterior and now anterior portion of the wound. Xeroform and dry sterile dressings applied. Will continue observe. Fall Risk Details Current Medications: Current Medications Acetaminophen (Acetaminophen 325 Mg Tablet) 650 mg PO Q6H PRN PRN Reason: Pain, Mild (Pain Scale 1-3) Apixaban (Apixaban 5 Mg Tablet) 5 mg PO BID [facility] Last Admin: 05/24/21 07:39 Dose: 5 mg Documented by: Baclofen (Baclofen 10 Mg Tablet) 5 mg PO TID [facility] Last Admin: 05/24/21 07:39 Dose: 5 mg Documented by: Bisacodyl (Bisacodyl 10 Mg Supp.Rect) 10 mg [place] DAILY PRN PRN Reason: Constipation Gabapentin (Gabapentin 300 Mg Capsule) 300 mg PO TID [facility] Last Admin: 05/24/21 07:38 Dose: 300 mg Documented by: Hydromorphone HCl (Hydromorphone Hcl 1 Mg/Ml Syringe) 0.5 mg IVPUSH Q3H PRN; Protocol PRN Reason: Pain, Severe (Pain Scale 7-10) Hydroxyzine HCl (Hydroxyzine Hcl 25 Mg Tablet) 25 mg PO BID [facility] Last Admin: 05/24/21 07:38 Dose: 25 mg Documented by: Naloxone HCl (Naloxone Hcl Nasal 4 Mg [place]) 4 mg NOSTRILALT Q24H PRN PRN Reason: Opioid Overdose Nitroglycerin (Nitroglycerin 0.4 Mg Tab.Subl) 0.4 mg SUBLINGUAL Q5M PRN PRN Reason: Chest Pain Omeprazole (Omeprazole 20 Mg Capsule.Dr) 20 mg PO BID@0630,1630 [facility] Last Admin: 05/24/21 06:27 Dose: 20 mg Documented by: Ondansetron HCl (Ondansetron Hcl 4 Mg/2 Ml Vial) 4 mg IVPUSH QID PRN PRN Reason: Nausea Oxycodone HCl (Oxycodone Hcl Immed Release 5 Mg Tablet) 5 mg PO Q6H PRN PRN Reason: Pain, Moderate (Pain Scale 4-6 Last Admin: 05/24/21 06:27 Dose: 5 mg Documented by: Pentoxifylline (Pentoxifylline Er 400 Mg Tablet.Er) 400 mg PO TID [facility] Last Admin: 05/24/21 07:38 Dose: 400 mg Documented by: Pharmacy Consult (Consult Rx Perform Med Rec) 1 each MISCELLANE ONCE PRN PRN Reason: Consult order Phenytoin Sodium (Phenytoin Sodium Extended 100 Mg Capsule) 100 mg PO TID [facility] Last Admin: 05/24/21 07:39 Dose: 100 mg Documented by: Quetiapine Fumarate (Quetiapine Fumarate 200 Mg Tablet) 200 mg PO BEDTIME [facility] Last Admin: 05/23/21 21:34 Dose: 200 mg Documented by: Sertraline HCl (Sertraline Hcl 50 Mg Tablet) 50 mg PO DAILY [facility] Last Admin: 05/24/21 07:39 Dose: 50 mg Documented by: Sodium Chloride (0.9 % Sodium Chloride Flush 3 Ml Syringe) 3 ml IVFLUSH QSHIFT [facility] Last Admin: 05/24/21 07:38 Dose: 3 ml Documented by: Sodium Chloride (Sodium Chloride 0.65 % Nasal 44 Ml Sprbtl) 1 spray NOSTRIL-B DAILY PRN PRN Reason: Nasal Congestion Time Spent With Patient Time: Total time spent is greater than 50% in coordination of care (as documented) at patient's floor/unit and/or counseling patient: Quality Stroke Does the patient have a stroke diagnosis?: No VTE Prior VTE?: No VTE Risk Level:: Surgical - moderate VTE Device Contraindication: N/A - Device Ordered VTE Drug Contraindication: N/A - Med Ordered
[2021-05-24 15:13] VITALS: BP 116/70; PULSE 70; RESP 18; TEMP 37.1; O2SAT 100
[2021-05-24 20:00] VITALS: BP 117/67; PULSE 67; RESP 16; TEMP 36.7; O2SAT 99
[2021-05-24] MEDS: QUEtiapine Fumarate 200 MG TABLET PO (20:32)
[2021-05-24 23:55] VITALS: BP 100/65; PULSE 75; RESP 17; TEMP 36.4; O2SAT 97
[2021-05-25 04:00] VITALS: BP 121/69; PULSE 69; RESP 18; TEMP 36.8; O2SAT 96
[2021-05-25] MEDS: Omeprazole 20 MG CAPSULE.DR PO (06:21)
[2021-05-25 07:29] VITALS: BP 110/72; PULSE 73; RESP 17; TEMP 36.4; O2SAT 95
[2021-05-25] MEDS: Apixaban 5 MG TABLET PO (07:37)
[2021-05-25] MEDS: Pentoxifylline ER 400 MG TABLET.ER PO (07:37)
[2021-05-25] MEDS: Baclofen 10 MG TABLET 5 MG PO (07:37)
[2021-05-25] MEDS: Sertraline HCL 50 MG TABLET PO (07:37)
[2021-05-25] MEDS: hydrOXYzine HCL 25 MG TABLET PO (07:37)
[2021-05-25] MEDS: Phenytoin Sodium Extended 100 MG CAPSULE PO (07:37)
[2021-05-25] MEDS: Gabapentin 300 MG CAPSULE PO (07:37)
[2021-05-25] MEDS: 0.9 % Sodium Chloride Flush 3 ML SYRINGE IVFLUSH (07:39)
--- NOTE | 2021-05-25 10:14 | P.PNGS_ITS ---
Subjective Subjective Date of Service: 05/25/21 Interval history: Feels ready to go. Physical Exam Vital Signs: Vital Signs: Last Vital Signs Temp 97.5 F 05/25/21 07:29 Pulse 73 05/25/21 07:29 Resp 17 05/25/21 07:29 BP 110/72 05/25/21 07:29 Pulse Ox 95 05/25/21 07:29 BMI result Body Mass Index 30.8 Const: General: comfortable, no acute distress and alert Orientation/consciousness: patient oriented x3 Skin: Other: warm and dry Neuro: General: patient oriented x3 Extrem: Other: right lower leg graft site- dressing changed by Dr. Jett- anterior/posterior portions of graft site sloughed off, no surrounding erythema Objective Data Active Medications Acetaminophen (Acetaminophen 325 Mg Tablet) 650 mg PO Q6H PRN PRN Reason: Pain, Mild (Pain Scale 1-3) Apixaban (Apixaban 5 Mg Tablet) 5 mg PO BID [facility] Last Admin: 05/25/21 07:37 Dose: 5 mg Documented by: KIANA Baclofen (Baclofen 10 Mg Tablet) 5 mg PO TID [facility] Last Admin: 05/25/21 07:37 Dose: 5 mg Documented by: KIANA Bisacodyl (Bisacodyl 10 Mg Supp.Rect) 10 mg [place] DAILY PRN PRN Reason: Constipation Gabapentin (Gabapentin 300 Mg Capsule) 300 mg PO TID [facility] Last Admin: 05/25/21 07:37 Dose: 300 mg Documented by: KIANA Hydromorphone HCl (Hydromorphone Hcl 1 Mg/Ml Syringe) 0.5 mg IVPUSH Q3H PRN; Protocol PRN Reason: Pain, Severe (Pain Scale 7-10) Hydroxyzine HCl (Hydroxyzine Hcl 25 Mg Tablet) 25 mg PO BID [facility] Last Admin: 05/25/21 07:37 Dose: 25 mg Documented by: KIANA Naloxone HCl (Naloxone Hcl Nasal 4 Mg [place]) 4 mg NOSTRILALT Q24H PRN PRN Reason: Opioid Overdose Nitroglycerin (Nitroglycerin 0.4 Mg Tab.Subl) 0.4 mg SUBLINGUAL Q5M PRN PRN Reason: Chest Pain Omeprazole (Omeprazole 20 Mg Capsule.) 20 mg PO BID@0630,1630 [facility] Last Admin: 05/25/21 06:21 Dose: 20 mg Documented by: SHALINI Ondansetron HCl (Ondansetron Hcl 4 Mg/2 Ml Vial) 4 mg IVPUSH QID PRN PRN Reason: Nausea Oxycodone HCl (Oxycodone Hcl Immed Release 5 Mg Tablet) 5 mg PO Q6H PRN PRN Reason: Pain, Moderate (Pain Scale 4-6 Last Admin: 05/24/21 20:33 Dose: 5 mg Documented by: SHALINI Pentoxifylline (Pentoxifylline Er 400 Mg Tablet.Er) 400 mg PO TID [facility] Last Admin: 05/25/21 07:37 Dose: 400 mg Documented by: KIANA Pharmacy Consult (Consult Rx Perform Med Rec) 1 each MISCELLANE ONCE PRN PRN Reason: Consult order Phenytoin Sodium (Phenytoin Sodium Extended 100 Mg Capsule) 100 mg PO TID [facility] Last Admin: 05/25/21 07:37 Dose: 100 mg Documented by: KIANA Quetiapine Fumarate (Quetiapine Fumarate 200 Mg Tablet) 200 mg PO BEDTIME [facility] Last Admin: 05/24/21 20:32 Dose: 200 mg Documented by: SHALINI Sertraline HCl (Sertraline Hcl 50 Mg Tablet) 50 mg PO DAILY [facility] Last Admin: 05/25/21 07:37 Dose: 50 mg Documented by: KIANA Sodium Chloride (0.9 % Sodium Chloride Flush 3 Ml Syringe) 3 ml IVFLUSH QSHIFT [facility] Last Admin: 05/25/21 07:39 Dose: 3 ml Documented by: KIANA Sodium Chloride (Sodium Chloride 0.65 % Nasal 44 Ml Sprbtl) 1 spray NOSTRIL-B DAILY PRN PRN Reason: Nasal Congestion Labs CBC & Chem 7: 05/19/21 07:16 05/19/21 07:16 Procedures Date of Service Date of Service: 05/25/21 Progress Note: A&P Assessment and plan (1) S/P split thickness skin graft: Status: Acute (2) Venous stasis ulcer: Status: Acute Plan POD 6 following split-thickness skin graft to right ankle nonhealing ulcer. Graft has sloughed on the posterior and now anterior portion of the wound- only about 20-30% of the graft has taken. Continue xeroform and dry sterile dressings. Stable for discharge to [facility] with f/u in office for further care. Fall Risk Details Current Medications: Current Medications Acetaminophen (Acetaminophen 325 Mg Tablet) 650 mg PO Q6H PRN PRN Reason: Pain, Mild (Pain Scale 1-3) Apixaban (Apixaban 5 Mg Tablet) 5 mg PO BID [facility] Last Admin: 05/25/21 07:37 Dose: 5 mg Documented by: Baclofen (Baclofen 10 Mg Tablet) 5 mg PO TID [facility] Last Admin: 05/25/21 07:37 Dose: 5 mg Documented by: Bisacodyl (Bisacodyl 10 Mg Supp.Rect) 10 mg [place] DAILY PRN PRN Reason: Constipation Gabapentin (Gabapentin 300 Mg Capsule) 300 mg PO TID [facility] Last Admin: 05/25/21 07:37 Dose: 300 mg Documented by: Hydromorphone HCl (Hydromorphone Hcl 1 Mg/Ml Syringe) 0.5 mg IVPUSH Q3H PRN; Protocol PRN Reason: Pain, Severe (Pain Scale 7-10) Hydroxyzine HCl (Hydroxyzine Hcl 25 Mg Tablet) 25 mg PO BID [facility] Last Admin: 05/25/21 07:37 Dose: 25 mg Documented by: Naloxone HCl (Naloxone Hcl Nasal 4 Mg [place]) 4 mg NOSTRILALT Q24H PRN PRN Reason: Opioid Overdose Nitroglycerin (Nitroglycerin 0.4 Mg Tab.Subl) 0.4 mg SUBLINGUAL Q5M PRN PRN Reason: Chest Pain Omeprazole (Omeprazole 20 Mg Capsule.Dr) 20 mg PO BID@0630,1630 [facility] Last Admin: 05/25/21 06:21 Dose: 20 mg Documented by: Ondansetron HCl (Ondansetron Hcl 4 Mg/2 Ml Vial) 4 mg IVPUSH QID PRN PRN Reason: Nausea Oxycodone HCl (Oxycodone Hcl Immed Release 5 Mg Tablet) 5 mg PO Q6H PRN PRN Reason: Pain, Moderate (Pain Scale 4-6 Last Admin: 05/24/21 20:33 Dose: 5 mg Documented by: Pentoxifylline (Pentoxifylline Er 400 Mg Tablet.Er) 400 mg PO TID [facility] Last Admin: 05/25/21 07:37 Dose: 400 mg Documented by: Pharmacy Consult (Consult Rx Perform Med Rec) 1 each MISCELLANE ONCE PRN PRN Reason: Consult order Phenytoin Sodium (Phenytoin Sodium Extended 100 Mg Capsule) 100 mg PO TID [facility] Last Admin: 05/25/21 07:37 Dose: 100 mg Documented by: Quetiapine Fumarate (Quetiapine Fumarate 200 Mg Tablet) 200 mg PO BEDTIME [facility] Last Admin: 05/24/21 20:32 Dose: 200 mg Documented by: Sertraline HCl (Sertraline Hcl 50 Mg Tablet) 50 mg PO DAILY [facility] Last Admin: 05/25/21 07:37 Dose: 50 mg Documented by: Sodium Chloride (0.9 % Sodium Chloride Flush 3 Ml Syringe) 3 ml IVFLUSH QSHIFT [facility] Last Admin: 05/25/21 07:39 Dose: 3 ml Documented by: Sodium Chloride (Sodium Chloride 0.65 % Nasal 44 Ml Sprbtl) 1 spray NOSTRIL-B DAILY PRN PRN Reason: Nasal Congestion Time Spent With Patient Time: Total time spent is greater than 50% in coordination of care (as documented) at patient's floor/unit and/or counseling patient: Quality Stroke Does the patient have a stroke diagnosis?: No VTE Prior VTE?: No VTE Risk Level:: Surgical - moderate VTE Device Contraindication: N/A - Device Ordered VTE Drug Contraindication: N/A - Med Ordered
--- NOTE | 2021-05-25 10:17 | PM.DS ---
DS: Providers Provider Date of Service: 05/25/21 Date of admission: 05/19/21 07:37 Primary care physician: Shilpa Bynum MD Attending physician on admission: Cody Jett DS: Transfer Hospital Acceptance Name of Facility: [facility] DS: Diagnosis Discharge Diagnosis (1) S/P split thickness skin graft: Status: Acute (2) Venous stasis ulcer: Status: Acute DS: Summary Hospital Course Hospital Course: BRIEF HPI: 60-year-old male presenting with a nonhealing wound on the lateral right lower leg. He presents for repeat split-thickness skin graft to the ulcer bed. HOSPITAL COURSE: On 05/19/21, a split-thickness skin graft from right thigh to right lower leg with wound vac placement to graft site was performed by Dr. Jett without complication. The patient tolerated the procedure well and was admitted for observation. He had an uncomplicated recovery course and remained inpatient for wound care for the graft site. His pain was controlled with PO analgesics. The wound vac dressing was left in place until POD #2. Upon dressing change, the posterior/lateral aspect appeared to be beginning to slough off. The remainder of the graft remained in place. The decision was made not to replace the wound vac dressing. The graft site was covered with xeroform, saline soaked fluff followed by dry fluffs and kerlix. Upon further dressing changes, most of the graft site appeared to slough off with only about 20-30% of the graft taking well (mostly superior and inferior aspect of central wound site). The donor site had adaptic applied directly to the wound site and only the outer abdominal dressing was changed every other day. This will be removed at his post op visit in the office. He was deemed stable for discharge back to [facility] with daily wound care with follow up in the office for further graft site care. He is covid19 negative. Status at Discharge Functional status at discharge: uses cane/walker Overall status at discharge: patient is progressing back to baseline Time Spent with Patient Time attestation: Total time spent providing and/or coordinating discharge services: Discharge coordination time: Greater than 30 minutes Quality: Stroke Does the patient have a stroke diagnosis?: No Physical Exam Vital Signs: Vital Signs: Last Vital Signs Temp 97.5 F 05/25/21 07:29 Pulse 73 03/29/22 07:29 Resp 17 05/25/21 07:29 BP 110/72 05/25/21 07:29 Pulse Ox 95 05/25/21 07:29 BMI result Body Mass Index 30.8 Const: General: comfortable and no acute distress Resp: Effort & Inspection: normal respiratory effort Extrem: Other: right lower leg graft site- sloughing of graft site posteriorly and anteriorly, no surrounding erythema right thigh donor site- adaptic, abd dressing in place, clean Discharge Plan Discharge Patient Disposition: [facility] Discharge Diagnosis: s/p split thickness skin graft Referrals: KRYSTYNATANEHEMIAS SIMMONS [Other] - 1 Day (RESUMPTION OF CARE) Cody Jett MD [Physician] - 2 Weeks PhysicianPhong [Physician] - Discharge Medications: Continued multivitamin [One Daily Multivitamin] Tablet 1 tab PO DAILY 0RF phenytoin sodium extended 100 mg capsule 1 cap PO TID 0RF aspirin 81 mg tablet,delayed release (DR/EC) 1 tab PO DAILY 0RF quetiapine 100 mg tablet 2 tab PO BEDTIME 0RF pentoxifylline 400 mg tablet extended release 1 tab PO TID 0RF gabapentin 300 mg capsule 1 cap PO TID 0RF omeprazole 20 mg capsule,delayed release(DR/EC) 1 cap PO BID 0RF hydroxyzine HCl 25 mg tablet 1 tab PO BID 0RF sertraline 50 mg tablet 1 tab PO DAILY 0RF acamprosate 333 mg tablet,delayed release (DR/EC) 2 tab PO TID 0RF bisacodyl 10 mg Suppository 10 mg [place] DAILY PRN (Reason: Constipation) 0RF ibuprofen 200 mg Tablet 400 mg PO Q8H PRN (Reason: Pain) 0RF nitroglycerin [Nitrostat] 0.4 mg Tablet, Sublingual 0.4 mg SUBLINGUAL Q5M PRN (Reason: Chest Pain) 0RF Rx Instructions: do not exceed 3 doses per episode baclofen 5 mg Tablet 5 mg PO TID 0RF Saline Nasal 1 spray intranasal DAILY PRN (Reason: Nasal Congestion) 0RF naloxone 4 mg/actuation [place],Non-Aerosol 4 mg INTRANASAL USEASDIRECTD PRN (Reason: Opioid Overdose) 0RF Rx Instructions: spray 1 dose into ONE nostril; alternate nostrils w each dose until help arrives acetaminophen 325 mg tablet 650 mg PO QID MDD 4 GMS PRN (Reason: Pain) 0RF apixaban 5 mg tablet 5 mg PO BID 0RF Discharge Orders: Discharge Order (Routine); Ordered 05/25/21 Ordered By: Cody Jett Activity on Discharge: As tolerated Stand Alone Forms: Patient Portal Discharge page Activity Restrictions/Additional Instructions: Do not apply heat to wound. Do not use creams, lotions, or topical antibiotics unless instructed to do so by your surgeon. These can cause infection or allergic reaction. WOUND CARE: GRAFT SITE: xeroform to graft site followed by fluffs, kerlix wrap. Change daily. DONOR SITE (right thigh): adaptic on wound (do not remove)- can change outer abdominal dressing every other day and as needed. Be careful while out of bed and ambulating to not disturb graft. Follow up in office with Dr. Jett in 1 week. ([phone]) Call Your Doctor If: -Your temperature exceeds 101.5? F -You experience excessive pain or swelling -You have an unexpected reaction to medication -You have excessive bleeding -You experience continued vomiting/nausea -Your incision begins to separate -Your incision shows signs of infection such as increased redness, swelling, excessive pain, drainage (light blood or clear fluid is normal) or heat Care Plan Goals: Wound healing Health Concerns: Venous stasis, chronic right leg wound Plan of Treatment: S/p split thickness skin graft F/u in office Assessment: Improved
[2021-05-25 11:06] LABS: COVID-19 Test Negative (Negative)
--- NOTE | 2021-05-25 15:23 | MHC.CM.PN ---
PT DISCHARGED BACK TO LTC AT [facility] W/ACTION FOR CHAIR VAN REQUESTED BY EMT'S
== END 2021-05-25 15:19 | disposition skilled nursing facility (03) | DRG 951 ==
LOC: HO.SSSA 10:18 → HO.S3 11:31
PROVIDERS: Nurse Practitioner; Admitting Provider Surgery; PCP Internal Medicine; Visit Provider Surgery
PROC: 0HRKX74 Replacement of Right Lower Leg Skin with Autologous Tissue Substitute, Partial Thickness, External Approach (ICD-10-PCS; CPT 15100; principal; 2021-05-19 08:40)
DX: I87.311 Chronic venous hypertension (idiopathic) with ulcer of right lower extremity (principal); L97.819 Non-pressure chronic ulcer of other part of right lower leg with unspecified severity; Z20.822 Contact with and (suspected) exposure to COVID-19; F17.210 Nicotine dependence, cigarettes, uncomplicated; Z79.1 Long term (current) use of non-steroidal anti-inflammatories (NSAID); Z79.01 Long term (current) use of anticoagulants; Z79.82 Long term (current) use of aspirin; Z79.899 Other long term (current) drug therapy; Z71.6 Tobacco abuse counseling
CPT/HCPCS: 15100; 15002; 36415; 80048; 85027; 87635; 93005; 99024; J0131; J1100; J2250; J2405; J3010; J3370

== ENCOUNTER → 2021-06-08 11:32 | Outpatient (BNVA) | payer MEDICAID, SELFPAY | PROVIDERS: PCP Internal Medicine; Referring Provider Internal Medicine; Visit Provider Surgery | DX: Z48.817 Encounter for surgical aftercare following surgery on the skin and subcutaneous tissue (principal); Z94.5 Skin transplant status | CPT/HCPCS: 99212 ==

== ENCOUNTER 2021-07-02 09:07 | Outpatient (RCR) | payer MEDICAID, SELFPAY | END 2021-08-10 15:00 | disposition home or self-care (01) | LOC: HO.WCC 09:07 | PROVIDERS: PCP Internal Medicine; Visit Provider Physician Assistant | DX: L97.812 Non-pressure chronic ulcer of other part of right lower leg with fat layer exposed (principal); T81.31XA Disruption of external operation (surgical) wound, not elsewhere classified, initial encounter; T86.828 Other complications of skin graft (allograft) (autograft); I73.9 Peripheral vascular disease, unspecified; G62.9 Polyneuropathy, unspecified; I87.2 Venous insufficiency (chronic) (peripheral); M86.361 Chronic multifocal osteomyelitis, right tibia and fibula; Z91.19 Patient's noncompliance with other medical treatment and regimen; Z87.891 Personal history of nicotine dependence; Z72.89 Other problems related to lifestyle; I25.2 Old myocardial infarction; I10 Essential (primary) hypertension | CPT/HCPCS: 11042; 11045 ==

== ENCOUNTER → 2021-07-20 11:07 | Outpatient (BNVA) | payer MEDICAID, SELFPAY | PROVIDERS: PCP Internal Medicine; Visit Provider Surgery Vascular Surgery | DX: I83.11 Varicose veins of right lower extremity with inflammation (principal) | CPT/HCPCS: 93970; 99202 ==

== ENCOUNTER 2021-07-20 12:09 | Outpatient (REF) | payer MEDICAID, SELFPAY ==
--- NOTE | ~2021-07-20 | US_ITS ---
EXAMINATION: US VENOUS BILATERAL LOWER EXTREMITIES (REFLUX EXAM) CLINICAL INDICATION: Leg pain and varicose veins. COMPARISON: Bilateral DVT study 07/09/2018 and ultrasound right lower extremity 10/07/2019 and 09/16/2020. TECHNIQUE: Color-flow triplex imaging and compression Doppler was performed to evaluate both the deep and the superficial systems bilaterally. To evaluate the superficial system, the examination was performed in the upright position. Color-flow Doppler ultrasound and compression ultrasound were utilized. In addition, maneuvers were utilized to demonstrate reflux. FINDINGS: 1. DEEP VENOUS ULTRASOUND OF THE RIGHT LOWER EXTREMITY: There is some noncompressible thrombus present in the right popliteal vein. Otherwise, the right deep venous system appears normal. Respiratory variation, normal compression and augmented flow are noted in the right common femoral vein, the femoral vein and the visualized calf veins. Reflux is present in the deep venous system at the level of the common femoral vein with 1.4 seconds of reflux noted. There is no evidence of a Wallace's cyst. 2. SUPERFICIAL ULTRASOUND WITH DOPPLER OF RIGHT LOWER EXTREMITY: The right great saphenous vein at the saphenofemoral junction measures 0.8 mm, at the proximal thigh 0.6 mm, at the mid thigh 0.6 mm, above the knee 0.3 mm, at the knee 0.2 mm, [id number] 0.3 mm, midcalf 0.2 mm and at the ankle measures 0.4 mm. Gross reflux is present throughout the great saphenous vein with reflux times as high as 2.6 seconds. At the level of the knee joint, the great saphenous has a segmental occlusion. Duplicated Right Great Saphenous Vein: None. The right small saphenous vein measures 0.5 mm and demonstrates reflux throughout its course with reflux times of 1.4 seconds. Accessory Vein of [place]: None. Incompetent Perforators: Two 0.4 cm perforators are present in the calf distally which are incompetent with reflux times as high as 1.1 seconds. Varices Present: Varices are present measuring up to 0.5 cm all of which reflux with reflux times of greater than 1.5 seconds. 3. DEEP VENOUS ULTRASOUND OF THE LEFT LOWER EXTREMITY: There is only partial compression of the mid and distal femoral vein on the left consistent with nonocclusive, probably chronic, DVT. Otherwise, respiratory variation, normal compression and augmented flow are noted throughout the remainder of the left lower extremity with the left common femoral vein as well as the left popliteal vein without thrombus. Reflux is present in the femoral vein and popliteal vein on the left with reflux times of over 2 seconds. There is no evidence of a Wallace's cyst. 4. SUPERFICIAL ULTRASOUND WITH DOPPLER OF LEFT LOWER EXTREMITY: Left great saphenous vein at the saphenofemoral junction measures 1.0 mm, at the proximal thigh 0.6 mm, at the mid thigh 0.3 mm, above the knee 0.4 mm, at the knee 0.4 mm, [id number] 0.4 mm. Distal great saphenous vein in the mid calf and ankle were not seen. Gross reflux is present from just below the junction down to below the knee with reflux times as high as 3 seconds. Duplicated Left Great Saphenous Vein: There is a medial accessory saphenous vein measuring 3 mm in size which demonstrates 1.5 seconds of reflux. The left small saphenous vein could not be seen. Accessory Vein of [place]: None. Incompetent Perforators: 3 mm sized incompetent perforators are present in the proximal and distal calf both of which demonstrate 1.5 seconds of reflux. Varices Present: Varices are present measuring up to 0.5 cm which demonstrate greater than a second of reflux. US/US venous duplex LE BI IMPRESSION: 1. Bilateral DVT is seen with thrombus in the popliteal vein on the right and in the mid femoral and distal femoral vein on the left. The thrombus may be chronic as on the right, thrombus was present previously in the femoral vein as well as the popliteal vein on a 09/16/2020 study and nonfully compressible left femoral vein was noted on a 07/09/2018 study. 2. There is bilateral reflux in the deep venous systems. 3. Both great saphenous veins demonstrate reflux throughout their course as does the right small saphenous vein. Incompetent perforators are seen bilaterally as are refluxing varices.
== END 2021-07-20 12:10 | disposition home or self-care (01) ==
LOC: HO.US 12:09
PROVIDERS: PCP Internal Medicine; Visit Provider Surgery Vascular Surgery
DX: I83.11 Varicose veins of right lower extremity with inflammation (principal)
CPT/HCPCS: 93970

== ENCOUNTER → 2021-07-27 12:32 | Outpatient (BNVA) | payer MEDICAID, SELFPAY | PROVIDERS: PCP Internal Medicine; Visit Provider Surgery Vascular Surgery | DX: I83.11 Varicose veins of right lower extremity with inflammation (principal) | CPT/HCPCS: 99212 ==

== ENCOUNTER → 2021-08-06 09:02 | Outpatient (BNVA) | payer MEDICAID, SELFPAY | PROVIDERS: PCP Internal Medicine; Visit Provider Surgery Vascular Surgery | DX: I83.11 Varicose veins of right lower extremity with inflammation (principal) | CPT/HCPCS: 36475 ==

== ENCOUNTER 2021-08-09 14:20 | Outpatient (REF) | payer MEDICAID, SELFPAY ==
--- NOTE | ~2021-08-09 | US_ITS ---
EXAMINATION: US VENOUS ULTRASOUND WITH DOPPLER LOWER EXTREMITY, RIGHT CLINICAL INFORMATION: Pain. Post right greater saphenous are ablation 08/06/2021 COMPARISON: Previous exams June 2021 and August 2020 TECHNIQUE: Ultrasound of the deep veins is performed from the hip to the calf with compression sonography and color and pulse Doppler assessment. Spectral analysis with color-flow imaging is performed. FINDINGS: There is chronic appearing thrombus seen in the right superficial femoral and popliteal veins. This is similar to prior exams. The right common femoral, profunda and posterior tibial veins are patent. The right peroneal veins are not well visualized. There is echogenic material seen in the right greater saphenous vein post RF ablation. This is 1.6 cm from the saphenofemoral junction. The right greater saphenous vein is closed. There is a right inguinal lymphadenopathy that appears unchanged. US/US venous duplex LE RT IMPRESSION: Chronic appearing thrombus in the right superficial femoral and popliteal veins to previous exams. No evidence of acute DVT. The right peroneal veins are not well visualized.
== END 2021-08-09 14:21 | disposition home or self-care (01) ==
LOC: HO.US 14:20
PROVIDERS: PCP Internal Medicine; Visit Provider Surgery Vascular Surgery
DX: M79.604 Pain in right leg (principal)
CPT/HCPCS: 93971

== ENCOUNTER → 2021-08-26 10:27 | Outpatient (BNVA) | payer MEDICAID, SELFPAY | PROVIDERS: PCP Internal Medicine; Visit Provider Surgery Vascular Surgery | DX: I83.11 Varicose veins of right lower extremity with inflammation (principal) | CPT/HCPCS: 99212 ==

== ENCOUNTER → 2021-10-01 09:25 | Outpatient (BNVA) | payer MEDICAID, SELFPAY | PROVIDERS: PCP Internal Medicine; Visit Provider Surgery Vascular Surgery | DX: I83.11 Varicose veins of right lower extremity with inflammation (principal) | CPT/HCPCS: 36475 ==

== ENCOUNTER 2021-10-04 12:35 | Outpatient (REF) | payer MEDICAID, SELFPAY ==
--- NOTE | ~2021-10-04 | US_ITS ---
EXAMINATION: US VENOUS ULTRASOUND WITH DOPPLER LOWER EXTREMITY, RIGHT CLINICAL INFORMATION: Pain COMPARISON: Previous ultrasound July 2020 TECHNIQUE: Ultrasound of the deep veins is performed from the hip to the calf with compression sonography and color and pulse Doppler assessment. Spectral analysis with color-flow imaging is performed. FINDINGS: There is normal venous compression and respiratory variation and augmented flow. The visualized common femoral vein, superficial femoral vein, profunda femoral vein, and posterior tibial vein show no definite evidence of DVT. Peroneal and posterior tibial veins in the calf are not well visualized. There is no Wallace's cyst. The contralateral left common femoral vein. US/US venous duplex LE RT IMPRESSION: No DVT demonstrated in the right lower extremity. The right posterior tibial and peroneal veins are not well visualized.
== END 2021-10-04 12:36 | disposition home or self-care (01) ==
LOC: HO.US 12:35
PROVIDERS: Visit Provider Surgery Vascular Surgery
DX: M79.604 Pain in right leg (principal)
CPT/HCPCS: 93971

== ENCOUNTER → 2021-10-14 13:55 | Outpatient (BNVA) | payer MEDICAID, SELFPAY | PROVIDERS: PCP Internal Medicine; Visit Provider Surgery Vascular Surgery | DX: I83.018 Varicose veins of right lower extremity with ulcer other part of lower leg (principal); L97.819 Non-pressure chronic ulcer of other part of right lower leg with unspecified severity | CPT/HCPCS: 99212 ==

== ENCOUNTER 2021-10-25 06:03 | Inpatient (IN) | payer MEDICAID, SELFPAY ==
[2021-10-25] VITALS (21 sets, daily range): BP systolic 100–135; BP diastolic 62–88; PULSE 69–99; RESP 14–20; TEMP 36–36.7; O2SAT 76–100; BMI 29.9
[2021-10-25 06:40] LABS: COVID-19 Test Negative (Negative); IDNOW Serial# 16C4AD1C
[2021-10-25] MEDS: Lactated Ringers 1,000 ML 50 ML IVCONT (07:30)
--- NOTE | 2021-10-25 08:05 | HO.ANESPROP2 ---
HPI - Anesthesia Eval Consult details Narrative: 61 yo male patient for debridement of decubitus ulcer Right leg, with wound vac PMFSH Active Problems Active Problems: All Active Problems (Updated 07/20/21 @ 11:45 by Jefferson Herring MD) Varicose veins of right lower extremity with inflammation (Acute) S/P split thickness skin graft (Acute) Recurrent falls (Acute) Leg wound, right (Acute) Venous stasis ulcer (Acute) On eliquis. Last dose 10/23/21 Denies ETOH use Past Medical History Medical History Alcohol abuse Alcoholic polyneuropathy Anxiety disorder Asthma Cellulitis of right lower limb Epilepsy Gastric ulcer Hypertension Mild intermittent asthma Other abnormalities of gait and mobility Repeated falls Venous stasis ulcer Weakness Family History Family history of problems with anesthesia: No Surgical History Surgical History History of back surgery History of colonoscopy History of nasal surgery History of skin graft Hx laparoscopic cholecystectomy History of Problems with Anesthesia: No Social History Social History Household Members: None Housing: Homeless Housing Other:: [facility] Do you presently have visiting nurse or other home services: No Alcohol intake: current Alcohol intake frequency: does not drink Patient Tobacco Use Status: Current everyday Tobacco user Tobacco use type: Cigarette Cigarettes Per Day: 6 Smoked in Last 30 Days: Yes Patient Given Instructions on How to Stop Smoking: Yes Date Education Initiated: 10/25/21 Use of substances other than those prescribed or required for medical reasons: No Are you DNR?: No Advance Directives: No Advance Directives Information Provided: Yes service: No Current occupational status: unemployed Meds Allergies Allergy/AdvReac Type Severity Reaction Status Date / Time moxifloxacin Allergy Mild Hives Verified 10/14/21 14:03 morphine [Morphine] AdvReac Mild SWELLING, Verified 10/14/21 14:03 ITCHING codeine [Codeine] AdvReac Unknown ITCHING, Verified 10/14/21 14:03 HIVES Active Medications: Current Medications Lactated Ringer's (Lr) 1,000 mls @ 50 mls/hr IVCONT .Q20H [facility] Home Medications Medication Instructions Recorded Confirmed Last Taken Type acamprosate 333 mg tablet,delayed 2 tab PO TID 05/26/20 05/04/21 10/25/21 History release aspirin 81 mg tablet,delayed 1 tab PO DAILY 05/26/20 05/17/21 10/25/21 History release gabapentin 300 mg capsule 1 cap PO TID neck pain 05/26/20 05/17/21 10/25/21 History hydroxyzine HCl 25 mg tablet 1 tab PO BID 05/26/20 05/17/21 10/25/21 History multivitamin (One Daily 1 tab PO DAILY 05/26/20 07/30/20 10/25/21 History Multivitamin tablet) omeprazole 20 mg capsule,delayed 1 cap PO BID 05/26/20 05/17/21 10/25/21 History release pentoxifylline 400 mg 1 tab PO TID 05/26/20 05/17/21 10/25/21 History tablet,extended release phenytoin sodium extended 100 mg 1 cap PO TID 05/26/20 05/17/21 10/25/21 History capsule quetiapine 100 mg tablet 2 tab PO BEDTIME 05/26/20 05/17/21 10/25/21 History sertraline 50 mg tablet 1 tab PO DAILY 05/26/20 05/17/21 10/25/21 History acetaminophen 325 mg tablet 650 mg PO QID PRN Pain 07/30/20 05/17/21 10/25/21 History apixaban 5 mg tablet 5 mg PO BID 07/30/20 05/17/21 10/23/21 History Saline Nasal 1 spray intranasal DAILY PRN Nasal 05/17/21 05/17/21 10/25/21 History Congestion baclofen 5 mg tablet 5 mg PO TID 05/17/21 05/17/21 10/25/21 History bisacodyl 10 mg rectal suppository 10 mg AL DAILY PRN Constipation 05/17/21 05/17/21 10/25/21 History ibuprofen 200 mg tablet 400 mg PO Q8H PRN Pain 05/17/21 05/17/21 10/25/21 History naloxone 4 mg/actuation nasal spray 4 mg intranasal USEASDIRECTD PRN 05/17/21 05/17/21 10/25/21 History Opioid Overdose nitroglycerin 0.4 mg sublingual 0.4 mg sublingual Q5M PRN Chest 05/17/21 05/17/21 10/25/21 History tablet (Nitrostat) Pain Exam Exam Date and Time: October 25, [id number] Height,Weight and Vital Signs: Height 6 ft Weight 100.244 kg Last Vital Signs Temp 97.0 F 10/25/21 07:12 Pulse 75 10/25/21 07:12 Resp 18 10/25/21 07:12 BP 110/70 10/25/21 07:12 Pulse Ox 96 10/25/21 07:12 O2 Del Method 10/25/21 07:12 Pertinent Lab Results Pertinent Lab Results: Laboratory Tests 10/25/21 06:10 COVID-19 ([facility]) Negative COVID-19 Clin Com See Note Lab Results 10/25/21 10/25/21 10/25/21 Range/Units 06:10 09:10 09:10 WBC 7.9 (4.8-10.8) X10*3/uL RBC 4.01 L (4.60-5.80) X10*6/uL Hgb 12.3 L (14.0-18.0) g/dl Hct 36.9 L (42.0-52.0) % MCV 92.0 (80.0-98.0) fL MCH 30.7 (27.0-33.0) pg MCHC 33.3 (31.0-36.0) g/dl RDW 14.0 (11.0-16.0) % Plt Count 239 (160-400) X10*3/uL MPV 8.7 L (9.4-12.4) fL Absolute Nucleated RBC 0.000 (0.0-0.012) X10*3/uL Nucleated RBC % (auto) 0.0 (0.0-0.2) /100WBC PT 11.5 (10.0-13.1) SEC INR 1.0 (0.9-1.1) APTT 27.0 (26.0-36.4) SEC Sodium (135-145) mmol/L Potassium (3.3-5.1) mmol/L Chloride (96-108) mmol/L Carbon Dioxide (22-29) mmol/L Anion Gap (12-20) BUN (9-16) mg/dL Creatinine (0.5-1.4) mg/dL Estim Creat Clear Calc Estimated GFR Random Glucose (60-115) mg/dL Calcium (8.4-10.2) mg/dL COVID-19 ([facility]) Negative (Negative) COVID-19 Clin Com See Note 10/25/21 Range/Units 09:10 WBC (4.8-10.8) X10*3/uL RBC (4.60-5.80) X10*6/uL Hgb (14.0-18.0) g/dl Hct (42.0-52.0) % MCV (80.0-98.0) fL MCH (27.0-33.0) pg MCHC (31.0-36.0) g/dl RDW (11.0-16.0) % Plt Count (160-400) X10*3/uL MPV (9.4-12.4) fL Absolute Nucleated RBC (0.0-0.012) X10*3/uL Nucleated RBC % (auto) (0.0-0.2) /100WBC PT (10.0-13.1) SEC INR (0.9-1.1) APTT (26.0-36.4) SEC Sodium 141 (135-145) mmol/L Potassium 4.6 (3.3-5.1) mmol/L Chloride 108 (96-108) mmol/L Carbon Dioxide 19 L (22-29) mmol/L Anion Gap 19 (12-20) BUN 17 H (9-16) mg/dL Creatinine 0.67 (0.5-1.4) mg/dL Estim Creat Clear Calc 143.7 Estimated GFR > 60 Random Glucose 111 (60-115) mg/dL Calcium 8.8 D (8.4-10.2) mg/dL COVID-19 ([facility]) (Negative) COVID-19 Clin Com Airway Mallampati Class: II TM Dist: >3cm Neck ROM: Full Loose/Missing/Broken Teeth: Yes (No teeth) Heart: RRR Lungs: Wheeze left lung Other: Lungs CTAB post respiratory treatment Assessment and Plan Assessment Anesthesia Assessment: Anesthesia Plan Discussed and Chart Reviewed Final Anesthetic Review Family History of Problems with Anesthesia: No History of Problems with Anesthesia: No NPO: Yes ASA Class: III Final Preanesthetic Review: No Changes in Pt Med Stat, Meds/Allgs Chart Reviewed, Consent Obtained/Reviewed and Anes Risks/Benef Reviewed Patient Risk: Intermediate Procedure Risk: Low Assessment/Block/Sedation in SS: Assess/Block/Sedation-SS Anesthetic Plan Anesthetic Plan: GA Disposition: Standard PACU
--- NOTE | 2021-10-25 08:41 | MHC.SHP ---
Pre-Procedural Eval Section A Date of Service: 10/25/21 The patient is an INPATIENT: No Changes since office visit: Yes Patient answered all questions The History & Physical has been completed within 30 days and I have reviewed it.: Yes Section B Chief Complaint: Varicose veins,non pressure chronic ulcer Allergies: Allergies Allergy/AdvReac Type Severity Reaction Status Date / Time moxifloxacin Allergy Mild Hives Verified 10/14/21 14:03 morphine [Morphine] AdvReac Mild SWELLING, Verified 10/14/21 14:03 ITCHING codeine [Codeine] AdvReac Unknown ITCHING, Verified 10/14/21 14:03 HIVES Plan I have reviewed the history and physical and performed a pertinent physical examination on my patient. No changes have occurred unless specified.
--- NOTE | 2021-10-25 08:56 | PC.NURSE ---
udn ordered by anesthesia Dr. Hackett. Pt in no distress
[2021-10-25] MEDS: Albuterol Sulfate (0.083%) 2.5 MG/3 ML VIAL.NEB INHALE (09:07)
[2021-10-25 09:30] LABS: Hematocrit 36.9 % (42.0-52.0); Hemoglobin 12.3 g/dl (14.0-18.0); Mean Corpuscular HGB Conc 33.3 g/dl (31.0-36.0); Mean Corpuscular Hemoglobin 30.7 pg (27.0-33.0); Mean Platelet Volume 8.7 fL (9.4-12.4); Platelet Count 239 X10*3/uL (160-400); Red Blood Count 4.01 X10*6/uL (4.60-5.80); White Blood Count 7.9 X10*3/uL (4.8-10.8)
[2021-10-25 09:34] LABS: Prothrombin Time 11.5 SEC (10.0-13.1)
[2021-10-25 09:38] LABS: Anion Gap 19 (12-20); Blood Urea Nitrogen 17 mg/dL (9-16); Calcium 8.8 mg/dL (8.4-10.2); Carbon Dioxide 19 mmol/L (22-29); Chloride 108 mmol/L (96-108); Creatinine Clr Calc Pharmacy 143.7; Estimated Glomerular Filt Rate > 60; Glucose Random 111 mg/dL (60-115); Potassium 4.6 mmol/L (3.3-5.1); Sodium 141 mmol/L (135-145)
--- NOTE | 2021-10-25 10:07 | PC.NURSE ---
late entry: pt also poor stick for both IV and lab draw
--- NOTE | 2021-10-25 10:30 | W.PM.OPN ---
Operative Note Operative Note Date of Service: 10/25/21 Narrative: Operative note by [facility] Preoperative diagnosis: Nonhealing right lower extremity ulcer Postoperative diagnosis: Same Procedure:1. Excisional debridement of right lower extremity wound 2. Placement of wound VAC Surgeon:Jefferson Herring M.D. Director Of Field Coordination: Mal Anesthesia: General Specimens: 1 - culture Drains: None Estimated blood loss: Minimal Indications: 61-year-old gentleman with a prior history nonhealing ulcer presents for debridement of right lower extremity. In addition due to the large ulceration he will be requiring a wound VAC placement as well. The patient has signed the informed consent after reviewing risks, complications, benefits, and alternatives previously discussed with the patient. The patient was given the opportunity to ask any additional questions or voice any concerns. All questions were answered to the patient's satisfaction. Procedure in detail: Patient was brought to the operating room prior to which a time-out was called for patient identification and site verification right lower extremity was prepped and draped in the standard surgical fashion preprocedure there are wound measured 15 x 9 x 1.5 cm. Excisional debridement was undertaken with a 15 blade curette Metzenbaum scissors and pickups. Fibrin is in necrotic material were removed. This was debrided into muscle tissue. Once this was all done a we had a fair amount of bleeding. This was thoroughly irrigated out. Adequate hemostasis was achieved with electrocautery. Once this was done we then trimmed a medium piece of VAC foam. This was trimmed to appropriate size. Placed on the wound. Subsequently the adhesive closure of the VAC was then placed. This was then placed to 125 mm of continuous suction. Patient tolerated the procedure well. This note is constructed using voice recognition software. While every effort has been made to ensure accuracy, government program manager errors may have been included. Thank you for allowing me to participate in the care of your patient. Yours sincerely, Jefferson Herring MD, FACS, R.P.V.I.
[2021-10-25] MEDS: oxyCODONE HCl Immed Release 5 MG TABLET PO ×2 (10:35→14:40)
[2021-10-25] MEDS: fentaNYL citrate/PF 100 MCG/2 ML VIAL 25 MCG IVPUSH ×4 (10:35→10:50)
[2021-10-25] MEDS: Acetaminophen 325 MG TABLET 650 MG PO (10:35)
[2021-10-25] MEDS: HYDROmorphone HCl 0.5 MG/0.5 ML SYRINGE IVPUSH ×3 (11:05→21:45)
[2021-10-25] MEDS: 0.9 % Sodium Chloride 1,000 ML 80 ML IVCONT ×2 (12:21→23:16)
--- NOTE | 2021-10-25 16:40 | P.CONHOSP_ITS ---
History of Present Illness Data of Consult Service Date: 10/25/21 Primary Care Provider: Shilpa Bynum MD HPI 61 year old man admitted by vascular surgery for wound debridement and wound vac placement. Procedure was unremarkable. Patient has stable vital signs and labs are all within acceptable limits. Patient had significant pain and requesting something stronger for pain management. Other than that he seems to be resting comfortably in bed. Review of Systems Review of Systems: Denies any recent fever chills or decrease in appetite respiratory denies any shortness of breath coverage production cardiovascular denies chest pain gastrointestinal denies any dysphagia abdominal pain nausea vomiting or diarrhea genitourinary denies any dysuria frequency or hematuria musculoskeletal denies any joint pain or swelling neuropsych denies any weakness or seizures all other systems reviewed are negative [facility] Medical History Alcohol abuse Alcoholic polyneuropathy Anxiety disorder Asthma Cellulitis of right lower limb Epilepsy Gastric ulcer Hypertension Mild intermittent asthma Other abnormalities of gait and mobility Repeated falls Venous stasis ulcer Weakness Pertinent family history: no cardiac disease Surgical History History of back surgery History of colonoscopy History of nasal surgery History of skin graft Hx laparoscopic cholecystectomy Social History Household Members: None Housing: Homeless Housing Other:: [facility] Do you presently have visiting nurse or other home services: No Alcohol intake: current Alcohol intake frequency: does not drink Patient Tobacco Use Status: Current everyday Tobacco user Tobacco use type: Cigarette Cigarettes Per Day: 6 Smoked in Last 30 Days: Yes Patient Given Instructions on How to Stop Smoking: Yes Date Education Initiated: 10/25/21 Use of substances other than those prescribed or required for medical reasons: No Are you DNR?: No Advance Directives: No Advance Directives Information Provided: Yes service: No Current occupational status: unemployed Meds Allergies Allergy/AdvReac Type Severity Reaction Status Date / Time moxifloxacin Allergy Mild Hives Verified 10/14/21 14:03 morphine [Morphine] AdvReac Mild SWELLING, Verified 10/14/21 14:03 ITCHING codeine [Codeine] AdvReac Unknown ITCHING, Verified 10/14/21 14:03 HIVES Active Medications: Current Medications Acetaminophen (Acetaminophen 325 Mg Tablet) 650 mg PO Q6H PRN PRN Reason: Pain, Mild (Pain Scale 1-3) Sodium Chloride (Ns) 1,000 mls @ 80 mls/hr IVCONT .[id number] [facility] Last Admin: 10/25/21 12:21 Dose: 80 mls/hr Cefazolin Sodium/Dextrose (Ancef) 2 gm in 50 mls @ 100 mls/hr IV Q8H [facility] Morphine Sulfate (Morphine Sulfate 2 Mg/Ml Cartridge) 2 mg IVPUSH Q4H PRN; Protocol PRN Reason: Pain, Severe (Pain Scale 7-10) Ondansetron HCl (Ondansetron Hcl 4 Mg/2 Ml Vial) 4 mg IVPUSH ONCE PRN PRN Reason: Nausea and Vomiting Oxycodone HCl (Oxycodone Hcl Immed Release 5 Mg Tablet) 5 mg PO Q4H PRN PRN Reason: Pain, Moderate (Pain Scale 4-6 Last Admin: 10/25/21 14:40 Dose: 5 mg Sodium Chloride (0.9 % Sodium Chloride Flush 3 Ml Syringe) 3 ml IVFLUSH QSHIFT [facility] Home Medications Medication Instructions Recorded Confirmed Last Taken Type acamprosate 333 mg tablet,delayed 1 tab PO TID 05/26/20 10/25/21 10/25/21 History release aspirin 81 mg tablet,delayed 1 tab PO DAILY 05/26/20 10/25/21 10/25/21 History release gabapentin 300 mg capsule 1 cap PO TID neck pain 05/26/20 10/25/21 10/25/21 History hydroxyzine HCl 25 mg tablet 1 tab PO BID 05/26/20 10/25/21 10/25/21 History multivitamin (One Daily 1 tab PO DAILY 05/26/20 10/25/21 10/25/21 History Multivitamin tablet) omeprazole 20 mg capsule,delayed 1 cap PO BID 05/26/20 10/25/21 10/25/21 History release pentoxifylline 400 mg 1 tab PO TID 05/26/20 10/25/21 10/25/21 History tablet,extended release phenytoin sodium extended 100 mg 1 cap PO TID 05/26/20 10/25/21 10/25/21 History capsule quetiapine 100 mg tablet 2 tab PO BEDTIME 05/26/20 10/25/21 10/25/21 History sertraline 50 mg tablet 1 tab PO DAILY 05/26/20 10/25/21 10/25/21 History acetaminophen 325 mg tablet 650 mg PO Q4H PRN Pain 07/30/20 10/25/21 10/25/21 History apixaban 5 mg tablet 5 mg PO BID 07/30/20 10/25/21 10/23/21 History Saline Nasal 1 spray intranasal DAILY PRN Nasal 05/17/21 10/25/21 10/25/21 History Congestion baclofen 5 mg tablet 5 mg PO TID 05/17/21 10/25/21 10/25/21 History bisacodyl 10 mg rectal suppository 10 mg NE DAILY PRN Constipation 05/17/21 10/25/21 10/25/21 History ibuprofen 200 mg tablet 400 mg PO Q8H PRN Pain 05/17/21 10/25/21 10/25/21 History naloxone 4 mg/actuation nasal spray 4 mg intranasal USEASDIRECTD PRN 05/17/21 10/25/21 10/25/21 History Opioid Overdose nitroglycerin 0.4 mg sublingual 0.4 mg sublingual Q5M PRN Chest 05/17/21 10/25/21 10/25/21 History tablet (Nitrostat) Pain tramadol 50 mg tablet 100 mg PO Q8H PRN Pain 10/25/21 10/25/21 10/25/21 History Physical Exam Vital Signs and Narrative: Vital Signs: Last Vital Signs Temp 96.8 F 10/25/21 16:27 Pulse 72 10/25/21 16:27 Resp 20 10/25/21 16:27 BP 133/63 10/25/21 16:27 Pulse Ox 76 L 10/25/21 16:27 O2 Del Method 10/25/21 16:27 BMI result Body Mass Index 29.9 Appearing in no acute distress head is normocephalic atraumatic eyes pupils are PERRLA sclera is anicteric mouth throat mucous membranes are intact and moist neck is supple no lymphadenopathy, no JVD noted lung sounds are clear to auscultation heart regular rate rhythm, clear S1, S2 positive bowel sounds, abdomen is soft, nontender neuro patient is alert x3, no focal deficits noted edema to LLE, wound vac in place to lateral morales area Results Labs CBC and Chem 7: 10/25/21 09:10 10/25/21 09:10 Labs: Laboratory Results - last 24 hr 10/25/21 10/25/21 10/25/21 06:10 09:10 09:10 MCV 92.0 MCH 30.7 MCHC 33.3 RDW 14.0 Plt Count 239 MPV 8.7 L Absolute Nucleated RBC 0.000 Nucleated RBC % (auto) 0.0 PT 11.5 INR 1.0 APTT 27.0 Anion Gap Estim Creat Clear Calc Estimated GFR Random Glucose Calcium COVID-19 ([facility]) Negative COVID-19 Clin Com See Note 10/25/21 09:10 MCV MCH MCHC RDW Plt Count MPV Absolute Nucleated RBC Nucleated RBC % (auto) PT INR APTT Anion Gap 19 Estim Creat Clear Calc 143.7 Estimated GFR > 60 Random Glucose 111 Calcium 8.8 D COVID-19 ([facility]) COVID-19 Clin Com Assessment and Plan (1) Venous stasis ulcer: Status: Acute Plan 7-year-old man admitted by vascular surgery for excisional debridement of right lower extremity wound and placement of wound VAC Right lower extremity venous stasis ulcer Wound VAC placed, debrided Pain Management Management as per surgical team Hypertension Asthma Albuterol as needed Epilepsy Continue Dilantin Seizure precautions Mental health Continue home medications GERD Continue PPI DVT prophylaxis as per surgical team Attending Dr. Mahoney Full code
[2021-10-25] MEDS: 0.9 % Sodium Chloride Flush 3 ML SYRINGE IVFLUSH ×2 (17:56→21:45)
[2021-10-25] MEDS: ceFAZolin Sodium/Dextrose,Iso 2 GM/50 ML PIGGYBACK IV (18:45)
--- NOTE | 2021-10-25 21:03 | PC.NURSE ---
pt has ordered for IS, pt refused. RN educated to pt importance of IS to use. Left at the bedside.
[2021-10-25] MEDS: QUEtiapine Fumarate 200 MG TABLET PO (23:01)
[2021-10-25] MEDS: Phenytoin Sodium Extended 100 MG CAPSULE PO (23:12)
[2021-10-25] MEDS: Gabapentin 300 MG CAPSULE PO (23:12)
[2021-10-26] VITALS (7 sets, daily range): BP systolic 107–131; BP diastolic 62–72; PULSE 67–79; RESP 16–18; TEMP 36.3–37; O2SAT 94–98
[2021-10-26] MEDS: Ibuprofen 600 MG TABLET PO (00:10)
[2021-10-26] MEDS: ceFAZolin Sodium/Dextrose,Iso 2 GM/50 ML PIGGYBACK IV ×3 (02:18→20:46)
[2021-10-26] MEDS: oxyCODONE HCl Immed Release 5 MG TABLET PO ×3 (08:30→20:56)
[2021-10-26] MEDS: Gabapentin 300 MG CAPSULE PO ×3 (08:31→19:54)
[2021-10-26] MEDS: Acetaminophen 325 MG TABLET 650 MG PO (08:31)
[2021-10-26] MEDS: Sertraline HCL 50 MG TABLET PO (08:32)
[2021-10-26] MEDS: Phenytoin Sodium Extended 100 MG CAPSULE PO ×3 (08:37→19:54)
--- NOTE | 2021-10-26 08:44 | HO.PM.IMPN ---
Subjective Subjective Date of Service: 10/26/21 Review of Systems Follow-up consultation status post wound debridement and wound VAC placement Patient is still complaining of pain stated that Dilaudid does not help and he is allergic to morphine oxycodone, prefers ibuprofen Physical Exam Vital Signs: Vital Signs: Last Vital Signs Temp 97.6 F 10/26/21 07:52 Pulse 75 10/26/21 07:52 Resp 17 10/26/21 07:52 BP 122/62 10/26/21 07:52 Pulse Ox 98 10/26/21 07:52 O2 Del Method 10/26/21 07:52 BMI result Body Mass Index 29.9 Appearing in no acute distress lung sounds are clear to auscultation heart regular rate rhythm, clear S1, S2 positive bowel sounds, abdomen is soft, nontender neuro patient is alert x3, no focal deficits Wound VAC to right lower extremity Objective Data Active Medications Acetaminophen (Acetaminophen 325 Mg Tablet) 650 mg PO Q6H PRN PRN Reason: Pain, Mild (Pain Scale 1-3) Last Admin: 10/26/21 08:31 Dose: 650 mg Documented By: CAITY Gabapentin (Gabapentin 300 Mg Capsule) 300 mg PO TID [facility] Last Admin: 10/26/21 08:31 Dose: 300 mg Documented By: CAITY Hydromorphone HCl (Hydromorphone Hcl 0.5 Mg/0.5 Ml Syringe) 0.5 mg IVPUSH Q4H PRN; Protocol PRN Reason: Pain, Moderate (Pain Scale 4-6 Last Admin: 10/25/21 21:45 Dose: 0.5 mg Documented By: DANE Sodium Chloride (Ns) 1,000 mls @ 80 mls/hr IVCONT .[id number] [facility] Last Admin: 10/25/21 23:16 Dose: 80 mls/hr Documented By: DANE Cefazolin Sodium/Dextrose (Ancef) 2 gm in 50 mls @ 100 mls/hr IV Q8H [facility] Last Infusion: 10/26/21 03:03 Dose: 0 mls/hr Documented By: DANE Morphine Sulfate (Morphine Sulfate 2 Mg/Ml Cartridge) 2 mg IVPUSH Q4H PRN; Protocol PRN Reason: Pain, Severe (Pain Scale 7-10) Nitroglycerin (Nitroglycerin 0.4 Mg Tab.Subl) 0.4 mg SUBLINGUAL Q5M PRN PRN Reason: Chest Pain Ondansetron HCl (Ondansetron Hcl 4 Mg/2 Ml Vial) 4 mg IVPUSH ONCE PRN PRN Reason: Nausea and Vomiting Oxycodone HCl (Oxycodone Hcl Immed Release 5 Mg Tablet) 5 mg PO Q4H PRN PRN Reason: Pain, Moderate (Pain Scale 4-6 Last Admin: 10/26/21 08:30 Dose: 5 mg Documented By: CAITY Phenytoin Sodium (Phenytoin Sodium Extended 100 Mg Capsule) 100 mg PO TID [facility] Last Admin: 10/26/21 08:37 Dose: 100 mg Documented By: CAITY Quetiapine Fumarate (Quetiapine Fumarate 200 Mg Tablet) 200 mg PO BEDTIME [facility] Last Admin: 10/25/21 23:01 Dose: 200 mg Documented By: DANE Sertraline HCl (Sertraline Hcl 50 Mg Tablet) 50 mg PO DAILY [facility] Last Admin: 10/26/21 08:32 Dose: 50 mg Documented By: CAITY Sodium Chloride (0.9 % Sodium Chloride Flush 3 Ml Syringe) 3 ml IVFLUSH QSHIFT [facility] Last Admin: 10/25/21 21:45 Dose: 3 ml Documented By: DANE Labs CBC & Chem 7: 10/25/21 09:10 10/25/21 09:10 Labs: Laboratory Results - last 24 hr 10/25/21 10/25/21 10/25/21 09:10 09:10 09:10 MCV 92.0 MCH 30.7 MCHC 33.3 RDW 14.0 Plt Count 239 MPV 8.7 L Absolute Nucleated RBC 0.000 Nucleated RBC % (auto) 0.0 PT 11.5 INR 1.0 APTT 27.0 Anion Gap 19 Estim Creat Clear Calc 143.7 Estimated GFR > 60 Random Glucose 111 Calcium 8.8 D Assessment and Plan (1) Varicose veins of right lower extremity with inflammation: Status: Acute Plan 61-year-old man admitted by vascular surgery for excisional debridement of right lower extremity wound and placement of wound VAC Right lower extremity venous stasis ulcer Wound VAC placed, debrided Pain Management Management as per surgical team Hypertension Stable blood pressure Asthma Albuterol as needed Epilepsy Continue Dilantin Seizure precautions Mental health Continue home medications GERD Continue PPI DVT prophylaxis as per surgical team Attending Dr. Hines Full code MEDICAL CONSULTATION COMPLETE. WILL SIGN OUT Quality Stroke Does the patient have a stroke diagnosis?: No VTE Prior VTE?: No VTE Risk Level:: Medical - moderate - high VTE Device Contraindication: N/A - Device Ordered VTE Drug Contraindication: Treatment Not Indicated
[2021-10-26] MEDS: oxyCODONE HCl ER 10 MG TAB.ER.12H PO ×2 (09:52→19:54)
[2021-10-26] MEDS: Apixaban 5 MG TABLET PO ×2 (09:53→19:54)
[2021-10-26] MEDS: Ibuprofen 400 MG TABLET PO ×3 (09:54→20:56)
--- NOTE | 2021-10-26 10:07 | HO.VASCPN ---
Subjective Subjective Date of Service: 10/26/21 Patient reports: still having pain Interval history: complex 61-year-old gentleman presents for hospital follow-up status post debridement and wound VAC placement. He had a difficult night last night states that he had a fair amount of pain and was unable to sleep. He was offered several different types of pain meds at even including Dilaudid which he refused apparently he was refusing all types IV pain medication and was requesting only ibuprofen. He was given that and it still seemed that it did not control his pain as well. He was quite upset about this this morning. At 1 point he wanted to take his wound VAC off. It appears that it is currently intact and stable. He is now for hospital follow-up. Physical Exam Vital Signs: Vital Signs: Last Vital Signs Temp 97.6 F 10/26/21 07:52 Pulse 75 10/26/21 07:52 Resp 17 10/26/21 07:52 BP 122/62 10/26/21 07:52 Pulse Ox 98 10/26/21 07:52 O2 Del Method 10/26/21 07:52 BMI result Body Mass Index 29.9 Const: General: cooperative, healthy appearing and no acute distress Orientation/consciousness: oriented to person, oriented to place and oriented to time HEENT: Head: Yes normal to inspection Neck: Carotids: no bruits Chest: Chest palpation & inspection: normal inspection of the chest Resp: Effort & Inspection: normal respiratory effort and able to speak in complete sentences Auscultation: clear to auscultation bilaterally Cardio: Rate: regular rate Heart sounds: S1 normal heart sound present and S2 normal heart sound present GI: Inspection: Yes normal to inspection Skin: Other: Right leg wound VAC intact General skin exam: no rashes or lesions noted Wounds: no wounds Neuro: General: oriented to person, oriented to place, oriented to time and CN's II-XI intact bilaterally Extrem: General: Yes normal to inspection, Yes full ROM and Yes no clubbing, cyanosis or edema Psych: Appearance: grossly normal and well kempt Speech and movement: Normal speech and movement present Affect: normal affect Progress Note: A&P Assessment and plan (1) Leg wound, right: Status: Acute Assessment and Plan: in short patient has a nonhealing right lower extremity wound. Will continue with IV antibiotics and wound VAC therapy. We did have an extensive discussion with about pain control and the importance of the wound VAC trying to decrease the edema of the leg. I have tried to adjust his pain medication regimen to a more stable OxyContin. In addition I have restarted his Eliquis which he was on in the past, So that we can take the compression boots off. We will see over the next day or to and would anticipate stable for discharge within the next day or 2. Thank you for allowing us to assist in his care. If there are any questions or concerns please do not hesitate to contact us. Time Spent With Patient Time: Total time spent is greater than 50% in coordination of care (as documented) at patient's floor/unit and/or counseling patient: Procedures Date of Service Date of Service: 10/26/21 Quality Stroke Does the patient have a stroke diagnosis?: No VTE Prior VTE?: No VTE Risk Level:: Medical - moderate - high VTE Device Contraindication: N/A - Device Ordered VTE Drug Contraindication: Treatment Not Indicated
--- NOTE | 2021-10-26 11:25 | MHC.CM.PN ---
PATIENT BULGARIAN IS SPEAKING-BIOLOGIST NEEDED PATIENT REPORTS HE LIVES AT A [facility] HE USES DME AND RECEIVES CARE ASSISTANCE AT THE SNF HCP ON FILE NURY MOREJON X3 MRNA PCP [facility] TRAN[facility] D/C PLAN: RETURN TO [facility]
--- NOTE | 2021-10-26 14:58 | HO.POSTANES ---
Post Anesthesia Evaluation Post Anesthesia Evaluation Vital Signs: Vital Signs Temp Pulse Resp BP Pulse Ox O2 Del Method 10/26/21 11:41 97.5 F 77 17 128/65 96 Room Air 10/26/21 09:27 94 Room Air 10/26/21 07:52 97.6 F 75 17 122/62 98 Room Air 10/26/21 03:18 97.4 F 67 18 113/69 95 Room Air Anesthesia: General Mental Status: Awake Pain Control: Satisfactory Nausea/Vomiting: None Hydration: Adequate Anesthesia-Related Issues: No Anes. Related Issues
--- NOTE | 2021-10-26 19:44 | PC.NURSE ---
Pt verbalized satisfaction with changes to pain regimen this morning, reported improvement in pain, and was able to sleep this afternoon.
[2021-10-26] MEDS: QUEtiapine Fumarate 200 MG TABLET PO (19:54)
[2021-10-26] MEDS: 0.9 % Sodium Chloride Flush 3 ML SYRINGE IVFLUSH (20:38)
[2021-10-27] MEDS: oxyCODONE HCl Immed Release 5 MG TABLET PO ×6 (00:25→21:22)
[2021-10-27] MEDS: Ibuprofen 400 MG TABLET PO ×6 (00:25→21:21)
[2021-10-27] MEDS: 0.9 % Sodium Chloride Flush 3 ML SYRINGE IVFLUSH ×3 (00:26→16:55)
[2021-10-27] MEDS: ceFAZolin Sodium/Dextrose,Iso 2 GM/50 ML PIGGYBACK IV ×3 (03:02→18:37)
[2021-10-27 03:05] VITALS: BP 124/76; PULSE 75; RESP 18; TEMP 36.5; O2SAT 97
--- NOTE | 2021-10-27 04:51 | PC.NURSE ---
Pt argumentative with each patient encounter. Production Line Operator utilized at the beginning of the shift. Specifically reviewed pain medication and management with the patient as well as IV antibiotics. Pt stated PO Oxycontin does work for him . Almost an hour after receiving, pt stated he was still having pain and insisted on his PRN Oxycodone and Ibuprophen. Around 0025, pt c/o pain the nursing wood preparation supervisor, Christelle who instructed me to give his prn pain medications then even though it was a little early. Wound vac intact on RLE. IV antibiotics as ordered. Will continue to monitor.
[2021-10-27 07:14] VITALS: BP 117/73; PULSE 70; RESP 18; TEMP 36.3; O2SAT 99
[2021-10-27] MEDS: Apixaban 5 MG TABLET PO ×2 (08:01→20:05)
[2021-10-27] MEDS: Gabapentin 300 MG CAPSULE PO ×3 (08:01→20:05)
[2021-10-27] MEDS: oxyCODONE HCl ER 10 MG TAB.ER.12H PO ×2 (08:01→20:05)
[2021-10-27] MEDS: Phenytoin Sodium Extended 100 MG CAPSULE PO ×3 (08:01→20:05)
[2021-10-27] MEDS: Sertraline HCL 50 MG TABLET PO (08:01)
[2021-10-27 09:00] VITALS: O2SAT 98
--- NOTE | 2021-10-27 11:49 | HO.PM.IMPN ---
Subjective Subjective Date of Service: 10/27/21 Interval History: cc: RLE pain interval history: improved Cardiovascular Cardiovascular: Reports no additional cardiovascular complaints Respiratory Respiratory: Reports no additional respiratory complaints Physical Exam Vital Signs: Vital Signs: Last Vital Signs Temp 97.4 F 10/27/21 07:14 Pulse 70 10/27/21 07:14 Resp 18 10/27/21 07:14 BP 117/73 10/27/21 07:14 Pulse Ox 98 10/27/21 09:00 O2 Del Method 10/27/21 09:00 BMI result Body Mass Index 29.9 Const: General: cooperative, healthy appearing and no acute distress Orientation/consciousness: oriented to person, oriented to place and oriented to time HEENT: Head: Yes normal to inspection Neck: Carotids: no bruits Chest: Chest palpation & inspection: normal inspection of the chest Resp: Effort & Inspection: normal respiratory effort and able to speak in complete sentences Auscultation: clear to auscultation bilaterally Cardio: Rate: regular rate Heart sounds: S1 normal heart sound present and S2 normal heart sound present GI: Inspection: Yes normal to inspection Skin: Other: Right leg wound VAC intact General skin exam: no rashes or lesions noted Wounds: no wounds Neuro: General: oriented to person, oriented to place, oriented to time and CN's II-XI intact bilaterally Extrem: General: Yes normal to inspection, Yes full ROM and Yes no clubbing, cyanosis or edema Psych: Appearance: grossly normal and well kempt Speech and movement: Normal speech and movement present Affect: normal affect Objective Data Active Medications Apixaban (Apixaban 5 Mg Tablet) 5 mg PO BID [facility] Last Admin: 10/27/21 08:01 Dose: 5 mg Documented By: CHE Gabapentin (Gabapentin 300 Mg Capsule) 300 mg PO TID [facility] Last Admin: 10/27/21 08:01 Dose: 300 mg Documented By: CHE Hydromorphone HCl (Hydromorphone Hcl 0.5 Mg/0.5 Ml Syringe) 0.5 mg IVPUSH Q4H PRN; Protocol PRN Reason: Pain, Moderate (Pain Scale 4-6 Last Admin: 10/25/21 21:45 Dose: 0.5 mg Documented By: DANE Cefazolin Sodium/Dextrose (Ancef) 2 gm in 50 mls @ 100 mls/hr IV Q8H [facility] Last Infusion: 10/27/21 03:32 Dose: 0 mls/hr Documented By: DESTINEE Ibuprofen (Ibuprofen 400 Mg Tablet) 400 mg PO Q4H PRN PRN Reason: Pain, Mild (Pain Scale 1-3) Last Admin: 10/27/21 08:41 Dose: 400 mg Documented By: CHE Morphine Sulfate (Morphine Sulfate 2 Mg/Ml Cartridge) 2 mg IVPUSH Q4H PRN; Protocol PRN Reason: Pain, Severe (Pain Scale 7-10) Nitroglycerin (Nitroglycerin 0.4 Mg Tab.Subl) 0.4 mg SUBLINGUAL Q5M PRN PRN Reason: Chest Pain Ondansetron HCl (Ondansetron Hcl 4 Mg/2 Ml Vial) 4 mg IVPUSH ONCE PRN PRN Reason: Nausea and Vomiting Oxycodone HCl (Oxycodone Hcl Immed Release 5 Mg Tablet) 5 mg PO Q4H PRN PRN Reason: Pain, Moderate (Pain Scale 4-6 Last Admin: 10/27/21 08:41 Dose: 5 mg Documented By: CHE Oxycodone HCl (Oxycodone Hcl Er 10 Mg Tab.Er.12h) 10 mg PO BID [facility] Last Admin: 10/27/21 08:01 Dose: 10 mg Documented By: CHE Phenytoin Sodium (Phenytoin Sodium Extended 100 Mg Capsule) 100 mg PO TID [facility] Last Admin: 10/27/21 08:01 Dose: 100 mg Documented By: CHE Quetiapine Fumarate (Quetiapine Fumarate 200 Mg Tablet) 200 mg PO BEDTIME [facility] Last Admin: 10/26/21 19:54 Dose: 200 mg Documented By: DESTINEE Sertraline HCl (Sertraline Hcl 50 Mg Tablet) 50 mg PO DAILY [facility] Last Admin: 10/27/21 08:01 Dose: 50 mg Documented By: CHE Sodium Chloride (0.9 % Sodium Chloride Flush 3 Ml Syringe) 3 ml IVFLUSH QSHIFT [facility] Last Admin: 10/27/21 08:43 Dose: 3 ml Documented By: CHE Labs CBC & Chem 7: 10/25/21 09:10 08/29/22 09:10 Assessment and Plan (1) Varicose veins of right lower extremity with inflammation: Status: Acute Plan 61-year-old man admitted by vascular surgery for excisional debridement of right lower extremity wound and placement of wound VAC Right lower extremity venous stasis ulcer Wound VAC placed, debrided Pain Management Management as per surgical team Hypertension Stable blood pressure Asthma Albuterol as needed Epilepsy Continue Dilantin Seizure precautions Mental health Continue home medications GERD Continue PPI DVT prophylaxis as per surgical team Full code Quality Stroke Does the patient have a stroke diagnosis?: No VTE Prior VTE?: No VTE Risk Level:: Medical - moderate - high VTE Device Contraindication: N/A - Device Ordered VTE Drug Contraindication: Treatment Not Indicated
[2021-10-27 11:50] VITALS: BP 122/67; PULSE 70; RESP 19; TEMP 36.6; O2SAT 96
--- NOTE | 2021-10-27 12:15 | MHC.CM.PN ---
PLAN IS FOR PATIENT TO RETURN TO [facility] Monday10/28/21 (BEDHOLD) T/W ASKED FACILITY IF THEY ARE ABLE TO ORDER A WOUND VAC IN TIME, PATIENT WILL LEAVE HERE WITH PLAIN DRESSING ON EXTREMITY. CASE MANAGEMENT FOLLOWING
--- NOTE | 2021-10-27 12:48 | HO.VASCPN ---
Subjective Subjective Date of Service: 10/27/21 Patient reports: no new complaints and feels better Interval history: 61-year-old gentleman postop day 1 to status post leg debridement. He appears to be in better spirits. He still does complain about his pain control regiment but was comfortable at the time of my visit. He is now for routine hospital follow-up. Physical Exam Vital Signs: Vital Signs: Last Vital Signs Temp 97.9 F 10/27/21 11:50 Pulse 70 10/27/21 11:50 Resp 19 10/27/21 11:50 BP 122/67 10/27/21 11:50 Pulse Ox 96 10/27/21 11:50 O2 Del Method 10/27/21 11:50 BMI result Body Mass Index 29.9 Const: General: cooperative, healthy appearing and no acute distress Orientation/consciousness: oriented to person, oriented to place and oriented to time HEENT: Head: Yes normal to inspection Neck: Carotids: no bruits Chest: Chest palpation & inspection: normal inspection of the chest Resp: Effort & Inspection: normal respiratory effort and able to speak in complete sentences Auscultation: clear to auscultation bilaterally Cardio: Rate: regular rate Heart sounds: S1 normal heart sound present and S2 normal heart sound present GI: Inspection: Yes normal to inspection Skin: Other: Right leg wound VAC intact dressing clean dry General skin exam: no rashes or lesions noted Wounds: no wounds Neuro: General: oriented to person, oriented to place, oriented to time and CN's II-XI intact bilaterally Extrem: General: Yes normal to inspection, Yes full ROM and Yes no clubbing, cyanosis or edema Psych: Appearance: grossly normal and well kempt Speech and movement: Normal speech and movement present Affect: normal affect Progress Note: A&P Assessment and plan (1) Venous stasis ulcer: Status: Acute Assessment and Plan: in short the patient has this nonhealing right lower extremity ulcer. Appears to be doing relatively well with the VAC. would plan for discharge tomorrow and VAC dressings at his facility. This was discussed with the patient. He is eager for discharge. Time Spent With Patient Time: Total time spent is greater than 50% in coordination of care (as documented) at patient's floor/unit and/or counseling patient: Procedures Date of Service Date of Service: 08/31/22 Quality Stroke Does the patient have a stroke diagnosis?: No VTE Prior VTE?: No VTE Risk Level:: Medical - moderate - high VTE Device Contraindication: N/A - Device Ordered VTE Drug Contraindication: Treatment Not Indicated
[2021-10-27 15:53] VITALS: BP 132/74; PULSE 66; RESP 19; TEMP 36.3; O2SAT 95
[2021-10-27 20:00] VITALS: BP 117/73; PULSE 61; RESP 19; TEMP 36.6; O2SAT 100
[2021-10-27] MEDS: QUEtiapine Fumarate 200 MG TABLET PO (20:05)
[2021-10-28] VITALS: BP 116/73; PULSE 76; RESP 16; TEMP 36.6; O2SAT 96
[2021-10-28] MEDS: 0.9 % Sodium Chloride Flush 3 ML SYRINGE IVFLUSH ×2 (00:03→07:23)
[2021-10-28] MEDS: Ibuprofen 400 MG TABLET PO ×3 (03:03→12:03)
[2021-10-28] MEDS: oxyCODONE HCl Immed Release 5 MG TABLET PO ×3 (03:04→12:04)
[2021-10-28] MEDS: ceFAZolin Sodium/Dextrose,Iso 2 GM/50 ML PIGGYBACK IV ×2 (03:05→10:46)
[2021-10-28 03:18] VITALS: BP 142/65; PULSE 82; RESP 16; TEMP 36.3; O2SAT 95
[2021-10-28 07:22] VITALS: BP 112/72; RESP 18; TEMP 36.4; O2SAT 96
[2021-10-28] MEDS: Apixaban 5 MG TABLET PO (07:23)
[2021-10-28] MEDS: Gabapentin 300 MG CAPSULE PO (07:23)
[2021-10-28] MEDS: Sertraline HCL 50 MG TABLET PO (07:23)
[2021-10-28] MEDS: Phenytoin Sodium Extended 100 MG CAPSULE PO (07:24)
[2021-10-28] MEDS: oxyCODONE HCl ER 10 MG TAB.ER.12H PO (09:56)
[2021-10-28] MEDS: HYDROmorphone HCl 1 MG/ML SYRINGE IVPUSH (10:20)
--- NOTE | 2021-10-28 10:26 | P.PNIM_ITS ---
Subjective Subjective Date of Service: 10/28/21 Interval History: cc: RLE pain interval history: improved Cardiovascular Cardiovascular: Reports no additional cardiovascular complaints Respiratory Respiratory: Reports no additional respiratory complaints Physical Exam Vital Signs: Vital Signs: Last Vital Signs Temp 97.5 F 10/28/21 07:22 Pulse 82 10/28/21 03:18 Resp 18 10/28/21 07:22 BP 112/72 10/28/21 07:22 Pulse Ox 96 10/28/21 07:22 O2 Del Method 10/28/21 09:00 BMI result Body Mass Index 29.9 Const: General: cooperative, healthy appearing and no acute distress Orientation/consciousness: oriented to person, oriented to place and oriented to time HEENT: Head: Yes normal to inspection Neck: Carotids: no bruits Chest: Chest palpation & inspection: normal inspection of the chest Resp: Effort & Inspection: normal respiratory effort and able to speak in complete sentences Auscultation: clear to auscultation bilaterally Cardio: Rate: regular rate Heart sounds: S1 normal heart sound present and S2 normal heart sound present GI: Inspection: Yes normal to inspection Skin: Other: Right leg wound VAC intact dressing clean dry General skin exam: no rashes or lesions noted Wounds: no wounds Neuro: General: oriented to person, oriented to place, oriented to time and CN's II-XI intact bilaterally Extrem: General: Yes normal to inspection, Yes full ROM and Yes no clubbing, cyanosis or edema Psych: Appearance: grossly normal and well kempt Speech and movement: Normal speech and movement present Affect: normal affect Objective Data Active Medications Apixaban (Apixaban 5 Mg Tablet) 5 mg PO BID [facility] Last Admin: 10/28/21 07:23 Dose: 5 mg Documented By: CHE Gabapentin (Gabapentin 300 Mg Capsule) 300 mg PO TID [facility] Last Admin: 10/28/21 07:23 Dose: 300 mg Documented By: CHE Hydromorphone HCl (Hydromorphone Hcl 0.5 Mg/0.5 Ml Syringe) 0.5 mg IVPUSH Q4H PRN; Protocol PRN Reason: Pain, Moderate (Pain Scale 4-6 Last Admin: 10/25/21 21:45 Dose: 0.5 mg Documented By: DANE Cefazolin Sodium/Dextrose (Ancef) 2 gm in 50 mls @ 100 mls/hr IV Q8H [facility] Last Infusion: 10/28/21 03:35 Dose: 0 mls/hr Documented By: LAUREN Ibuprofen (Ibuprofen 400 Mg Tablet) 400 mg PO Q4H PRN PRN Reason: Pain, Mild (Pain Scale 1-3) Last Admin: 10/28/21 07:23 Dose: 400 mg Documented By: CHE Morphine Sulfate (Morphine Sulfate 2 Mg/Ml Cartridge) 2 mg IVPUSH Q4H PRN; Protocol PRN Reason: Pain, Severe (Pain Scale 7-10) Nitroglycerin (Nitroglycerin 0.4 Mg Tab.Subl) 0.4 mg SUBLINGUAL Q5M PRN PRN Reason: Chest Pain Ondansetron HCl (Ondansetron Hcl 4 Mg/2 Ml Vial) 4 mg IVPUSH ONCE PRN PRN Reason: Nausea and Vomiting Oxycodone HCl (Oxycodone Hcl Immed Release 5 Mg Tablet) 5 mg PO Q4H PRN PRN Reason: Pain, Moderate (Pain Scale 4-6 Last Admin: 10/28/21 07:23 Dose: 5 mg Documented By: CHE Oxycodone HCl (Oxycodone Hcl Er 10 Mg Tab.Er.12h) 10 mg PO BID [facility] Last Admin: 10/28/21 09:56 Dose: 10 mg Documented By: CHE Phenytoin Sodium (Phenytoin Sodium Extended 100 Mg Capsule) 100 mg PO TID [facility] Last Admin: 10/28/21 07:24 Dose: 100 mg Documented By: CHE Quetiapine Fumarate (Quetiapine Fumarate 200 Mg Tablet) 200 mg PO BEDTIME [facility] Last Admin: 10/27/21 20:05 Dose: 200 mg Documented By: DEMETRIA Sertraline HCl (Sertraline Hcl 50 Mg Tablet) 50 mg PO DAILY [facility] Last Admin: 10/28/21 07:23 Dose: 50 mg Documented By: CHE Sodium Chloride (0.9 % Sodium Chloride Flush 3 Ml Syringe) 3 ml IVFLUSH QSHIFT [facility] Last Admin: 10/28/21 07:23 Dose: 3 ml Documented By: CHE Labs CBC & Chem 7: 10/25/21 09:10 10/25/21 09:10 Assessment and Plan (1) Varicose veins of right lower extremity with inflammation: Status: Acute Plan 61-year-old man admitted by vascular surgery for excisional debridement of right lower extremity wound and placement of wound VAC Right lower extremity venous stasis ulcer Wound VAC placed, debrided Pain Management Management as per surgical team Hypertension Stable blood pressure Asthma Albuterol as needed Epilepsy Continue Dilantin Seizure precautions Mental health Continue home medications GERD Continue PPI DVT prophylaxis as per surgical team Full code appears stbale, will sign off for now, please recall if needed Quality Stroke Does the patient have a stroke diagnosis?: No VTE Prior VTE?: No VTE Risk Level:: Medical - moderate - high VTE Device Contraindication: N/A - Device Ordered VTE Drug Contraindication: Treatment Not Indicated
--- NOTE | 2021-10-28 11:00 | PM.DS ---
DS: Providers Provider Date of Service: 10/28/21 Date of admission: 10/25/21 06:03 Primary care physician: Shilpa Bynum MD Consults: 10/25/21 10:25 Consult to Hospitalist Routine Consulting Provider: Hospitalist Reason For Exam: Medical management DS: Diagnosis Discharge Diagnosis (1) Venous stasis ulcer: Status: Acute DS: Summary Hospital Course Hospital Course: Patient has undergone prior right lower extremity venous ablation is. He continued to have this large ulcer. There was concern of infection. He was brought into the hospital on Monday for debridement. He was subsequently admitted and treated with IV antibiotic therapy. In addition he had wound VAC placement in the hospital. Appeared to be doing relatively well. Throughout his hospital stay pain was always a concern with him. He refused IV pain meds but did do well with ibuprofen every 4 hours. VAC dressing was changed and removed today. Appears to be doing relatively well. Plan for discharge. Follow-up with me in approximately 2 weeks as outpatient Time Spent with Patient Time attestation: Total time spent providing and/or coordinating discharge services: Discharge coordination time: Greater than 30 minutes Quality: Safe Use of Opioids Does Pt have an Active Cancer Diagnosis on the Problem List?: No Quality: Stroke Does the patient have a stroke diagnosis?: No Physical Exam Vital Signs: Vital Signs: Last Vital Signs Temp 97.5 F 10/28/21 07:22 Pulse 82 10/28/21 03:18 Resp 18 10/28/21 07:22 BP 112/72 10/28/21 07:22 Pulse Ox 96 10/28/21 07:22 O2 Del Method 10/28/21 09:00 BMI result Body Mass Index 29.9 Const: General: cooperative, healthy appearing and no acute distress Orientation/consciousness: oriented to person, oriented to place and oriented to time HEENT: Head: Yes normal to inspection Neck: Carotids: no bruits Chest: Chest palpation & inspection: normal inspection of the chest Resp: Effort & Inspection: normal respiratory effort and able to speak in complete sentences Auscultation: clear to auscultation bilaterally Cardio: Rate: regular rate Heart sounds: S1 normal heart sound present and S2 normal heart sound present GI: Inspection: Yes normal to inspection Skin: Other: Right lower extremity venous stasis ulcer approximately 15 x 9 x 2 cm General skin exam: no rashes or lesions noted Wounds: no wounds Neuro: General: oriented to person, oriented to place, oriented to time and CN's II-XI intact bilaterally Extrem: General: Yes normal to inspection, Yes full ROM and Yes no clubbing, cyanosis or edema Psych: Appearance: grossly normal and well kempt Speech and movement: Normal speech and movement present Affect: normal affect DS: Data Data Completed and Pending Completed studies during hospitalization [Text1]: Procedures Excision of Right Upper Leg Skin, External Approach (05/19/21) Replacement of Right Lower Leg Skin with Autologous Tissue Substitute, Partial Thickness, External Approach (05/19/21) Discharge Plan Discharge Patient Disposition: [facility] Discharge Diagnosis: RIGHT LOWER EXTREMITY VENOUS STASIS ULCER Referrals: Shilpa Bynum MD [Primary Care Provider] - 1 Week Discharge Medications: Continued multivitamin [One Daily Multivitamin] Tablet 1 tab PO DAILY phenytoin sodium extended 100 mg capsule 1 cap PO TID aspirin 81 mg tablet,delayed release (DR/EC) 1 tab PO DAILY quetiapine 100 mg tablet 2 tab PO BEDTIME pentoxifylline 400 mg tablet extended release 1 tab PO TID gabapentin 300 mg capsule 1 cap PO TID omeprazole 20 mg capsule,delayed release(DR/EC) 1 cap PO BID hydroxyzine HCl 25 mg tablet 1 tab PO BID sertraline 50 mg tablet 1 tab PO DAILY acamprosate 333 mg tablet,delayed release (DR/EC) 1 tab PO TID tramadol 50 mg Tablet 100 mg PO Q8H PRN (Reason: Pain) bisacodyl 10 mg Suppository 10 mg [place] DAILY PRN (Reason: Constipation) ibuprofen 200 mg Tablet 400 mg PO Q8H PRN (Reason: Pain) nitroglycerin [Nitrostat] 0.4 mg Tablet, Sublingual 0.4 mg SUBLINGUAL Q5M PRN (Reason: Chest Pain) Rx Instructions: do not exceed 3 doses per episode baclofen 5 mg Tablet 5 mg PO TID Saline Nasal 1 spray intranasal DAILY PRN (Reason: Nasal Congestion) naloxone 4 mg/actuation [place],Non-Aerosol 4 mg INTRANASAL USEASDIRECTD PRN (Reason: Opioid Overdose) Rx Instructions: spray 1 dose into ONE nostril; alternate nostrils w each dose until help arrives acetaminophen 325 mg tablet 650 mg PO Q4H MDD 3 GMS PRN (Reason: Pain) apixaban 5 mg tablet 5 mg PO BID Discharge Orders: Discharge Order (Routine); Ordered 10/28/21 Ordered By: Jefferson Herring Diet: Advance to usual diet Activity on Discharge: As tolerated Stand Alone Forms: Patient Portal Discharge page Activity Restrictions/Additional Instructions: Patient will require right lower extremity wound VAC placement. 125 mmHg low continuous suction. See me for follow-up in approximately 2 weeks time Care Plan Goals: Heal right lower extremity wound Health Concerns: Right lower extremity venous ulcer Plan of Treatment: Wound VAC therapy Assessment: Nonhealing right lower extremity ulcer
[2021-10-28] MEDS: polyethylene glycoL 3350 17 GM POWD.PACK PO (12:03)
--- NOTE | 2021-10-28 12:04 | MHC.CM.PN ---
PATIENT HAS BEEN MEDICALLY CLEARED FOR DISCHARGE TODAY; DISCHARGE DISPOSITION [facility] RETURN [facility].
[2021-10-28 13:38] LABS: COVID-19 Test Negative (Negative); IDNOW Serial# 16C4AD1C
--- NOTE | 2021-10-28 13:42 | PC.NURSE ---
Patient off floor for procedure in endoscopy via bed and transport aid at this time.
== END 2021-10-28 14:05 | disposition skilled nursing facility (03) | DRG 951 ==
LOC: HO.SSSA 06:27 → HO.S3 16:07
PROVIDERS: Internal Medicine; Admitting Provider Surgery Vascular Surgery; PCP Internal Medicine; Visit Provider Surgery Vascular Surgery
PROC: 0KBS0ZZ Excision of Right Lower Leg Muscle, Open Approach (ICD-10-PCS; CPT 11043; principal; 2021-10-25 08:40)
DX: I87.311 Chronic venous hypertension (idiopathic) with ulcer of right lower extremity (principal); G62.1 Alcoholic polyneuropathy; L97.819 Non-pressure chronic ulcer of other part of right lower leg with unspecified severity; J45.20 Mild intermittent asthma, uncomplicated; Z20.822 Contact with and (suspected) exposure to COVID-19; Z59.01 Sheltered homelessness; F17.210 Nicotine dependence, cigarettes, uncomplicated; Z71.6 Tobacco abuse counseling; Z88.1 Allergy status to other antibiotic agents; Z88.5 Allergy status to narcotic agent; Z79.01 Long term (current) use of anticoagulants; Z79.82 Long term (current) use of aspirin; Z79.899 Other long term (current) drug therapy
CPT/HCPCS: 11043; 11046 ×6; 97606; 36415; 80048; 85027; 85610; 85730; 87635; 94640; J0690; J1100; J1170; J2250; J2405; J2795; J3010

== ENCOUNTER → 2021-12-21 09:52 | Outpatient (BNVA) | payer MEDICAID, SELFPAY | PROVIDERS: PCP Internal Medicine; Visit Provider Surgery Vascular Surgery | DX: I87.311 Chronic venous hypertension (idiopathic) with ulcer of right lower extremity (principal); L97.919 Non-pressure chronic ulcer of unspecified part of right lower leg with unspecified severity | CPT/HCPCS: 99212 ==

== ENCOUNTER 2022-01-05 12:37 | Outpatient (RCR) | payer MEDICAID, SELFPAY | END 2022-01-26 12:54 | disposition home or self-care (01) | LOC: HO.WCC 12:37 | PROVIDERS: Visit Provider Surgery | DX: I87.011 Postthrombotic syndrome with ulcer of right lower extremity (principal); L97.212 Non-pressure chronic ulcer of right calf with fat layer exposed; I73.9 Peripheral vascular disease, unspecified; I11.0 Hypertensive heart disease with heart failure; I50.9 Heart failure, unspecified; F17.210 Nicotine dependence, cigarettes, uncomplicated; G62.9 Polyneuropathy, unspecified; Z86.718 Personal history of other venous thrombosis and embolism; Z91.199 Patient's noncompliance with other medical treatment and regimen due to unspecified reason | CPT/HCPCS: 11042; 11045; 99213 ==

== ENCOUNTER → 2022-01-18 13:48 | Outpatient (BNVA) | payer MEDICAID, SELFPAY | PROVIDERS: PCP Internal Medicine; Visit Provider Surgery Vascular Surgery | DX: L97.219 Non-pressure chronic ulcer of right calf with unspecified severity (principal); Z91.199 Patient's noncompliance with other medical treatment and regimen due to unspecified reason | CPT/HCPCS: 99212 ==

== ENCOUNTER 2022-01-31 06:06 | Inpatient (IN) | payer MEDICAID, SELFPAY ==
--- NOTE | 2022-01-28 09:14 | P.CONAN_ITS ---
Documented by User: Carina Smart NP 01/28/22 09:19 HPI - Anesthesia Eval Consult details Narrative: 61yo M for Right Leg Amputation Below Knee possible above knee amputation ETOH abuse Eliquis s/p decub ulcer debrid with wound vac 09/2021 with GA-LMA 4 PMFSH Active Problems Active Problems: All Active Problems (Updated 01/19/22 @ 10:21 by [place] Herring MD) Ulcer of right lower leg (Acute) Varicose veins of right lower extremity with inflammation (Acute) S/P split thickness skin graft (Acute) Recurrent falls (Acute) Leg wound, right (Acute) Venous stasis ulcer (Acute) Past Medical History Medical History Alcohol abuse Alcoholic polyneuropathy Anxiety disorder Asthma Cellulitis of right lower limb Epilepsy Gastric ulcer Hypertension Mild intermittent asthma Other abnormalities of gait and mobility Repeated falls Venous stasis ulcer Weakness Family History Family history of problems with anesthesia: No Surgical History Surgical History History of back surgery History of colonoscopy History of nasal surgery History of skin graft Hx laparoscopic cholecystectomy History of Problems with Anesthesia: No Social History Social History Household Members: None Household Members Other:: [facility] Housing: [facility]isted Living Facility Housing Other:: [facility] [place] [place] Alcohol intake: current Alcohol intake frequency: does not drink Patient Tobacco Use Status: Current everyday Tobacco user Tobacco use type: Cigarette Cigarettes Per Day: 8 Use of substances other than those prescribed or required for medical reasons: No Are you DNR?: No Advance Directives: No Advance Directives Information Provided: Yes Do you have thoughts of harming others: None Do you have a plan to hurt others: No Plan Recently lost weight without trying: No Nutrition Risks: No Nutritional Risk Poor oral hygiene: No service: No Current occupational status: unemployed and disabled Meds Allergies Allergy/AdvReac Type Severity Reaction Status Date / Time moxifloxacin Allergy Mild Hives Verified 01/31/22 06:13 morphine [Morphine] AdvReac Mild SWELLING, Verified 01/31/22 06:13 ITCHING codeine [Codeine] AdvReac Unknown ITCHING, Verified 01/31/22 06:13 HIVES Home Medications Medication Instructions Recorded Confirmed Last Taken Type acamprosate 333 mg tablet,delayed 1 tab PO TID 05/26/20 01/31/22 01/30/22 History release aspirin 81 mg tablet,delayed 1 tab PO DAILY 05/26/20 01/31/22 01/28/22 History release gabapentin 300 mg capsule 1 cap PO TID neck pain 05/26/20 01/31/22 01/30/22 History hydroxyzine HCl 25 mg tablet 1 tab PO BID 05/26/20 01/31/22 01/30/22 History multivitamin (One Daily 1 tab PO DAILY 05/26/20 01/31/22 01/30/22 History Multivitamin tablet) omeprazole 20 mg capsule,delayed 1 cap PO BID 05/26/20 01/31/22 01/30/22 History release pentoxifylline 400 mg 1 tab PO TID 05/26/20 01/31/22 01/30/22 History tablet,extended release phenytoin sodium extended 100 mg 1 cap PO TID 05/26/20 01/31/22 01/30/22 History capsule quetiapine 100 mg tablet 2 tab PO BEDTIME 05/26/20 01/31/22 01/30/22 History sertraline 50 mg tablet 1 tab PO DAILY 05/26/20 01/31/22 01/30/22 History acetaminophen 325 mg tablet 650 mg PO Q4H PRN Pain 07/30/20 01/31/22 01/31/22 02:00 History Saline Nasal 1 spray intranasal DAILY PRN Nasal 05/17/21 01/31/22 10/25/21 History Congestion baclofen 5 mg tablet 5 mg PO TID 05/17/21 01/31/22 01/30/22 History bisacodyl 10 mg rectal suppository 10 mg LA DAILY PRN Constipation 05/17/21 01/31/22 10/25/21 History ibuprofen 200 mg tablet 400 mg PO Q8H PRN Pain 05/17/21 01/31/22 01/28/22 History naloxone 4 mg/actuation nasal spray 4 mg intranasal USEASDIRECTD PRN 05/17/21 01/31/22 10/25/21 History Opioid Overdose nitroglycerin 0.4 mg sublingual 0.4 mg sublingual Q5M PRN Chest 05/17/21 01/31/22 10/25/21 History tablet (Nitrostat) Pain tramadol 50 mg tablet 100 mg PO Q8H PRN Pain 10/25/21 01/31/22 10/25/21 History Exam Exam Date and Time: January 28, 2022913 Assessment and Plan Assessment Anesthesia Assessment: Chart Reviewed Final Anesthetic Review Family History of Problems with Anesthesia: No History of Problems with Anesthesia: No Documented by User: Melchor Lopez MD 01/31/22 17:54 [facility] Past Medical History Medical History Alcohol abuse Alcoholic polyneuropathy Anxiety disorder Asthma Cellulitis of right lower limb Epilepsy Gastric ulcer Hypertension Mild intermittent asthma Other abnormalities of gait and mobility Repeated falls Venous stasis ulcer Weakness Surgical History Surgical History History of back surgery History of colonoscopy History of nasal surgery History of skin graft Hx laparoscopic cholecystectomy Social History Social History Household Members: None Household Members Other:: [facility] Housing: Assisted Living Facility Housing Other:: [facility] [place] [place] Alcohol intake: current Alcohol intake frequency: does not drink Patient Tobacco Use Status: Current everyday Tobacco user Tobacco use type: Cigarette Cigarettes Per Day: 8 Use of substances other than those prescribed or required for medical reasons: No Are you DNR?: No Advance Directives: No Advance Directives Information Provided: Yes Do you have thoughts of harming others: None Do you have a plan to hurt others: No Plan Recently lost weight without trying: No Nutrition Risks: No Nutritional Risk Poor oral hygiene: No service: No Current occupational status: unemployed and disabled Meds Allergies Allergy/AdvReac Type Severity Reaction Status Date / Time moxifloxacin Allergy Mild Hives Verified 01/31/22 06:13 morphine [Morphine] AdvReac Mild SWELLING, Verified 01/31/22 06:13 ITCHING codeine [Codeine] AdvReac Unknown ITCHING, Verified 01/31/22 06:13 HIVES Home Medications Medication Instructions Recorded Confirmed Last Taken Type acamprosate 333 mg tablet,delayed 1 tab PO TID 05/26/20 01/31/22 01/30/22 History release aspirin 81 mg tablet,delayed 1 tab PO DAILY 05/26/20 01/31/22 01/28/22 History release gabapentin 300 mg capsule 1 cap PO TID neck pain 05/26/20 01/31/22 01/30/22 History hydroxyzine HCl 25 mg tablet 1 tab PO BID 05/26/20 01/31/22 01/30/22 History multivitamin (One Daily 1 tab PO DAILY 05/26/20 01/31/22 01/30/22 History Multivitamin tablet) omeprazole 20 mg capsule,delayed 1 cap PO BID 05/26/20 01/31/22 01/30/22 History release pentoxifylline 400 mg 1 tab PO TID 05/26/20 01/31/22 01/30/22 History tablet,extended release phenytoin sodium extended 100 mg 1 cap PO TID 05/26/20 01/31/22 01/30/22 History capsule quetiapine 100 mg tablet 2 tab PO BEDTIME 05/26/20 01/31/22 01/30/22 History sertraline 50 mg tablet 1 tab PO DAILY 05/26/20 01/31/22 01/30/22 History acetaminophen 325 mg tablet 650 mg PO Q4H PRN Pain 07/30/20 01/31/22 01/31/22 02:00 History Saline Nasal 1 spray intranasal DAILY PRN Nasal 05/17/21 01/31/22 10/25/21 History Congestion baclofen 5 mg tablet 5 mg PO TID 05/17/21 01/31/22 01/30/22 History bisacodyl 10 mg rectal suppository 10 mg LA DAILY PRN Constipation 05/17/21 01/31/22 10/25/21 History ibuprofen 200 mg tablet 400 mg PO Q8H PRN Pain 05/17/21 01/31/22 01/28/22 History naloxone 4 mg/actuation nasal spray 4 mg intranasal USEASDIRECTD PRN 05/17/21 01/31/22 10/25/21 History Opioid Overdose nitroglycerin 0.4 mg sublingual 0.4 mg sublingual Q5M PRN Chest 05/17/21 01/31/22 10/25/21 History tablet (Nitrostat) Pain tramadol 50 mg tablet 100 mg PO Q8H PRN Pain 10/25/21 01/31/22 10/25/21 History Exam Airway Mallampati Class: III TM Dist: >3cm Neck ROM: Full Loose/Missing/Broken Teeth: Yes Heart: S1,S2 Lungs: b/l breath sounds Assessment and Plan Assessment Anesthesia Assessment: Anesthesia Plan Discussed Final Anesthetic Review NPO: Yes ASA Class: III (urgent ) Final Preanesthetic Review: Meds/Allgs Chart Reviewed, Consent Obtained/Reviewed and Anes Risks/Benef Reviewed Patient Risk: High Procedure Risk: Intermediate Anesthetic Plan Anesthetic Plan: GA Disposition: Inp. Admit - Standard Bed
[2022-01-31] VITALS (38 sets, daily range): BP systolic 61–153; BP diastolic 35–86; PULSE 87–112; RESP 16–20; TEMP 36.1–38.3; O2SAT 89–100; BMI 28.8
--- NOTE | 2022-01-31 | ECG_ITS ---
Test Reason : pre op Blood Pressure : / mmHG Vent. Rate : 072 BPM Atrial Rate : 072 BPM P-R Int : 156 ms QRS Dur : 096 ms QT Int : 372 ms P-R-T Axes : 047 -29 039 degrees QTc Int : 407 ms Normal sinus rhythm Minimal voltage criteria for LVH, may be normal variant ( R in aVL ) Borderline ECG When compared with ECG of 19-MAY-2021 07:21, No significant change was found Referred By: Carina Smart Electronically Signed By:MANN CHESTER MD
--- NOTE | ~2022-01-31 | XR_ITS ---
EXAMINATION: XR CHEST CLINICAL INFORMATION: Fever COMPARISON: Previous chest x-ray most recent August 2020 TECHNIQUE: Frontal view of the chest was obtained. FINDINGS: The lung volumes are low. The cardiac and mediastinal contours are stable. There is subsegmental atelectasis at the lung bases, left greater than right. There is increased bilateral perihilar attenuation. It is uncertain whether this is related to low lung volumes and could represent pneumonitis. There is no pleural effusion or pneumothorax. Bony structures are unremarkable. XR/XR chest 1V IMPRESSION: Low lung volumes. Subsegmental atelectasis at the lung bases, left greater than right. Increased perihilar attenuation, question related to low lung volumes versus pneumonitis. Chest x-ray follow-up should be considered if clinically indicated.
--- OUTSIDE RECORDS SUMMARY | 2022-01-31 06:11 | XMS_ITS | Continuity of Care Document ---
:1960 Author Organization [facility] Address [address] [place] [address], [address] Floor, [address] [place] [address]- Care Team Providers Name Role Phone Octavio GARCIA, Susanna Gleason Primary Care Physician Encounter [facility] [id number] Date(s): 04/23/20 - 08/08/20 [facility] [address] [place] [address], [address] Floor, [address] [place] [address]- Attending Physician: Cody Tapia Admitting Physician: Cody Tapia Referring Physician: Susanna Cunningham MD
--- OUTSIDE RECORDS SUMMARY | 2022-01-31 06:11 | XMS_ITS | Continuity of Care Document ---
:1960 Author Organization [facility] Address [address] [place] [address], 3rd Floor, [address] [place] [address]- Care Team Providers Name Role Phone Octavio GARCIA, Susanna Gleason Primary Care Physician Encounter [facility] Date(s): 07/09/20 - 08/08/20 [facility] [address] [place] [address], [address]rd Floor, [address] [place] [id number] Attending Physician: Meño Jay Admitting Physician: Meño Jay Referring Physician: Meño Jay
--- OUTSIDE RECORDS SUMMARY | 2022-01-31 06:11 | XMS_ITS | Continuity of Care Document ---
:1960 Author Organization [facility] Address [address] [place] [address] Drive [address] [place] [address]- Care Team Providers Name Role Phone Octavio GARCIA, Susanna Gleason Primary Care Physician Encounter [facility] Date(s): 04/01/21 - 08/26/21 [facility] [address] [place] [address]- Attending Physician: Yovani WEINER MD, Jonas Thornton Referring Physician: Susanna Cunningham MD
--- OUTSIDE RECORDS SUMMARY | 2022-01-31 06:11 | XMS_ITS | Continuity of Care Document ---
:1960 Author Organization [facility] Address [address] [place] [address] Drive [address] [place] [address]- Care Team Providers Name Role Phone Octavio GARCIA, Susanna Gleason Primary Care Physician Encounter [facility] Date(s): 07/27/21 - 08/26/21 [facility] [address] [place] [address] Drive [address] [place] [address]- Attending Physician: Meño Jay Admitting Physician: Meño Jay Referring Physician: Meño Jay
[2022-01-31 06:34] LABS: COVID-19 Test Negative (Negative); IDNOW Serial# BCCEAD1C
[2022-01-31 06:48] LABS: Hematocrit 37.6 % (42.0-52.0); Hemoglobin 12.4 g/dl (14.0-18.0); Mean Corpuscular Hemoglobin 30.3 pg (27.0-33.0); Mean Corpuscular Volume 91.9 fL (80.0-98.0); Mean Platelet Volume 9.8 fL (9.4-12.4); Platelet Count 195 X10*3/uL (160-400); Red Blood Count 4.09 X10*6/uL (4.60-5.80); Red Cell Distribution Width 13.9 % (11.0-16.0); White Blood Count 10.1 X10*3/uL (4.8-10.8)
[2022-01-31 06:53] LABS: INTERNATIONAL NORM RATIO 1.1 (0.9-1.1); Prothrombin Time 12.2 SEC (10.0-13.1)
[2022-01-31 06:56] LABS: Partial Thromboplastin Time 32.8 SEC (26.0-36.4)
[2022-01-31 07:03] LABS: Anion Gap 12 (12-20); Blood Urea Nitrogen 12 mg/dL (9-16); Calcium 8.8 mg/dL (8.4-10.2); Carbon Dioxide 27 mmol/L (22-29); Chloride 107 mmol/L (96-108); Creatinine Clr Calc Pharmacy 127.9; Estimated Glomerular Filt Rate > 60; Glucose Random 107 mg/dL (60-115); Potassium 4.4 mmol/L (3.3-5.1); Sodium 142 mmol/L (135-145)
[2022-01-31] MEDS: Lactated Ringers 1,000 ML 100 ML IVCONT (07:08)
--- NOTE | 2022-01-31 09:46 | MHC.SHP ---
Pre-Procedural Eval Section A Date of Service: 01/31/22 The patient is an INPATIENT: No Changes since office visit: Yes Patient answered all questions The History & Physical has been completed within 30 days and I have reviewed it.: Yes Section B Chief Complaint: Postop Allergies: Allergies Allergy/AdvReac Type Severity Reaction Status Date / Time moxifloxacin Allergy Mild Hives Verified 01/31/22 06:13 morphine [Morphine] AdvReac Mild SWELLING, Verified 01/31/22 06:13 ITCHING codeine [Codeine] AdvReac Unknown ITCHING, Verified 01/31/22 06:13 HIVES Plan I have reviewed the history and physical and performed a pertinent physical examination on my patient. No changes have occurred unless specified.
--- NOTE | 2022-01-31 09:47 | P.OP_ITS ---
Operative Note Operative Note Date of Service: 01/31/22 Narrative: Operative note by [facility] Preoperative diagnosis: Nonhealing right lower extremity ulcer Postoperative diagnosis: Same Procedure: Right below-knee amputation Surgeon:[place] Herring M.D. Crm Solution Architect: None Anesthesia: General Specimens: 1 Drains: None Estimated blood loss: 500 mL Indications: Complex 61-year-old gentleman with nonhealing right lower extremity ulcer. He has had multiple attempts at conservative management including debridement care and wound care center trial of split thickness skin graft. This has been a persistent wound for several years. He now presents for amputation. The patient has signed the informed consent after reviewing risks, complications, benefits, and alternatives previously discussed with the patient. The patient was given the opportunity to ask any additional questions or voice any concerns. All questions were answered to the patient's satisfaction. Procedure in detail: Patient was brought to the operating room prior to which a time-out was called for patient identification site verification. Right leg was prepped and draped in the standard surgical fashion. Curvilinear incision was made over the anterior border of the tibial tuberosity and a posterior flap was created. This was a little bit of a shortened flap due to the location of the previous ulcer. As we got through the skin subQ and fascia, multiple collateral vessels were encountered. These were all individually isolated with mosquitos and tied off with 3-0 silk ties. Once we were through we got through the tibia. We identified the anterior tibial artery. This was suture ligated. We then brought a Nadine clamp across the posterior aspect the tibia. We made a reverse hockey stick incision on the tibia. Once they did this we transected the fibula approximately 2 in above that. We then transected with electrocautery across the posterior flap. The the leg was removed in its entirety. Once this was accomplished we use multiple individual sutures to obtain adequate hemostasis. Once this was all accomplished we filed down the bone. We used a drill to drill across the tibia. We performed myodesis and using a 2-0 silk we closed off and brought the muscle on to the tibial surface. Once this was accomplished we did copious irrigation. We used electrocautery to create hemostasis. We then had to bring that posterior flap up. This was quite difficult as the posterior flap was a little bit attenuated in length. We used a 2 0 poly sore and an 0 Polysorb in interrupted fashion to try to bring the fascial layer together. Finally we used a 1 0 nylon in a mattress fashion multiple locations across the incision line. Once this was all accomplished we used skin clips to bring the skin together. Amazingly we were able to bring the whole flap up. Um Xeroform and a sterile dressing were applied. At the end the case sponge instrument counts were correct. Patient tolerated the procedure well. Returned to recovery with stable vitals. This note is constructed using voice recognition software. While every effort has been made to ensure accuracy, annual campaign manager errors may have been included. Thank you for allowing me to participate in the care of your patient. Yours sincerely, [place] Herring MD, FACS, R.P.V.I.
[2022-01-31] MEDS: fentaNYL citrate/PF 100 MCG/2 ML VIAL 25 MCG IVPUSH ×4 (10:14→11:38)
[2022-01-31 10:26] LABS: MANUAL DIFF FLAG NO
[2022-01-31 10:33] LABS: Basophils Absolute Auto 0.1 X10*3/uL (0.0-0.2); Basophils Percent Auto 0.5 % (0-2); Eosinophils Absolute Auto 0.1 X10*3/uL (0.0-0.4); Eosinophils Percent Auto 0.8 % (0-4); Hematocrit 26.8 % (42.0-52.0); Hemoglobin 8.5 g/dl (14.0-18.0); Imm Gran Abs Auto 0.26 X10*3/uL (0.00-0.03); Imm Gran Pct Auto 1.4 % (0.0-0.4); Lymphocytes Absolute Auto 3.3 X10*3/uL (1.2-4.9); Lymphocytes Percent Auto 17.6 % (20-40); Mean Corpuscular HGB Conc 31.7 g/dl (31.0-36.0); Mean Corpuscular Hemoglobin 31.7 pg (27.0-33.0); Mean Platelet Volume 9.3 fL (9.4-12.4); Monocytes Absolute Auto 0.9 X10*3/uL (0.1-1.2); Monocytes Percent Auto 4.7 % (2-11); Platelet Count 227 X10*3/uL (160-400); Red Blood Count 2.68 X10*6/uL (4.60-5.80); Red Cell Distribution Width 14.3 % (11.0-16.0); White Blood Count 18.6 X10*3/uL (4.8-10.8)
[2022-01-31] MEDS: ondansetron HCL 4 MG/2 ML VIAL IVPUSH (10:33)
[2022-01-31] MEDS: oxyCODONE HCl Immed Release 5 MG TABLET PO ×3 (11:33→20:34)
[2022-01-31] MEDS: 0.9 % Sodium Chloride 1,000 ML 80 ML IVCONT ×2 (11:52→20:39)
[2022-01-31] MEDS: Acetaminophen 1,000 MG/100 ML PIGGYBACK 400 MG IV (12:34)
--- NOTE | 2022-01-31 13:18 | PHA.MEDREC ---
Pharmacy Consult ? Medication Reconciliation Pharmacy has reviewed the medication reconciliation done by [facility]. When reviewing, I d/c'd Shalom as I spoke to Jenn holley [place] [facility] who confirmed with me that the medication has been d/c'd.
[2022-01-31] MEDS: HYDROmorphone HCl 0.5 MG/0.5 ML SYRINGE IVPUSH (13:32)
--- NOTE | 2022-01-31 13:33 | CA_ITS ---
Transthoracic Echocardiogram Patient (Last, First, Middle): Remington Crowell, Gender: Male Date of : 1960 Age: 61 Procedure Date: 01/31/2022 Procedure Type: Transthoracic Echocardiogram Location: ICU Height: 182.88 cm Weight: 96.62 kg BSA: 2.19 m2 Heart Rate: 97 bpm BP: 115 / 75 mmHg Carbide Tool Maker: SB Referring MD: Obinna Norris MD Chain Person: Gordy Rawls MD Symptoms: refractory hypotension/limited for IVC evaluation Study Quality: Fair ECG Rhythm: Sinus Conclusions: - 1. LV systolic function appears normal with LVEF of 55-60% with mild LVH 2. No gross pericardial effusion 3. Right atrial pressures appear to be normal Findings Left Ventricle Normal left ventricular size and systolic function. There is mildly increased left ventricular wall thickness. The visually estimated ejection fraction is between 55-60%. Venous The inferior vena cava is normal in size and collapses greater than 50% with inspiration. Pericardium/Pleural There is no evidence of pericardial effusion. There is a bilateral pleural effusion. Prior Study Comparison No prior study available for comparison. Measurements 2D Linear Measurements IVSd: 1.49 0.6-0.9/0.6-1.0 cm LVIDd: 4.27 3.9-5.3/4.2-5.9 cm LVIDd Index: 1.95 2.4-3.2/2.2-3.1 cm/m2 LVIDs: 3.00 2.0-3.6 cm LVPWd: 1.17 0.7-1.1 cm LV Mass: 265.16 67-162/88-224 g LV Mass Index: 121.08 43-95/49-115 g/m2 2D Systolic Function EF Teich: 57.00 >55% Updated in Other Vendor System with Status of Final Gordy Rawls MD electronically signed on 01/31/2022 2:57:33 PM with status of Final
--- NOTE | 2022-01-31 14:10 | P.CONCC_ITS ---
History of Present Illness Data of Consult Service Date: 01/31/22 Requesting physician: Melchor Lopez Primary Care Provider: Shilpa Bynum MD [facility] Reason for consult: Hypotension in PACU I was asked by Dr. Lopez to see Mr. Kimberly Kirkpatrick in the PACU bec of hypotension. Briefly, the patient is a 61-year-old male with venous stasis and varicose vein s, and a right lower leg wound with cellulitis.? He has past medical history of alcohol abuse, alcoholic polyneuropathy, asthma, epilepsy, hypertension, and asthma.? The patient presented today for elective right leg BKA. Patient underwent right BKA in the operating room today by Dr. Herring under general anesthesia.? I am told that estimated blood loss was and unable out of 800 cc, with some mild technical difficulties during surgery. Intraoperatively the patient was given 2500 cc of crystalloid.? In the PACU, he was hypotensive, requiring a need Uri-Synephrine infusion up to 1.5 mcg.? Hemoglobin was 8.5, versus a hemoglobin of 12.4 preoperatively this morning.? BUN/creatinine this morning were 12/0.7. ?The patient was given a unit of blood and another L of crystalloid, with marked improvement in his blood pressure and his Uri-Synephrine requirement.? I was called to see him with his Uri-Synephrine requirement still 0.3 mcg. On my exam, the patient is breathing easy with sat 100% on 3 L oxygen by nasal cannula.? Mental status appears normal.? The patient is complaining of pain and appears distinctly unhappy.? Heart rate is about 90, sinus rhythm.? Blood pressure is 118/73. On my bedside echo exam, LV chamber size and function are normal.? I am unable to visualize the RV nor the IVC.? I asked the database technician to come up.? On her exam the RV is normal size.? IVC measures 1.5 cm with some inspiratory collapse. IMPRESSION: Hypotension likely secondary to hypovolemia.? Suggest another 1 L of crystalloid over 1 hour, followed by a hemoglobin, BUN/creat, and albumin recheck. ADDENDUM: After another L of crystalloid, blood pressure was up to 130, the Uri-Synephrine was off. No need for further labs. FORMERLY [facility], [facility] Past Medical History Medical History Alcohol abuse Alcoholic polyneuropathy Anxiety disorder Asthma Cellulitis of right lower limb Epilepsy Gastric ulcer Hypertension Mild intermittent asthma Other abnormalities of gait and mobility Repeated falls Venous stasis ulcer Weakness Surgical History Surgical History (Updated 01/31/22 @ 06:34 by Verito Tan, RN) History of back surgery History of colonoscopy History of nasal surgery History of skin graft Hx laparoscopic cholecystectomy Social History Social History Household Members: None Housing: Homeless Housing Other:: senior living [facility] Do you presently have visiting nurse or other home services: No Alcohol intake: current Alcohol intake frequency: does not drink Patient Tobacco Use Status: Current everyday Tobacco user Tobacco use type: Cigarette Cigarettes Per Day: 8 Use of substances other than those prescribed or required for medical reasons: No Are you DNR?: No Advance Directives: No Advance Directives Information Provided: Yes service: No Current occupational status: unemployed and disabled Meds Allergies Allergy/AdvReac Type Severity Reaction Status Date / Time moxifloxacin Allergy Mild Hives Verified 01/31/22 06:13 morphine [Morphine] AdvReac Mild SWELLING, Verified 01/31/22 06:13 ITCHING codeine [Codeine] AdvReac Unknown ITCHING, Verified 01/31/22 06:13 HIVES Active Medications: Current Medications Acetaminophen (Acetaminophen 325 Mg Tablet) 650 mg PO Q6H PRN PRN Reason: Pain, Mild (Pain Scale 1-3) Albuterol Sulfate (Albuterol Sulfate (0.083%) 2.5 Mg/3 Ml Vial.Neb) 2.5 mg INHALE ONCE PRN PRN Reason: Shortness of Breath/Wheezing Lactated Ringer's (Lr) 1,000 mls @ 100 mls/hr IVCONT .Q10H [facility] Last Infusion: 01/31/22 11:53 Dose: Infused Promethazine HCl 6.25 mg/ (Sodium Chloride) 50.25 mls @ 201 mls/hr IV ONCE PRN PRN Reason: Nausea and Vomiting Sodium Chloride (Ns) 1,000 mls @ 80 mls/hr IVCONT .[id number] [facility] Last Admin: 01/31/22 11:52 Dose: 80 mls/hr Cefazolin Sodium/Dextrose (Ancef) 2 gm in 50 mls @ 100 mls/hr IV POSTOP@1400 [facility] Stop: 01/31/22 14:29 Morphine Sulfate (Morphine Sulfate 2 Mg/Ml Cartridge) 2 mg IVPUSH Q4H PRN; Protocol PRN Reason: Pain, Severe (Pain Scale 7-10) Oxycodone HCl (Oxycodone Hcl Immed Release 5 Mg Tablet) 5 mg PO Q4H PRN PRN Reason: Pain, Moderate (Pain Scale 4-6 Last Admin: 01/31/22 11:33 Dose: 5 mg Pharmacy Consult (Consult Rx Perform Med Rec) 1 each MISCELLANE ONCE PRN PRN Reason: Consult order Sodium Chloride (0.9 % Sodium Chloride Flush 3 Ml Syringe) [facility] Medications Medication Instructions Recorded Confirmed Last Taken Type acamprosate 333 mg tablet,delayed 1 tab PO TID 05/26/20 01/31/22 01/30/22 History release aspirin 81 mg tablet,delayed 1 tab PO DAILY 05/26/20 01/31/22 01/28/22 History release gabapentin 300 mg capsule 1 cap PO TID neck pain 05/26/20 01/31/22 01/30/22 History hydroxyzine HCl 25 mg tablet 1 tab PO BID 05/26/20 01/31/22 01/30/22 History multivitamin (One Daily 1 tab PO DAILY 05/26/20 01/31/22 01/30/22 History Multivitamin tablet) omeprazole 20 mg capsule,delayed 1 cap PO BID 05/26/20 01/31/22 01/30/22 History release pentoxifylline 400 mg 1 tab PO TID 05/26/20 01/31/22 01/30/22 History tablet,extended release phenytoin sodium extended 100 mg 1 cap PO TID 05/26/20 01/31/22 01/30/22 History capsule quetiapine 100 mg tablet 2 tab PO BEDTIME 05/26/20 01/31/22 01/30/22 History sertraline 50 mg tablet 1 tab PO DAILY 05/26/20 01/31/22 01/30/22 History acetaminophen 325 mg tablet 650 mg PO Q4H PRN Pain 07/30/20 01/31/22 01/31/22 02:00 History Saline Nasal 1 spray intranasal DAILY PRN Nasal 05/17/21 01/31/22 10/25/21 History Congestion baclofen 5 mg tablet 5 mg PO TID 05/17/21 01/31/22 01/30/22 History bisacodyl 10 mg rectal suppository 10 mg HI DAILY PRN Constipation 05/17/21 01/31/22 10/25/21 History ibuprofen 200 mg tablet 400 mg PO Q8H PRN Pain 05/17/21 01/31/22 01/28/22 History naloxone 4 mg/actuation nasal spray 4 mg intranasal USEASDIRECTD PRN 05/17/21 01/31/22 10/25/21 History Opioid Overdose nitroglycerin 0.4 mg sublingual 0.4 mg sublingual Q5M PRN Chest 05/17/21 01/31/22 10/25/21 History tablet (Nitrostat) Pain tramadol 50 mg tablet 100 mg PO Q8H PRN Pain 10/25/21 01/31/22 10/25/21 History Physical Exam Vital Signs: Vital Signs: Last Vital Signs Temp 98.0 F 01/31/22 13:47 Pulse 100 01/31/22 14:01 Resp 18 01/31/22 14:01 BP 113/67 01/31/22 14:01 Pulse Ox 100 01/31/22 14:01 O2 Del Method 01/31/22 14:01 O2 Flow Rate 2 01/31/22 14:01 BMI result Body Mass Index 28.8 Results Labs CBC & Chem 7: 01/31/22 10:23 01/31/22 06:37 Labs: Short CBC 01/31/22 01/31/22 Range/Units 06:37 10:23 WBC 10.1 18.6 H (4.8-10.8) X10*3/uL Hgb 12.4 L 8.5 L D (14.0-18.0) g/dl Hct 37.6 L 26.8 L D (42.0-52.0) % Plt Count 195 227 (160-400) X10*3/uL BMP 01/31/22 06:37 Sodium 142 Potassium 4.4 Chloride 107 Carbon Dioxide 27 BUN 12 Creatinine 0.74 Calcium 8.8
[2022-01-31] MEDS: ceFAZolin Sodium/Dextrose,Iso 2 GM/50 ML PIGGYBACK IV (14:32)
--- NOTE | 2022-01-31 15:55 | HO.PM.IMCN ---
History of Present Illness Data of Consult Service Date: 01/31/22 Primary Care Provider: Shilpa Bynum MD [facility] Reason for consult: Medical management Pt is a 61-year-old male with a PMH significant for non-healing wound on right leg, epilepsy, alcohol abuse, and depression who was admitted by vascular surgery for right BKA. Procedure was largely unremarkable. Pt given a unit of PRBC for H&H of 8.5/26.8. Pt has stable vital signs and all other labs within acceptable limits. Pt complains of intense burning pain in right leg at site of amputation. Pt has no other complaints. Of note, pt has a history of non-compliace with wound treatment and follow-up. Review of Systems Review of Systems: Severe burning pain of right leg at incision site Chronic numbness and tingling in left foot No chest pain or pressure, palpitations Denies SOB Yes all other systems are reviewed and are negative [facility]LY [facility] Medical History Alcohol abuse Alcoholic polyneuropathy Anxiety disorder Asthma Cellulitis of right lower limb Epilepsy Gastric ulcer Hypertension Mild intermittent asthma Other abnormalities of gait and mobility Repeated falls Venous stasis ulcer Weakness Surgical History History of back surgery History of colonoscopy History of nasal surgery History of skin graft Hx laparoscopic cholecystectomy Social History Household Members: None Housing: Homeless Housing Other:: long term [facility] Do you presently have visiting nurse or other home services: No Alcohol intake: current Alcohol intake frequency: does not drink Patient Tobacco Use Status: Current everyday Tobacco user Tobacco use type: Cigarette Cigarettes Per Day: 8 Use of substances other than those prescribed or required for medical reasons: No Are you DNR?: No Advance Directives: No Advance Directives Information Provided: Yes service: No Current occupational status: unemployed and disabled Meds Allergies Allergy/AdvReac Type Severity Reaction Status Date / Time moxifloxacin Allergy Mild Hives Verified 01/31/22 06:13 morphine [Morphine] AdvReac Mild SWELLING, Verified 01/31/22 06:13 ITCHING codeine [Codeine] AdvReac Unknown ITCHING, Verified 01/31/22 06:13 HIVES Active Medications: Current Medications Acetaminophen (Acetaminophen 325 Mg Tablet) 650 mg PO Q6H PRN PRN Reason: Pain, Mild (Pain Scale 1-3) Albuterol Sulfate (Albuterol Sulfate (0.083%) 2.5 Mg/3 Ml Vial.Neb) 2.5 mg INHALE ONCE PRN PRN Reason: Shortness of Breath/Wheezing Lactated Ringer's (Lr) 1,000 mls @ 100 mls/hr IVCONT .Q10H [facility] Last Infusion: 01/31/22 11:53 Dose: Infused Promethazine HCl 6.25 mg/ (Sodium Chloride) 50.25 mls @ 201 mls/hr IV ONCE PRN PRN Reason: Nausea and Vomiting Sodium Chloride (Ns) 1,000 mls @ 80 mls/hr IVCONT .[id number] [facility] Last Admin: 01/31/22 11:52 Dose: 80 mls/hr Morphine Sulfate (Morphine Sulfate 2 Mg/Ml Cartridge) 2 mg IVPUSH Q4H PRN; Protocol PRN Reason: Pain, Severe (Pain Scale 7-10) Oxycodone HCl (Oxycodone Hcl Immed Release 5 Mg Tablet) 5 mg PO Q4H PRN PRN Reason: Pain, Moderate (Pain Scale 4-6 Last Admin: 01/31/22 11:33 Dose: 5 mg Pharmacy Consult (Consult Rx Perform Med Rec) 1 each MISCELLANE ONCE PRN PRN Reason: Consult order Sodium Chloride (0.9 % Sodium Chloride Flush 3 Ml Syringe) [facility] Home Medications Medication Instructions Recorded Confirmed Last Taken Type acamprosate 333 mg tablet,delayed 1 tab PO TID 05/26/20 01/31/22 01/30/22 History release aspirin 81 mg tablet,delayed 1 tab PO DAILY 05/26/20 01/31/22 01/28/22 History release gabapentin 300 mg capsule 1 cap PO TID neck pain 05/26/20 01/31/22 01/30/22 History hydroxyzine HCl 25 mg tablet 1 tab PO BID 05/26/20 01/31/22 01/30/22 History multivitamin (One Daily 1 tab PO DAILY 05/26/20 01/31/22 01/30/22 History Multivitamin tablet) omeprazole 20 mg capsule,delayed 1 cap PO BID 05/26/20 01/31/22 01/30/22 History release pentoxifylline 400 mg 1 tab PO TID 05/26/20 01/31/22 01/30/22 History tablet,extended release phenytoin sodium extended 100 mg 1 cap PO TID 05/26/20 01/31/22 01/30/22 History capsule quetiapine 100 mg tablet 2 tab PO BEDTIME 05/26/20 01/31/22 01/30/22 History sertraline 50 mg tablet 1 tab PO DAILY 05/26/20 01/31/22 01/30/22 History acetaminophen 325 mg tablet 650 mg PO Q4H PRN Pain 07/30/20 01/31/22 01/31/22 02:00 History Saline Nasal 1 spray intranasal DAILY PRN Nasal 05/17/21 01/31/22 10/25/21 History Congestion baclofen 5 mg tablet 5 mg PO TID 05/17/21 01/31/22 01/30/22 History bisacodyl 10 mg rectal suppository [address] DAILY PRN Constipation 05/17/21 01/31/22 10/25/21 History ibuprofen 200 mg tablet 400 mg PO Q8H PRN Pain 05/17/21 01/31/22 01/28/22 History naloxone 4 mg/actuation nasal spray 4 mg intranasal USEASDIRECTD PRN 05/17/21 01/31/22 10/25/21 History Opioid Overdose nitroglycerin 0.4 mg sublingual 0.4 mg sublingual Q5M PRN Chest 05/17/21 01/31/22 10/25/21 History tablet (Nitrostat) Pain tramadol 50 mg tablet 100 mg PO Q8H PRN Pain 10/25/21 01/31/22 10/25/21 History Physical Exam Vital Signs and Narrative: Vital Signs: Last Vital Signs Temp 98.1 F 01/31/22 15:50 Pulse 90 01/31/22 15:50 Resp 20 01/31/22 15:50 BP 145/74 H 01/31/22 15:50 Pulse Ox 95 01/31/22 15:50 O2 Del Method 01/31/22 15:50 O2 Flow Rate 3 01/31/22 14:31 BMI result Body Mass Index 28.8 General: AOx3, uncomfortable and in pain Resp: CTA bilaterally CVS: S1, S2, RRR GI: +BS, NT, no distention Skin: No rash Neuro: Motor grossly intact Psych: Appropriate affect Results Labs CBC and Chem 7: 01/31/22 10:23 01/31/22 06:37 Labs: Laboratory Results - last 24 hr 01/31/22 01/31/22 01/31/22 06:10 06:37 06:37 MCV 91.9 MCH 30.3 MCHC 33.0 RDW 13.9 Plt Count 195 MPV 9.8 Immature Gran % (Auto) Neut % (Auto) Lymph % (Auto) [place] % (Auto) Eos % (Auto) Baso % (Auto) Lymph # (Auto) [place] # (Auto) Eos # (Auto) Baso # (Auto) Abs Immat Gran (auto) Absolute Neuts (auto) Absolute Nucleated RBC 0.000 Nucleated RBC % (auto) 0.0 PT 12.2 INR 1.1 APTT 32.8 D Anion Gap Estim Creat Clear Calc Estimated GFR Random Glucose Calcium COVID-19 (ANGELES) Negative COVID-19 Clin Com See Note Blood Type Antibody Screen Crossmatch 01/31/22 01/31/22 01/31/22 06:37 06:37 10:23 MCV 100.0 H D MCH 31.7 MCHC 31.7 RDW 14.3 Plt Count 227 MPV 9.3 L Immature Gran % (Auto) 1.4 H Neut % (Auto) 75.0 H Lymph % (Auto) 17.6 L [place] % (Auto) 4.7 Eos % (Auto) 0.8 Baso % (Auto) 0.5 Lymph # (Auto) 3.3 [place] # (Auto) 0.9 Eos # (Auto) 0.1 Baso # (Auto) 0.1 Abs Immat Gran (auto) 0.26 H Absolute Neuts (auto) 14.0 H Absolute Nucleated RBC 0.000 Nucleated RBC % (auto) 0.0 PT INR APTT Anion Gap 12 Estim Creat Clear Calc 127.9 Estimated GFR > 60 Random Glucose 107 Calcium 8.8 COVID-19 (ANGELES) COVID-19 Clin Com Blood Type A Positive Antibody Screen NEGATIVE Crossmatch See Detail Assessment and Plan (1) S/P BKA (below knee amputation): Status: Acute Plan Pt is a 61-year-old male with a PMH significant for non-healing wound on right leg, epilepsy, alcohol abuse, and depression who was admitted by vascular surgery for right BKA. Consult for medical management. # BKA -- pain management -- management as per surgical team # epilepsy -- continue home meds -- seizure precautions # asthma -- albuterol prn # mental health -- continue home meds Full code DVT prophylaxis: as per surgical team Attending: Dr. Pak
[2022-01-31] MEDS: Gabapentin 300 MG CAPSULE PO ×2 (17:39→20:34)
[2022-01-31] MEDS: Baclofen 10 MG TABLET 5 MG PO ×2 (17:39→20:35)
[2022-01-31] MEDS: Phenytoin Sodium Extended 100 MG CAPSULE PO ×2 (17:39→20:34)
[2022-01-31] MEDS: 0.9 % Sodium Chloride Flush 3 ML SYRINGE IVFLUSH (17:40)
[2022-01-31] MEDS: HYDROmorphone HCl 1 MG/ML SYRINGE IVPUSH ×2 (17:42→21:21)
[2022-01-31] MEDS: QUEtiapine Fumarate 200 MG TABLET PO (20:34)
[2022-01-31] MEDS: hydrOXYzine HCL 25 MG TABLET PO (20:34)
[2022-01-31] MEDS: Pentoxifylline ER 400 MG TABLET.ER PO (20:34)
--- NOTE | 2022-01-31 20:59 | P.EN_ITS ---
Event Note Date of Service: 01/31/22
--- NOTE | 2022-01-31 20:59 | PM.EVENT ---
Event Note Date of Service: 01/31/22
[2022-01-31] MEDS: Acetaminophen 325 MG TABLET 650 MG PO (21:29)
[2022-02-01] VITALS (8 sets, daily range): BP systolic 118–144; BP diastolic 58–83; PULSE 101–146; RESP 18; TEMP 37.7–38.6; O2SAT 91–95
--- NOTE | 2022-02-01 00:49 | PC.NURSE ---
0046 pt refused to take oxycodonefor pain he said it dosnt work for him, he is not due for his dilaudid, md dr Oroczo was notified and asked if dose can be given now awaiting for response. awake overnight monitor speaking norwegian was asked to explain pt the process.
[2022-02-01] MEDS: HYDROmorphone HCl 1 MG/ML SYRINGE IVPUSH ×3 (01:03→09:18)
[2022-02-01 06:17] LABS: MANUAL DIFF FLAG NO
[2022-02-01 06:26] LABS: Basophils Percent Auto 0.2 % (0-2); Eosinophils Percent Auto 0.2 % (0-4); Hematocrit 25.3 % (42.0-52.0); Hemoglobin 8.5 g/dl (14.0-18.0); Imm Gran Abs Auto 0.06 X10*3/uL (0.00-0.03); Imm Gran Pct Auto 0.5 % (0.0-0.4); Lymphocytes Absolute Auto 2.4 X10*3/uL (1.2-4.9); Lymphocytes Percent Auto 19.6 % (20-40); Mean Corpuscular HGB Conc 33.6 g/dl (31.0-36.0); Mean Corpuscular Hemoglobin 30.4 pg (27.0-33.0); Mean Corpuscular Volume 90.4 fL (80.0-98.0); Mean Platelet Volume 9.6 fL (9.4-12.4); Monocytes Absolute Auto 1.4 X10*3/uL (0.1-1.2); Monocytes Percent Auto 11.6 % (2-11); NRBC Pct Auto 0.2 /100WBC (0.0-0.2); Neutrophils Absolute Auto 8.3 x10*3/uL (2.0-8.3); Neutrophils Percent Auto 67.9 % (45-73); Platelet Count 169 X10*3/uL (160-400); Red Cell Distribution Width 14.1 % (11.0-16.0); White Blood Count 12.2 X10*3/uL (4.8-10.8)
[2022-02-01 06:39] LABS: Anion Gap 13 (12-20); Blood Urea Nitrogen 9 mg/dL (9-16); Calcium 7.7 mg/dL (8.4-10.2); Carbon Dioxide 23 mmol/L (22-29); Chloride 108 mmol/L (96-108); Creatinine Clr Calc Pharmacy 133.3; Estimated Glomerular Filt Rate > 60; Glucose Random 120 mg/dL (60-115); Potassium 4.5 mmol/L (3.3-5.1); Sodium 139 mmol/L (135-145)
[2022-02-01] MEDS: Baclofen 10 MG TABLET 5 MG PO ×3 (07:20→19:28)
[2022-02-01] MEDS: Gabapentin 300 MG CAPSULE PO ×3 (07:20→19:28)
[2022-02-01] MEDS: Phenytoin Sodium Extended 100 MG CAPSULE PO ×3 (07:20→19:28)
[2022-02-01] MEDS: Acetaminophen 325 MG TABLET 650 MG PO (07:20)
[2022-02-01] MEDS: Pentoxifylline ER 400 MG TABLET.ER PO ×3 (07:20→19:28)
[2022-02-01] MEDS: Aspirin Enteric Coated 81 MG TABLET.DR PO (07:20)
[2022-02-01] MEDS: Sertraline HCL 50 MG TABLET PO (07:20)
[2022-02-01] MEDS: hydrOXYzine HCL 25 MG TABLET PO ×2 (07:20→19:28)
--- NOTE | 2022-02-01 09:32 | HO.PM.IMPN ---
Subjective Subjective Date of Service: 02/01/22 Interval History: cc: right bka interval history:pain Cardiovascular Cardiovascular: Reports no additional cardiovascular complaints Gastrointestinal Gastrointestinal: Reports no additional gastrointestinal complaints Physical Exam Vital Signs: Vital Signs: Last Vital Signs Temp 100.1 F 02/01/22 08:00 Pulse 122 H 02/01/22 08:00 Resp 18 02/01/22 08:00 BP 136/76 02/01/22 08:00 Pulse Ox 94 02/01/22 08:00 O2 Del Method 02/01/22 08:00 O2 Flow Rate 3 01/31/22 14:31 BMI result Body Mass Index 28.8 General: AO X 3, in pain Resp: CTA bilateral, no accessory muscles used CVS: S1,S2,RRR GI: soft, non tender, non distended Neuro: motor grossly intact, alert Psych: appropriate affect, appropriate insight right bka Objective Data Active Medications Acetaminophen (Acetaminophen 325 Mg Tablet) 650 mg PO Q6H PRN PRN Reason: Pain, Mild (Pain Scale 1-3) Last Admin: 02/01/22 07:20 Dose: 650 mg Documented By: SOLEDAD Albuterol Sulfate (Albuterol Sulfate (0.083%) 2.5 Mg/3 Ml Vial.Neb) 2.5 mg INHALE ONCE PRN PRN Reason: Shortness of Breath/Wheezing Aspirin (Aspirin Enteric Coated 81 Mg Tablet.) 81 mg PO DAILY [facility] Last Admin: 02/01/22 07:20 Dose: 81 mg Documented By: SOLEDAD Baclofen (Baclofen 10 Mg Tablet) 5 mg PO TID [facility] Last Admin: 02/01/22 07:20 Dose: 5 mg Documented By: SOLEDAD Gabapentin (Gabapentin 300 Mg Capsule) 300 mg PO TID [facility] Last Admin: 02/01/22 07:20 Dose: 300 mg Documented By: SOLEDAD Hydromorphone HCl (Hydromorphone Hcl 1 Mg/Ml Syringe) 1.5 mg IVPUSH Q3H PRN; Protocol PRN Reason: moderate pain Hydroxyzine HCl (Hydroxyzine Hcl 25 Mg Tablet) 25 mg PO BID [facility] Last Admin: 02/01/22 07:20 Dose: 25 mg Documented By: SOLEDAD Promethazine HCl 6.25 mg/ (Sodium Chloride) 50.25 mls @ 201 mls/hr IV ONCE PRN PRN Reason: Nausea and Vomiting Sodium Chloride (Ns) 1,000 mls @ 80 mls/hr IVCONT .[id number] [facility] Last Admin: 01/31/22 20:39 Dose: 80 mls/hr Documented By: SHALINI Oxycodone HCl (Oxycodone Hcl Immed Release 5 Mg Tablet) 5 mg PO Q4H PRN PRN Reason: Pain, Moderate (Pain Scale 4-6 Last Admin: 01/31/22 20:34 Dose: 5 mg Documented By: SHALINI Pentoxifylline (Pentoxifylline Er 400 Mg Tablet.Er) 400 mg PO TID [facility] Last Admin: 02/01/22 07:20 Dose: 400 mg Documented By: SOLEDAD Phenytoin Sodium (Phenytoin Sodium Extended 100 Mg Capsule) 100 mg PO TID [facility] Last Admin: 02/01/22 07:20 Dose: 100 mg Documented By: SOLEDAD Quetiapine Fumarate (Quetiapine Fumarate 200 Mg Tablet) 200 mg PO BEDTIME [facility] Last Admin: 01/31/22 20:34 Dose: 200 mg Documented By: SHALINI Sertraline HCl (Sertraline Hcl 50 Mg Tablet) 50 mg PO DAILY [facility] Last Admin: 02/01/22 07:20 Dose: 50 mg Documented By: SOLEDAD Sodium Chloride (0.9 % Sodium Chloride Flush 3 Ml Syringe) 3 ml IVFLUSH QSHIFT [facility] Last Admin: 02/01/22 07:15 Dose: Not Given Documented By: SOLEDAD Non-Admin Reason: IV Running Labs CBC & Chem 7: 02/01/22 05:24 02/01/22 05:24 Labs: Laboratory Results - last 24 hr 01/31/22 01/31/22 02/01/22 06:37 10:23 05:24 MCV 100.0 H D 90.4 D MCH 31.7 30.4 MCHC 31.7 33.6 RDW 14.3 14.1 Plt Count 227 169 D MPV 9.3 L 9.6 Immature Gran % (Auto) 1.4 H 0.5 H Neut % (Auto) 75.0 H 67.9 Lymph % (Auto) 17.6 L 19.6 L [place] % (Auto) 4.7 11.6 H Eos % (Auto) 0.8 0.2 Baso % (Auto) 0.5 0.2 Lymph # (Auto) 3.3 2.4 [place] # (Auto) 0.9 1.4 H Eos # (Auto) 0.1 0.0 Baso # (Auto) 0.1 0.0 Abs Immat Gran (auto) 0.26 H 0.06 H Absolute Neuts (auto) 14.0 H 8.3 Absolute Nucleated RBC 0.000 0.020 H Nucleated RBC % (auto) 0.0 0.2 Anion Gap Estim Creat Clear Calc Estimated GFR Random Glucose Calcium Blood Type A Positive Antibody Screen NEGATIVE Crossmatch See Detail 02/01/22 05:24 MCV MCH MCHC RDW Plt Count MPV Immature Gran % (Auto) Neut % (Auto) Lymph % (Auto) [place] % (Auto) Eos % (Auto) Baso % (Auto) Lymph # (Auto) [place] # (Auto) Eos # (Auto) Baso # (Auto) Abs Immat Gran (auto) Absolute Neuts (auto) Absolute Nucleated RBC Nucleated RBC % (auto) Anion Gap 13 Estim Creat Clear Calc 133.3 Estimated GFR > 60 Random Glucose 120 H Calcium 7.7 L D Blood Type Antibody Screen Crossmatch Assessment and Plan (1) S/P BKA (below knee amputation): Status: Acute Plan 61M pmh epilepsy, etoh dependence, pvd with non healing rle wound, mood disorder, presented for right bka, postoperative period complicated by hypotension, acute blood loss anemia and fevers PVD s/p right bka 01/31/22 pod 1 pain uncontrolled will increase dilaudid to 1.5mg q3h prn restart asa, eliquis when okay from surgical perspective hypotension due to acute blood loss anemia improved with 1 unit prbc, hgb now stable fevers ? due to surgery vs transfusion will check for evidence of bacterial infection - blood cultures, ua, cxr will monitor closely off abx for now epilepsy dilantin mood disorder seroquel Quality Stroke Does the patient have a stroke diagnosis?: No VTE Prior VTE?: No VTE Risk Level:: Medical - moderate - high VTE Device Contraindication: Treatment Not Indicated VTE Drug Contraindication: N/A - Med Ordered
--- NOTE | 2022-02-01 10:12 | MHC.CM.PN ---
PER PREVIOUS RECORDS ANTIC PT WILL WANT TO GO TO STR IN [place], REFERRAL TO [facility] AND [facility], [facility] AWAITING CRIME ANALYST TO MEET W/PT.
[2022-02-01 10:42] LABS: Appearance Urine Clear; Color Urine Yellow; Glucose Urine UA Negative (Negative); Leukocyte Esterase Urine Negative (Negative); Nitrite Urine Negative (Negative); PH 5.5 (5.0-9.0); Urine Blood Negative (Negative); Urine Ketones Negative (Negative); Urine Protein Negative (Neg-Trace)
--- NOTE | 2022-02-01 11:44 | MHC.CM.PN ---
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
[2022-02-01] MEDS: 0.9 % Sodium Chloride 1,000 ML 80 ML IVCONT (12:39)
[2022-02-01] MEDS: HYDROmorphone HCl 1 MG/ML SYRINGE 1.5 MG IVPUSH ×4 (12:39→23:57)
--- NOTE | 2022-02-01 12:58 | HO.VASCPN ---
Subjective Subjective Date of Service: 02/01/22 Patient reports: no new complaints and still having pain Interval history: Patient is postop day 1 status post BKA. No interval issues overnight. He did receive 1 unit of blood postop for anemia for acute blood loss post surgery. Appears to be doing relatively well otherwise. Blood pressure has stabilized. Pain control seems to be his biggest issue. Physical Exam Vital Signs: Vital Signs: Last Vital Signs Temp 100.1 F 02/01/22 08:00 Pulse 122 H 02/01/22 08:00 Resp 18 02/01/22 08:00 BP 136/76 02/01/22 08:00 Pulse Ox 93 02/01/22 09:42 O2 Del Method 02/01/22 10:20 O2 Flow Rate 3 01/31/22 14:31 BMI result Body Mass Index 28.8 Const: General: cooperative, healthy appearing and no acute distress Orientation/consciousness: oriented to person, oriented to place and oriented to time HEENT: Head: Yes normal to inspection Neck: Carotids: no bruits Chest: Chest palpation & inspection: normal inspection of the chest Resp: Effort & Inspection: normal respiratory effort and able to speak in complete sentences Auscultation: clear to auscultation bilaterally Cardio: Rate: regular rate Heart sounds: S1 normal heart sound present and S2 normal heart sound present GI: Inspection: Yes normal to inspection Skin: General skin exam: no rashes or lesions noted Wounds: amputation site (Right leg amp site dressing clean dry intact) Neuro: General: oriented to person, oriented to place, oriented to time and CN's II-XI intact bilaterally Extrem: General: Yes normal to inspection, Yes full ROM and Yes no clubbing, cyanosis or edema Psych: Appearance: grossly normal and well kempt Speech and movement: Normal speech and movement present Affect: normal affect Progress Note: A&P Assessment and plan (1) S/P BKA (below knee amputation): Status: Acute Assessment and Plan: Patient is doing well status post BKA. Encourage p.o. intake. Plan for dressing change .. Possible rehab placement later this week. Time Spent With Patient Time: Total time spent is greater than 50% in coordination of care (as documented) at patient's floor/unit and/or counseling patient: Procedures Date of Service Date of Service: 02/01/22 Quality Stroke Does the patient have a stroke diagnosis?: No VTE Prior VTE?: No VTE Risk Level:: Medical - moderate - high VTE Device Contraindication: Treatment Not Indicated VTE Drug Contraindication: N/A - Med Ordered
[2022-02-01] MEDS: 0.9 % Sodium Chloride Flush 3 ML SYRINGE IVFLUSH ×2 (15:26→19:29)
--- NOTE | 2022-02-01 17:29 | HO.POSTANES ---
Post Anesthesia Evaluation Post Anesthesia Evaluation Vital Signs: Vital Signs Temp Pulse Resp BP Pulse Ox O2 Del Method 02/01/22 15:33 100.2 F 118 H 18 142/83 H 95 Room Air 02/01/22 13:04 100 F 101 H 18 137/82 92 Room Air 02/01/22 10:20 Room Air 02/01/22 09:42 93 Room Air 02/01/22 08:00 100.1 F 122 H 18 136/76 94 Room Air Anesthesia: General LMA Mental Status: Awake Pain Control: Satisfactory Nausea/Vomiting: None Hydration: Adequate Anesthesia-Related Issues: No Anes. Related Issues Comments: bullous skin lesion R wrist, new today, under medical w/u, possible drug/abx related
[2022-02-01] MEDS: QUEtiapine Fumarate 200 MG TABLET PO (19:28)
[2022-02-02] VITALS (11 sets, daily range): BP systolic 131–156; BP diastolic 17–71; PULSE 109–136; RESP 18–20; TEMP 37.1–38; O2SAT 92–96
--- NOTE | 2022-02-02 | ECG_ITS ---
Test Reason : Tachy Blood Pressure : / mmHG Vent. Rate : 148 BPM Atrial Rate : 148 BPM P-R Int : 128 ms QRS Dur : 098 ms QT Int : 268 ms P-R-T Axes : 027 -34 082 degrees QTc Int : 420 ms Sinus tachycardia Left axis deviation Incomplete right bundle branch block Left ventricular hypertrophy with repolarization abnormality ( R in aVL ) Abnormal ECG When compared with ECG of 31-JAN-2022 06:49, Vent. rate has increased BY 76 BPM Incomplete right bundle branch block is now Present Referred By: Daniella Orozco Electronically Signed By:MANN CHESTER MD
[2022-02-02] MEDS: 0.9 % Sodium Chloride 1,000 ML 999 ML IV (00:25)
--- NOTE | 2022-02-02 02:04 | PC.NURSE ---
At 0000 pt's HR was 146, Dr. Orozco notified, EKG ordered and done, NS bolus ordered at administered. After bolus, pt's HR 136, Dr. Orozco notified.
[2022-02-02] MEDS: HYDROmorphone HCl 1 MG/ML SYRINGE 1.5 MG IVPUSH ×5 (06:24→20:56)
[2022-02-02 07:17] LABS: Hematocrit 21.3 % (42.0-52.0); Hemoglobin 7.1 g/dl (14.0-18.0); Mean Corpuscular HGB Conc 33.3 g/dl (31.0-36.0); Mean Corpuscular Hemoglobin 30.2 pg (27.0-33.0); Mean Corpuscular Volume 90.6 fL (80.0-98.0); Mean Platelet Volume 9.3 fL (9.4-12.4); Platelet Count 161 X10*3/uL (160-400); Red Blood Count 2.35 X10*6/uL (4.60-5.80); Red Cell Distribution Width 13.9 % (11.0-16.0); White Blood Count 13.7 X10*3/uL (4.8-10.8)
[2022-02-02 07:32] LABS: Anion Gap 13 (12-20); Blood Urea Nitrogen 7 mg/dL (9-16); Calcium 7.9 mg/dL (8.4-10.2); Carbon Dioxide 24 mmol/L (22-29); Chloride 104 mmol/L (96-108); Creatinine Clr Calc Pharmacy 137.2; Estimated Glomerular Filt Rate > 60; Glucose Fasting 119 mg/dL (60-99); Sodium 137 mmol/L (135-145)
[2022-02-02] MEDS: Phenytoin Sodium Extended 100 MG CAPSULE PO ×3 (07:33→20:56)
[2022-02-02] MEDS: Sertraline HCL 50 MG TABLET PO (07:33)
[2022-02-02] MEDS: Gabapentin 300 MG CAPSULE PO ×3 (07:33→20:56)
[2022-02-02] MEDS: 0.9 % Sodium Chloride Flush 3 ML SYRINGE IVFLUSH ×3 (07:34→20:57)
[2022-02-02] MEDS: Pentoxifylline ER 400 MG TABLET.ER PO ×3 (07:34→20:57)
[2022-02-02] MEDS: Aspirin Enteric Coated 81 MG TABLET.DR PO (07:34)
[2022-02-02] MEDS: Baclofen 10 MG TABLET 5 MG PO ×3 (07:34→20:57)
[2022-02-02] MEDS: hydrOXYzine HCL 25 MG TABLET PO ×2 (07:34→20:56)
--- NOTE | 2022-02-02 09:08 | P.CDIC_ITS ---
CDI Concurrent Query Documentation Clarification: PHYSICIAN'S DOCUMENTATION REQUEST Date of Query: 02/02/22 09 Patient Name: Remington Kirkpatrick Admit Date: 01/31/22 Dear Doctor, A review of the medical record indicates additional documentation may be needed. Please review below and update the documentation accordingly. Clinical Indicators: Risk Factors/Clinical Indicators/Treatments Temp 01/31 - 98.1 101.4 WBC 01/31 - 10.1 18.6 HR 01/31 - 94 127 BP 01/31 - 61/42 L Nonhealing wound right leg. S/P BKA PN: Fevers? surgery vs. transfusion Please clarify which, if any, of the following is the most likely etiology of the above symptoms and treatment rendered: * Sepsis * Postoperative Sepsis * Systemic manifestations of infection, with 2 or more SIRS criteria which include: - Fever > 100.4F or hypothermia < 96.8 F - Leukocytosis - WBC > 12,000 or leukopenia, WBC < 4,000 or > 10% bands - Tachycardia > 90 beats/minute - Tachypnea - RR > 20 breaths/minute or PaCO2 < 32mmHg (Source: Merck Manual 2013) * Indicate the known or suspected organism * Indicate the known or suspected underlying infection, such as UTI, pneumonia, or cellulitis * Indicate if a suspected bacterial infection of unknown source * Localized infection only, without systemic illness - indicate the site/source, such as UTI, pneumonia, etc * Other (please specify) * Unable to determine Use of terms such as suspected, likely, concern for, or probable (associated with a specific diagnosis that is being evaluated, monitored, or treated as if it exists) are acceptable and can be coded in the inpatient setting, when documented at the time of discharge. Thank you, Samara Oliver [facility], CDIS Extension: [phone] Please use your independent medical judgment in providing your response. THIS QUERY IS PART OF THE PERMANENT MEDICAL RECORD Provider Response: Other Other Diagnosis: patient did not clinically have sepsis. Tachycardia was most likely due to anemia and temp was secondary to transfusion.
--- NOTE | 2022-02-02 10:17 | P.PNIM_ITS ---
Subjective Subjective Date of Service: 02/02/22 Interval History: cc: right bka interval history:pain Cardiovascular Cardiovascular: Reports no additional cardiovascular complaints Gastrointestinal Gastrointestinal: Reports no additional gastrointestinal complaints Physical Exam Vital Signs: Vital Signs: Last Vital Signs Temp 100.3 F 02/02/22 07:51 Pulse 121 H 02/02/22 07:51 Resp 18 02/02/22 07:51 BP 156/71 H 02/02/22 07:51 Pulse Ox 93 02/02/22 09:00 O2 Del Method 02/02/22 09:00 O2 Flow Rate 3 01/31/22 14:31 BMI result Body Mass Index 28.8 Const: General: cooperative, healthy appearing and no acute distress Orientation/consciousness: oriented to person, oriented to place and oriented to time HEENT: Head: Yes normal to inspection Neck: Carotids: no bruits Chest: Chest palpation & inspection: normal inspection of the chest Resp: Effort & Inspection: normal respiratory effort and able to speak in complete sentences Auscultation: clear to auscultation bilaterally Cardio: Rate: regular rate Heart sounds: S1 normal heart sound present and S2 normal heart sound present GI: Inspection: Yes normal to inspection Skin: General skin exam: no rashes or lesions noted Wounds: amputation site (Right leg amp site dressing clean dry intact) Neuro: General: oriented to person, oriented to place, oriented to time and CN's II-XI intact bilaterally Extrem: General: Yes normal to inspection, Yes full ROM and Yes no clubbing, cyanosis or edema Psych: Appearance: grossly normal and well kempt Speech and movement: Ginger l speech and movement present Affect: normal affect Objective Data Active Medications Albuterol Sulfate (Albuterol Sulfate (0.083%) 2.5 Mg/3 Ml Vial.Neb) 2.5 mg INHALE ONCE PRN PRN Reason: Shortness of Breath/Wheezing Aspirin (Aspirin Enteric Coated 81 Mg Tablet.) 81 mg PO DAILY [facility] Last Admin: 02/02/22 07:34 Dose: 81 mg Documented By: SOLEDAD Baclofen (Baclofen 10 Mg Tablet) 5 mg PO TID [facility] Last Admin: 02/02/22 07:34 Dose: 5 mg Documented By: SOLEDAD Gabapentin (Gabapentin 300 Mg Capsule) 300 mg PO TID [facility] Last Admin: 02/02/22 07:33 Dose: 300 mg Documented By: SOLEDAD Hydromorphone HCl (Hydromorphone Hcl 1 Mg/Ml Syringe) 1.5 mg IVPUSH Q3H PRN; Protocol PRN Reason: moderate pain Last Admin: 02/02/22 09:15 Dose: 1.5 mg Documented By: SOLEDAD Hydroxyzine HCl (Hydroxyzine Hcl 25 Mg Tablet) 25 mg PO BID [facility] Last Admin: 02/02/22 07:34 Dose: 25 mg Documented By: SOLEDAD Promethazine HCl 6.25 mg/ (Sodium Chloride) 50.25 mls @ 201 mls/hr IV ONCE PRN PRN Reason: Nausea and Vomiting Oxycodone HCl (Oxycodone Hcl Immed Release 5 Mg Tablet) 5 mg PO Q4H PRN PRN Reason: Pain, Moderate (Pain Scale 4-6 Last Admin: 01/31/22 20:34 Dose: 5 mg Documented By: SHALINI Pentoxifylline (Pentoxifylline Er 400 Mg Tablet.Er) 400 mg PO TID [facility] Last Admin: 02/02/22 07:34 Dose: 400 mg Documented By: SOLEDAD Phenytoin Sodium (Phenytoin Sodium Extended 100 Mg Capsule) 100 mg PO TID [facility] Last Admin: 02/02/22 07:33 Dose: 100 mg Documented By: SOLEDAD Quetiapine Fumarate (Quetiapine Fumarate 200 Mg Tablet) 200 mg PO BEDTIME [facility] Last Admin: 02/01/22 19:28 Dose: 200 mg Documented By: VICKIE Sertraline HCl (Sertraline Hcl 50 Mg Tablet) 50 mg PO DAILY [facility] Last Admin: 02/02/22 07:33 Dose: 50 mg Documented By: SOLEDAD Sodium Chloride (0.9 % Sodium Chloride Flush 3 Ml Syringe) 3 ml IVFLUSH QSHIFT [facility] Last Admin: 02/02/22 07:34 Dose: 3 ml Documented By: SOLEDAD Labs CBC & Chem 7: 02/02/22 06:27 02/02/22 06:27 Labs: Laboratory Results - last 24 hr 01/31/22 02/01/22 02/02/22 06:37 10:29 06:27 MCV 90.6 MCH 30.2 MCHC 33.3 RDW 13.9 Plt Count 161 MPV 9.3 L Absolute Nucleated RBC 0.000 Nucleated RBC % (auto) 0.0 Anion Gap Estim Creat Clear Calc Estimated GFR Fasting Glucose Calcium Urine Color Yellow Urine Appearance Clear Urine pH 5.5 Ur Specific [place] 1.010 Urine Protein Negative Urine Glucose (UA) Negative Urine Ketones Negative Urine Blood Negative Urine Nitrite Negative Ur Leukocyte Esterase Negative Blood Type A Positive Antibody Screen NEGATIVE Crossmatch See Detail 02/02/22 06:27 MCV MCH MCHC RDW Plt Count MPV Absolute Nucleated RBC Nucleated RBC % (auto) Anion Gap 13 Estim Creat Clear Calc 137.2 Estimated GFR > 60 Fasting Glucose 119 H Calcium 7.9 L Urine Color Urine Appearance Urine pH Ur Specific [place] Urine Protein Urine Glucose (UA) Urine Ketones Urine Blood Urine Nitrite Ur Leukocyte Esterase Blood Type Antibody Screen Crossmatch Assessment and Plan (1) S/P BKA (below knee amputation): Status: Acute Plan 61M pmh epilepsy, etoh dependence, pvd with non healing rle wound, mood disor ankur, presented for right bka, postoperative period complicated by hypotension, acute blood loss anemia and fevers PVD s/p right bka 01/31/22 pod 2 pain better controlled continue dilaudid restart asa, eliquis when okay from surgical perspective hypotension due to acute blood loss anemia improved with 1 unit prbc will transfuse 1 more unit prbc fevers ? due to surgery vs transfusion follow up blood cultures, cxr and ua unremarkable will monitor closely off abx for now epilepsy dilantin mood disorder seroquel Quality Stroke Does the patient have a stroke diagnosis?: No VTE Prior VTE?: No VTE Risk Level:: Medical - moderate - high VTE Device Contraindication: Treatment Not Indicated VTE Drug Contraindication: N/A - Med Ordered
--- NOTE | 2022-02-02 12:07 | HO.VASCPN ---
Subjective Subjective Date of Service: 02/02/22 Patient reports: no new complaints and feels better Interval history: Patient seen and examined. Postop day 2 status post BKA. Reports he feels significantly better in terms of his pain. He is currently being transfused an additional unit of blood. No other events overnight. Physical Exam Vital Signs: Vital Signs: Last Vital Signs Temp 100.4 F 02/02/22 11:49 Pulse 112 H 02/02/22 11:49 Resp 18 02/02/22 11:49 BP 135/67 02/02/22 11:49 Pulse Ox 93 02/02/22 09:00 O2 Del Method 02/02/22 11:49 O2 Flow Rate 3 01/31/22 14:31 BMI result Body Mass Index 28.8 Const: General: cooperative, healthy appearing and comfortable Orientation/consciousness: oriented to person, oriented to place and oriented to time HEENT: Head: Yes normal to inspection Neck: Neck: Yes normal visual inspection Carotids: no bruits Chest: Chest palpation & inspection: normal inspection of the chest Resp: Effort & Inspection: normal respiratory effort and able to speak in complete sentences Auscultation: clear to auscultation bilaterally, no crackles, no rales, no rhonchi and no wheezes Cardio: Rate: regular rate Rhythm: regular rhythm Heart sounds: S1 normal heart sound present and S2 normal heart sound present Bruits: no carotid bruits Peripheral pulses: Peripheral pulses 2+ throughout GI: Inspection: Yes normal to inspection Skin: Wounds: amputation site (BKA amp dressing changed. Appears to be healing extremely well.) Hair: normal Neuro: General: oriented to person, oriented to place and oriented to time Cranial nerves: Yes CN's II-XII intact bilaterally and Yes Normal hearing present Cognition (Neuro): normal cognition Motor exam (neuro): 5/5 motor strength present throughout Extrem: Other: venous exam: No significant superficial varicosities or spider telangiectasias, minimal edema General: No clubbing, No cyanosis and No edema Psych: Appearance: grossly normal Mental Status: mental status grossly normal Speech and movement: Normal speech and movement present Progress Note: A&P Assessment and plan (1) S/P BKA (below knee amputation): Status: Acute Assessment and Plan: In short patient is doing well status post BKA. He is being transfused an additional unit of blood. Will start physical therapy. Plan for transferred to rehab facility within the next day or so if stable. Thank you to the hospitalist for their care. Time Spent With Patient Time: Total time spent is greater than 50% in coordination of care (as documented) at patient's floor/unit and/or counseling patient: Procedures Date of Service Date of Service: 02/02/22 Quality Stroke Does the patient have a stroke diagnosis?: No VTE Prior VTE?: No VTE Risk Level:: Medical - moderate - high VTE Device Contraindication: Treatment Not Indicated VTE Drug Contraindication: N/A - Med Ordered
--- NOTE | 2022-02-02 14:37 | MHC.CM.PN ---
EMR REVIEWED, PT REMAINS ON IV DILUADID, PT TRANSFUSED D/T DROP IN H&H, NO PLAN FOR D/C TODAY, PT WILL RETURN TO [facility] AT [facility] ONCE MEDICALLY CLEARED.
[2022-02-02] MEDS: QUEtiapine Fumarate 200 MG TABLET PO (20:56)
[2022-02-03] VITALS: BP 139/65; PULSE 127; RESP 18; TEMP 37.9; O2SAT 94
[2022-02-03 01:59] VITALS: TEMP 38.9
[2022-02-03] MEDS: Acetaminophen 325 MG TABLET 650 MG PO (02:00)
[2022-02-03] MEDS: HYDROmorphone HCl 1 MG/ML SYRINGE 1.5 MG IVPUSH ×3 (02:03→11:37)
[2022-02-03 03:08] VITALS: TEMP 37.9
[2022-02-03 04:31] VITALS: BP 108/63; PULSE 104; RESP 18; TEMP 37.3; O2SAT 95
[2022-02-03 06:21] LABS: Hematocrit 24.2 % (42.0-52.0); Hemoglobin 8.3 g/dl (14.0-18.0); Mean Corpuscular HGB Conc 34.3 g/dl (31.0-36.0); Mean Corpuscular Hemoglobin 30.5 pg (27.0-33.0); Mean Platelet Volume 9.5 fL (9.4-12.4); NRBC Pct Auto 0.3 /100WBC (0.0-0.2); Platelet Count 170 X10*3/uL (160-400); Red Blood Count 2.72 X10*6/uL (4.60-5.80); Red Cell Distribution Width 14.1 % (11.0-16.0)
[2022-02-03 06:39] LABS: Anion Gap 15 (12-20); Blood Urea Nitrogen 6 mg/dL (9-16); Carbon Dioxide 26 mmol/L (22-29); Chloride 103 mmol/L (96-108); Creatinine Clr Calc Pharmacy 137.2; Estimated Glomerular Filt Rate > 60; Glucose Fasting 110 mg/dL (60-99); Potassium 4.2 mmol/L (3.3-5.1); Sodium 140 mmol/L (135-145)
[2022-02-03] MEDS: Phenytoin Sodium Extended 100 MG CAPSULE PO (07:57)
[2022-02-03] MEDS: Gabapentin 300 MG CAPSULE PO (07:57)
[2022-02-03] MEDS: Baclofen 10 MG TABLET 5 MG PO (07:57)
[2022-02-03] MEDS: Sertraline HCL 50 MG TABLET PO (07:58)
[2022-02-03] MEDS: Pentoxifylline ER 400 MG TABLET.ER PO (07:58)
[2022-02-03] MEDS: Aspirin Enteric Coated 81 MG TABLET.DR PO (07:58)
[2022-02-03] MEDS: hydrOXYzine HCL 25 MG TABLET PO (07:58)
[2022-02-03 08:00] VITALS: BP 111/68; PULSE 102; RESP 17; TEMP 37.6; O2SAT 91
[2022-02-03] MEDS: 0.9 % Sodium Chloride Flush 3 ML SYRINGE IVFLUSH (08:04)
--- NOTE | 2022-02-03 09:42 | HO.PM.IMPN ---
Subjective Subjective Date of Service: 02/03/22 Interval History: cc: right bka interval history:pain ENT Ears, Nose, Mouth, and Throat: Reports Normal hearing present Cardiovascular Cardiovascular: Reports no additional cardiovascular complaints Gastrointestinal Gastrointestinal: Reports no additional gastrointestinal complaints Neurologic Neurologic: Reports Normal hearing present Physical Exam Vital Signs: Vital Signs: Last Vital Signs Temp 99.6 F 02/03/22 08:00 Pulse 102 H 02/03/22 08:00 Resp 17 02/03/22 08:00 BP 111/68 02/03/22 08:00 Pulse Ox 91 L 02/03/22 08:00 O2 Del Method 02/03/22 09:00 O2 Flow Rate 3 01/31/22 14:31 BMI result Body Mass Index 28.8 Const: General: cooperative, healthy appearing and comfortable Orientation/consciousness: oriented to person, oriented to place and oriented to time HEENT: Head: Yes normal to inspection Neck: Neck: Yes normal visual inspection Carotids: no bruits Chest: Chest palpation & inspection: normal inspection of the chest Resp: Effort & Inspection: normal respiratory effort and able to speak in complete sentences Auscultation: clear to auscultation bilaterally, no crackles, no rales, no rhonchi and no wheezes Cardio: Rate: regular rate Rhythm: regular rhythm Heart sounds: S1 normal heart sound present and S2 normal heart sound present Bruits: no carotid bruits Peripheral pulses: Peripheral pulses 2+ throughout GI: Inspection: Yes normal to inspection Skin: Wounds: amputation site (BKA amp dressing changed. Appears to be healing extremely well.) Hair: normal Neuro: General: oriented to person, oriented to place and oriented to time Cranial nerves: Yes CN's II-XII intact bilaterally and Yes Normal hearing present Cognition (Neuro): normal cognition Motor exam (neuro): 5/5 motor strength present throughout Extrem: Other: venous exam: No significant superficial varicosities or spider telangiectasias, minimal edema General: No clubbing, No cyanosis and No edema Psych: Appearance: grossly normal Mental Status: mental status grossly normal Speech and movement: Normal speech and movement present Objective Data Active Medications Acetaminophen (Acetaminophen 325 Mg Tablet) 650 mg PO Q6H PRN PRN Reason: fever Last Admin: 02/03/22 02:00 Dose: 650 mg Documented By: MARGARITOQC Albuterol Sulfate (Albuterol Sulfate (0.083%) 2.5 Mg/3 Ml Vial.Neb) 2.5 mg INHALE ONCE PRN PRN Reason: Shortness of Breath/Wheezing Aspirin (Aspirin Enteric Coated 81 Mg Tablet.Dr) 81 mg PO DAILY [facility] Last Admin: 02/03/22 07:58 Dose: 81 mg Documented By: SOLEDAD Baclofen (Baclofen 10 Mg Tablet) 5 mg PO TID [facility] Last Admin: 02/03/22 07:57 Dose: 5 mg Documented By: SOLEDAD Gabapentin (Gabapentin 300 Mg Capsule) 300 mg PO TID [facility] Last Admin: 02/03/22 07:57 Dose: 300 mg Documented By: SOLEDAD Hydromorphone HCl (Hydromorphone Hcl 1 Mg/Ml Syringe) 1.5 mg IVPUSH Q3H PRN; Protocol PRN Reason: moderate pain Last Admin: 02/03/22 07:58 Dose: 1.5 mg Documented By: SOLEDAD Hydroxyzine HCl (Hydroxyzine Hcl 25 Mg Tablet) 25 mg PO BID [facility] Last Admin: 02/03/22 07:58 Dose: 25 mg Documented By: SOLEDAD Promethazine HCl 6.25 mg/ (Sodium Chloride) 50.25 mls @ 201 mls/hr IV ONCE PRN PRN Reason: Nausea and Vomiting Oxycodone HCl (Oxycodone Hcl Immed Release 5 Mg Tablet) 5 mg PO Q4H PRN PRN Reason: Pain, Moderate (Pain Scale 4-6 Last Admin: 01/31/22 20:34 Dose: 5 mg Documented By: SHALINI Pentoxifylline (Pentoxifylline Er 400 Mg Tablet.Er) 400 mg PO TID [facility] Last Admin: 02/03/22 07:58 Dose: 400 mg Documented By: SOLEDAD Phenytoin Sodium (Phenytoin Sodium Extended 100 Mg Capsule) 100 mg PO TID [facility] Last Admin: 02/03/22 07:57 Dose: 100 mg Documented By: SOLEDAD Quetiapine Fumarate (Quetiapine Fumarate 200 Mg Tablet) 200 mg PO BEDTIME [facility] Last Admin: 02/02/22 20:56 Dose: 200 mg Documented By: VICKIE Sertraline HCl (Sertraline Hcl 50 Mg Tablet) 50 mg PO DAILY [facility] Last Admin: 02/03/22 07:58 Dose: 50 mg Documented By: SOLEDAD Sodium Chloride (0.9 % Sodium Chloride Flush 3 Ml Syringe) 3 ml IVFLUSH QSHIFT [facility] Last Admin: 02/03/22 08:04 Dose: 3 ml Documented By: SOLEDAD Labs CBC & Chem 7: 02/03/22 05:19 02/03/22 05:19 Labs: Laboratory Results - last 24 hr 01/31/22 02/03/22 02/03/22 06:37 05:19 05:19 MCV 89.0 MCH 30.5 MCHC 34.3 RDW 14.1 Plt Count 170 MPV 9.5 Absolute Nucleated RBC 0.030 H Nucleated RBC % (auto) 0.3 H Anion Gap 15 Estim Creat Clear Calc 137.2 Estimated GFR > 60 Fasting Glucose 110 H Calcium 8.0 L Blood Type A Positive Antibody Screen NEGATIVE Crossmatch See Detail Microbiology Microbiology Results: Microbiology 02/01/22 10:10 Blood Culture - Preliminary Blood - Venous No growth after 24 hours. 02/01/22 10:10 Blood Culture - Preliminary Blood - Venous No growth after 24 hours. Assessment and Plan (1) S/P BKA (below knee amputation): Status: Acute Plan 61M pmh epilepsy, etoh dependence, pvd with non healing rle wound, mood disorder, presented for right bka, postoperative period complicated by hypotension, acute blood loss anemia and fevers PVD s/p right bka 01/31/22 pod 3 pain better controlled continue dilaudid restart asa, eliquis when okay from surgical perspective hypotension due to acute blood loss anemia improved with 1 unit prbc will transfuse 1 more unit prbc fevers ? due to surgery vs transfusion doubt sepsis blood cultures negative, cxr, ua negative repeat flu/rsv/covid pcr ID eval epilepsy dilantin mood disorder seroquel Quality Stroke Does the patient have a stroke diagnosis?: No VTE Prior VTE?: No VTE Risk Level:: Medical - moderate - high VTE Device Contraindication: Treatment Not Indicated VTE Drug Contraindication: N/A - Med Ordered
[2022-02-03 10:13] LABS: COVID-19 Test Negative (Negative); IDNOW Serial# BCCEAD1C
--- NOTE | 2022-02-03 10:14 | P.DS_ITS ---
DS: Providers Provider Date of Service: 02/03/22 Date of admission: 01/31/22 06:06 Primary care physician: Shilpa Bynum MD Consults: 01/31/22 09:52 Consult to Hospitalist Routine Consulting Provider: Hospitalist Reason For Exam: Medical management 02/03/22 09:40 Consult to Infectious Diseases Routine Consulting Provider: Marilin Haque Reason for consultation: post op fevers without clear source DS: Diagnosis Discharge Diagnosis (1) S/P BKA (below knee amputation): Status: Acute DS: Summary Hospital Course Hospital Course: Patient was admitted on MondayJanuary 31 and underwent elective right below- knee amputation. Complex operation with significant wounds. There was a fair amount of blood loss from the procedure. Postoperatively he did require 1 unit of blood and as he stabilized a 2nd unit was given the following day. He had no postoperative issues. Pain was reasonably well controlled. He was working with physical therapy. He has good range of motion of that knee. Dressing was changed in incision line appears to be healing well. On postop day 3 he was subsequently discharged. He will return to his long-term facility. Status at Discharge Overall status at discharge: patient is back to baseline Time Spent with Patient Time attestation: Total time spent providing and/or coordinating discharge services: Discharge coordination time: Greater than 30 minutes Quality: Safe Use of Opioids Does Pt have an Active Cancer Diagnosis on the Problem List?: No Quality: Stroke Does the patient have a stroke diagnosis?: No Physical Exam Vital Signs: Vital Signs: Last Vital Signs Temp 99.6 F 02/03/22 08:00 Pulse 102 H 02/03/22 08:00 Resp 17 02/03/22 08:00 BP 111/68 02/03/22 08:00 Pulse Ox 91 L 02/03/22 08:00 O2 Del Method 02/03/22 09:00 O2 Flow Rate 3 01/31/22 14:31 BMI result Body Mass Index 28.8 Const: General: cooperative, healthy appearing and no acute distress Orientation/consciousness: oriented to person, oriented to place and oriented to time HEENT: Head: Yes normal to inspection Neck: Carotids: no bruits Chest: Chest palpation & inspection: normal inspection of the chest Resp: Effort & Inspection: normal respiratory effort and able to speak in complete sentences Auscultation: clear to auscultation bilaterally Cardio: Rate: regular rate Heart sounds: S1 normal heart sound present and S2 normal heart sound present GI: Inspection: Yes normal to inspection Skin: General skin exam: no rashes or lesions noted Wounds: amputation site (Incision line healing well) Neuro: General: oriented to person, oriented to place, oriented to time and CN's II-XI intact bilaterally Extrem: General: Yes normal to inspection, Yes full ROM and Yes no clubbing, cyanosis or edema Psych: Appearance: grossly normal and well kempt Speech and movement: Normal speech and movement present Affect: normal affect DS: Data Data Completed and Pending Completed studies during hospitalization [Text1]: Pending at discharge 01/31/22 08:27 Surgical [PTH] Routine Procedures Excision of Right Lower Leg Muscle, Open Approach (10/25/21) Excision of Right Upper Leg Skin, External Approach (05/19/21) Replacement of Right Lower Leg Skin with Autologous Tissue Substitute, Partial Thickness, External Approach (05/19/21) Labs on day of discharge: Laboratory Results - last 24 hr 01/31/22 02/03/22 02/03/22 06:37 05:19 05:19 WBC 12.0 H RBC 2.72 L Hgb 8.3 L Hct 24.2 L MCV 89.0 MCH 30.5 MCHC 34.3 RDW 14.1 Plt Count 170 MPV 9.5 Absolute Nucleated RBC 0.030 H Nucleated RBC % (auto) 0.3 H Sodium 140 Potassium 4.2 Chloride 103 Carbon Dioxide 26 Anion Gap 15 BUN 6 L Creatinine 0.69 Estim Creat Clear Calc 137.2 Estimated GFR > 60 Fasting Glucose 110 H Calcium 8.0 L COVID-19 ([facility]) COVID-19 Clin Com Blood Type A Positive Antibody Screen NEGATIVE Crossmatch See Detail 02/03/22 09:45 WBC RBC Hgb Hct MCV MCH MCHC RDW Plt Count MPV Absolute Nucleated RBC Nucleated RBC % (auto) Sodium Potassium Chloride Carbon Dioxide Anion Gap BUN Creatinine Estim Creat Clear Calc Estimated GFR Fasting Glucose Calcium COVID-19 ([facility]) Negative COVID-19 Clin Com See Note Blood Type Antibody Screen Crossmatch Preliminary micro results at discharge 02/01/22 10:10 Blood Culture - Preliminary Blood - Venous No growth after 24 hours. 02/01/22 10:10 Blood Culture - Preliminary Blood - Venous No growth after 24 hours. Discharge Plan Discharge Anticipated Discharge Date/Time: 02/03/22 09:52 Patient Disposition: Xfer SNF Discharge Diagnosis: Status post below-knee amputation Referrals: Shilpa Bynum MD [Primary Care Provider] - 1 Week Discharge Medications: New oxycodone 5 mg tablet 5 mg PO Q4H PRN (Reason: pain) Qty: 20 0RF Rx Instructions: Partial Fill upon patient request. Continued multivitamin [One Daily Multivitamin] Tablet 1 tab PO DAILY phenytoin sodium extended 100 mg capsule 1 cap PO TID aspirin 81 mg tablet,delayed release (DR/EC) 1 tab PO DAILY quetiapine 100 mg tablet 2 tab PO BEDTIME pentoxifylline 400 mg tablet extended release 1 tab PO TID gabapentin 300 mg capsule 1 cap PO TID omeprazole 20 mg capsule,delayed release(DR/EC) 1 cap PO BID hydroxyzine HCl 25 mg tablet 1 tab PO BID sertraline 50 mg tablet 1 tab PO DAILY acamprosate 333 mg tablet,delayed release (DR/EC) 1 tab PO TID tramadol 50 mg Tablet 100 mg PO Q8H PRN (Reason: Pain) bisacodyl 10 mg Suppository 10 mg MS DAILY PRN (Reason: Constipation) ibuprofen 200 mg Tablet 400 mg PO Q8H PRN (Reason: Pain) nitroglycerin [Nitrostat] 0.4 mg Tablet, Sublingual 0.4 mg SUBLINGUAL Q5M PRN (Reason: Chest Pain) Rx Instructions: do not exceed 3 doses per episode baclofen 5 mg Tablet 5 mg PO TID Saline Nasal 1 spray intranasal DAILY PRN (Reason: Nasal Congestion) naloxone 4 mg/actuation [place],Non-Aerosol 4 mg INTRANASAL USEASDIRECTD PRN (Reason: Opioid Overdose) Rx Instructions: spray 1 dose into ONE nostril; alternate nostrils w each dose until help arrives acetaminophen 325 mg tablet 650 mg PO Q4H MDD 3 GMS PRN (Reason: Pain) Discharge Orders: Discharge Order (Routine); Ordered 02/03/22 Ordered By: Jefferson Herring Diet: Advance to usual diet Activity on Discharge: As tolerated Stand Alone Forms: Patient Portal Discharge page Activity Restrictions/Additional Instructions: Wound care upon discharge: xeroform, 4x4 and Kerlix wrap to be changed daily. Please call Dr. Herring at [phone] for 2 week follow up for suture and staple removal Care Plan Goals: Ambulate from amputation Health Concerns: Status post amputation Plan of Treatment: Local wound care and eventual prosthetic fitting Assessment: Status post below-knee amputation of right like
--- NOTE | 2022-02-03 10:15 | PC.NURSE ---
Pt refusing RSV/ respiratory panel due to it needs to be nasal pharyngeal. Only rapid covid was able to be obtained
[2022-02-03 11:16] VITALS: BP 121/66; PULSE 100; RESP 17; TEMP 37.6; O2SAT 95
== END 2022-02-03 12:57 | disposition skilled nursing facility (03) | DRG 180 ==
LOC: HO.SSSA 06:10 → HO.S3 14:50
PROVIDERS: Internal Medicine; Admitting Provider Surgery Vascular Surgery; PCP Internal Medicine; Visit Provider Surgery Vascular Surgery
PROC: 0Y6H0Z1 Detachment at Right Lower Leg, High, Open Approach (ICD-10-PCS; CPT 27880; principal; 2022-01-31 07:30)
DX: I87.311 Chronic venous hypertension (idiopathic) with ulcer of right lower extremity (principal); D62 Acute posthemorrhagic anemia; G62.1 Alcoholic polyneuropathy; J45.20 Mild intermittent asthma, uncomplicated; G40.909 Epilepsy, unspecified, not intractable, without status epilepticus; F10.11 Alcohol abuse, in remission; F32.A Depression, unspecified; I95.81 Postprocedural hypotension; I10 Essential (primary) hypertension; R50.82 Postprocedural fever; L97.919 Non-pressure chronic ulcer of unspecified part of right lower leg with unspecified severity; F17.210 Nicotine dependence, cigarettes, uncomplicated; Z20.822 Contact with and (suspected) exposure to COVID-19; Z71.6 Tobacco abuse counseling; Z88.5 Allergy status to narcotic agent; Z88.8 Allergy status to other drugs, medicaments and biological substances; Z79.82 Long term (current) use of aspirin; Z79.899 Other long term (current) drug therapy
CPT/HCPCS: 36415; 71045; 80048; 81003; 85025; 85027; 85610; 85730; 86850; 86900; 86901; 86920; 86923; 87040; 87635; 88307; 88311; 93005; 93308; 97162; J0131; J0690; J1100; J1170; J2250; J2270; J2370; J2405; J2795; J3010; P9016

== ENCOUNTER → 2022-02-22 12:50 | Outpatient (BNVA) | payer MEDICAID, SELFPAY | PROVIDERS: PCP Internal Medicine; Visit Provider Surgery Vascular Surgery | DX: Z09 Encounter for follow-up examination after completed treatment for conditions other than malignant neoplasm (principal); G62.1 Alcoholic polyneuropathy; L03.115 Cellulitis of right lower limb; F17.210 Nicotine dependence, cigarettes, uncomplicated; Z89.511 Acquired absence of right leg below knee | CPT/HCPCS: 99212 ==

== ENCOUNTER → 2022-03-17 09:02 | Outpatient (BNVA) | payer MEDICAID, SELFPAY | PROVIDERS: PCP Internal Medicine; Visit Provider Surgery Vascular Surgery | DX: I73.9 Peripheral vascular disease, unspecified (principal); F10.20 Alcohol dependence, uncomplicated; G62.1 Alcoholic polyneuropathy; Z89.511 Acquired absence of right leg below knee | CPT/HCPCS: 99212 ==

== ENCOUNTER 2022-04-11 12:46 | Outpatient (REF) | payer MEDICAID, SELFPAY ==
--- NOTE | ~2022-04-11 | US_ITS ---
EXAMINATION: NONINVASIVE ASSESSMENT OF THE ARTERIES OF THE LEFT LOWER EXTREMITY INCLUDING PVR EXAM AND LOWER EXTREMITY DUPLEX CLINICAL INFORMATION: Peripheral vascular disease, unspecified COMPARISON: Ultrasound 09/16/2020 TECHNIQUE: Ankle pulse volume recordings, ankle pressure measurements and ankle brachial indices were obtained of the left lower extremity arterial system in addition to duplex Doppler techniques with wave form analysis and measurement of velocities in the common femoral, profunda femoral, superficial femoral, popliteal, tibial and peroneal arteries. The study was performed only at rest. FINDINGS: Right brachial pressure: 113 mmHg LEFT LE. Left Ankle-Brachial Index: 1.25 (higher of the DP/PT) >0.97-1.25 = normal - no significant arterial disease 0.75-0.96 = mild peripheral arterial disease 0.5-0.74 = moderate peripheral arterial disease <0.50 = severe peripheral arterial disease <0.30 = critical arterial disease 2. Segmental Pressures: Brachial: 120 Ankle: PT 147, DP 150 3. PVR Waveforms: Ankle: Unremarkable 4. Direct Duplex: Common femoral artery: 128 cm/s, Multiphasic Profunda femoris artery: 106 cm/s, Multiphasic Superficial femoral artery (proximal): 102 cm/s, Multiphasic Superficial femoral artery (mid): 104 cm/s, Multiphasic Superficial femoral artery (distal): 104 cm/s, Multiphasic There is a collateral vessel originating from the distal superficial femoral artery with peak systolic velocity 63.5 cm/s and a multiphasic waveform. Proximal Popliteal artery: 72.4 cm/s, Multiphasic Mid posterior tibial artery: 79.6 cm/s, Multiphasic Peroneal artery: 31.4 cm/s, Multiphasic US/US arterial duplex LE LT IMPRESSION: Left WILLIAMS is 1.25. PVR is unremarkable. There is multiphasic flow throughout the left lower extremity.
--- NOTE | ~2022-04-11 | US_ITS ---
EXAMINATION: NONINVASIVE ASSESSMENT OF THE ARTERIES OF THE LEFT LOWER EXTREMITY INCLUDING PVR EXAM AND LOWER EXTREMITY DUPLEX CLINICAL INFORMATION: Peripheral vascular disease, unspecified COMPARISON: Ultrasound 09/16/2020 TECHNIQUE: Ankle pulse volume recordings, ankle pressure measurements and ankle brachial indices were obtained of the left lower extremity arterial system in addition to duplex Doppler techniques with wave form analysis and measurement of velocities in the common femoral, profunda femoral, superficial femoral, popliteal, tibial and peroneal arteries. The study was performed only at rest. FINDINGS: Right brachial pressure: 113 mmHg LEFT LE. Left Ankle-Brachial Index: 1.25 (higher of the DP/PT) >0.97-1.25 = normal - no significant arterial disease 0.75-0.96 = mild peripheral arterial disease 0.5-0.74 = moderate peripheral arterial disease <0.50 = severe peripheral arterial disease <0.30 = critical arterial disease 2. Segmental Pressures: Brachial: 120 Ankle: PT 147, DP 150 3. PVR Waveforms: Ankle: Unremarkable 4. Direct Duplex: Common femoral artery: 128 cm/s, Multiphasic Profunda femoris artery: 106 cm/s, Multiphasic Superficial femoral artery (proximal): 102 cm/s, Multiphasic Superficial femoral artery (mid): 104 cm/s, Multiphasic Superficial femoral artery (distal): 104 cm/s, Multiphasic There is a collateral vessel originating from the distal superficial femoral artery with peak systolic velocity 63.5 cm/s and a multiphasic waveform. Proximal Popliteal artery: 72.4 cm/s, Multiphasic Mid posterior tibial artery: 79.6 cm/s, Multiphasic Peroneal artery: 31.4 cm/s, Multiphasic US/US WILLIAMS complete IMPRESSION: Left WILLIAMS is 1.25. PVR is unremarkable. There is multiphasic flow throughout the left lower extremity.
== END 2022-04-11 12:47 | disposition home or self-care (01) ==
LOC: HO.US 12:46
PROVIDERS: PCP Internal Medicine; Visit Provider Surgery Vascular Surgery
DX: I70.212 Atherosclerosis of native arteries of extremities with intermittent claudication, left leg (principal)
CPT/HCPCS: 93923; 93926

== ENCOUNTER → 2022-04-26 10:39 | Outpatient (BNVA) | payer MEDICAID, SELFPAY | PROVIDERS: PCP Internal Medicine; Visit Provider Surgery Vascular Surgery | DX: L53.9 Erythematous condition, unspecified (principal); I73.9 Peripheral vascular disease, unspecified; Z89.511 Acquired absence of right leg below knee; Z79.2 Long term (current) use of antibiotics | CPT/HCPCS: 99212 ==

== ENCOUNTER → 2022-05-26 13:25 | Outpatient (BNVA) | payer MEDICAID, SELFPAY | PROVIDERS: PCP Internal Medicine; Visit Provider Surgery Vascular Surgery | DX: Z89.511 Acquired absence of right leg below knee (principal) | CPT/HCPCS: 99212 ==

== ENCOUNTER 2022-06-22 05:39 | Emergency (ER) | payer MEDICAID, SELFPAY ==
--- NOTE | ~2022-06-22 | XR_ITS ---
EXAMINATION: XR CHEST CLINICAL INFORMATION: Chest pain COMPARISON: Previous chest x-ray most recent January 2022 TECHNIQUE: Frontal view of the chest was obtained. FINDINGS: The cardiac and mediastinal contours are stable. The lungs are clear. No pleural effusion or pneumothorax. Degenerative changes of the spine. XR/XR chest 1V IMPRESSION: No evidence for acute disease in the chest.
[2022-06-22 05:47] VITALS: BP 118/75; BP 118/79; PULSE 77; PULSE 80; RESP 18; TEMP 36.9; O2SAT 97; O2SAT 98; BMI 31.2
--- NOTE | 2022-06-22 05:58 | ECG_ITS ---
Test Reason : CHEST PAIN Blood Pressure : / mmHG Vent. Rate : 078 BPM Atrial Rate : 078 BPM P-R Int : 140 ms QRS Dur : 100 ms QT Int : 378 ms P-R-T Axes : 039 -31 016 degrees QTc Int : 430 ms Normal sinus rhythm Left axis deviation Minimal voltage criteria for LVH, may be normal variant ( R in aVL ) Abnormal ECG When compared with ECG of 02-FEB-2022 00:13, Vent. rate has decreased BY [address] no longer depressed in Anterolateral leads Nonspecific T wave abnormality now evident in Inferior leads Referred By: Nasreen Hidalgo Electronically Signed By:Rafat Haider
[2022-06-22 05:59] LABS: MANUAL DIFF FLAG NO
[2022-06-22 06:00] LABS: Basophils Absolute Auto 0.1 X10*3/uL (0.0-0.2); Eosinophils Absolute Auto 0.4 X10*3/uL (0.0-0.4); Hematocrit 34.3 % (42.0-52.0); Hemoglobin 10.5 g/dl (14.0-18.0); Imm Gran Abs Auto 0.02 X10*3/uL (0.00-0.03); Imm Gran Pct Auto 0.3 % (0.0-0.4); Lymphocytes Absolute Auto 2.8 X10*3/uL (1.2-4.9); Lymphocytes Percent Auto 45.6 % (20-40); Mean Corpuscular HGB Conc 30.6 g/dl (31.0-36.0); Mean Corpuscular Hemoglobin 25.1 pg (27.0-33.0); Mean Corpuscular Volume 81.9 fL (80.0-98.0); Mean Platelet Volume 8.7 fL (9.4-12.4); Monocytes Absolute Auto 0.6 X10*3/uL (0.1-1.2); Monocytes Percent Auto 9.9 % (2-11); Neutrophils Absolute Auto 2.3 x10*3/uL (2.0-8.3); Neutrophils Percent Auto 37.2 % (45-73); Platelet Count 238 X10*3/uL (160-400); Red Blood Count 4.19 X10*6/uL (4.60-5.80); Red Cell Distribution Width 19.1 % (11.0-16.0); White Blood Count 6.2 X10*3/uL (4.8-10.8)
--- NOTE | 2022-06-22 06:11 | ED.CHESTPAIN ---
HPI - Chest Pain General Chief Complaint: Chest Pain Stated Complaint: CP Time Seen by Provider: 06/22/22 05:48 History of Present Illness HPI narrative: Patient is a 61-year-old male presents today with having chest pain. The chest pain is over on the right side. Patient has a history of alcohol abuse. History of peripheral vascular disease. History of hypertension. History of seizures. 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 Denies any coughing congestion upper respiratory symptoms. No fever no chills. Chest pain has been consistent since last night. Patient woke up this morning the pain is still there. Patient is on Eliquis for previous history of DVT Related Data Home Medications Medication Instructions Recorded Confirmed acamprosate 333 mg tablet,delayed 1 tab PO TID 05/26/20 01/31/22 release aspirin 81 mg tablet,delayed 1 tab PO DAILY 05/26/20 01/31/22 release gabapentin 300 mg capsule 1 cap PO TID neck pain 05/26/20 01/31/22 hydroxyzine HCl 25 mg tablet 1 tab PO BID 05/26/20 01/31/22 multivitamin (One Daily 1 tab PO DAILY 05/26/20 01/31/22 Multivitamin tablet) omeprazole 20 mg capsule,delayed 1 cap PO BID 05/26/20 01/31/22 release pentoxifylline 400 mg 1 tab PO TID 05/26/20 01/31/22 tablet,extended release phenytoin sodium extended 100 mg 1 cap PO TID 05/26/20 01/31/22 capsule quetiapine 100 mg tablet 2 tab PO BEDTIME 05/26/20 01/31/22 sertraline 50 mg tablet 1 tab PO DAILY 05/26/20 01/31/22 acetaminophen 325 mg tablet 650 mg PO Q4H PRN Pain 07/30/20 01/31/22 Saline Nasal 1 spray intranasal DAILY PRN Nasal 05/17/21 01/31/22 Congestion baclofen 5 mg tablet 5 mg PO TID 05/17/21 01/31/22 bisacodyl 10 mg rectal suppository 10 mg IN DAILY PRN Constipation 05/17/21 01/31/22 ibuprofen 200 mg tablet 400 mg PO Q8H PRN Pain 05/17/21 01/31/22 naloxone 4 mg/actuation nasal spray 4 mg intranasal USEASDIRECTD PRN 05/17/21 01/31/22 Opioid Overdose nitroglycerin 0.4 mg sublingual 0.4 mg sublingual Q5M PRN Chest 05/17/21 01/31/22 tablet (Nitrostat) Pain tramadol 50 mg tablet 100 mg PO Q8H PRN Pain 10/25/21 01/31/22 Previous Rx's Medication Instructions Recorded oxycodone 5 mg tablet 5 mg PO Q4H PRN pain #20 tabs 02/03/22 Allergies Allergy/AdvReac Type Severity Reaction Status Date / Time moxifloxacin Allergy Mild Hives Verified 06/22/22 05:52 morphine [Morphine] AdvReac Mild SWELLING, Verified 06/22/22 05:52 ITCHING codeine [Codeine] AdvReac Unknown ITCHING, Verified 06/22/22 05:52 HIVES Review of Systems Review of Systems: Positive chest pain Yes all other systems are reviewed and are negative PMFSH Past Medical History Attestation statement: The following information was validated with the patient. Medical History Alcohol abuse Alcoholic polyneuropathy Anxiety disorder Asthma Cellulitis of right lower limb Epilepsy Gastric ulcer Hypertension Mild intermittent asthma Other abnormalities of gait and mobility Repeated falls Venous stasis ulcer Weakness Surgical History History of back surgery History of colonoscopy History of nasal surgery History of skin graft Hx laparoscopic cholecystectomy Social History Social History (Updated 05/26/22 @ 13:33 by HOWARD Owusu) Household Members: None Household Members Other:: [facility] Housing: Assisted Living Facility Housing Other:: [facility] Alcohol intake: current Alcohol intake frequency: does not drink Patient Tobacco Use Status: Current everyday Tobacco user Tobacco use type: Cigarette Cigarettes Per Day: 0 Advance Directives: No Advance Directives Information Provided: Yes service: No Current occupational status: unemployed and disabled Physical Exam Vital Signs: Vital Signs: Last Vital Signs Temp 98.5 F 06/22/22 05:47 Pulse 77 06/22/22 05:47 Resp 18 06/22/22 05:47 BP 118/75 06/22/22 05:47 Pulse Ox 97 06/22/22 05:47 O2 Del Method Room Air 06/22/22 05:47 BMI result Body Mass Index 31.2 Appearance: Alert. Oriented X3. No acute distress. Eyes: Pupils equal, round and reactive to light. ENT: Pharynx normal. Neck: Normal inspection. Neck supple. No lymph nodes noted. No crepitus CVS: Normal heart rate and rhythm. Pulses normal. Normal S1 and S2 Respiratory: No respiratory distress. Breath sounds normal. No Wheezing. No rales Abdomen: Soft and nontender. No rigidity. No distention. good BS x4 Skin: Skin warm and dry. Normal skin color. Normal skin turgor. Extremities: No lower extremity edema. Neurovascular intact to all extremities. No Lacerations. No Rash Neuro: Oriented X 3. No motor deficit. No sensory deficit. Moving all extermities. No slurred speech Medical Decision Making Medical Decision Making [facility] Narrative: Positive chest pain constant since last night with a history of peripheral vascular disease. My interpretation patient's EKG showed a sinus pattern heart rate was 80 IN QRS QT within normal limits there is no acute ST segment elevation noted. Patient's EKG is unchanged from another EKG from 01/31/2022. One set enzyme will be sent. Chest x-ray pending. Patient's D-dimer negative in the setting of taking Eliquis unlikely to have PE. Patient's 1st set of troponin is negative. EKG is unchanged. History not consistent with ACS. Will get 2 more sets of enzymes monitor carefully. Differential Diagnosis ACS, PE, pneumonia, rib fracture, Lab Data [facility] Lab Attestation statement: I reviewed the patient's lab results. 06/22/22 05:54 06/22/22 05:54 Labs: Lab Results 06/22/22 06/22/22 06/22/22 Range/Units 05:54 05:54 05:54 WBC 6.2 (4.8-10.8) X10*3/uL RBC 4.19 L D (4.60-5.80) X10*6/uL Hgb 10.5 L D (14.0-18.0) g/dl Hct 34.3 L D (42.0-52.0) % MCV 81.9 (80.0-98.0) fL MCH 25.1 L (27.0-33.0) pg MCHC 30.6 L (31.0-36.0) g/dl RDW 19.1 H (11.0-16.0) % Plt Count 238 D (160-400) X10*3/uL MPV 8.7 L (9.4-12.4) fL Immature Gran % (Auto) 0.3 (0.0-0.4) % Neut % (Auto) 37.2 L (45-73) % Lymph % (Auto) 45.6 H (20-40) % [place] % (Auto) 9.9 (2-11) % Eos % (Auto) 6.0 H (0-4) % Baso % (Auto) 1.0 (0-2) % Lymph # (Auto) 2.8 (1.2-4.9) X10*3/uL [place] # (Auto) 0.6 (0.1-1.2) X10*3/uL Eos # (Auto) 0.4 (0.0-0.4) X10*3/uL Baso # (Auto) 0.1 (0.0-0.2) X10*3/uL Abs Immat Gran (auto) 0.02 (0.00-0.03) X10*3/uL Absolute Neuts (auto) 2.3 (2.0-8.3) x10*3/uL Absolute Nucleated RBC 0.000 (0.0-0.012) X10*3/uL Nucleated RBC % (auto) 0.0 (0.0-0.2) /100WBC D-Dimer High Sensitivty < 150 NG/ML Sodium 146 H (135-145) mmol/L Potassium 4.0 (3.3-5.1) mmol/L Chloride 109 H (96-108) mmol/L Carbon Dioxide 30 H (22-29) mmol/L Anion Gap 11 L (12-20) BUN 17 H (9-16) mg/dL Creatinine 0.76 (0.5-1.4) mg/dL Estim Creat Clear Calc 125.5 Estimated GFR > 60 Random Glucose 121 H (60-115) mg/dL Calcium 8.6 D (8.4-10.2) mg/dL Total Bilirubin 0.2 (0.0-1.0) mg/dL AST 11 (5-37) U/L ALT 10 (0-40) U/L Alkaline Phosphatase 163 H (39-117) U/L Troponin I High Sens (<3.5-35.0) ng/L Total Protein 7.5 (6.5-8.0) g/dL Albumin 3.9 (3.5-5.0) g/dL Ethyl Alcohol < 10 mg/dL 06/22/22 Range/Units 05:54 WBC (4.8-10.8) X10*3/uL RBC (4.60-5.80) X10*6/uL Hgb (14.0-18.0) g/dl Hct (42.0-52.0) % MCV (80.0-98.0) fL MCH (27.0-33.0) pg MCHC (31.0-36.0) g/dl RDW (11.0-16.0) % Plt Count (160-400) X10*3/uL MPV (9.4-12.4) fL Immature Gran % (Auto) (0.0-0.4) % Neut % (Auto) (45-73) % Lymph % (Auto) (20-40) % [place] % (Auto) (2-11) % Eos % (Auto) (0-4) % Baso % (Auto) (0-2) % Lymph # (Auto) (1.2-4.9) X10*3/uL [place] # (Auto) (0.1-1.2) X10*3/uL Eos # (Auto) (0.0-0.4) X10*3/uL Baso # (Auto) (0.0-0.2) X10*3/uL Abs Immat Gran (auto) (0.00-0.03) X10*3/uL Absolute Neuts (auto) (2.0-8.3) x10*3/uL Absolute Nucleated RBC (0.0-0.012) X10*3/uL Nucleated RBC % (auto) (0.0-0.2) /100WBC D-Dimer High Sensitivty NG/ML Sodium (135-145) mmol/L Potassium (3.3-5.1) mmol/L Chloride (96-108) mmol/L Carbon Dioxide (22-29) mmol/L Anion Gap (12-20) BUN (9-16) mg/dL Creatinine (0.5-1.4) mg/dL Estim Creat Clear Calc Estimated GFR Random Glucose (60-115) mg/dL Calcium (8.4-10.2) mg/dL Total Bilirubin (0.0-1.0) mg/dL AST (5-37) U/L ALT (0-40) U/L Alkaline Phosphatase (39-117) U/L Troponin I High Sens < 2.7 (<3.5-35.0) ng/L Total Protein (6.5-8.0) g/dL Albumin (3.5-5.0) g/dL Ethyl Alcohol mg/dL Independent Interpretation I performed an independent interpretation of an: EKG Interpretation: Sinus heart rate is 80 IN QRS QT within normal limits there is no acute ST segment elevation noted Discharge Plan Discharge Clinical Impression: Chest pain Patient Disposition: Still a Patient Prescriptions: No Action multivitamin [One Daily Multivitamin] Tablet 1 tab PO DAILY phenytoin sodium extended 100 mg capsule 1 cap PO TID aspirin 81 mg tablet,delayed release (DR/EC) 1 tab PO DAILY quetiapine 100 mg tablet 2 tab PO BEDTIME pentoxifylline 400 mg tablet extended release 1 tab PO TID gabapentin 300 mg capsule 1 cap PO TID omeprazole 20 mg capsule,delayed release(DR/EC) 1 cap PO BID hydroxyzine HCl 25 mg tablet 1 tab PO BID sertraline 50 mg tablet 1 tab PO DAILY acamprosate 333 mg tablet,delayed release (DR/EC) 1 tab PO TID tramadol 50 mg Tablet 100 mg PO Q8H PRN (Reason: Pain) bisacodyl 10 mg Suppository 10 mg IN DAILY PRN (Reason: Constipation) ibuprofen 200 mg Tablet 400 mg PO Q8H PRN (Reason: Pain) nitroglycerin [Nitrostat] 0.4 mg Tablet, Sublingual 0.4 mg SUBLINGUAL Q5M PRN (Reason: Chest Pain) Rx Instructions: do not exceed 3 doses per episode baclofen 5 mg Tablet 5 mg PO TID Saline Nasal 1 spray intranasal DAILY PRN (Reason: Nasal Congestion) naloxone 4 mg/actuation [place],Non-Aerosol 4 mg INTRANASAL USEASDIRECTD PRN (Reason: Opioid Overdose) Rx Instructions: spray 1 dose into ONE nostril; alternate nostrils w each dose until help arrives oxycodone 5 mg tablet 5 mg PO Q4H PRN (Reason: pain) Qty: 20 0RF Rx Instructions: Partial Fill upon patient request. acetaminophen 325 mg tablet 650 mg PO Q4H MDD 3 GMS PRN (Reason: Pain)
[2022-06-22 06:18] LABS: Anion Gap 11 (12-20)
[2022-06-22 06:23] LABS: Alanine Aminotransferase 10 U/L (0-40); Albumin Level 3.9 g/dL (3.5-5.0); Alkaline Phosphatase 163 U/L (39-117); Aspartate Amino Transferase 11 U/L (5-37); Bilirubin Total 0.2 mg/dL (0.0-1.0); Blood Urea Nitrogen 17 mg/dL (9-16); Calcium 8.6 mg/dL (8.4-10.2); Carbon Dioxide 30 mmol/L (22-29); Chloride 109 mmol/L (96-108); Creatinine Clr Calc Pharmacy 125.5; Estimated Glomerular Filt Rate > 60; Ethanol < 10 mg/dL; Glucose Random 121 mg/dL (60-115); Sodium 146 mmol/L (135-145); Total Protein 7.5 g/dL (6.5-8.0); Troponin-I High Sensitivity < 2.7 ng/L (<3.5-35.0)
[2022-06-22 06:25] LABS: D Dimer High Sensitivity < 150 NG/ML
[2022-06-22 07:19] VITALS: BP 115/70; PULSE 76; RESP 11; O2SAT 98
[2022-06-22 08:06] LABS: Troponin-I High Sensitivity < 2.7 ng/L (<3.5-35.0)
--- NOTE | 2022-06-22 09:57 | PC.NURSE ---
Awaiting EMS transport back to [facility]
[2022-06-22 10:12] VITALS: BP 125/72; PULSE 76; RESP 13; O2SAT 96
== END 2022-06-22 11:00 | disposition home or self-care (01) ==
PROVIDERS: Emergency Medicine Emergency Medical Services; Emergency Provider Emergency Medicine; PCP Internal Medicine
DX: R07.89 Other chest pain (principal); Z79.899 Other long term (current) drug therapy
CPT/HCPCS: 36415; 71045; 80053; 82077; 84484; 85025; 85379; 93005; 99284

== ENCOUNTER → 2022-06-28 12:50 | Outpatient (BNVA) | payer MEDICAID, SELFPAY | PROVIDERS: PCP Internal Medicine; Visit Provider Surgery Vascular Surgery | DX: I73.9 Peripheral vascular disease, unspecified (principal); Z89.511 Acquired absence of right leg below knee; Z59.01 Sheltered homelessness | CPT/HCPCS: 99212 ==

== ENCOUNTER 2022-09-27 09:30 | Outpatient (REF) | payer MEDICAID, SELFPAY ==
--- NOTE | ~2022-09-27 | US_ITS ---
EXAMINATION: ANKLE-BRACHIAL INDEX LEFT LEG SINGLE LEVEL PULSE VOLUME RECORDING ARTERIAL DUPLEX LEFT LEG CLINICAL INFORMATION: Peripheral vascular disease. COMPARISON: None TECHNIQUE: Ankle-brachial index and PVR at the ankle were obtained. Duplex Doppler of the left lower extremity arterial system was performed. FINDINGS: LEFT: Ankle-brachial index: 1.24 PVR: Normal Common femoral: PSV 170 cm/s. Triphasic waveform. Deep femoral: PSV 108 cm/s. Triphasic waveform. Proximal superficial femoral: PSV 120 cm/s. Triphasic waveform. Mid superficial femoral: PSV 100 cm/s. Triphasic waveform. Distal superficial femoral: PSV 89 cm/s. Triphasic waveform. Popliteal: PSV 111 cm/s. Triphasic waveform. Posterior tibial: PSV 108 cm/s. Triphasic waveform. US/US WILLIAMS complete IMPRESSION: No evidence of hemodynamically significant peripheral arterial disease.
--- NOTE | ~2022-09-27 | US_ITS ---
EXAMINATION: ANKLE-BRACHIAL INDEX LEFT LEG SINGLE LEVEL PULSE VOLUME RECORDING ARTERIAL DUPLEX LEFT LEG CLINICAL INFORMATION: Peripheral vascular disease. COMPARISON: None TECHNIQUE: Ankle-brachial index and PVR at the ankle were obtained. Duplex Doppler of the left lower extremity arterial system was performed. FINDINGS: LEFT: Ankle-brachial index: 1.24 PVR: Normal Common femoral: PSV 170 cm/s. Triphasic waveform. Deep femoral: PSV 108 cm/s. Triphasic waveform. Proximal superficial femoral: PSV 120 cm/s. Triphasic waveform. Mid superficial femoral: PSV 100 cm/s. Triphasic waveform. Distal superficial femoral: PSV 89 cm/s. Triphasic waveform. Popliteal: PSV 111 cm/s. Triphasic waveform. Posterior tibial: PSV 108 cm/s. Triphasic waveform. US/US arterial duplex LE LT IMPRESSION: No evidence of hemodynamically significant peripheral arterial disease.
== END 2022-09-27 09:31 | disposition home or self-care (01) ==
LOC: HO.US 09:30
PROVIDERS: PCP Internal Medicine; Visit Provider Surgery Vascular Surgery
DX: I73.9 Peripheral vascular disease, unspecified (principal)
CPT/HCPCS: 93923; 93926

== ENCOUNTER 2023-01-12 12:58 | Outpatient (AMB) | payer MEDICAID, SELFPAY ==
--- NOTE | 2023-01-12 13:03 | A.OFFVIS_ITS ---
Intake Vital Signs 01/12/23 13:06 Height 5 ft 11 in Weight 241 lb BMI 33.6 Intake Visit Reasons: Follow Up Arterial US Intake Note: Pt here for a arterial US fu on 09/27/22 and hx of right BKA .Pt syas he has been having issues with his stump he says that hes been getting blisters and bleeding and leaking puss from it its been going on for a few weeks Plaster Machine Tender Required: Yes Plaster Machine Tender Name: niko santos Information Interpreted: clinical only Allergies moxifloxacin Allergy (Mild, Verified 01/12/23 13:07) Hives morphine [Morphine] Adverse Reaction (Mild, Verified 01/12/23 13:07) SWELLING, ITCHING codeine [Codeine] Adverse Reaction (Unknown, Verified 01/12/23 13:07) ITCHING, HIVES HPI Follow Up Arterial US HPI Details Very pleasant 62-year-old gentleman presents for follow-up regarding his BKA and noninvasive arterial testing. He does note some left leg burning and occasional discomfort. He does have some nerve issues. He now presents for routine follow-up. [facility] Medical History Alcohol abuse Alcoholic polyneuropathy Anxiety disorder Asthma Cellulitis of right lower limb Epilepsy Gastric ulcer Hypertension Mild intermittent asthma Other abnormalities of gait and mobility Repeated falls Venous stasis ulcer Weakness Surgical History History of back surgery History of colonoscopy History of nasal surgery History of skin graft Hx laparoscopic cholecystectomy Social History Household Members: None Household Members Other:: long term Housing: Assisted Living Facility Housing Other:: [facility] Alcohol intake: current Alcohol intake frequency: does not drink Patient Tobacco Use Status: Current everyday Tobacco user Tobacco use type: Cigarette Cigarettes Per Day: 0 service: No Current occupational status: unemployed and disabled Review of Systems Const All systems reviewed & are unremarkable except as noted in HPI and below Reports no additional complaints ENT Reports Normal hearing present Card Denies chest pain, Denies chest pain at rest, Denies chest pain with activity and Denies pedal edema Resp Denies cough GI Denies abdominal pain Musc Denies abnormal gait, Denies muscle cramps and Denies radiating pain into limb Skin/Breast Denies skin ulcer and Denies wounds Neuro Reports Normal hearing present and Denies abnormal gait Psych Reports no additional complaints Physical Exam Vital Signs: BMI result Body Mass Index 33.6 Const General: cooperative, healthy appearing and comfortable Orientation/consciousness: oriented to person, oriented to place and oriented to time HEENT Head: Yes normal to inspection Neck Neck: Yes normal visual inspection Carotids: no bruits Chest Chest palpation & inspection: normal inspection of the chest Resp Effort & Inspection: normal respiratory effort and able to speak in complete sentences Auscultation: clear to auscultation bilaterally, no crackles, no rales, no rhonchi and no wheezes Cardio Rate: regular rate Rhythm: regular rhythm Heart sounds: S1 normal heart sound present and S2 normal heart sound present Bruits: no carotid bruits Peripheral pulses: Peripheral pulses 2+ throughout GI Inspection: Yes normal to inspection Skin Other: Right BKA stump 3 punctate ulcers which were clean Left foot no ulcers Wounds: no wounds Hair: normal Neuro General: oriented to person, oriented to place and oriented to time Cranial nerves: Yes CN's II-XII intact bilaterally and Yes Normal hearing present Cognition (Neuro): normal cognition Motor exam (neuro): 5/5 motor strength present throughout Extrem Other: venous exam: No significant superficial varicosities or spider telangiectasias, minimal edema General: No clubbing, No cyanosis and No edema Psych Appearance: grossly normal Mental Status: mental status grossly normal Speech and movement: Normal speech and movement present Results Reviewed Results Reviewed: Noninvasive testing dated 09/27/2022 demonstrates triphasic waveforms all the way down with an WILLIAMS of 1.24. Written report and images were reviewed. Assessment & Plan Assessment & Plan (1) PAD (peripheral artery disease): Comment: 01/31/2022 - right below-knee amputation Code(s): I73.9 - Peripheral vascular disease, unspecified Plan: In short left leg appears to be doing relatively well. Right side BKA stump has these punctate ulcers. I would like them to heal. 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 We will continue to closely monitor this. He is scheduled for 2 week follow-up with us. Thank you for allowing us to assist in his care. If there are any questions or concerns please do not hesitate to contact us. Coding Level of Care Code Est Pt Level 3 (81531) Diagnoses PAD (peripheral artery disease) I73.9
[2023-01-12 13:06] VITALS: BMI 33.6
== END 2023-01-12 13:45 | disposition home or self-care (01) ==
PROVIDERS: PCP Internal Medicine; Visit Provider Surgery Vascular Surgery
DX: I73.9 Peripheral vascular disease, unspecified (principal)
CPT/HCPCS: 99213

== ENCOUNTER → 2023-01-12 12:58 | Outpatient (BNVA) | payer MEDICAID, SELFPAY | PROVIDERS: PCP Internal Medicine; Visit Provider Surgery Vascular Surgery | DX: I73.9 Peripheral vascular disease, unspecified (principal) | CPT/HCPCS: 99212 ==

== ENCOUNTER 2023-01-26 10:20 | Outpatient (AMB) | payer MEDICAID, SELFPAY ==
--- NOTE | 2023-01-26 10:25 | A.OFFVIS_ITS ---
Intake Intake Visit Reasons: 2 week Right Stump check Intake Note: pt here for a right stump check after s/p right BKA Pt states that his wound is healing well and he sees the improvement Heating Worker Required: Yes Heating Worker Name: star santos Information Interpreted: non-clinical & clinical Allergies moxifloxacin Allergy (Mild, Verified 01/26/23 10:27) Hives morphine [Morphine] Adverse Reaction (Mild, Verified 01/26/23 10:27) SWELLING, ITCHING codeine [Codeine] Adverse Reaction (Unknown, Verified 01/26/23 10:27) ITCHING, HIVES HPI 2 week Right Stump check HPI Details Very pleasant 62-year-old gentleman presents for follow-up regarding his BKA. It appears to be doing relatively well but he has 3 punctate ulcers that have been nonhealing for a period of time he has been doing local dressings at his facility. Reports no significant pain or discomfort. Now for routine follow-up. PFSH Medical History Cellulitis of right lower limb Repeated falls Weakness Other abnormalities of gait and mobility Anxiety disorder Mild intermittent asthma Alcoholic polyneuropathy Venous stasis ulcer Gastric ulcer Hypertension Asthma Epilepsy Alcohol abuse Surgical History History of colonoscopy History of nasal surgery History of back surgery Hx laparoscopic cholecystectomy History of skin graft Social History Household Members: None Household Members Other:: group home Housing: Assisted Living Facility Housing Other:: [facility] Alcohol intake: current Alcohol intake frequency: does not drink Comment: Asya huerta gave report Patient Tobacco Use Status: Current everyday Tobacco user Tobacco use type: Cigarette Cigarettes Per Day: 0 service: No Current occupational status: unemployed and disabled Review of Systems Const All systems reviewed & are unremarkable except as noted in HPI and below Reports no additional complaints ENT Reports Normal hearing present Card Denies chest pain, Denies chest pain at rest, Denies chest pain with activity and Denies pedal edema Resp Denies cough GI Denies abdominal pain Musc Denies abnormal gait, Denies muscle cramps and Denies radiating pain into limb Skin/Breast Denies skin ulcer and Denies wounds Neuro Reports Normal hearing present and Denies abnormal gait Psych Reports no additional complaints Physical Exam Const General: cooperative, healthy appearing and comfortable Orientation/consciousness: oriented to person, oriented to place and oriented to time HEENT Head: Yes normal to inspection Neck Neck: Yes normal visual inspection Carotids: no bruits Chest Chest palpation & inspection: normal inspection of the chest Resp Effort & Inspection: normal respiratory effort and able to speak in complete sentences Auscultation: clear to auscultation bilaterally, no crackles, no rales, no rhonchi and no wheezes Cardio Rate: regular rate Rhythm: regular rhythm Heart sounds: S1 normal heart sound present and S2 normal heart sound present Bruits: no carotid bruits Peripheral pulses: Peripheral pulses 2+ throughout GI Inspection: Yes normal to inspection Skin Other: Right stump 3 punctate ulcers all measuring 0.1 cm Wounds: no wounds Hair: normal Neuro General: oriented to person, oriented to place and oriented to time Cranial nerves: Yes CN's II-XII intact bilaterally and Yes Normal hearing present Cognition (Neuro): normal cognition Motor exam (neuro): 5/5 motor strength present throughout Extrem Other: venous exam: No significant superficial varicosities or spider telangiectasias, minimal edema General: No clubbing, No cyanosis and No edema Psych Appearance: grossly normal Mental Status: mental status grossly normal Speech and movement: Normal speech and movement present Assessment & Plan Assessment & Plan (1) PAD (peripheral artery disease): Comment: 01/31/2022 - right below-knee amputation Code(s): I73.9 - Peripheral vascular disease, unspecified Plan: Right BKA stump appears to be doing relatively well. Will plan for local wound care. Hopefully this will be completely closed within the next 3 weeks and we can start forward with prosthetic fitting. Discussed with patient and he is in agreement. He will follow up with us in approximately 3 weeks time for wound ch carly. Thank you for allowing us to assist in his care Coding Level of Care Code Est Pt Level 3 (78620) Diagnoses PAD (peripheral artery disease) I73.9
== END 2023-01-26 10:53 | disposition home or self-care (01) ==
PROVIDERS: PCP Internal Medicine; Visit Provider Surgery Vascular Surgery
DX: I73.9 Peripheral vascular disease, unspecified (principal)
CPT/HCPCS: 99213

== ENCOUNTER → 2023-01-26 10:24 | Outpatient (BNVA) | payer MEDICAID, SELFPAY | PROVIDERS: PCP Internal Medicine; Visit Provider Surgery Vascular Surgery | DX: I73.9 Peripheral vascular disease, unspecified (principal) | CPT/HCPCS: 99212 ==

== ENCOUNTER 2023-02-16 10:50 | Outpatient (AMB) | payer MEDICAID, SELFPAY ==
--- NOTE | 2023-02-16 10:51 | MHC.OFFVIS ---
Intake Intake Visit Reasons: 3 week wound check Intake Note: 3 week right stump check s/p right BKA .Pt states that his stup has not healed much since his last visit and he is having pain Varnish Blender Required: Yes Varnish Blender Name: [email or web address] Garveygo Information Interpreted: non-clinical & clinical Allergies moxifloxacin Allergy (Mild, Verified 02/16/23 10:55) Hives morphine [Morphine] Adverse Reaction (Mild, Verified 02/16/23 10:55) SWELLING, ITCHING codeine [Codeine] Adverse Reaction (Unknown, Verified 02/16/23 10:55) ITCHING, HIVES HPI 3 week wound check HPI Details Pleasant 62-year-old gentleman presents for routine follow-up status post right BKA. He had 3 punctate ulcers that appear to have healed. He is currently in a facility. Reports that he is doing fairly well. He now presents for routine follow-up. [facility] Medical History Cellulitis of right lower limb Repeated falls Weakness Other abnormalities of gait and mobility Anxiety disorder Mild intermittent asthma Alcoholic polyneuropathy Venous stasis ulcer Gastric ulcer Hypertension Asthma Epilepsy Alcohol abuse Surgical History History of colonoscopy History of nasal surgery History of back surgery Hx laparoscopic cholecystectomy History of skin graft Social History Household Members: None Household Members Other:: intermediate Housing: Assisted Living Facility Housing Other:: [facility] Alcohol intake: current Alcohol intake frequency: does not drink Comment: Asya huerta gave report Patient Tobacco Use Status: Current everyday Tobacco user Tobacco use type: Cigarette Cigarettes Per Day: 0 service: No Current occupational status: unemployed and disabled Review of Systems Const All systems reviewed & are unremarkable except as noted in HPI and below Reports no additional complaints ENT Reports Normal hearing present Card Denies chest pain, Denies chest pain at rest, Denies chest pain with activity and Denies pedal edema Resp Denies cough GI Denies abdominal pain Musc Denies abnormal gait, Denies muscle cramps and Denies radiating pain into limb Skin/Breast Denies skin ulcer and Denies wounds Neuro Reports Normal hearing present and Denies abnormal gait Psych Reports no additional complaints Physical Exam Const General: cooperative, healthy appearing and comfortable Orientation/consciousness: oriented to person, oriented to place and oriented to time HEENT Head: Yes normal to inspection Neck Neck: Yes normal visual inspection Carotids: no bruits Chest Chest palpation & inspection: normal inspection of the chest Resp Effort & Inspection: normal respiratory effort and able to speak in complete sentences Auscultation: clear to auscultation bilaterally, no crackles, no rales, no rhonchi and no wheezes Cardio Rate: regular rate Rhythm: regular rhythm Heart sounds: S1 normal heart sound present and S2 normal heart sound present Bruits: no carotid bruits Peripheral pulses: Peripheral pulses 2+ throughout GI Inspection: Yes normal to inspection Skin Other: Right stump healed Wounds: no wounds Hair: normal Neuro General: oriented to person, oriented to place and oriented to time Cranial nerves: Yes CN's II-XII intact bilaterally and Yes Normal hearing present Cognition (Neuro): normal cognition Motor exam (neuro): 5/5 motor strength present throughout Extrem Other: venous exam: No significant superficial varicosities or spider telangiectasias, minimal edema General: No clubbing, No cyanosis and No edema Psych Appearance: grossly normal Mental Status: mental status grossly normal Speech and movement: Normal speech and movement present Assessment & Plan Assessment & Plan (1) Below-knee amputation of right lower extremity: Code(s): S88.111A - Complete traumatic amputation at level between knee and ankle, right lower leg, initial encounter Plan: In short right stump has gone on to heal. 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 Will plan for routine left lower extremity surveillance follow-up in 6 months. Thank you for allowing us to assist in his care. If there are any questions or concerns please do not hesitate to contact us. (2) PAD (peripheral artery disease): Comment: 01/31/2022 - right below-knee amputation Code(s): I73.9 - Peripheral vascular disease, unspecified Plan: Will plan for 6 month arterial surveillance on the left lower extremity. Should there be any interval issues happy to see him back sooner. Thank you for allowing us to assist in his care Orders: Orders US arterial duplex LE LT 6 Months I73.9 - Peripheral vascular disease, unspecified Coding Level of Care Code Est Pt Level 4 (72953) Diagnoses Below-knee amputation of right lower extremity S88.111A PAD (peripheral artery disease) I73.9
== END 2023-02-16 11:34 | disposition home or self-care (01) ==
PROVIDERS: PCP Internal Medicine; Visit Provider Surgery Vascular Surgery
DX: I73.9 Peripheral vascular disease, unspecified (principal); Z89.511 Acquired absence of right leg below knee
CPT/HCPCS: 99213

== ENCOUNTER → 2023-02-16 10:50 | Outpatient (BNVA) | payer MEDICAID, SELFPAY | PROVIDERS: PCP Internal Medicine; Visit Provider Surgery Vascular Surgery | DX: Z47.81 Encounter for orthopedic aftercare following surgical amputation (principal); I73.9 Peripheral vascular disease, unspecified; Z89.511 Acquired absence of right leg below knee | CPT/HCPCS: 99212 ==

== ENCOUNTER 2024-01-02 13:58 | Outpatient (AMB) | payer MEDICAID, SELFPAY ==
[2024-01-02 14:00] VITALS: BMI 33.6
--- NOTE | 2024-01-02 14:00 | A.OFFVIS_ITS ---
Vital Signs 01/02/24 14:00 Height 5 ft 11 in Weight 241 lb BMI 33.6 Intake Visit Reasons: PRN follow up non-healing BKA stump Intake Note: follow up for Right BKA stump non-healing wound, he has not gotten a prosthetic or Arterial US, states facility did not set it up. He is still residing at [facility] in [place]. Accompanied by: Self / Same As Patient Allergies moxifloxacin Allergy (Mild, Verified 01/02/24 14:03) Hives morphine [Morphine] Adverse Reaction (Mild, Verified 01/02/24 14:03) SWELLING, ITCHING codeine [Codeine] Adverse Reaction (Unknown, Verified 01/02/24 14:03) ITCHING, HIVES HPI HPI PRN follow up non-healing BKA stump: Details: Very pleasant 63-year-old gentleman presents for follow-up regarding nonhealing right BKA stump. It had actually gone on to heal and it was actually done back in 2021. He has a new focal area of ulceration right in the center of that stump. Of note he was due for routine arterial surveillance of the left lower extremity. Now presents for routine follow-up and stump check. PFSH Medical History Cellulitis of right lower limb Repeated falls Weakness Other abnormalities of gait and mobility Anxiety disorder Mild intermittent asthma Alcoholic polyneuropathy Venous stasis ulcer Gastric ulcer Hypertension Asthma Epilepsy Alcohol abuse Surgical History History of colonoscopy History of nasal surgery History of back surgery Hx laparoscopic cholecystectomy History of skin graft Social History Household Members: None Household Members Other:: penitentiary Housing: Assisted Living Facility Housing Other:: [facility] Alcohol intake: current Alcohol intake frequency: does not drink Comment: Asya huerta gave report Patient Tobacco Use Status: Current everyday Tobacco user Tobacco use type: Cigarette Cigarettes Per Day: 0 service: No Current occupational status: unemployed and disabled Review of Systems Const All systems reviewed & are unremarkable except as noted in HPI and below Reports no additional complaints ENT Reports Normal hearing present Card Denies chest pain, Denies chest pain at rest, Denies chest pain with activity and Denies pedal edema Resp Denies cough GI Denies abdominal pain Musc Denies abnormal gait, Denies muscle cramps and Denies radiating pain into limb Skin/Breast Denies skin ulcer and Denies wounds Neuro Reports Normal hearing present and Denies abnormal gait Psych Reports no additional complaints Physical Exam Vital Signs: BMI result Body Mass Index 33.6 Const General: cooperative, healthy appearing and comfortable Orientation/consciousness: oriented to person, oriented to place and oriented to time HEENT Head: Yes normal to inspection Neck Neck: Yes normal visual inspection Carotids: no bruits Chest Chest palpation & inspection: normal inspection of the chest Resp Effort & Inspection: normal respiratory effort and able to speak in complete sentences Auscultation: clear to auscultation bilaterally, no crackles, no rales, no rhon chi and no wheezes Cardio Rate: regular rate Rhythm: regular rhythm Heart sounds: S1 normal heart sound present and S2 normal heart sound present Bruits: no carotid bruits Peripheral pulses: Peripheral pulses 2+ throughout GI Inspection: Yes normal to inspection Skin Other: Right BKA stump nonhealing Wounds: no wounds Hair: normal Neuro General: oriented to person, oriented to place and oriented to time Cranial nerves: Yes CN's II-XII intact bilaterally and Yes Normal hearing present Cognition (Neuro): normal cognition Motor exam (neuro): 5/5 motor strength present throughout Extrem Other: venous exam: No significant superficial varicosities or spider telangiectasias, minimal edema General: No clubbing, No cyanosis and No edema Psych Appearance: grossly normal Mental Status: mental status grossly normal Speech and movement: Normal speech and movement present Assessment & Plan Assessment & Plan (1) PAD (peripheral artery disease): Comment: 01/31/2022 - right below-knee amputation Code(s): I73.9 - Peripheral vascular disease, unspecified Category: Medical Plan: In short patient has a nonhealing right lower extremity BKA stump. Will continue with local wound care. Unfortunately there may be a nidus of this nonhealing spot. We will continue with local wound care for now and have the patient follow-up. Should it remain nonhealing may require operative debridement. In addition we will try to obtain left lower extremity arterial ultrasound. Thank you for allowing us to assist in his care. If there are any questions or concerns please do not hesitate to contact us. Coding Level of Care Code Est Pt Level 3 (74001) Diagnoses PAD (peripheral artery disease) I73.9
== END 2024-01-02 14:17 | disposition home or self-care (01) ==
LOC: HO.HVS 13:59
PROVIDERS: PCP Internal Medicine; Visit Provider Surgery Vascular Surgery
DX: I73.9 Peripheral vascular disease, unspecified (principal)
CPT/HCPCS: 99213

== ENCOUNTER → 2024-01-02 13:58 | Outpatient (BNVA) | payer MEDICAID, SELFPAY | PROVIDERS: PCP Internal Medicine; Visit Provider Surgery Vascular Surgery | DX: S81.801D Unspecified open wound, right lower leg, subsequent encounter (principal); T87.89 Other complications of amputation stump; I73.9 Peripheral vascular disease, unspecified; Z89.511 Acquired absence of right leg below knee; X58.XXXD Exposure to other specified factors, subsequent encounter | CPT/HCPCS: 99212 ==

== ENCOUNTER 2024-01-17 12:59 | Outpatient (AMB) | payer MEDICAID, SELFPAY ==
[2024-01-17 13:00] VITALS: BMI 33.6
--- NOTE | 2024-01-17 13:00 | MHC.OFFVIS ---
Vital Signs 01/17/24 13:00 Height 5 ft 11 in Weight 241 lb BMI 33.6 Intake Visit Reasons: wound clinic Intake Note: follow up Right BKA non-healing stump, pt states that he no longer has wound. 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 He has a history of a nonhealing wound on his BKA stump. He states that the wound is healed at this point is not sure why he needed to be seen today. He has not been wearing his prosthetic, he wanted the wound completely healed before he started wearing it. He denies any pain at the site. He denies any wound drainage or bleeding. [facility] Medical History Cellulitis of right lower limb Repeated falls Weakness Other abnormalities of gait and mobility Anxiety disorder Mild intermittent asthma Alcoholic polyneuropathy Venous stasis ulcer Gastric ulcer Hypertension Asthma Epilepsy Alcohol abuse Surgical History History of colonoscopy History of nasal surgery History of back surgery Hx laparoscopic cholecystectomy History of skin graft Social History Household Members: None Household Members Other:: half-way Housing: Assisted Living Facility Housing Other:: [facility] Alcohol intake: current Alcohol intake frequency: does not drink Comment: Asya huerta gave report Patient Tobacco Use Status: Current everyday Tobacco user Tobacco use type: Cigarette Cigarettes Per Day: 0 service: No Current occupational status: unemployed and disabled Review of Systems Const Reports as per HPI and Denies weakness ENT Reports Normal hearing present and Denies dizziness Card Reports as per HPI, Denies chest pain, Denies chest pain at rest, Denies chest pain with activity, Denies dyspnea and Denies dyspnea on exertion Resp Reports as per HPI, Denies cough, Denies dyspnea and Denies dyspnea on exertion GI Reports as per HPI, Denies abdominal pain, Denies nausea and Denies vomiting Musc Denies numbness Skin/Breast Reports as per HPI, Denies erythema and Denies wounds Neuro Reports Normal hearing present, Denies dizziness, Denies numbness, Denies Sensory deficit (Neuro) and Denies weakness Psych Reports no additional complaints Endo Reports no additional complaints Physical Exam Vital Signs: BMI result Body Mass Index 33.6 Const General: healthy appearing and no acute distress Orientation/consciousness: patient oriented x3 HEENT Head: Yes normal to inspection Ears: hearing grossly normal bilaterally Mouth: Normal oral and palatal mucosa present Resp Effort & Inspection: normal respiratory effort and able to speak in complete sentences Auscultation: clear to auscultation bilaterally Cardio Jugular venous distension: no JVD Rate: regular rate Rhythm: regular rhythm Heart sounds: S1 normal heart sound present and S2 normal heart sound present Bruits: no abdominal aortic bruits, no carotid bruits, no femoral bruits and no renal bruits Peripheral pulses: Peripheral pulses 2+ throughout GI Inspection: Yes normal to inspection Palpation (GI): No Abdominal aortic bruit present Skin General skin exam: no rashes or lesions noted Wounds: no wounds Hair: normal Neuro General: patient oriented x3 Cranial nerves: Yes Normal hearing present Cognition (Neuro): normal cognition Gait exam (Neuro): Normal gait present Motor exam (neuro): 5/5 motor strength present throughout Sensory Exam: No Sensory deficit (Neuro) Extrem Other: Right BKA site: Completely healed. The area of the nonhealing wound is scabbed over. There are no new lacerations or wounds noted. General: Yes normal to inspection, Yes full ROM, Yes capillary refill normal and Yes normal gait Assessment & Plan Assessment & Plan (1) Leg wound, right: Code(s): S81.801A - Unspecified open wound, right lower leg, initial encounter Category: Medical Qualifiers: Encounter type: sequela Qualified Code(s): S81.801S - Unspecified open wound, right lower leg, sequela Plan: Remington is status post right BKA with concerns of a nonhealing BKA stump wound. He states the wound is now healed and is scabbing over. He has been holding off on wearing his prosthetic until it is completely healed. He denies any pain at the site. The wound is completely healed with scabbing noted. There are no other wounds or lacerations noted. We discussed that he can start wearing his prosthetic. We discussed continue to look out for any wounds that may occur due to the prosthetic; however, the prosthetic should fit well and should not be causing any lacerations or wounds. At this point, we will follow up with him as needed. If there are any questions or concerns, please do not hesitate to reach out to us. Coding Level of Care Code Est Pt Level 4 (88626) Diagnoses Wound of right lower extremity, sequela S81.801S Encounter type: sequela
== END 2024-01-17 13:11 | disposition home or self-care (01) ==
PROVIDERS: PCP Internal Medicine; Visit Provider Physician Assistant Surgical
DX: S81.801S Unspecified open wound, right lower leg, sequela (principal)
CPT/HCPCS: 99214

== ENCOUNTER → 2024-01-17 12:59 | Outpatient (BNVA) | payer MEDICAID, SELFPAY | PROVIDERS: PCP Internal Medicine; Visit Provider Physician Assistant Surgical | DX: S81.801D Unspecified open wound, right lower leg, subsequent encounter (principal) | CPT/HCPCS: 99212 ==